=== PATIENT | female | born 1950 | race Caucasian/White ===

== ENCOUNTER 2016-12-02 16:16 | Emergency (ER) | payer MEDICARE, MEDICAID ==
[2016-12-02 16:53] VITALS: BP 127/80
--- NOTE | 2016-12-02 17:29 | UC ---
Headache HPI - HPI Summary HPI Summary: The patient comes in today for: 1. "Left eye burning and nail sensation" and green rhinitis, and maxillary sinus pain and Onset: 4 days ago (sinus symptoms) Palliative/provocative: Nothing makes her symptoms better or worse. Quality: Pressure Region/radiation: Maxillary sinuses. Severity: 8/10 Time: Constant. Associated symptoms: Eye migraines (left eye burning and nail sensation): Since 42 years ago, she has had these symptoms. She was evaluated in [place], but not at the [facility]. But, she said that her dentist diagnosed her "ocular migranes." But, the patient states that her "trigeminal nerve in the front and the optical nerve in the back" were treated by lidocaine injections in her gums on the upper left gums. This has treated her symptoms. But, she has not been able to get in with her dentist today. Fevers: None. Cough: NOne Rhinitis: Positive with green material. Upper tooth pain: None. She wants Levaquin for her sinus infection as well as pain medication ( oxycodone) for her headache. She was told how Levaquin can lead to tendon rupture, but she states that she wants to accept the risk. She was told that I will only give hydrocodone as she has an extensive [facility] record. Even though she is listed as being allergic to Cipro for years, she states that she can tolerate Levaquin which she takes as 500 mg and that is what she wants. * - History Of Current Complaint Chief Complaint: UCHeadache Stated Complaint: HEADACHE Time Seen by Provider: 12/02/16 17:15 Hx Obtained From: Patient Hx Last Menstrual Period: "years ago" ?: No - Allergies/Home Medications Allergies/Adverse Reactions: Allergies Allergy/AdvReac Type Severity Reaction Status Date / Time Latex Allergy Intermediate Rash Verified 07/16/16 14:19 Aspirin [ASA] Allergy CAN'T TAKE Verified 07/16/16 14:19 DUE TO IBS Diphenhydramine Allergy HOT Verified 07/16/16 14:19 [From Benadryl] SENSATION FROM NECK TO FEET & TREMORS NSAIDs Allergy CAN'T TAKE Verified 07/16/16 14:19 DUE TO IBS Prochlorperazine Allergy HOT Verified 07/16/16 14:19 [From Compazine] SENSATION FROM NECK TO FEET & TREMORS Sumatriptan [From Imitrex] Allergy INCREASED Verified 07/16/16 14:19 MIGRAINES Valproic Acid [From Depakote] Allergy 50 SHERRELL Verified 07/16/16 14:19 WEIGHT GAINE, MIGRAINE WORSE & TREMORS Sulfamethoxazole AdvReac Severe GI Upset Verified 07/16/16 14:19 w/Trimethoprim [From Bactrim] Aripiprazole [From Abilify] AdvReac HYPERACTIVE Verified 07/16/16 14:19 CI Pigment Blue 63 AdvReac HYPERACTIVE Verified 07/16/16 14:19 [From Cymbalta] Ciprofloxacin [From Cipro] AdvReac DIARRHEA Verified 07/16/16 14:19 AND STOMACH CRAMPS Duloxetine [From Cymbalta] AdvReac HYPERACTIVE Verified 07/16/16 14:19 Erythromycin AdvReac DIARRHEA Verified 07/16/16 14:19 AND STOMACH CRAMPS Quetiapine [From Seroquel] AdvReac HYPERACTIVE Verified 07/16/16 14:19 Soy AdvReac Intermediate Diarrhea Uncoded 07/16/16 14:19 PMH/Surg Hx/FS Hx/Imm Hx Endocrine History Of: Denies: Diabetes, Thyroid Disease, Hyperthyroidism, Hypothyroidism, Dyslipidemia Cardiovascular History Of: Denies: Cardiac Disorders, Hypertension, Pacemaker/ICD, Myocardial Infarction , Congestive Heart Failure, Atrial Fibrillation, Deep Vein Thrombosis, Bleeding Disorders Respiratory History Of: Reports: Asthma Denies: COPD, Bronchitis, Pneumonia, Pulmonary Embolism GI/ History Of: Reports: Gastroesophageal Reflux Denies: Ulcer, Gastrointestinal Bleed, Gall Bladder Disease, Kidney Stones, Diverticulitis, Renal Disease, Urosepsis Neurological History Of: Reports: Migraine Denies: TIA, CVA, Dementia, Seizures Psychological History Of: Reports: Anxiety, Depression, Post Traumatic Stress Disorder Denies: Bipolar Disorder, Schizophrenia Cancer History Of: Denies: Lung Cancer, Colorectal Cancer, Breast Cancer, Cervical Cancer Other History Of: Negative For: HIV, Hepatitis B, Hepatitis C, Anticoagulant Therapy - Surgical History Surgical History: Yes Surgery Procedure, Year, and Place: total hysterectomy with oophorectomy 1996; SINUSES Xs2; BLADDER- CYSTOCELE AND RECTOCELE (NO METAL)/ 12/08; - Family History Known Family History: Positive: Cardiac Disease, Hypertension, Other - arthritis Negative: Diabetes - Social History Occupation: Unemployed Alcohol Use: None Substance Use Type: None Substance Use Comment - Amount & Last Used: PT DENIES Smoking Status (MU): Never Smoked Tobacco Have You Smoked in the Last Year: No - Immunization History Most Recent Influenza Vaccination: 2012 Most Recent Tetanus Shot: WITHIN PAST 5 YRS Most Recent Pneumonia Vaccination: 2012 Review of Systems Constitutional: Negative Skin: Negative Eyes: Negative ENT: Nasal Discharge Respiratory: Negative Cardiovascular: Negative Gastrointestinal: Negative Genitourinary: Negative Neurological: Headache All Other Systems Reviewed And Are Negative: Yes Physical Exam Triage Information Reviewed: Yes Appearance: Well-Appearing, No Pain Distress, Well-Nourished Vital Signs: Initial Vital Signs Temp 97.7 F 12/02/16 16:49 Pulse 69 12/02/16 16:49 Resp 18 12/02/16 16:49 BP 127/80 12/02/16 16:49 Pulse Ox 98 12/02/16 16:49 Vital Signs Reviewed: Yes Eyes: Positive: Conjunctiva Clear. Negative: Discharge ENT: Positive: Hearing grossly normal, Other: - she has tenderness to palpation of her frontal and maxillary sinuses.. Negative: Pharyngeal erythema, Nasal congestion, Nasal drainage, TM bulging, TM dull, TM red, Tonsillar swelling, Tonsillar exudate Dental: Negative: Gross Decay/Caries @, Dental Fracture @ Neck: Positive: Supple, Nontender, No Lymphadenopathy. Negative: Nuchal Rigidity Respiratory: Positive: Lungs clear, No respiratory distress, No accessory muscle use. Negative: Crackles, Wheezing Cardiovascular: Positive: RRR, No Murmur Abdomen Description: Positive: Nontender, No Organomegaly, Soft. Negative: Distended, Guarding Musculoskeletal: Positive: Strength Intact, ROM Intact, No Edema Neurological: Positive: Alert, Muscle Tone Normal Psychological: Positive: Age Appropriate Behavior, Consolable Skin: Negative: rashes, breakdown Headache Course/Dx - Differential Dx/Diagnosis Provider Diagnoses: Sinusitis. Cephalgia. Discharge - Discharge Plan Condition: Stable Disposition: HOME Patient Education Materials: Sinusitis (ED), General Headache (ED) Referrals: Christopher Kam MD [Primary Care Provider] - 3 Days (Please see your primary care provider in the next few days to see how you are doing. If you get worse, please go to the ER.)
== END 2016-12-02 18:06 | disposition home or self-care (01) ==
LOC: UCEAST 16:16
DX: J32.9 Chronic sinusitis, unspecified (principal); R51 Headache; Z88.1 Allergy status to other antibiotic agents; Z88.8 Allergy status to other drugs, medicaments and biological substances
CPT/HCPCS: 99212; G0463

== ENCOUNTER 2016-12-19 16:32 | Emergency (ER) | payer MEDICARE, MEDICAID ==
[2016-12-19 16:55] VITALS: BP 113/69
[2016-12-19] MEDS ORDERED: HYDROcodone/ACETAMIN 5-325 MG* 1 TAB PO ONE (18:05)
[2016-12-19] MEDS ORDERED: Ondansetron ODT TAB* 4 MG PO ONE (18:05)
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
== END 2016-12-19 19:03 | disposition home or self-care (01) ==
LOC: UCEAST 16:32
DX: G43.819 Other migraine, intractable, without status migrainosus (principal); J32.9 Chronic sinusitis, unspecified; J45.909 Unspecified asthma, uncomplicated; K21.9 Gastro-esophageal reflux disease without esophagitis; F41.8 Other specified anxiety disorders; F43.10 Post-traumatic stress disorder, unspecified; Z88.6 Allergy status to analgesic agent; Z88.1 Allergy status to other antibiotic agents; Z88.2 Allergy status to sulfonamides; Z88.8 Allergy status to other drugs, medicaments and biological substances
CPT/HCPCS: 99212; G0463

== ENCOUNTER 2017-02-24 12:13 | Emergency (ER) | payer MEDICARE, MEDICAID ==
--- NOTE | 2017-02-24 14:56 | UC ---
Headache HPI - HPI Summary HPI Summary: 3 DAYS OF MIGRAINE KEY. PT REPORTS SHE HAS OCULAR MIGRAINES. HAS PAIN AND PRESSURE ALL ACROSS HER FACE AND HEAD AND BEHIND HER LEFT EYE. HAS PHOTOPHOBIA, PHONOPHOBIA, NAUSEA AND DIZZINES. STATES SHE HAS SEEN NEURO IN THE PAST BUT THEY DIDN'T HELP HER. MANAGES HER MIGRAINES BY COMING HERE TO OR BURYING HER FACE IN A PILLOW AT HOME. REPORTS MIGRAINES ABOUT EVERY 2 WEEKS THAT CAN LAST FOR DAYS. IS REQUESTING NARCOTICS. STATES SHE HAD TORADOL A LONG TIME AGO AND IT DIDN'T HELP. - History Of Current Complaint Chief Complaint: MOUNAavelino Stated Complaint: MIGRAINE-LT EYE,PAIN/PRESSURE Time Seen by Provider: 02/24/17 14:46 Hx Obtained From: Patient Hx Last Menstrual Period: "years ago" Onset/Duration: Gradual Onset, Lasting Days, Still Present Currently Pain Is: Moderate Pain Intensity: 10 Pain Scale Used: 0-10 Numeric Timing: Constant Character: Throbbing, Pressure, Migraine Location of Headache: Frontal Aggravating Factor: Bright Lights Allevating Factors: Nothing Associated Signs And Symptoms: Positive: Dizziness, Nausea, Sinus Pressure - Allergies/Home Medications Allergies/Adverse Reactions: Allergies Allergy/AdvReac Type Severity Reaction Status Date / Time Latex Allergy Intermediate Rash Verified 02/24/17 14:27 Aspirin [ASA] Allergy CAN'T TAKE Verified 02/24/17 14:27 DUE TO IBS Diphenhydramine Allergy HOT Verified 02/24/17 14:27 [From Benadryl] SENSATION FROM NECK TO FEET & TREMORS NSAIDs Allergy CAN'T TAKE Verified 02/24/17 14:27 DUE TO IBS Prochlorperazine Allergy HOT Verified 02/24/17 14:27 [From Compazine] SENSATION FROM NECK TO FEET & TREMORS Sumatriptan [From Imitrex] Allergy INCREASED Verified 02/24/17 14:27 MIGRAINES Valproic Acid [From Depakote] Allergy 50 SHERRELL Verified 02/24/17 14:27 WEIGHT GAINE, MIGRAINE WORSE & TREMORS Sulfamethoxazole AdvReac Severe GI Upset Verified 02/24/17 14:27 w/Trimethoprim [From Bactrim] Aripiprazole [From Abilify] AdvReac HYPERACTIVE Verified 02/24/17 14:27 CI Pigment Blue 63 AdvReac HYPERACTIVE Verified 02/24/17 14:27 [From Cymbalta] Ciprofloxacin [From Cipro] AdvReac DIARRHEA Verified 02/24/17 14:27 AND STOMACH CRAMPS Duloxetine [From Cymbalta] AdvReac HYPERACTIVE Verified 02/24/17 14:27 Erythromycin AdvReac DIARRHEA Verified 02/24/17 14:27 AND STOMACH CRAMPS Quetiapine [From Seroquel] AdvReac HYPERACTIVE Verified 02/24/17 14:27 Soy AdvReac Intermediate Diarrhea Uncoded 02/24/17 14:27 Home Medications: Home Medications Loratadine [Claritin 10 MG CAP] 02/24/17 [History] Potassium Chlor TAB (NF) [Kaon-Cl-10 TAB (NF)] 02/24/17 [History] PMH/Surg Hx/FS Hx/Imm Hx Endocrine History Of: Denies: Diabetes, Thyroid Disease, Hyperthyroidism, Hypothyroidism, Dyslipidemia Cardiovascular History Of: Denies: Cardiac Disorders, Hypertension, Pacemaker/ICD, Myocardial Infarction , Congestive Heart Failure, Atrial Fibrillation, Deep Vein Thrombosis, Bleeding Disorders Respiratory History Of: Reports: Asthma Denies: COPD, Bronchitis, Pneumonia, Pulmonary Embolism GI/ History Of: Reports: Gastroesophageal Reflux Denies: Ulcer, Gastrointestinal Bleed, Gall Bladder Disease, Kidney Stones, Diverticulitis, Renal Disease, Urosepsis Neurological History Of: Reports: Migraine Denies: TIA, CVA, Dementia, Seizures Psychological History Of: Reports: Anxiety, Depression, Post Traumatic Stress Disorder Denies: Bipolar Disorder, Schizophrenia Cancer History Of: Denies: Lung Cancer, Colorectal Cancer, Breast Cancer, Cervical Cancer Other History Of: Negative For: HIV, Hepatitis B, Hepatitis C, Anticoagulant Therapy - Surgical History Surgical History: Yes Surgery Procedure, Year, and Place: total hysterectomy with oophorectomy 1996; SINUSES Xs2; BLADDER- CYSTOCELE AND RECTOCELE (NO METAL)/ 12/08; - Family History Known Family History: Positive: Cardiac Disease, Hypertension, Other - arthritis Negative: Diabetes - Social History Alcohol Use: None Substance Use Type: None Substance Use Comment - Amount & Last Used: PT DENIES Smoking Status (MU): Never Smoked Tobacco Have You Smoked in the Last Year: No - Immunization History Most Recent Influenza Vaccination: fall 2015 Most Recent Tetanus Shot: WITHIN PAST 5 YRS Most Recent Pneumonia Vaccination: 2012 Review of Systems Constitutional: Negative ENT: Negative Respiratory: Negative Cardiovascular: Negative Gastrointestinal: Other - NAUSEA Neurological: Headache, Other - DIZZY All Other Systems Reviewed And Are Negative: Yes Physical Exam Triage Information Reviewed: Yes Appearance: Well-Appearing, No Pain Distress, Well-Nourished, Other: - TREMOR Vital Signs: Initial Vital Signs Temp 98.2 F 02/24/17 14:30 Pulse 64 02/24/17 14:30 Resp 16 02/24/17 14:30 BP 150/83 02/24/17 14:30 Pulse Ox 100 02/24/17 14:30 Vital Signs Reviewed: Yes Eyes: Positive: Conjunctiva Clear ENT: Positive: Hearing grossly normal Neck: Positive: Supple Respiratory Exam: Normal Cardiovascular Exam: Normal Abdomen Description: Positive: Soft Musculoskeletal: Positive: No Edema Neurological: Positive: Alert Psychological: Positive: Age Appropriate Behavior Skin: Negative: rashes Re-Evaluation - Re-Evaluation First Eval Re-Evaluation Time: 17:30 - PAIN IS IMPROVED FROM 13/10 TO 4/10 AFTER 1L NS, 30MG TORADOL AND 4MG ZOFRAN Change: Improved Headache Course/Dx - Course Course Of Treatment: PT INITIALLY UPSET THAT I WOULD NOT TX WITH NARCOTICS. ADVISED PT TO SEEK NEURO FOLLOW-UP FOR MORE DEFINITIVE MIGRAINE MGMT. I ADVISED HER THAT I WOULD BE WILLING TO ATTEMPT TO ABORT HER MIGRAINE WITH NON-NARCOTIC MEDICATIONS AND IVF BUT THAT NARCOTIC MGMT WOULD NEED TO COME FROM HER PCP. PT HAS CHRONIC TRAMADOL, SOMA AND CLONAZEPAM ALREADY. PT WAS QUITE UPSET ABOUT NOT RECEIVING NARCOTICS BUT AGREED TO TRY IVF, TORADOL AND ZOFRAN. AFTER TX SHE DID HAVE IMPROVEMENT IN HER SX. - Differential Dx/Diagnosis Provider Diagnoses: MIGRAINE Discharge - Discharge Plan Condition: Stable Disposition: HOME Prescriptions: Ketorolac TAB * [Toradol TAB *] 10 mg PO Q6H PRN #20 tab PRN Reason: Headache Ondansetron ODT TAB* [Zofran Odt TAB*] 4 mg PO Q6H PRN #20 tab.odt PRN Reason: Nausea/Vomiting Patient Education Materials: Migraine Headache (ED) Referrals: Campbell Richter MD [Medical Doctor] - 2 Weeks Christopher Kam MD [Primary Care Provider] - 1 Week Additional Instructions: YOU RECEIVED 1LNS, 4MG ZOFRAN AND 30MG TORADOL TODAY WITH IMPROVEMENT IN YOUR SYMPTOMS. PLEASE CONSIDER FOLLOWING UP WITH NEUROLOGY TO DISCUSS POSSIBLE PROPHYLACTIC TREATMENTS FOR YOUR MIGRAINES.
[2017-02-24] MEDS ORDERED: Ondansetron INJ* 2 MG/ML VIAL IV ONE (15:07)
[2017-02-24] MEDS ORDERED: NS 0.9% 1000 ML* 1,000 ML IV SCH (15:15)
[2017-02-24] MEDS: Ketorolac INJ* 30 MG/ML 1 ML VIAL IV PUSH ONE ×2 (15:39→17:48)
[2017-02-24] MEDS ORDERED: Ketorolac INJ* 30 MG/ML 1 ML VIAL IV PUSH ONE (16:51)
[2017-02-24 17:27] VITALS: BP 145/77
[2017-02-24] MEDS ORDERED: Ondansetron ODT TAB* 4 MG PO ONE (17:40)
== END 2017-02-24 18:00 | disposition home or self-care (01) ==
LOC: UCEAST 12:13
DX: G43.909 Migraine, unspecified, not intractable, without status migrainosus (principal); J45.909 Unspecified asthma, uncomplicated; K21.9 Gastro-esophageal reflux disease without esophagitis; F41.9 Anxiety disorder, unspecified; F32.9 Major depressive disorder, single episode, unspecified; Z90.710 Acquired absence of both cervix and uterus; Z88.6 Allergy status to analgesic agent; Z88.1 Allergy status to other antibiotic agents; Z88.2 Allergy status to sulfonamides; Z88.8 Allergy status to other drugs, medicaments and biological substances; Z91.040 Latex allergy status
CPT/HCPCS: 96360; 96374; 99212; A9270-GY; G0463; J1885; J2405

== ENCOUNTER 2017-03-10 12:01 | Emergency (ER) | payer MEDICARE, MEDICAID ==
[2017-03-10 12:13] VITALS: BP 112/72
--- NOTE | 2017-03-10 14:15 | RAD ---
INDICATION: Dyspnea. 12 days LEFT rib pain. Respiratory disease/asthma. COMPARISON: August 29, 2016 TECHNIQUE: Dual energy PA and routine lateral views of the chest were obtained. REPORT: Rightward rotation noted. Elevated lung volumes and both diffuse mild prominence of the interstitial markings and patchy rarefaction of the mid to upper lung zone interstitial markings. No alveolar consolidation or focal pulmonary lesion evident. Suggestion of trace pleural effusions. Negative for pneumothorax. Negative for cardiomegaly. Unremarkable central pulmonary vasculature. Moderately tortuous descending thoracic aorta. IMPRESSION: IMPRESSION: Stigmata of obstructive lung disease. Probable trace pleural effusions of uncertain etiology. No compelling evidence for pneumonia.
--- NOTE | 2017-04-10 09:46 | UC ---
Cesar Espitia Benjamin, scribed for Nikki Funes DO on 03/10/17 at 1357 . Respiratory Complaint HPI - HPI Summary HPI Summary: 66yo female c/o cough and left rib pain after a fall 12 days ago. Also has cough. . Cough is occasionally productive and rib pain is worse with movement, breathing, or pressure. Pt also reports sinus congestion and KEY. Pt has chronic pain. - History of Current Complaint Chief Complaint: UCRespiratory Stated Complaint: URI Time Seen by Provider: 03/10/17 13:30 Hx Obtained From: Patient Hx Last Menstrual Period: "years ago" ?: No Onset/Duration: Gradual Onset, Lasting Days - 12, Still Present Timing: Constant Severity Initially: Moderate Severity Currently: Moderate Character: Cough: Nonproductive Associated Signs And Symptoms: Positive: Pleuritic Chest Pain, URI, Nasal Congestion. Negative: Dyspnea, Fever, Chills, Wheezing, Dizziness, Calf Pain, Calf Swelling, Sinus Discomfort - Risk Factors Tuberculosis Risk Factors: Incarceration - Allergies/Home Medications Allergies/Adverse Reactions: Allergies Allergy/AdvReac Type Severity Reaction Status Date / Time Latex Allergy Intermediate Rash Verified 03/28/17 10:42 Aspirin [ASA] Allergy CAN'T TAKE Verified 03/28/17 10:42 DUE TO IBS Clindamycin Allergy Diarrhea Verified 03/28/17 10:42 Diphenhydramine Allergy HOT Verified 03/28/17 10:42 [From Benadryl] SENSATION FROM NECK TO FEET & TREMORS NSAIDs Allergy CAN'T TAKE Verified 03/28/17 10:42 DUE TO IBS Prochlorperazine Allergy HOT Verified 03/28/17 10:42 [From Compazine] SENSATION FROM NECK TO FEET & TREMORS Sumatriptan [From Imitrex] Allergy INCREASED Verified 03/28/17 10:42 MIGRAINES Valproic Acid [From Depakote] Allergy 50 SHERRELL Verified 03/28/17 10:42 WEIGHT GAINE, MIGRAINE WORSE & TREMORS Sulfamethoxazole AdvReac Severe GI Upset Verified 03/28/17 10:42 w/Trimethoprim [From Bactrim] Aripiprazole [From Abilify] AdvReac HYPERACTIVE Verified 03/28/17 10:42 CI Pigment Blue 63 AdvReac HYPERACTIVE Verified 03/28/17 10:42 [From Cymbalta] Ciprofloxacin [From Cipro] AdvReac DIARRHEA Verified 03/28/17 10:42 AND STOMACH CRAMPS Duloxetine [From Cymbalta] AdvReac HYPERACTIVE Verified 03/28/17 10:42 Erythromycin AdvReac DIARRHEA Verified 03/28/17 10:42 AND STOMACH CRAMPS Quetiapine [From Seroquel] AdvReac HYPERACTIVE Verified 03/28/17 10:42 Soy AdvReac Intermediate Diarrhea Uncoded 03/28/17 10:42 PMH/Surg Hx/FS Hx/Imm Hx Previously Healthy: No - chronic pain Other History Of: Negative For: HIV, Hepatitis B, Hepatitis C, Anticoagulant Therapy - Surgical History Surgical History: Yes Surgery Procedure, Year, and Place: total hysterectomy with oophorectomy 1996; SINUSES Xs2; BLADDER- CYSTOCELE AND RECTOCELE (NO METAL)/ 12/08; - Family History Known Family History: Positive: Cardiac Disease, Hypertension, Other - arthritis Negative: Diabetes - Social History Occupation: Retired Lives: With Family Alcohol Use: None Substance Use Type: None Substance Use Comment - Amount & Last Used: PT DENIES Smoking Status (MU): Never Smoked Tobacco Have You Smoked in the Last Year: No - Immunization History Most Recent Influenza Vaccination: fall 2015 Most Recent Tetanus Shot: WITHIN PAST 5 YRS Most Recent Pneumonia Vaccination: 2012 Review of Systems Constitutional: Negative Skin: Negative Eyes: Negative ENT: Nasal Discharge, Other - sinus congestion Respiratory: Cough Cardiovascular: Negative Gastrointestinal: Negative Genitourinary: Negative Motor: Negative Neurovascular: Negative Musculoskeletal: Myalgia - left rib pain Neurological: Headache Psychological: Negative All Other Systems Reviewed And Are Negative: Yes Physical Exam Triage Information Reviewed: Yes Appearance: Well-Appearing, No Pain Distress, Well-Nourished Vital Signs: Initial Vital Signs Temp 97.8 F 03/10/17 12:10 Pulse 75 03/10/17 12:10 Resp 18 03/10/17 12:10 BP 112/72 03/10/17 12:10 Pulse Ox 98 03/10/17 12:10 Vital Signs Reviewed: Yes Eyes: Positive: Conjunctiva Clear. Negative: Discharge ENT: Positive: Pharynx normal, TMs normal, Other: - sinus tenderness. Negative : Muffled/hoarse voice Neck exam: Normal Neck: Positive: Supple Respiratory: Positive: Lungs clear, Normal breath sounds, No respiratory distress, No accessory muscle use Cardiovascular: Positive: RRR, No Murmur Abdomen Description: Positive: No Organomegaly, Soft, Other: - tender to light palpation on left rib. Musculoskeletal: Positive: Strength Intact, ROM Intact, Other: - tender left ribs 8-10 Neurological: Positive: Alert, Other: - tremors at rest - chronic per pt Psychological: Positive: Age Appropriate Behavior Skin Exam: Normal Skin: Negative: rashes UC Diagnostic Evaluation - Laboratory O2 Sat by Pulse Oximetry: 98 - Radiology Xray Interpretation: Positive (See Comments) - CXR IMPRESSION: Stigmata of obstructive lung disease. Probable trace pleural effusions of uncertain etiology. No compelling evidence for pneumonia. Radiology Interpretation Completed By: Radiologist Respiratory Course/Dx - Differential Dx/Diagnosis Differential Diagnosis/HQI/PQRI: Bronchitis, Lower Resp Infection, Pneumothorax Provider Diagnoses: rib contusion Discharge - Discharge Plan Condition: Stable Disposition: HOME Prescriptions: HYDROcodone/ACETAMIN 5-325 MG* [Woolwine 5-325 TAB*] 1 tab PO Q6H PRN #14 tab MDD 4 TABS PRN Reason: Pain Patient Education Materials: Rib Contusion (ED) Referrals: Christopher Kam MD [Primary Care Provider] - 2 Days Additional Instructions: ORAL NARCOTIC MEDICATION: You have been given a prescription for pain control. This medication is a narcotic. It's best taken with food, as nausea can result if taken on an empty stomach. Don't operate machinery or drive within six hours of taking this medication. Do not combine this medicine with alcohol, or with any medication which can cause sedation (such as cold tablets or sleeping pills) unless you get permission from the physician. Narcotics tend to cause constipation. If possible, drink plenty of fluids and eat a diet high in fiber and fruits. YOU WOULD LIKELY BENEFIT FROM OSTEOPATHIC TREATMENT. WE RECOMMEND THAT YOU FIND AN OSTEOPATHIC PHYSICIAN IN YOUR AREA WHO FOCUSES EXCLUSIVELY ON OSTEOPATHIC MANIPULATIVE MEDICINE WITH EXPERTISE IN MYOFACIAL, LYMPHATIC, VISCERAL AND INTEROSSEOUS WORK The documentation as recorded by the Cesar cabrales Benjamin accurately reflects the service I personally performed and the decisions made by me, Nikki Funes DO.
== END 2017-03-10 14:40 | disposition home or self-care (01) ==
LOC: UCEAST 12:01
DX: S20.212A Contusion of left front wall of thorax, initial encounter (principal); W19.XXXA Unspecified fall, initial encounter; Y93.9 Activity, unspecified; Y92.9 Unspecified place or not applicable; R05 Cough; R09.81 Nasal congestion; J44.9 Chronic obstructive pulmonary disease, unspecified; Z88.6 Allergy status to analgesic agent; Z88.1 Allergy status to other antibiotic agents; Z88.2 Allergy status to sulfonamides; Z88.8 Allergy status to other drugs, medicaments and biological substances; Z91.040 Latex allergy status
CPT/HCPCS: 71020; 99212; G0463

== ENCOUNTER 2017-03-28 10:10 | Emergency (ER) | payer MEDICARE, MEDICAID ==
[2017-03-28 10:37] VITALS: BP 109/63
--- NOTE | 2017-03-28 17:10 | ED ---
Abdominal Pain/Female - HPI Summary HPI Summary: 67 YEAR OLD FEMALE PRESENTS WITH COMPLAINS SEVERE ABDOMINAL PAIN AND EXPLOSIVE DIARRHEA X 1 WEEK - History of Current Complaint Chief Complaint: UCAbdominalPain Stated Complaint: DIARRHEA STOMACH PAIN BONES ACHE Time Seen by Provider: 03/28/17 10:48 Hx Last Menstrual Period: "years ago" Onset/Duration: Gradual Onset Timing: Intermittent Episode Lasting Severity Initially: Moderate Severity Currently: Moderate Pain Intensity: 10 Pain Scale Used: 0-10 Numeric - 7 Location: Diffuse Radiates: No Character: Sharp, Cramping Aggravating Factor(s): Movement Alleviating Factor(s): Nothing Associated Signs and Symptoms: Positive: Fever, Vomiting, Diarrhea Allergies/Adverse Reactions: Allergies Allergy/AdvReac Type Severity Reaction Status Date / Time Latex Allergy Intermediate Rash Verified 03/28/17 10:42 Aspirin [ASA] Allergy CAN'T TAKE Verified 03/28/17 10:42 DUE TO IBS Clindamycin Allergy Diarrhea Verified 03/28/17 10:42 Diphenhydramine Allergy HOT Verified 03/28/17 10:42 [From Benadryl] SENSATION FROM NECK TO FEET & TREMORS NSAIDs Allergy CAN'T TAKE Verified 03/28/17 10:42 DUE TO IBS Prochlorperazine Allergy HOT Verified 03/28/17 10:42 [From Compazine] SENSATION FROM NECK TO FEET & TREMORS Sumatriptan [From Imitrex] Allergy INCREASED Verified 03/28/17 10:42 MIGRAINES Valproic Acid [From Depakote] Allergy 50 SHERRELL Verified 03/28/17 10:42 WEIGHT GAINE, MIGRAINE WORSE & TREMORS Sulfamethoxazole AdvReac Severe GI Upset Verified 03/28/17 10:42 w/Trimethoprim [From Bactrim] Aripiprazole [From Abilify] AdvReac HYPERACTIVE Verified 03/28/17 10:42 CI Pigment Blue 63 AdvReac HYPERACTIVE Verified 03/28/17 10:42 [From Cymbalta] Ciprofloxacin [From Cipro] AdvReac DIARRHEA Verified 03/28/17 10:42 AND STOMACH CRAMPS Duloxetine [From Cymbalta] AdvReac HYPERACTIVE Verified 03/28/17 10:42 Erythromycin AdvReac DIARRHEA Verified 03/28/17 10:42 AND STOMACH CRAMPS Quetiapine [From Seroquel] AdvReac HYPERACTIVE Verified 03/28/17 10:42 Soy AdvReac Intermediate Diarrhea Uncoded 03/28/17 10:42 PMH/Surg Hx/FS Hx/Imm Hx Endocrine/Hematology History: Denies: Hx Anticoagulant Therapy, Hx Diabetes, Hx Thyroid Disease, Other Endocrine/Hematological Disorders Cardiovascular History: Denies: Hx Congestive Heart Failure, Hx Deep Vein Thrombosis, Hx Hypertension , Hx Myocardial Infarction, Hx Pacemaker/ICD, Other Cardiovascular Problems/ Disorders Respiratory History: Reports: Hx Asthma, Other Respiratory Problems/Disorders - PNUEMONIA Denies: Hx Chronic Obstructive Pulmonary Disease (COPD), Hx Lung Cancer, Hx Pneumonia, Hx Pulmonary Embolism GI History: Reports: Hx Irritable Bowel, Other GI Disorders - IBS Denies: Hx Gall Bladder Disease, Hx Gastrointestinal Bleed, Hx Ulcer, Hx Urosepsis History: Denies: Hx Kidney Stones, Hx Renal Disease, Other Problems/Disorders Musculoskeletal History: Reports: Hx Arthritis - Pt. states "everywhere", Hx Rheumatoid Arthritis, Hx Back Problems, Hx Osteoporosis Denies: Hx Scoliosis, Other Musculoskeletal History Sensory History: Reports: Hx Contacts or Glasses Denies: Hx Hearing Aid, Other Sensory Impairments Opthamlomology History: Reports: Hx Contacts or Glasses Denies: Other Sensory Impairments Neurological History: Reports: Hx Headaches, Hx Migraine Denies: Hx Dementia, Hx Seizures, Hx Transient Ischemic Attacks (TIA), Other Neuro Impairments/Disorders Psychiatric History: Reports: Hx Anxiety, Hx Depression, Hx Post Traumatic Stress Disorder, Hx Inpatient Treatment - hx, Hx Community Mental Health Tx, Hx Suicide Attempt, Hx Substance Abuse Denies: Hx Eating Disorder, Hx Panic Disorder, Hx Schizophrenia, Hx Bipolar Disorder, Other Psychiatric Issues/Disorders - Cancer History Cancer Type, Location and Year: Family history Hx Chemotherapy: No Hx Radiation Therapy: No - Surgical History Surgery Procedure, Year, and Place: total hysterectomy with oophorectomy 1996; SINUSES Xs2; BLADDER- CYSTOCELE AND RECTOCELE (NO METAL)/ 12/08; Hx Anesthesia Reactions: No Infectious Disease History: No Infectious Disease History: Denies: Hx Clostridium Difficile, Hx Hepatitis, Hx Human Immunodeficiency Virus (HIV), Hx of Known/Suspected MRSA, Hx Shingles, Hx Tuberculosis, Hx Known/ Suspected VRE, Hx Known/Suspected VRSA, History Other Infectious Disease, Traveled Outside the [place] in Last 30 Days - Family History Known Family History: Positive: Cardiac Disease, Hypertension, Other - arthritis Negative: Diabetes - Social History Alcohol Use: None Substance Use Type: Reports: None Substance Use Comment - Amount & Last Used: PT DENIES Hx Tobacco Use: No Smoking Status (MU): Never Smoked Tobacco Have You Smoked in the Last Year: No Review of Systems Positive: Fever Eyes: Negative ENT: Negative Cardiovascular: Negative Respiratory: Negative Positive: Abdominal Pain, Vomiting, Diarrhea Musculoskeletal: Negative Skin: Negative Neurological: Negative All Other Systems Reviewed And Are Negative: Yes Physical Exam Triage Information Reviewed: Yes Vital Signs On Initial Exam: Initial Vitals Temp Pulse Resp BP Pulse Ox 37.2 C 72 20 109/63 98 03/28/17 10:33 03/28/17 10:33 03/28/17 10:33 03/28/17 10:33 03/28/17 10:33 Vital Signs Reviewed: Yes Appearance: Positive: Ill-Appearing Head/Face: Positive: Normal Head/Face Inspection Eyes: Positive: Normal ENT: Positive: Normal ENT inspection Respiratory/Lung Sounds: Positive: Clear to Auscultation Cardiovascular: Positive: Normal Abdomen Description: Positive: Soft, Distended, Guarding Bowel Sounds: Positive: Present Diagnostics - Vital Signs Vital Signs Temp Pulse Resp BP Pulse Ox 03/28/17 10:33 37.2 C 72 20 109/63 98 - Laboratory Lab Statement: Any lab studies that have been ordered have been reviewed, and results considered in the medical decision making process. Abdominal Pain Fem Course/Dx - Diagnoses Differential Diagnosis: Positive: Diverticulitis Provider Diagnoses: Abdominal pain Discharge - Discharge Plan Condition: Guarded Disposition: TRANS HIGHER LVL OF CARE FAC Referrals: Christopher Kam MD [Primary Care Provider] -
== END 2017-03-28 11:23 | disposition short-term general hospital (02) ==
LOC: UCEAST 10:10
DX: R10.9 Unspecified abdominal pain (principal); J45.909 Unspecified asthma, uncomplicated; K58.9 Irritable bowel syndrome, unspecified; M06.9 Rheumatoid arthritis, unspecified; G43.909 Migraine, unspecified, not intractable, without status migrainosus; Z88.6 Allergy status to analgesic agent; Z91.040 Latex allergy status; F41.9 Anxiety disorder, unspecified; F32.9 Major depressive disorder, single episode, unspecified; F43.10 Post-traumatic stress disorder, unspecified
CPT/HCPCS: 99213; G0463

== ENCOUNTER 2017-03-28 11:49 | Emergency (ER) | payer MEDICARE, MEDICAID ==
[2017-03-28] MEDS ORDERED: Pantoprazole IV* 40 MG IV ONE (12:45)
[2017-03-28] MEDS: NS 0.9% 1000 ML* 2,000 ML IV ONE (12:59)
[2017-03-28 13:22] LABS: Hematocrit 40 % (35-47); Hemoglobin 13.7 g/dl (12.0-16.0); Mean Corpuscular HGB Conc 34 g/dl (31-36); Mean Corpuscular Hemoglobin 31 pg (27-31); Mean Corpuscular Volume 90 fL (80-97); Mean Platelet Volume 9 um3 (7.4-10.4); Red Cell Distribution Width 13 % (10.5-15); White Blood Count 7.9 10^3/ul (3.5-10.8)
[2017-03-28 13:37] LABS: ALT 19 U/L (7-52); AST 21 U/L (13-39); Albumin 4.4 g/dL (3.2-5.2); Alkaline Phosphatase 60 U/L (34-104); Amylase 38 U/L (29-103); Anion Gap 4 mmol/L (2-11); BUN/Creatinine Ratio 12.5 (8-20); Blood Urea Nitrogen 11 mg/dL (6-24); C Reactive Protein < 1.00 mg/L (< 5.00); CO2 Carbon Dioxide 24 mmol/L (22-32); Calcium 9.3 mg/dL (8.6-10.3); Chloride 107 mmol/L (101-111); EGFR African American 82.4 (>60); EGFR Non-African American 64.1 (>60); Globulin 2.5 g/dL (2-4); Glucose 101 mg/dL (70-100); Lipase 17 U/L (11.0-82.0); Potassium 3.7 mmol/L (3.5-5.0); Sodium 135 mmol/L (133-145); Total Protein 6.9 g/dL (6.4-8.9)
--- NOTE | 2017-03-28 14:30 | RAD ---
HISTORY: Abdominal pain, cough, pneumonia COMPARISONS: March 10, 2017 VIEWS: 2: Frontal and lateral views of the chest. FINDINGS: CARDIOMEDIASTINAL SILHOUETTE: The cardiomediastinal silhouette is normal. GIAN: The gian are normal. PLEURA: The costophrenic angles are sharp. No pleural abnormalities are noted. LUNG PARENCHYMA: There is hyperinflation with flattening of the diaphragm and expansion of the AP diameter of the chest. ABDOMEN: The upper abdomen is clear. There is no subphrenic gas. BONES AND SOFT TISSUES: No bone or soft tissue abnormalities are noted. OTHER: None. IMPRESSION: HYPERINFLATION, CONSISTENT WITH COPD. NO ACTIVE CARDIOPULMONARY DISEASE.
--- NOTE | 2017-03-28 14:31 | RAD ---
HISTORY: Abdominal pain, small bowel obstruction, ileus COMPARISONS: None relevant VIEWS: Supine and right lateral decubitus views of the abdomen FINDINGS: BOWEL: There is a nonspecific bowel gas pattern, with nondilated small bowel gas noted. There is a moderate amount of stool within the colon. CALCULI: There are no abnormal calculi. BONES AND SOFT TISSUES: Degenerative changes are noted OTHER FINDINGS: The lung bases are clear. There is no subphrenic gas. IMPRESSION: NONSPECIFIC BOWEL GAS PATTERN. NO APPRECIABLE FREE INTRAPERITONEAL GAS.
[2017-03-28 15:03] VITALS: BP 131/72
[2017-03-28] MEDS ORDERED: Sucralfate TAB* 1 GM PO ONE (15:53)
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
== END 2017-03-28 16:28 | disposition home or self-care (01) ==
LOC: ED 11:49
DX: R10.13 Epigastric pain (principal); K27.9 Peptic ulcer, site unspecified, unspecified as acute or chronic, without hemorrhage or perforation; R05 Cough; R19.7 Diarrhea, unspecified; R07.89 Other chest pain
CPT/HCPCS: 36415; 71020; 74020; 80053; 82150; 83605; 83690; 85025; 86140; 96374; 99283; A9270-GY

== ENCOUNTER 2017-03-30 19:07 | Emergency (ER) | payer MEDICARE, MEDICAID ==
[2017-03-30 20:56] LABS: Hematocrit 37 % (35-47); Hemoglobin 12.5 g/dl (12.0-16.0); Mean Corpuscular HGB Conc 34 g/dl (31-36); Mean Corpuscular Hemoglobin 30 pg (27-31); Mean Corpuscular Volume 90 fL (80-97); Mean Platelet Volume 9 um3 (7.4-10.4); Red Blood Count 4.16 10^6/ul (4.0-5.4); Red Cell Distribution Width 14 % (10.5-15); White Blood Count 6.5 10^3/ul (3.5-10.8)
[2017-03-30 21:12] LABS: ALT 12 U/L (7-52); AST 18 U/L (13-39); Albumin 3.9 g/dL (3.2-5.2); Alkaline Phosphatase 52 U/L (34-104); Anion Gap 8 mmol/L (2-11); BUN/Creatinine Ratio 7.8 (8-20); Blood Urea Nitrogen 7 mg/dL (6-24); C Reactive Protein < 1.00 mg/L (< 5.00); CO2 Carbon Dioxide 23 mmol/L (22-32); Calcium 8.7 mg/dL (8.6-10.3); Chloride 107 mmol/L (101-111); EGFR African American 80.3 (>60); EGFR Non-African American 62.5 (>60); Globulin 2.5 g/dL (2-4); Glucose 101 mg/dL (70-100); Lipase 32 U/L (11.0-82.0); Magnesium 2.2 mg/dL (1.9-2.7); Potassium 3.1 mmol/L (3.5-5.0); Sodium 138 mmol/L (133-145); Total Protein 6.4 g/dL (6.4-8.9)
--- NOTE | 2017-03-30 21:12 | ED ---
Nithya Espitia SooYoung, scribed for Grant Estrada MD on 03/30/17 at 2040 . Abdominal Pain/Female - HPI Summary HPI Summary: A 67 y/o F MARIAMA presents to ED with c/o acute on chronic LUQ abd pain for past two months. Associated sx: diarrhea. Pain rated as 9 out of 10. She was seen by [facility] and referred to ED two days ago. Pt returned to ED because the discharge papers told her to do so if the pain continued. PCP is Dr. Kam. She states she is scheduled to him later this week. Last saw him approx two months ago. - History of Current Complaint Chief Complaint: EDAbdPain Stated Complaint: DIARRHEA Time Seen by Provider: 03/30/17 20:32 Hx Obtained From: Patient, EMS Hx Last Menstrual Period: "years ago" Onset/Duration: Still Present Timing: Constant Severity Currently: Severe Pain Intensity: 9 Pain Scale Used: 0-10 Numeric Location: Discrete At: LUQ Associated Signs and Symptoms: Positive: Diarrhea Allergies/Adverse Reactions: Allergies Allergy/AdvReac Type Severity Reaction Status Date / Time Latex Allergy Intermediate Rash Verified 03/28/17 10:42 Aspirin [ASA] Allergy CAN'T TAKE Verified 03/28/17 10:42 DUE TO IBS Clindamycin Allergy Diarrhea Verified 03/28/17 10:42 Diphenhydramine Allergy HOT Verified 03/28/17 10:42 [From Benadryl] SENSATION FROM NECK TO FEET & TREMORS NSAIDs Allergy CAN'T TAKE Verified 03/28/17 10:42 DUE TO IBS Prochlorperazine Allergy HOT Verified 03/28/17 10:42 [From Compazine] SENSATION FROM NECK TO FEET & TREMORS Sumatriptan [From Imitrex] Allergy INCREASED Verified 03/28/17 10:42 MIGRAINES Valproic Acid [From Depakote] Allergy 50 SHERRELL Verified 03/28/17 10:42 WEIGHT GAINE, MIGRAINE WORSE & TREMORS Sulfamethoxazole AdvReac Severe GI Upset Verified 03/28/17 10:42 w/Trimethoprim [From Bactrim] Aripiprazole [From Abilify] AdvReac HYPERACTIVE Verified 03/28/17 10:42 CI Pigment Blue 63 AdvReac HYPERACTIVE Verified 03/28/17 10:42 [From Cymbalta] Ciprofloxacin [From Cipro] AdvReac DIARRHEA Verified 03/28/17 10:42 AND STOMACH CRAMPS Duloxetine [From Cymbalta] AdvReac HYPERACTIVE Verified 03/28/17 10:42 Erythromycin AdvReac DIARRHEA Verified 03/28/17 10:42 AND STOMACH CRAMPS Quetiapine [From Seroquel] AdvReac HYPERACTIVE Verified 03/28/17 10:42 Soy AdvReac Intermediate Diarrhea Uncoded 03/28/17 10:42 PMH/Surg Hx/FS Hx/Imm Hx Previously Healthy: No Endocrine/Hematology History: Denies: Hx Anticoagulant Therapy, Hx Diabetes, Hx Thyroid Disease, Other Endocrine/Hematological Disorders Cardiovascular History: Denies: Hx Congestive Heart Failure, Hx Deep Vein Thrombosis, Hx Hypertension , Hx Myocardial Infarction, Hx Pacemaker/ICD, Other Cardiovascular Problems/ Disorders Respiratory History: Reports: Hx Asthma, Other Respiratory Problems/Disorders - PNUEMONIA Denies: Hx Chronic Obstructive Pulmonary Disease (COPD), Hx Lung Cancer, Hx Pneumonia, Hx Pulmonary Embolism GI History: Reports: Hx Irritable Bowel, Other GI Disorders - IBS Denies: Hx Gall Bladder Disease, Hx Gastrointestinal Bleed, Hx Ulcer, Hx Urosepsis History: Denies: Hx Kidney Stones, Hx Renal Disease, Other Problems/Disorders Musculoskeletal History: Reports: Hx Arthritis - Pt. states "everywhere", Hx Rheumatoid Arthritis, Hx Back Problems, Hx Osteoporosis Denies: Hx Scoliosis, Other Musculoskeletal History Sensory History: Reports: Hx Contacts or Glasses Denies: Hx Hearing Aid, Other Sensory Impairments Opthamlomology History: Reports: Hx Contacts or Glasses Denies: Other Sensory Impairments Neurological History: Reports: Hx Headaches, Hx Migraine Denies: Hx Dementia, Hx Seizures, Hx Transient Ischemic Attacks (TIA), Other Neuro Impairments/Disorders Psychiatric History: Reports: Hx Anxiety, Hx Depression, Hx Post Traumatic Stress Disorder, Hx Inpatient Treatment - hx, Hx Community Mental Health Tx, Hx Suicide Attempt, Hx Substance Abuse Denies: Hx Eating Disorder, Hx Panic Disorder, Hx Schizophrenia, Hx Bipolar Disorder, Other Psychiatric Issues/Disorders - Cancer History Cancer Type, Location and Year: Family history Hx Chemotherapy: No Hx Radiation Therapy: No - Surgical History Surgery Procedure, Year, and Place: total hysterectomy with oophorectomy 1996; SINUSES Xs2; BLADDER- CYSTOCELE AND RECTOCELE (NO METAL)/ 12/08; Hx Anesthesia Reactions: No Infectious Disease History: No Infectious Disease History: Denies: Hx Clostridium Difficile, Hx Hepatitis, Hx Human Immunodeficiency Virus (HIV), Hx of Known/Suspected MRSA, Hx Shingles, Hx Tuberculosis, Hx Known/ Suspected VRE, Hx Known/Suspected VRSA, History Other Infectious Disease, Traveled Outside the [place] in Last 30 Days - Family History Known Family History: Positive: Cardiac Disease, Hypertension, Other - arthritis Negative: Diabetes - Social History Occupation: Retired Lives: Alone Alcohol Use: None Hx Substance Use: Yes Substance Use Comment - Amount & Last Used: PT DENIES Hx Tobacco Use: No Smoking Status (MU): Never Smoked Tobacco Have You Smoked in the Last Year: No Review of Systems Negative: Fever Positive: Abdominal Pain, Diarrhea All Other Systems Reviewed And Are Negative: Yes Physical Exam Triage Information Reviewed: Yes Vital Signs On Initial Exam: Initial Vitals Temp Pulse Resp BP Pulse Ox 98.7 F 58 18 140/63 98 03/30/17 19:13 03/30/17 19:13 03/30/17 19:13 03/30/17 19:13 03/30/17 19:13 Vital Signs Reviewed: Yes Appearance: Positive: No Pain Distress, Thin Skin: Positive: Warm Head/Face: Positive: Normal Head/Face Inspection Eyes: Positive: PAVEL ENT: Positive: Hearing grossly normal Neck: Positive: Supple Respiratory/Lung Sounds: Positive: Clear to Auscultation, Breath Sounds Present Cardiovascular: Positive: RRR Abdomen Description: Positive: No Organomegaly, Soft, Guarding, Other: - mild diffuse tenderness. Negative: Distended Bowel Sounds: Positive: Present Musculoskeletal: Positive: Strength/ROM Intact Neurological: Positive: Alert, Oriented to Person Place, Time Psychiatric: Positive: Affect/Mood Appropriate Diagnostics - Vital Signs Vital Signs Temp Pulse Resp BP Pulse Ox 03/30/17 19:16 98.7 F 58 18 140/63 98 03/30/17 19:13 98.7 F 58 18 140/63 98 - Laboratory Lab Results: Lab Results 03/30/17 Range/Units 20:48 WBC 6.5 (3.5-10.8) 10^3/ul RBC 4.16 (4.0-5.4) 10^6/ul Hgb 12.5 (12.0-16.0) g/dl Hct 37 (35-47) % MCV 90 (80-97) fL MCH 30 (27-31) pg MCHC 34 (31-36) g/dl RDW 14 (10.5-15) % Plt Count 175 (150-450) 10^3/ul MPV 9 (7.4-10.4) um3 Neut % (Auto) 45.2 (38-83) % Lymph % (Auto) 43.2 (25-47) % [place] % (Auto) 8.5 (1-9) % Eos % (Auto) 2.4 (0-6) % Baso % (Auto) 0.7 (0-2) % Absolute Neuts (auto) 2.9 (1.5-7.7) 10^3/ul Absolute Lymphs (auto) 2.8 (1.0-4.8) 10^3/ul Absolute Monos (auto) 0.5 (0-0.8) 10^3/ul Absolute Eos (auto) 0.2 (0-0.6) 10^3/ul Absolute Basos (auto) 0 (0-0.2) 10^3/ul Absolute Nucleated RBC 0 10^3/ul Nucleated RBC % 0 Result Diagrams: 03/30/17 20:48 03/30/17 20:48 Lab Statement: Any lab studies that have been ordered have been reviewed, and results considered in the medical decision making process. - CT ABD/PEL CT Interpretation: No Acute Changes - IMPRESSION: Small bilateral pleural effusions. No inflammatory process identified in the abd or pelvis. No abd mass , adenopathy, or collection seen. No explanation seen for this pt's abd pain. CT Interpretation Completed By: Radiologist Re-Evaluation - Re-Evaluation 1 Re-Evaluation Time: 00:00 Change: Unchanged Comment: Discussing CT results with pt. Abdominal Pain Fem Course/Dx - Course Course Of Treatment: Pt is a 67 y/o F presenting with c/o acute on chronic LUQ abd pain for past two months. Pain rated as 9 out of 10. She was seen by [facility] and referred to ED two days ago. Pt returned to ED because the discharge papers told her to do so if the pain continued. PCP is Dr. Kam. She states she is scheduled to him later this week. Last saw him approx two months ago. Pt given potassium chloride in ED. Labs are WNL except low potassium; glucose is mildly elevated; BUN/C ratio is 7.8. CRP is WNL. ABD/PEL CT shows "Small bilateral pleural effusions. No inflammatory process identified in the abd or pelvis. No abd mass, adenopathy, or collection seen. No explanation seen for this pt's abd pain.". Will D/C home without meds. - Diagnoses Provider Diagnoses: Abdominal pain Discharge - Discharge Plan Condition: Stable Disposition: HOME Patient Education Materials: Abdominal Pain (ED) Referrals: Christopher Kam MD [Primary Care Provider] - 1 Week Evan Gaston MD [Medical Doctor] - 1 Week Additional Instructions: Follow up with your primary care provider this week. Follow up with Dr. Gaston, Gastroenterology, this week to discuss your chronic abdominal pain. The documentation as recorded by the Nithya cabrales SooYoung accurately reflects the service I personally performed and the decisions made by me, Grant Estrada MD.
[2017-03-30] MEDS ORDERED: Iohexol 300* (CONTRAST) 10 ML SDV IV ONE (21:26)
[2017-03-30] MEDS ORDERED: Potassium Chlor TAB* 20 MEQ TAB.ER PO ONE (21:42)
[2017-03-31 00:14] VITALS: BP 146/66
--- NOTE | 2017-03-31 08:04 | RAD ---
INDICATION: Abdominal pain. COMPARISON: Comparison is made with a prior study from February 17, 2016. TECHNIQUE: A CT scan of the abdomen and pelvis was performed with intravenous and oral contrast following intravenous injection of 97 ml of Omnipaque 300 nonionic contrast. Contiguous axial sections were obtained from the lung bases through the symphysis pubis. Images were reconstructed in the coronal and sagittal planes. FINDINGS: The lung bases are clear. There are small bilateral pleural effusions present. The liver and spleen are within normal limits in size without significant focal abnormality. No calcified gallstones are seen. The pancreas appears to be within normal limits in size. The kidneys and adrenal glands are normal in size. No hydronephrosis is seen. No significant focal renal abnormality is seen. The aorta is normal in caliber and demonstrates homogeneous contrast opacification. No significant enlarged retroperitoneal lymph nodes are seen. The stomach, small and large bowel appear nondistended. The appendix is not visualized. No inflammatory changes are seen in the right lower quadrant. There is mild descending and sigmoid diverticulosis without evidence for diverticulitis. The patient is status post hysterectomy. No free intraperitoneal air or fluid is seen. There is a nodule in the retroareolar region of the left breast measuring 1.5 cm in size. This correlates with a cyst on prior mammograms and a left breast ultrasound from August 07, 2016 and August 21, 2016. No significant focal osseous abnormality is seen. There is soft tissue swelling present in the subcutaneous tissues bilaterally in the gluteal regions which is unchanged from the prior study possibly representing injection granulomata. IMPRESSION: 1. SMALL BILATERAL PLEURAL EFFUSIONS. 2. NO EVIDENCE FOR ACUTE FINDING OR CAUSE FOR THE PATIENT'S ABDOMINAL PAIN. 3. STATUS POST HYSTERECTOMY.
== END 2017-03-31 00:12 | disposition home or self-care (01) ==
LOC: ED 19:07
DX: R10.12 Left upper quadrant pain (principal); R19.7 Diarrhea, unspecified; J45.909 Unspecified asthma, uncomplicated; K58.9 Irritable bowel syndrome, unspecified; M06.9 Rheumatoid arthritis, unspecified; G43.909 Migraine, unspecified, not intractable, without status migrainosus; F41.9 Anxiety disorder, unspecified; F32.9 Major depressive disorder, single episode, unspecified; Z90.710 Acquired absence of both cervix and uterus; Z88.6 Allergy status to analgesic agent; Z88.1 Allergy status to other antibiotic agents; Z88.2 Allergy status to sulfonamides; Z91.040 Latex allergy status
CPT/HCPCS: 36415; 74177; 80053; 83605; 83690; 83735; 85025; 86140; 99283; A9270-GY; Q9967

== ENCOUNTER 2017-05-10 18:51 | Inpatient (IN) | payer MEDICARE, MEDICAID ==
[2017-05-10] MEDS ORDERED: NS 0.9% 1000 ML* 1,000 ML IV ONE (19:20)
[2017-05-10 20:23] LABS: Urine Bilirubin Negative (Negative); Urine Glucose Negative (Negative); Urine Nitrite Negative (Negative)
[2017-05-10 20:40] LABS: Hematocrit 38 % (35-47); Hemoglobin 12.2 g/dl (12.0-16.0); Mean Corpuscular HGB Conc 32 g/dl (31-36); Mean Corpuscular Hemoglobin 29 pg (27-31); Mean Corpuscular Volume 90 fL (80-97); Mean Platelet Volume 9 um3 (7.4-10.4); Red Blood Count 4.17 10^6/ul (4.0-5.4); Red Cell Distribution Width 14 % (10.5-15); White Blood Count 7.8 10^3/ul (3.5-10.8)
--- NOTE | 2017-05-10 20:41 | ED ---
I, Oh,Soohhamun, scribed for Grant Estrada MD on 05/10/17 at 1925 . Complex/Multi-Sys Presentation - HPI Summary HPI Summary: This 67 y/o female presents to ED via BLS ambulance for generalized weakness since this morning. Positive "rubbery legs", difficulty ambulating, "mouth full of cotton", and KEY. Pt states that she attempted to control her weakness by taking biotin and eating toast without much alleviation. "Valley will get stuck in my throat". Negative fever. PMHx includes known migraine, hypothyroidism, HTN , IBS, osteoporosis, and depression. - History Of Current Complaint Chief Complaint: EDWeakness Hx Obtained From: Patient, Medical Records Onset/Duration: Still Present Timing: Constant Associated Signs And Symptoms: Positive: Weakness - general, Headache, Decreased Oral Intake. Negative: Fever - Allergies/Home Medications Allergies/Adverse Reactions: Allergies Allergy/AdvReac Type Severity Reaction Status Date / Time Latex Allergy Intermediate Rash Verified 05/10/17 19:20 Aspirin [ASA] Allergy CAN'T TAKE Verified 05/10/17 19:20 DUE TO IBS Clindamycin Allergy Diarrhea Verified 05/10/17 19:20 Diphenhydramine Allergy HOT Verified 05/10/17 19:20 [From Benadryl] SENSATION FROM NECK TO FEET & TREMORS NSAIDs Allergy CAN'T TAKE Verified 05/10/17 19:20 DUE TO IBS Prochlorperazine Allergy HOT Verified 05/10/17 19:20 [From Compazine] SENSATION FROM NECK TO FEET & TREMORS Sumatriptan [From Imitrex] Allergy INCREASED Verified 05/10/17 19:20 MIGRAINES Valproic Acid [From Depakote] Allergy 50 SHERRELL Verified 05/10/17 19:20 WEIGHT GAINE, MIGRAINE WORSE & TREMORS Sulfamethoxazole AdvReac Severe GI Upset Verified 05/10/17 19:20 w/Trimethoprim [From Bactrim] Aripiprazole [From Abilify] AdvReac HYPERACTIVE Verified 05/10/17 19:20 CI Pigment Blue 63 AdvReac HYPERACTIVE Verified 05/10/17 19:20 [From Cymbalta] Ciprofloxacin [From Cipro] AdvReac DIARRHEA Verified 05/10/17 19:20 AND STOMACH CRAMPS Duloxetine [From Cymbalta] AdvReac HYPERACTIVE Verified 05/10/17 19:20 Erythromycin AdvReac DIARRHEA Verified 05/10/17 19:20 AND STOMACH CRAMPS Quetiapine [From Seroquel] AdvReac HYPERACTIVE Verified 05/10/17 19:20 Soy AdvReac Intermediate Diarrhea Uncoded 05/10/17 19:20 PMH/Surg Hx/FS Hx/Imm Hx Endocrine/Hematology History: Denies: Hx Anticoagulant Therapy, Hx Diabetes, Hx Thyroid Disease, Other Endocrine/Hematological Disorders Cardiovascular History: Denies: Hx Congestive Heart Failure, Hx Deep Vein Thrombosis, Hx Hypertension , Hx Myocardial Infarction, Hx Pacemaker/ICD, Other Cardiovascular Problems/ Disorders Respiratory History: Reports: Hx Asthma, Other Respiratory Problems/Disorders - PNUEMONIA Denies: Hx Chronic Obstructive Pulmonary Disease (COPD), Hx Lung Cancer, Hx Pneumonia, Hx Pulmonary Embolism GI History: Reports: Hx Irritable Bowel, Other GI Disorders - IBS Denies: Hx Gall Bladder Disease, Hx Gastrointestinal Bleed, Hx Ulcer, Hx Urosepsis History: Denies: Hx Kidney Stones, Hx Renal Disease, Other Problems/Disorders Musculoskeletal History: Reports: Hx Arthritis - Pt. states "everywhere", Hx Rheumatoid Arthritis, Hx Back Problems, Hx Osteoporosis Denies: Hx Scoliosis, Other Musculoskeletal History Sensory History: Reports: Hx Contacts or Glasses Denies: Hx Hearing Aid, Other Sensory Impairments Opthamlomology History: Reports: Hx Contacts or Glasses Denies: Other Sensory Impairments Neurological History: Reports: Hx Headaches, Hx Migraine Denies: Hx Dementia, Hx Seizures, Hx Transient Ischemic Attacks (TIA), Other Neuro Impairments/Disorders Psychiatric History: Reports: Hx Anxiety, Hx Depression, Hx Post Traumatic Stress Disorder, Hx Inpatient Treatment - hx, Hx Community Mental Health Tx, Hx Suicide Attempt, Hx Substance Abuse Denies: Hx Eating Disorder, Hx Panic Disorder, Hx Schizophrenia, Hx Bipolar Disorder, Other Psychiatric Issues/Disorders - Cancer History Cancer Type, Location and Year: Family history Hx Chemotherapy: No Hx Radiation Therapy: No - Surgical History Surgery Procedure, Year, and Place: total hysterectomy with oophorectomy 1996; SINUSES Xs2; BLADDER- CYSTOCELE AND RECTOCELE (NO METAL)/ 12/08; Hx Anesthesia Reactions: No Infectious Disease History: Denies: Hx Clostridium Difficile, Hx Hepatitis, Hx Human Immunodeficiency Virus (HIV), Hx of Known/Suspected MRSA, Hx Shingles, Hx Tuberculosis, Hx Known/ Suspected VRE, Hx Known/Suspected VRSA, History Other Infectious Disease, Traveled Outside the [place] in Last 30 Days - Family History Known Family History: Positive: Cardiac Disease, Hypertension, Other - arthritis Negative: Diabetes - Social History Alcohol Use: None Hx Substance Use: Yes Substance Use Type: Reports: None Substance Use Comment - Amount & Last Used: PT DENIES Hx Tobacco Use: No Smoking Status (MU): Never Smoked Tobacco Have You Smoked in the Last Year: No Review of Systems Negative: Fever Positive: Other - "mouth full of cotton" Positive: Other - Decreased oral intake Neurological: Other - Positive difficulty ambulating Positive: Headache, Weakness - generalized. "Rubbery legs" All Other Systems Reviewed And Are Negative: Yes Physical Exam Triage Information Reviewed: Yes Vital Signs Reviewed: Yes Appearance: Positive: No Pain Distress, Thin, Cachectic Skin: Positive: Warm Head/Face: Positive: Normal Head/Face Inspection Eyes: Positive: PAVEL ENT: Positive: Hearing grossly normal Neck: Positive: Supple Respiratory/Lung Sounds: Positive: Clear to Auscultation, Breath Sounds Present Cardiovascular: Positive: Bradycardia Abdomen Description: Positive: Nontender, Soft Bowel Sounds: Positive: Present Musculoskeletal: Positive: Strength/ROM Intact Neurological: Positive: Alert, Oriented to Person Place, Time Psychiatric: Positive: Affect/Mood Appropriate Diagnostics - Laboratory Result Diagrams: 05/10/17 19:20 05/10/17 19:20 Lab Statement: Any lab studies that have been ordered have been reviewed, and results considered in the medical decision making process. - EKG 1920 Cardiac Rate: Bradycardia - 38 bpm EKG Rhythm: Sinus Bradycardia Re-Evaluation - Re-Evaluation First Eval Comment: results d/w pt, case d/w hospitalist Complex Multi-Symp Course/Dx Assessment/Plan: This 67 y/o female presents to ED for general weakness since this morning. Pt is noted with sinus bradycardia with HR in 30's. Past EMR indicates that pt has been bradycardic in 40s. Bloodwork is unremarkable with mildly elevated blood glucose of 103. UA is normal. Lab work and EKG with bradycardia are shared and discussed with Dr. Deluna, hospitalist air conditioning mechanic. - Diagnoses Provider Diagnoses: Sinus bradycardia - Physician Notifications Discussed Care Of Patient With: iNi Deluna Time Discussed With Above Provider: 21:11 Instructed by Provider To: Admit As Inpatient Discharge - Discharge Plan Condition: Fair Disposition: ADMITTED TO [facility] documentation as recorded by the Agustin cabrales Soohyun accurately reflects the service I personally performed and the decisions made by me, Grant Estrada MD.
[2017-05-10 20:53] LABS: Albumin 4.1 g/dL (3.2-5.2); BUN/Creatinine Ratio 9.8 (8-20); EGFR African American 89.4 (>60); EGFR Non-African American 69.5 (>60); Globulin 2.4 g/dL (2-4); Magnesium 2.1 mg/dL (1.9-2.7); Potassium 3.9 mmol/L (3.5-5.0); Total Bilirubin 0.5 mg/dL (0.2-1.0); Total Protein 6.5 g/dL (6.4-8.9)
[2017-05-10 20:55] LABS: Troponin I 0.01 ng/mL (<0.04)
[2017-05-10] MEDS ORDERED: Pantoprazole IV* 40 MG IV SCH (22:00)
[2017-05-10] MEDS: Acetaminophen TAB* 325 MG PO PRN (23:59)
[2017-05-10] MEDS: NS 0.9% 1000 ML* 1,000 ML IV SCH (23:59)
[2017-05-11] MEDS: Heparin VIAL(*) 5000 UNITS/ML VIAL (FIVE THOUSAND) SUBCUT SCH ×4 (00:27→21:24)
--- NOTE | 2017-05-11 02:21 | HP ---
CC: Dr. Kam * [facility] MEDICINE HISTORY AND PHYSICAL: DATE OF ADMISSION: 05/10/17 PRIMARY CARE PHYSICIAN: Dr. Kam. ATTENDING PHYSICIAN: Dr. Nii Deluna * (dictation provided by Katina Wood NP). CHIEF COMPLAINT: Epigastric pain, nausea, poor oral intake. HISTORY OF PRESENT ILLNESS: Ms. Giraldo is a 67-year-old female with past medical history of COPD, hypothyroidism, migraines, PTSD, borderline personality disorder, anxiety and depression,who presents to the hospital today with concern for epigastric pain and poor oral intake. Ms. Giraldo states that she has had ongoing issue with epigastric discomfort for few months. She is a very difficult historian and it is difficult to obtain from her the exact details of her recent illness, but it seems that she has had epigastric pain for which she has been told that she has a peptic ulcer. She denies having any recent endoscopic procedures. She has been started on Carafate and omeprazole for this complaint. She said initially it was better this week; however, she ate something that did not agree with her and thereafter, she has had return of this pain as well as very poor oral intake. She reports very dry mucous membranes and difficulty swallowing secondary to what she feels is dehydration. She denies any vomiting but she has had one episode of explosive diarrhea that was 2 days ago. Ms. Giraldo denies fevers. She denies chills. She denies chest pain or shortness of breath. She does report being under increased stress related to someone who lives in her building moving out to a snf and feels that perhaps this is contributing to her symptoms. In the emergency room, Ms. Giraldo was noted to have bradycardia with her heart rate running into the 30s. On review of the record, it seems that in the past, the patient was once admitted with bradycardia as well. However, she also reports feeling very dehydrated, having epigastric pain, and difficulty tolerating oral intake. Her labs show no leukocytosis. Her electrolytes are normal. Her BUN and creatinine are normal. Her vital signs are normal. PAST MEDICAL HISTORY: 1. History of COPD. 2. Hypothyroidism. 3. Migraines. 4. IBS. 5. PTSD. 6. Suicide attempt. 7. Anxiety. 8. Depression. 9. Chronic pain. 10. Borderline personality disorder. 11. History of PE. MEDICATIONS: I attempted to review the medications with Ms. Giraldo today. She states that she has already reviewed them with someone in the emergency room , although I cannot find any evidence of this and she is refusing to go over the list with me, perhaps pharmacy can be called in the morning. ALLERGIES: To LATEX, ASPIRIN, CLINDAMYCIN, DIPHENHYDRAMINE, NSAIDs, PROCHLORPERAZINE, SUMATRIPTAN, VALPROIC ACID, SULFAMETHOXAZOLE/TRIMETHOPRIM, ARIPIPRAZOLE, C.I. PIGMENT BLUE , CIPRO, DULOXETINE, ERYTHROMYCIN, QUETIAPINE, and SOY. FAMILY HISTORY: Reviewed, noncontributory. SOCIAL HISTORY: No prior alcohol, tobacco, or drug use. The patient lives alone. She has no one to name as healthcare proxy. REVIEW OF SYSTEMS: A 14-point review of systems was completed with Ms. Giraldo and all those not mentioned above were negative. PHYSICAL EXAMINATION GENERAL: Ms. Giraldo is lying in the bed. She is in no acute distress. VITAL SIGNS: Temperature 98, pulse rate 45, respiratory rate 20, O2 saturation 98% on room air, blood pressure 123/65. LUNGS: Clear are clear to auscultation bilaterally with no accessory muscle use and good aeration. HEART: S1, S2. No murmur, rub, or gallop and regular. ABDOMEN: Soft. She reports tenderness to very deep palpation in the left to mid epigastric region. The abdomen is soft. There is no rebound. There is no guarding. Bowel sounds are positive. EXTREMITIES: No cyanosis or edema. NEURO: She is alert, she is oriented x3. She moves all extremities equally. There is no facial asymmetry or focal weakness. Extraocular movements are intact. SKIN: Intact. DIAGNOSTIC STUDIES/LAB DATA: WBC 7.8, hemoglobin 12.2, hematocrit 38, platelet count 221. Sodium 134, potassium 3.9, chloride 104, serum bicarbonate 24, BUN 8, creatinine 0.82, glucose 103, lactic acid 1.3. Urine shows no evidence of infection. Troponin is 0.01. EKG shows sinus bradycardia with no evidence of ischemia. ASSESSMENT AND PLAN: Ms. Giraldo is a 67-year-old female with past medical history of an episode of sinus bradycardia, chronic obstructive pulmonary disease, hypothyroidism, migraines with irritable bowel syndrome, posttraumatic stress disorder, suicidal attempts, anxiety, depression, and borderline personality disorder, who presents to the hospital today with concern for weakness, nausea, epigastric pain, poor oral intake, and found to be bradycardic. Our plans are for observation in the hospital for the followin. Bradycardia: I see one episode where the patient was bradycardic in the past. At that point, they felt that it was perhaps related to benzodiazepine overdose. The patient has no report of overdose, intentional or otherwise. She is not currently prescribed benzodiazepines through [facility]. I have low suspicion that is the cause today. I think that perhaps she has benign sinus bradycardia at times. Plan to monitor her on telemetry given that she is reporting symptoms of weakness, etc. 2. Nausea, epigastric pain, poor oral intake: The patient has been told that perhaps she has a peptic ulcer and I am suspicious that she has some sort of upper gastrointestinal process causing her symptoms. I think that it is appropriate to continue with her Carafate and switch to IV famotidine tonight. If her symptoms are not improved by the morning and she is not able to tolerate oral intake after IV hydration, then recommend consideration Gastroenterology consultation. 3. Dehydration: The patient reports subjective sense of dehydration and on exam, she does appear dry. However, her labs are unremarkable. I do plan to continue with IV hydration to the evening and recheck labs tomorrow. 4. Chronic pain: The patient refused to review her medication list with me this evening. Plan to obtain a list from her pharmacy in the AM when they are open. Until then, she will have tylenol prn. 5. DVT prophylaxis: With heparin subcu. 6. Disposition: To telemetry floor. 7. Code status: Full code. TIME SPENT: Approximately 60 minutes was spent on the admission of this patient , more than half time spent with the patient at the bedside reviewing the events leading up to this hospitalization, performing the physical examination, and reviewing my plan of care. KATINA WOOD NP [id number]/[facility] #: [id number] BREANN
[2017-05-11 05:18] LABS: Hematocrit 34 % (35-47); Hemoglobin 11.2 g/dl (12.0-16.0); Mean Corpuscular HGB Conc 33 g/dl (31-36); Mean Corpuscular Hemoglobin 30 pg (27-31); Mean Corpuscular Volume 90 fL (80-97); Mean Platelet Volume 9 um3 (7.4-10.4); Red Blood Count 3.77 10^6/ul (4.0-5.4); Red Cell Distribution Width 14 % (10.5-15); White Blood Count 5.7 10^3/ul (3.5-10.8)
[2017-05-11 06:44] LABS: BUN/Creatinine Ratio 9.9 (8-20); Calcium 8.4 mg/dL (8.6-10.3); EGFR African American 105.6 (>60); EGFR Non-African American 82.1 (>60); Potassium 3.4 mmol/L (3.5-5.0)
[2017-05-11] MEDS: Sucralfate TAB* 1 GM PO SCH ×3 (07:21→20:02)
[2017-05-11] MEDS: Acetaminophen TAB* 325 MG PO PRN (07:21)
[2017-05-11] MEDS: Famotidine IV* 10 MG/ML 2 ML (20 mg) IV SCH ×2 (07:22→20:02)
[2017-05-11] MEDS: NS 0.9% 1000 ML* 1,000 ML IV SCH ×2 (07:26→15:27)
[2017-05-11] MEDS ORDERED: Carisoprodol TAB* 350 MG PO PRN (09:48)
[2017-05-11] MEDS: HYDROcodone/ACETAMIN 5-325 MG* 1 TAB PO PRN ×3 (10:07→20:01)
[2017-05-11] MEDS: Ondansetron INJ* 2 MG/ML VIAL IV PRN (11:29)
[2017-05-11] MEDS ORDERED: Potassium Chloride LIQUID* 20 MEQ PACKET PO ONE (15:39)
--- NOTE | 2017-05-11 15:58 | PN ---
Subjective Date of Service: 05/11/17 Interval History: Pt is feeling better now than she has. She states her nausea was resolved with eating saltines. She still feels very weak however. She states she was diagnosed with a peptic ulcer by CT scan and has never had EGD. Objective Active Medications: Acetaminophen (Tylenol Tab*) 650 mg PO Q6H PRN PRN Reason: PAIN Last Admin: 05/11/17 07:21 Dose: 650 mg Hydrocodone Bitart/Acetaminophen ([place] 5-325 Tab*) 1 tab PO Q4H PRN PRN Reason: PAIN Last Admin: 05/11/17 14:07 Dose: 1 tab Carisoprodol (Soma Tab*) 350 mg PO Q8H PRN PRN Reason: pain/spasms Famotidine (Pepcid Iv*) 20 mg IV BID [facility] Last Admin: 05/11/17 07:22 Dose: 20 mg Heparin Sodium (Porcine) (Heparin Vial(*)) 5,000 units SUBCUT Q8HR [facility] Last Admin: 05/11/17 13:00 Dose: 5,000 units Sodium Chloride (Ns 0.9% 1000 Ml*) 1,000 mls @ 125 mls/hr IV PER RATE [facility] Last Admin: 05/11/17 15:27 Dose: 125 mls/hr Ondansetron HCl (Zofran Inj*) 4 mg IV Q6H PRN PRN Reason: NAUSEA Last Admin: 05/11/17 11:29 Dose: 4 mg Sucralfate (Carafate*) 1 gm PO 0700,1100,1600 [facility] Vital Signs 05/10/17 05/11/17 05/11/17 22:08 03:09 06:54 Temperature 98.0 F 97.9 F Pulse Rate 40 39 Respiratory 20 16 16 Rate Blood Pressure 136/65 125/65 (mmHg) O2 Sat by Pulse 99 96 Oximetry 05/11/17 05/11/17 05/11/17 07:20 10:07 12:06 Temperature 97.4 F 99.1 F Pulse Rate 40 42 Respiratory 22 18 24 Rate Blood Pressure 129/63 124/57 (mmHg) O2 Sat by Pulse 98 95 Oximetry 05/11/17 05/11/17 12:07 14:07 Temperature Pulse Rate Respiratory 18 16 Rate Blood Pressure (mmHg) O2 Sat by Pulse Oximetry Oxygen Devices in Use Now: None Appearance: Middle aged female lying in bed, NAD Eyes: No Scleral Icterus Ears/Nose/Mouth/Throat: Mucous Membranes Moist Respiratory: Symmetrical Chest Expansion and Respiratory Effort, Clear to Auscultation Cardiovascular: NL Sounds; No Murmurs; No JVD, RRR, No Edema Abdominal: NL Sounds; No Tenderness; No Distention Extremities: No Clubbing, Cyanosis Skin: No Rash or Ulcers, No Nodules or Sclerosis Neurological: Alert and Oriented x 3 Result Diagrams: 05/11/17 04:38 05/11/17 04:38 Assess/Plan/Problems-Billing Ms Giraldo is a 67 yo F who has a h/o COPD, hypothyroidism, IBS, anxiety/ depression, chronic pain and borderline personality who presented to the ER with c/o epigastric discomfort. - Patient Problems (1) Epigastric pain Current Visit: Yes Status: Acute Code(s): R10.13 - EPIGASTRIC PAIN SNOMED Code(s): 18110584 Comment: The etiology is not clear. She has been told perhaps she has a peptic ulcer causing her pain but she has never had an EGD. I will contact GI for consultation for possible EGD tomorrow. Will continue clears for now as the patient does not want anything more. (2) COPD (chronic obstructive pulmonary disease) Current Visit: Yes Status: Acute Code(s): J44.9 - CHRONIC OBSTRUCTIVE PULMONARY DISEASE, UNSPECIFIED SNOMED Code(s): 24907593 Comment: No signs of exacerbation. Monitor respiratory status. (3) Sinus bradycardia Current Visit: Yes Status: Acute Code(s): R00.1 - BRADYCARDIA, UNSPECIFIED SNOMED Code(s): 52368383 Comment: Pt continues to have heart rates in the 40-50's. She is asymptomatic. No further evaluation at this time. (4) Chronic pain Current Visit: Yes Status: Acute Code(s): G89.29 - OTHER CHRONIC PAIN SNOMED Code(s): 70436181 Comment: Continue prn soma and norco. (5) Anxiety and depression Current Visit: Yes Status: Acute Code(s): F41.8 - OTHER SPECIFIED ANXIETY DISORDERS SNOMED Code(s): 379272794 Comment: Continue prn clonazepam. (6) DVT prophylaxis Current Visit: Yes Status: Acute Code(s): NBV0292 - SNOMED Code(s): 700786088 Comment: SQ heparin (7) Full code status Current Visit: Yes Status: Acute Code(s): Z78.9 - OTHER SPECIFIED HEALTH STATUS SNOMED Code(s): 159709576
[2017-05-11] MEDS ORDERED: Sucralfate TAB* 1 GM PO SCH ×2 (16:00)
[2017-05-11] MEDS: clonazePAM TAB(*) 1 MG PO PRN (20:01)
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
[2017-05-12] MEDS: HYDROcodone/ACETAMIN 5-325 MG* 1 TAB PO PRN ×4 (00:17→12:40)
[2017-05-12] MEDS: Ondansetron INJ* 2 MG/ML VIAL IV PRN (00:17)
[2017-05-12] MEDS: clonazePAM TAB(*) 1 MG PO PRN (04:14)
[2017-05-12] MEDS ORDERED: LORazepam INJ* 2 MG/ML 1 ML VIAL IV PUSH PRN (04:43)
[2017-05-12 05:14] LABS: Hematocrit 38 % (35-47); Hemoglobin 12.9 g/dl (12.0-16.0); Mean Corpuscular HGB Conc 34 g/dl (31-36); Mean Corpuscular Hemoglobin 30 pg (27-31); Mean Corpuscular Volume 90 fL (80-97); Mean Platelet Volume 10 um3 (7.4-10.4); Red Blood Count 4.28 10^6/ul (4.0-5.4); Red Cell Distribution Width 14 % (10.5-15); White Blood Count 6.5 10^3/ul (3.5-10.8)
[2017-05-12 05:49] LABS: BUN/Creatinine Ratio 12.3 (8-20); Calcium 8.9 mg/dL (8.6-10.3); EGFR African American 90.7 (>60); EGFR Non-African American 70.5 (>60); Potassium 3.5 mmol/L (3.5-5.0)
[2017-05-12] MEDS: Heparin VIAL(*) 5000 UNITS/ML VIAL (FIVE THOUSAND) SUBCUT SCH ×2 (05:51→13:24)
[2017-05-12] MEDS: Famotidine IV* 10 MG/ML 2 ML (20 mg) IV SCH (07:56)
[2017-05-12] MEDS: Sucralfate TAB* 1 GM PO SCH ×3 (08:02→16:10)
[2017-05-12 13:31] LABS: C Reactive Protein 1.46 mg/L (< 5.00)
[2017-05-12] MEDS ORDERED: fentaNYL* 50 MCG/ML 2 ML VIAL (100 MCG VIAL) ONE (13:35)
[2017-05-12] MEDS ORDERED: Midazolam* 1 MG/ML 10 ML VIAL (10 MG) ONE (13:35)
[2017-05-12 15:32] VITALS: BP 123/75
--- NOTE | 2017-05-12 16:01 | PN ---
Subjective Date of Service: 05/12/17 Interval History: Pt examined today at the bedside. States that she feels nausated after the EGD. Denies chest pain and denies sob. Denies vomiting. Denies lightheadedness. ROS-denies fever, denies chills, denies lightheadedness, denies chest pain, denies sob, admits to nausea, denies vomiting, denies lightheadedness, denies loc, review of 11 systems completed all others negative, Objective Active Medications: Acetaminophen (Tylenol Tab*) 650 mg PO Q6H PRN PRN Reason: PAIN Last Admin: 05/11/17 07:21 Dose: 650 mg Hydrocodone Bitart/Acetaminophen ([place] 5-325 Tab*) 1 tab PO Q4H PRN PRN Reason: PAIN Last Admin: 05/12/17 12:40 Dose: 1 tab Carisoprodol (Soma Tab*) 350 mg PO Q8H PRN PRN Reason: pain/spasms Clonazepam (Klonopin Tab(*)) 1 mg PO QID PRN PRN Reason: ANXIETY Last Admin: 05/12/17 04:14 Dose: 1 mg Famotidine (Pepcid Iv*) 20 mg IV BID [facility] Last Admin: 05/12/17 07:56 Dose: 20 mg Heparin Sodium (Porcine) (Heparin Vial(*)) 5,000 units SUBCUT Q8HR [facility] Last Admin: 05/12/17 13:24 Dose: Not Given Lorazepam (Ativan Inj*) 0.5 mg IV PUSH Q4H PRN PRN Reason: ANXIETY Ondansetron HCl (Zofran Inj*) 4 mg IV Q6H PRN PRN Reason: NAUSEA Last Admin: 05/12/17 00:17 Dose: 4 mg Sucralfate (Carafate*) 1 gm PO 0700,1100,1600,2100 [facility] Last Admin: 05/12/17 10:14 Dose: Not Given Vital Signs 05/11/17 05/11/17 05/11/17 16:07 19:23 20:01 Temperature Pulse Rate 54 Respiratory 16 20 22 Rate Blood Pressure 149/76 (mmHg) O2 Sat by Pulse 98 Oximetry 05/11/17 05/11/17 05/12/17 22:01 23:22 00:17 Temperature 98.6 F Pulse Rate 54 Respiratory 18 16 20 Rate Blood Pressure 111/61 (mmHg) O2 Sat by Pulse 98 Oximetry 05/12/17 05/12/17 05/12/17 02:17 03:41 04:14 Temperature 97.9 F Pulse Rate 51 Respiratory 18 24 20 Rate Blood Pressure 145/70 (mmHg) O2 Sat by Pulse 100 Oximetry 05/12/17 05/12/17 05/12/17 04:19 06:14 06:16 Temperature Pulse Rate Respiratory 18 18 18 Rate Blood Pressure (mmHg) O2 Sat by Pulse Oximetry 05/12/17 05/12/17 05/12/17 06:19 07:21 08:36 Temperature 98.3 F Pulse Rate 50 Respiratory 18 16 18 Rate Blood Pressure 126/66 (mmHg) O2 Sat by Pulse 100 Oximetry 05/12/17 05/12/17 05/12/17 10:12 11:48 12:40 Temperature Pulse Rate 100 Respiratory 18 16 18 Rate Blood Pressure 138/61 (mmHg) O2 Sat by Pulse 98 Oximetry 05/12/17 15:22 Temperature 98.6 F Pulse Rate 50 Respiratory 24 Rate Blood Pressure 123/75 (mmHg) O2 Sat by Pulse 97 Oximetry Oxygen Devices in Use Now: None Appearance: 67 y/o female patient NAD, Eyes: No Scleral Icterus Ears/Nose/Mouth/Throat: NL Teeth, Lips, Gums Neck: NL Appearance and Movements; NL JVP Respiratory: Symmetrical Chest Expansion and Respiratory Effort, Clear to Auscultation Cardiovascular: NL Sounds; No Murmurs; No JVD Abdominal: NL Sounds; No Tenderness; No Distention Extremities: No Edema Skin: No Rash or Ulcers Neurological: Alert and Oriented x 3 Lines/Tubes/Other Access: Clean, Dry and Intact Peripheral IV Result Diagrams: 05/12/17 04:14 05/12/17 04:14 Assess/Plan/Problems-Billing Ms Giraldo is a 67 yo F who has a h/o COPD, hypothyroidism, IBS, anxiety/ depression, chronic pain and borderline personality who presented to the ER with c/o epigastric discomfort. - Patient Problems (1) Anxiety and depression Current Visit: Yes Status: Acute Priority: High Comment: Continue prn clonazepam. (2) COPD (chronic obstructive pulmonary disease) Current Visit: Yes Status: Acute Priority: High Comment: No signs of exacerbation. Monitor respiratory status. stable (3) Chronic pain Current Visit: Yes Status: Acute Priority: High Comment: Continue prn soma and norco. pain controlled (4) DVT prophylaxis Current Visit: Yes Status: Acute Priority: High Comment: SQ heparin (5) Epigastric pain Current Visit: Yes Status: Acute Priority: High Comment: The etiology is not clear. EGD negative today small hernia noted, continue ppi and carafate, follow up with GI outpatient, bx pending from egd (6) Full code status Current Visit: Yes Status: Acute Priority: High (7) Sinus bradycardia Current Visit: Yes Status: Acute Priority: High Comment: Pt continues to have heart rates in the 50-60's She is asymptomatic. No further evaluation at this time. 40's at rest, follow with pcp Status and Disposition: If tolerated PO intake consider d/c sarah
--- NOTE | 2017-05-13 04:59 | DS ---
ADDENDUM NOW INCLUDED ON THIS REPORT CC: Dr. Kam; Dr. Gaston * DISCHARGE SUMMARY: DATE OF ADMISSION: 05/10/17 DATE OF DISCHARGE: 05/12/17 PRIMARY CARE PROVIDER: Dr. Kam. CONSULTING BULB GRADER: Dr. Gaston. ATTENDING PHYSICIAN: Dr. Belkis Ortiz * (report being dictated by Maicol Asif NP) PRINCIPAL DIAGNOSIS: Include epigastric pain, now resolved. SECONDARY DIAGNOSES: Include: 1. Chronic obstructive pulmonary disease. 2. Hypothyroidism. 3. Migraines. 4. Irritable bowel syndrome. 5. Posttraumatic stress disorder. 6. Suicide attempts. 7. Anxiety. 8. Depression. 9. Chronic pain. 10. Borderline personality disorder. 11. History of pulmonary embolism. DISCHARGE MEDICATIONS: Include: 1. Cipro 0.3%, 1 drop, right eye, t.i.d. 2. Klonopin 1 mg p.o. 4 times a day. 3. Ketorolac 0.5%, right eye, t.i.d. 4. Gabapentin 400 mg at bedtime. 5. Prednisolone 1 drop, right eye, t.i.d. 6. Tramadol 100 mg p.o. t.i.d. as needed. 7. Imodium 2 mg p.o. daily as needed per instructions. 8. Trazodone 150 mg at bedtime. 9. Carafate 1 g p.o. 4 times a day. 10. Prilosec 40 mg a day. 11. Prozac 30 mg p.o. daily. 12. Soma 350 mg p.o. daily. 13. Zofran 4 mg p.o. every 6 hours as needed for nausea. HISTORY OF PRESENTING ILLNESS AND HOSPITAL COURSE: I will refer you to the H and P dictated by Katina Wood on the 05/10/17 for further details. In short, Ms. Giraldo is a 67-year-old female patient who presented to the ER with complaints of epigastric pain, nausea, and poor oral intake. She stated that she has been having ongoing epigastric discomfort for a few months. She said she she had been started on Carafate and omeprazole. She was feeling better over the week; however, she ate something that did not agree with her and therefore she had return of the pain and very poor oral intake. She was admitted due to the epigastric pain, concern for dehydration. It was also noted that she had 1 episode of bradycardia in the ER. She was placed on telemetry and seen that she was bradycardic only at night. Throughout her hospital stay during the day, she lona appropriately into the upper 50s and mid 60s. She did continue though will have nausea intermittently. She does state yesterday and today that she felt better after taking saltine crackers. GI was consulted yesterday in her hospital stay. The patient underwent an EGD today, which per verbal report, there were no ulcers or gastritis, but there was hernia. Refer Dr. Gaston's report. The patient was continued on a regular diet. She tolerated the diet tonight. She states she felt a little nauseous, but she states that she feels improved from her baseline, which she came in. She is not having any chest pain or shortness of breath. For her dehydration, she was treated with IV fluids. Her labs appeared to be stable. For chronic pain, her pain was well controlled with her current medical regimen. Because of the EGD being negative, in fact if she tolerated p.o. challenge tonight and she only felt nauseous but did not vomit, she will be discharged home with p.o. Zofran. CONDITION AT DISCHARGE: Stable. STATUS DURING HOSPITALIZATION: Observation. DISCHARGE LABS: Today included WBC 6.5, RBC of 4.28, hemoglobin 12.9, hematocrit 38, platelet count 194. Sodium 141, potassium 3.5, chloride 110, bicarb 22, BUN 10, creatinine 0.81, glucose 92, CRP 146. Urine obtained during this admission was negative. She had an EKG done with admission which showed sinus bradycardia, rate of 38. No ST elevations or T-wave inversions were noted. She remained on telemetry. Again, her heart rate did not dip below into the 30s. She, at bedtime, dipped into the 40s and 50s and that when she was ambulatory during the day, she was up into the 60s. She did have an EGD done today, I will refer you to the procedure report for details. She did have an abdominal and pelvis CT done beginning of March which showed, impression: small bilateral pleural effusions, no CT evidence for acute findings or cause of patient's abdominal pain, status post hysterectomy. All medical records were reviewed. ISSUES TO BE ADDRESSED ON FOLLOWUP: With her primary care provider included: 1. Epigastric pain. At this point, there are celiac biopsies pending which will be followed up with her primary care provider, Dr. Kam. Followup has been obtained. I suspect etiology of the epigastric pain is unclear at this point, but I will continue with PPI and Carafate until the cultures come back from the biopsies taken today from the EGD. She can follow up with her primary. 2. COPD. Continue meds as prescribed. 3. Hypothyroidism. Continue meds as prescribed. 4. IBS. Continue current medical regimen. 5. Nausea. I did order p.r.n. Zofran. 6. History of PTSD, anxiety and depression. Continue meds as prescribed. 7. Chronic pain. Continue her tramadol. 8. Borderline personality disorder. Again, follow up with her primary care provider. 9. Issues to return to the hospital include, but are not limited to, chest pain , shortness of breath, fevers, chills, nausea, vomiting or any other worsening symptoms. 10. This is a complex medical case, review medical chart for further details. TIME SPENT: Time spent on the discharge was approximately 30 minutes; greater than half the time spent [id number] with the patient going over the discharge plan, the other half time was spent in implementing the discharge plan. I did discuss the discharge plan with my attending, Dr. Ortiz, who is in agreement. MAICOL ASIF NP ADDENDUM: Physical exam on discharge revealed vital signs blood pressure 123/75, pulse 50 , respirations 20, O2 sat 97%, temperature 98.6. On exam, Ms. Giraldo is a 67 -year-old female patient. She is chronically ill appearing. She does not appear to be in any acute distress. HEENT: Head: Atraumatic. Eyes: Sclerae anicteric. Neck: Supple. Throat: Oral mucosa appear dry. No pharyngeal erythema. Heart: Sounds S1, S2, regular rate and rhythm. No murmurs or gallops. Lungs: Clear to auscultation bilaterally. No wheezes, rales, or rhonchi. Abdomen is soft, flat, nontender. Bowel sounds are present. Extremities: Pulses were 2+ throughout. No peripheral edema. Neurologically, she was awake, alert, oriented x3. No gross focal deficits. Skin grossly intact. MAICOL ASIF, VICKY [id number]/[facility]PS #: [id number]/CPS #: [id number] BREANN
--- NOTE | 2017-05-13 07:53 | DS ---
DISCHARGE SUMMARY:* ADDENDUM: Physical exam on discharge revealed vital signs blood pressure 123/75 , pulse 50, respirations 20, O2 sat 97%, temperature 98.6. On exam, Ms. Giraldo is a 67-year-old female patient. She is chronically ill appearing. She does not appear to be in any acute distress. HEENT: Head: Atraumatic. Eyes: Sclerae anicteric. Neck: Supple. Throat: Oral mucosa appear dry. No pharyngeal erythema. Heart: Sounds S1, S2, regular rate and rhythm. No murmurs or gallops. Lungs: Clear to auscultation bilaterally. No wheezes, rales, or rhonchi. Abdomen is soft, flat, nontender. Bowel sounds are present. Extremities: Pulses were 2+ throughout. No peripheral edema. Neurologically, she was awake, alert, oriented x3. No gross focal deficits. Skin grossly intact. JORGE BERNAL NP [id number]/[facility] #: [id number] [facility]OSPITALLiana
--- NOTE | 2017-05-13 17:09 | PRO ---
PROCEDURE REPORT: DATE OF PROCEDURE: 05/12/17 PROCEDURE: Esophagogastroduodenoscopy. INDICATIONS: Abdominal pain. REFERRING PHYSICIAN: No referring physician. MEDICATIONS: 1. 100 mcg IV fentanyl. 2. 14 mg IV Versed. PROCEDURE IN DETAIL: After the EGD procedure, including the risks, benefits and alternatives, not l imited to perforation, surgery, and/or were explained to Mrs. Giraldo, written consent was t hen obtained, IV medication was given, and a bite block was placed between the teeth. An Olympus ga stroscope was then inserted into the patient's mouth and advanced down the esophagus, into the stoma ch, into the distal duodenum. In the esophagus, the GE junction was normal. She did have a small h iatal hernia. Scope was then advanced through the GE junction into the body of stomach. Retroflex and forward views were unremarkable. Biopsies were obtained for H. pylori. Scope was advanced thro ugh a widely patent pylorus into the duodenal bulb into the distal duodenum, both of which were unre markable. Scope was then withdrawn from the patient, she tolerated the procedure well. She was ret urned to her hospital room in stable condition. IMPRESSION: 1. Complete upper endoscopy into the distal duodenum with biopsies. 2. Very small hiatal hernia. 3. Biopsies from the stomach. 4. No etiology was seen for her abdominal pain. I do wonder if it is related to stress and anxiety . The findings were conveyed to her hospitalist team. We will follow up with her tomorrow. [id number]/[facility] #: [id number]
== END 2017-05-12 18:30 | disposition home or self-care (01) | DRG 392 ==
LOC: ED 18:51 → MEDTELE 21:54 → OBSVTOIN 05-11 12:00
PROVIDERS: ADMIT Internal Medicine; ATTEND Hospitalist
PROC: 0DB68ZX Excision of Stomach, Via Natural or Artificial Opening Endoscopic, Diagnostic (ICD-10-PCS; principal; 2017-05-12)
DX: R10.13 Epigastric pain (principal); J44.9 Chronic obstructive pulmonary disease, unspecified; R00.1 Bradycardia, unspecified; E03.9 Hypothyroidism, unspecified; G43.909 Migraine, unspecified, not intractable, without status migrainosus; K58.9 Irritable bowel syndrome, unspecified; F43.10 Post-traumatic stress disorder, unspecified; E86.0 Dehydration; F41.9 Anxiety disorder, unspecified; F32.9 Major depressive disorder, single episode, unspecified; G89.29 Other chronic pain; F60.3 Borderline personality disorder; Z86.711 Personal history of pulmonary embolism; Z88.6 Allergy status to analgesic agent; Z88.1 Allergy status to other antibiotic agents; Z88.2 Allergy status to sulfonamides; Z88.8 Allergy status to other drugs, medicaments and biological substances; Z91.018 Allergy to other foods; Z79.1 Long term (current) use of non-steroidal anti-inflammatories (NSAID); Z79.899 Other long term (current) drug therapy; K44.9 Diaphragmatic hernia without obstruction or gangrene
CPT/HCPCS: 36415; 80048; 80053; 81003; 83605; 83735; 84484; 85025; 85027; 86140; 87077; 88305; 93005; 99156; 99157; A9270-GY; J1644; J2250; J2405; J3010

== ENCOUNTER 2017-05-25 08:30 | Emergency (ER) | payer MEDICARE, MEDICAID ==
[2017-05-25 08:50] VITALS: BP 129/80
[2017-05-25] MEDS ORDERED: Lidocaine 1% MPF* 2 ML VIAL INJ ONE (09:00)
--- NOTE | 2017-05-25 10:37 | UC ---
Kentrell Espitia Angela, scribed for Adalberto Kinney MD on 05/25/17 at 0901 . Skin Complaint HPI - HPI Summary HPI Summary: This pt is a 67 y/o female presenting to [facility] c/o right great toe pain, redness and swelling x5 days. Pt notes she gave herself a pedicure 5 days ago and since it seems she has an ingrown toe nail. Pt reports soaking her toe in epsom salt and drying her toe well with no relief. Pt denies fever, foot pain, numbness or weakness of RLE. She denies a PMHx of diabetes. Pt is currently on Levaquin. - History of Current Complaint Chief Complaint: UCSkin Time Seen by Provider: 05/25/17 08:53 Stated Complaint: SKIN COMPLAINT Hx Obtained From: Patient Hx Last Menstrual Period: "years ago" Onset/Duration: Lasting Days Skin Exposure Onset/Duration: Days Ago Location: Foot (Right) - right great toe Character: Swelling, Pain, Redness Aggravating: Nothing Alleviating: Nothing Associated Signs & Symptoms: Positive: Tenderness - on right great toe. Negative: Numbness, Weakness, Fever, Rash - Allergy/Home Medications Allergies/Adverse Reactions: Allergies Allergy/AdvReac Type Severity Reaction Status Date / Time Latex Allergy Intermediate Rash Verified 05/25/17 08:42 Aspirin [ASA] Allergy CAN'T TAKE Verified 05/25/17 08:42 DUE TO IBS Clindamycin Allergy Diarrhea Verified 05/25/17 08:42 Diphenhydramine Allergy HOT Verified 05/25/17 08:42 [From Benadryl] SENSATION FROM NECK TO FEET & TREMORS NSAIDs Allergy CAN'T TAKE Verified 05/25/17 08:42 DUE TO IBS Omeprazole [From Prilosec] Allergy See Comment Verified 05/25/17 08:42 Prochlorperazine Allergy HOT Verified 05/25/17 08:42 [From Compazine] SENSATION FROM NECK TO FEET & TREMORS Sucralfate [From Carafate] Allergy See Comment Verified 05/25/17 08:42 Sumatriptan [From Imitrex] Allergy INCREASED Verified 05/25/17 08:42 MIGRAINES Valproic Acid [From Depakote] Allergy 50 SHERRELL Verified 05/25/17 08:42 WEIGHT GAINE, MIGRAINE WORSE & TREMORS Sulfamethoxazole AdvReac Severe GI Upset Verified 05/25/17 08:42 w/Trimethoprim [From Bactrim] Aripiprazole [From Abilify] AdvReac HYPERACTIVE Verified 05/25/17 08:42 CI Pigment Blue 63 AdvReac HYPERACTIVE Verified 05/25/17 08:42 [From Cymbalta] Ciprofloxacin [From Cipro] AdvReac DIARRHEA Verified 05/25/17 08:42 AND STOMACH CRAMPS Duloxetine [From Cymbalta] AdvReac HYPERACTIVE Verified 05/25/17 08:42 Erythromycin AdvReac DIARRHEA Verified 05/25/17 08:42 AND STOMACH CRAMPS Quetiapine [From Seroquel] AdvReac HYPERACTIVE Verified 05/25/17 08:42 Soy Allergy AdvReac Diarrhea Verified 05/25/17 08:42 Home Medications: Home Medications Levofloxacin TAB* [Levaquin 500 Tab*] 1 tab PO DAILY 05/25/17 [History Confirmed 05/25/17] Review of Systems Constitutional: Negative Skin: Negative Eyes: Negative ENT: Negative Respiratory: Negative Cardiovascular: Negative Gastrointestinal: Negative Musculoskeletal: Other: - POSITIVE: right great toe pain, redness, and swelling Neurological: Negative All Other Systems Reviewed And Are Negative: Yes PMH/Surg Hx/FS Hx/Imm Hx Other Endocrine History: DENIES: diabetes Respiratory History: Asthma Other GI/ History: IBS Neurological History: Migraine Psychological History: Anxiety, Depression Other History Of: Negative For: HIV, Hepatitis B, Hepatitis C, Anticoagulant Therapy - Surgical History Surgical History: Yes Surgery Procedure, Year, and Place: total hysterectomy with oophorectomy 1996; SINUSES Xs2; BLADDER- CYSTOCELE AND RECTOCELE (NO METAL)/ 12/08; - Family History Known Family History: Positive: Cardiac Disease, Hypertension, Other - arthritis Negative: Diabetes - Social History Alcohol Use: None Substance Use Type: None Substance Use Comment - Amount & Last Used: PT DENIES Smoking Status (MU): Never Smoked Tobacco Have You Smoked in the Last Year: No - Immunization History Most Recent Influenza Vaccination: fall 2015 Most Recent Tetanus Shot: WITHIN PAST 5 YRS Most Recent Pneumonia Vaccination: 2012 Physical Exam Triage Information Reviewed: Yes Vital Signs: Initial Vital Signs Temp 98.2 F 05/25/17 08:46 Pulse 90 05/25/17 08:46 Resp 18 05/25/17 08:46 BP 129/80 05/25/17 08:46 Pulse Ox 100 05/25/17 08:46 Vital Signs Reviewed: Yes - Additional Comments General: well-appearing, no pain distress Skin: warm, color reflects adequate perfusion, dry Head: normal Eyes: EOMI, PAVEL ENT: normal Neck: supple, nontender Respiratory: CTA, breath sounds present Cardiovascular: RRR Musculoskeletal: normal, strength/ROM intact. RLE: Lateral aspect of right great toenail is ingrown. There is swelling, minimal clear drainage, no erythema. There is tenderness to palpation. It does not appear infected. No streaking. Good capillary refill. Neurological: normal, sensory/motor intact, A&O x3 Psychological: affect/mood appropriate Course/Dx - Course Course Of Treatment: This pt is a 67 y/o female presenting to [facility] c/o right great toe pain, redness and swelling x5 days. Pt notes she gave herself a pedicure 5 days ago and since it seems she has an ingrown toe nail. Pt reports soaking her toe in epsom salt and drying her toe well with no relief. Pt denies fever, foot pain, numbness or weakness of RLE. She denies a PMHx of diabetes. Pt is currently on Levaquin. Elevated blood pressure noted. Medication list reviewed. We removed the lateral aspect of the portion of ingrown right great toenail. Pt tolerated the procedure well. There is no sign of infection. MEDICATIONS REVIEWED. F/U PODIATRY. - Diagnoses Provider Diagnoses: Ingrown nail, right great toe Procedures - Procedure Summary Procedure Summary: Removal of lateral aspect of right great ingrown toenail. I used 1% lidocaine, sterile saline. There are no signs of infection. The pt tolerated the procedure well. Discharge - Discharge Plan Condition: Stable Disposition: HOME Prescriptions: Fluconazole 150 MG (NF) [Diflucan 150 mg (NF)] 150 mg PO ONCE #1 tab Patient Education Materials: Ingrown Nail (ED) Referrals: Christopher Kam MD [Primary Care Provider] - Additional Instructions: FOLLOW UP WITH YOUR DOCTOR AND PODIATRY. RETURN TO THE EMERGENCY DEPARTMENT FOR ANY WORSENING OF YOUR CONDITION; PAIN, INFECTION OR QUESTIONS OR CONCERNS. The documentation as recorded by the Kentrell cabrales Angela accurately reflects the service I personally performed and the decisions made by me, Adalberto Kinney MD.
== END 2017-05-25 09:47 | disposition home or self-care (01) ==
LOC: UCEAST 08:30
DX: L60.0 Ingrowing nail (principal); E11.9 Type 2 diabetes mellitus without complications; Z88.6 Allergy status to analgesic agent; Z88.3 Allergy status to other anti-infective agents; Z91.040 Latex allergy status
CPT/HCPCS: 11000; 11765; 99212; G0463

== ENCOUNTER 2017-06-26 18:17 | Emergency (ER) | payer MEDICARE, MEDICAID ==
[2017-06-26 18:32] VITALS: BP 106/68
--- NOTE | 2017-06-26 18:37 | UC ---
Shoulder Pain HPI - HPI Summary HPI Summary: 67 YEAR OLD FEMALE WITH A HISTORY OF ROTATOR CUFF INJURY PRESENTS WITH COMPLAINS OF LEFT SHOULDER PAIN. - History of Current Complaint Chief Complaint: UCGeneralIllness Stated Complaint: SHOULDER AND SPINE PAIN Time Seen by Provider: 06/26/17 18:36 Hx Obtained From: Patient Hx Last Menstrual Period: "years ago" Onset/Duration: Sudden Onset Timing: Constant Severity Initially: Moderate Severity Currently: Moderate - Allergies/Home Medications Allergies/Adverse Reactions: Allergies Allergy/AdvReac Type Severity Reaction Status Date / Time Latex Allergy Intermediate Rash Verified 06/26/17 18:27 Aspirin [ASA] Allergy CAN'T TAKE Verified 06/26/17 18:27 DUE TO IBS Clindamycin Allergy Diarrhea Verified 06/26/17 18:27 Diphenhydramine Allergy HOT Verified 06/26/17 18:27 [From Benadryl] SENSATION FROM NECK TO FEET & TREMORS NSAIDs Allergy CAN'T TAKE Verified 06/26/17 18:27 DUE TO IBS Omeprazole [From Prilosec] Allergy See Comment Verified 06/26/17 18:27 Prochlorperazine Allergy HOT Verified 06/26/17 18:27 [From Compazine] SENSATION FROM NECK TO FEET & TREMORS Sucralfate [From Carafate] Allergy See Comment Verified 06/26/17 18:27 Sumatriptan [From Imitrex] Allergy INCREASED Verified 06/26/17 18:27 MIGRAINES Trazodone Allergy Nausea Verified 06/26/17 18:28 Valproic Acid [From Depakote] Allergy 50 SHERRELL Verified 06/26/17 18:27 WEIGHT GAINE, MIGRAINE WORSE & TREMORS Sulfamethoxazole AdvReac Severe GI Upset Verified 06/26/17 18:27 w/Trimethoprim [From Bactrim] Aripiprazole [From Abilify] AdvReac HYPERACTIVE Verified 06/26/17 18:27 CI Pigment Blue 63 AdvReac HYPERACTIVE Verified 06/26/17 18:27 [From Cymbalta] Ciprofloxacin [From Cipro] AdvReac DIARRHEA Verified 06/26/17 18:27 AND STOMACH CRAMPS Duloxetine [From Cymbalta] AdvReac HYPERACTIVE Verified 06/26/17 18:27 Erythromycin AdvReac DIARRHEA Verified 06/26/17 18:27 AND STOMACH CRAMPS Quetiapine [From Seroquel] AdvReac HYPERACTIVE Verified 06/26/17 18:27 Soy Allergy AdvReac Diarrhea Verified 06/26/17 18:27 PMH/Surg Hx/FS Hx/Imm Hx Previously Healthy: Yes Other History Of: Negative For: HIV, Hepatitis B, Hepatitis C, Anticoagulant Therapy - Surgical History Surgical History: Yes Surgery Procedure, Year, and Place: total hysterectomy with oophorectomy 1996; SINUSES Xs2; BLADDER- CYSTOCELE AND RECTOCELE (NO METAL)/ 12/08;. LEFT ANKLE FX - Family History Known Family History: Positive: Cardiac Disease, Hypertension, Other - arthritis Negative: Diabetes - Social History Alcohol Use: None Substance Use Type: None Substance Use Comment - Amount & Last Used: PT DENIES Smoking Status (MU): Never Smoked Tobacco Have You Smoked in the Last Year: No - Immunization History Most Recent Influenza Vaccination: fall 2015 Most Recent Tetanus Shot: WITHIN PAST 5 YRS Most Recent Pneumonia Vaccination: 2012 Review of Systems Constitutional: Negative Skin: Negative Eyes: Negative ENT: Negative Respiratory: Negative Cardiovascular: Negative Gastrointestinal: Negative Genitourinary: Negative Motor: Negative Neurovascular: Negative Musculoskeletal: Other: - LEFT SHOULDER PAIN Neurological: Negative Psychological: Negative All Other Systems Reviewed And Are Negative: Yes Physical Exam Triage Information Reviewed: Yes Appearance: Well-Appearing Vital Signs: Initial Vital Signs Temp 36.6 C 06/26/17 18:30 Pulse 80 06/26/17 18:30 Resp 17 06/26/17 18:30 BP 106/68 06/26/17 18:30 Pulse Ox 100 06/26/17 18:30 Eye Exam: Normal ENT Exam: Normal Dental Exam: Normal Neck exam: Normal Neck: Positive: 1 Respiratory Exam: Normal Cardiovascular Exam: Normal Abdominal Exam: Normal Musculoskeletal: Positive: Strength Limited @, ROM Limited @, Other: - LEFT SHOULDER PAIN Neurological Exam: Normal Psychological Exam: Normal Skin Exam: Normal Shoulder Course/Dx - Differential Dx/Diagnosis Provider Diagnoses: LEFT SHOULDER PAIN Discharge - Discharge Plan Condition: Stable Disposition: HOME Prescriptions: Methocarbamol TAB* [Robaxin 500 MG TAB*] 500 mg PO TID PRN #30 tab PRN Reason: Spasms Patient Education Materials: Shoulder Pain (ED) Referrals: Christopher Kam MD [Primary Care Provider] -
== END 2017-06-26 18:52 | disposition home or self-care (01) ==
LOC: UCEAST 18:17
DX: M25.512 Pain in left shoulder (principal); Z88.5 Allergy status to narcotic agent; Z88.6 Allergy status to analgesic agent; Z88.3 Allergy status to other anti-infective agents; Z91.040 Latex allergy status
CPT/HCPCS: 99212; G0463

== ENCOUNTER 2017-07-03 10:46 | Emergency (ER) | payer MEDICARE, MEDICAID ==
[2017-07-03] MEDS ORDERED: Ondansetron ODT TAB* 4 MG PO ONE (12:58)
--- NOTE | 2017-07-03 13:12 | UC ---
Kentrell Espitia Angela, scribed for Sheri Wing MD on 07/03/17 at 1240 . General HPI - HPI Summary HPI Summary: This pt is a 67 y/o female presenting to [facility] c/o sinus congestion and pain x1 week, and migraine x4 days. She reports her migraine is ocular located behind her left eye, described as a burning sensation in the middle of her eye. Pt denies visual changes with migraine but get bright flashes at the beginning. Pt typically treats her migraine with caffeine (big glass of pepsi) and states it is relief with the rain. She additionally c/o post nasal drip and nausea. Pt denies fever, vomiting. She is taking Tramadol 300 mg/day. Pt states she has allergies now (for the past week) and takes ClaritinD for her allergies. Pt has not been able to take Claritin recently as she ran out. She has had normal PO intake. Her PCP is Dr. Wu. Pt notes she had a left torn rotator cuff 25 years ago and 3 months ago she was in the kitchen when she hit it against an edge. Pt is currently wearing a sling and states she had an MRI of her left shoulder 2 days ago. She is followed up by Dr. Schuster but will be switching to [facility]. She reports [employer] usually works for her. - History of Current Complaint Chief Complaint: UCRespiratory Stated Complaint: HEADACHE Hx Obtained From: Patient Hx Last Menstrual Period: "years ago" Onset/Duration: Lasting Days Associated Signs & Symptoms: Positive: Headache - migraine, Nausea, Other - sinus congestion, sinus pain, post nasal drip. Negative: Cough, Chest Pain, Fever, Vomiting - Allergy/Home Medications Allergies/Adverse Reactions: Allergies Allergy/AdvReac Type Severity Reaction Status Date / Time Latex Allergy Intermediate Rash Verified 06/26/17 18:27 Aspirin [ASA] Allergy CAN'T TAKE Verified 06/26/17 18:27 DUE TO IBS Clindamycin Allergy Diarrhea Verified 06/26/17 18:27 Diphenhydramine Allergy HOT Verified 06/26/17 18:27 [From Benadryl] SENSATION FROM NECK TO FEET & TREMORS NSAIDs Allergy CAN'T TAKE Verified 06/26/17 18:27 DUE TO IBS Omeprazole [From Prilosec] Allergy See Comment Verified 06/26/17 18:27 Prochlorperazine Allergy HOT Verified 06/26/17 18:27 [From Compazine] SENSATION FROM NECK TO FEET & TREMORS Sucralfate [From Carafate] Allergy See Comment Verified 06/26/17 18:27 Sumatriptan [From Imitrex] Allergy INCREASED Verified 06/26/17 18:27 MIGRAINES Trazodone Allergy Nausea Verified 06/26/17 18:28 Valproic Acid [From Depakote] Allergy 50 SHERRELL Verified 06/26/17 18:27 WEIGHT GAINE, MIGRAINE WORSE & TREMORS Sulfamethoxazole AdvReac Severe GI Upset Verified 06/26/17 18:27 w/Trimethoprim [From Bactrim] Aripiprazole [From Abilify] AdvReac HYPERACTIVE Verified 06/26/17 18:27 CI Pigment Blue 63 AdvReac HYPERACTIVE Verified 06/26/17 18:27 [From Cymbalta] Ciprofloxacin [From Cipro] AdvReac DIARRHEA Verified 06/26/17 18:27 AND STOMACH CRAMPS Duloxetine [From Cymbalta] AdvReac HYPERACTIVE Verified 06/26/17 18:27 Erythromycin AdvReac DIARRHEA Verified 06/26/17 18:27 AND STOMACH CRAMPS Quetiapine [From Seroquel] AdvReac HYPERACTIVE Verified 06/26/17 18:27 Soy Allergy AdvReac Diarrhea Verified 06/26/17 18:27 PMH/Surg Hx/FS Hx/Imm Hx - Additional Past Medical History Additional PMH: PMHx: IBS, chronic upper back pain, chronic pain treated with tramadol Respiratory History: Asthma Neurological History: Migraine - recurrent ocular migraine Psychological History: Anxiety, Post Traumatic Stress Disorder Other History Of: Negative For: HIV, Hepatitis B, Hepatitis C, Anticoagulant Therapy - Surgical History Surgical History: Yes Surgery Procedure, Year, and Place: total hysterectomy with oophorectomy 1996; SINUSES Xs2; BLADDER- CYSTOCELE AND RECTOCELE (NO METAL)/ 12/08;. LEFT ANKLE FX - Family History Known Family History: Positive: Cardiac Disease, Hypertension, Other - arthritis Negative: Diabetes - Social History Alcohol Use: None Substance Use Type: None Substance Use Comment - Amount & Last Used: PT DENIES Smoking Status (MU): Never Smoked Tobacco Have You Smoked in the Last Year: No - Immunization History Most Recent Influenza Vaccination: fall 2015 Most Recent Tetanus Shot: WITHIN PAST 5 YRS Most Recent Pneumonia Vaccination: 2013 Review of Systems Constitutional: Negative Skin: Negative Eyes: Negative ENT: Nasal Discharge - post nasal drip, Sinus Congestion, Sinus Pain/Tenderness , Other - states that Levaquin is the only antibiotic which relieves sinusitis for her. Respiratory: Negative Cardiovascular: Negative Gastrointestinal: Nausea Genitourinary: Negative, Other - normal renal function: eGFR was >80 at last check April 2017/ Neurovascular: Negative Musculoskeletal: Other: - left shoulder pain due to old trauma Neurological: Headache - best relief of her migraine is usually with injection of lidocaine by her dentist. All Other Systems Reviewed And Are Negative: Yes Physical Exam Triage Information Reviewed: Yes Appearance: Ill-Appearing - looks chronically unwell Vital Signs: Initial Vital Signs Temp 98.2 F 07/03/17 11:48 Pulse 64 07/03/17 11:48 Resp 16 07/03/17 11:48 BP 114/69 07/03/17 11:48 Pulse Ox 99 07/03/17 11:48 Vital Signs Reviewed: Yes Eyes: Positive: Conjunctiva Clear, Other: - KEV, EOM normal, no photophobia. ENT: Positive: Pharynx normal, Other: - percussive sinus tenderness. Dental Exam: Normal Neck: Positive: Supple, Nontender, No Lymphadenopathy Respiratory: Positive: Lungs clear, Normal breath sounds Cardiovascular: Positive: RRR, No Murmur Musculoskeletal Exam: Normal Neurological: Positive: Alert, Muscle Tone Normal Psychological: Positive: Other: - depressed mood and affect Skin Exam: Normal Course/Dx - Course Course Of Treatment: Pt is a 67 y/o female who presents with sinus congestion/ tenderness and allergies x1 week, recently with migraine and post nasal drip x4 days. Pt medications reviewed this visit. Treatment for sinusitis discussed-- adamant that levaquin is only effective treatment. Aware of risks of use. - Differential Dx - Multi-Symptom Differential Diagnoses: Other - migraine, sinusitis. Provider Diagnoses: acute sinusitis, environmental allergies, migraine (left ocular) Discharge - Discharge Plan Condition: Stable Disposition: HOME Prescriptions: Levofloxacin TAB* [Levaquin TAB*] 500 mg PO DAILY #10 tab Patient Education Materials: Sinusitis (ED) Referrals: Alfred Wu MD [Primary Care Provider] - Additional Instructions: You will use levaquin for treatment of suspected sinusitis, being aware that levaquin can potentially cause tendon inflammation and damage to the kidneys. Your most recent kidney function is well within normal range. You have had a dose of zofran to decrease nausea. Ensure that you take adequate fluids, and follow up with Dr. Mead if you are not having a good response to medications within 3 to 4 days. The documentation as recorded by the Kentrell cabrales Angela accurately reflects the service I personally performed and the decisions made by me, Sheri Wing MD.
[2017-07-03 13:16] VITALS: BP 142/87
== END 2017-07-03 13:49 | disposition home or self-care (01) ==
LOC: UCEAST 10:46
DX: J01.90 Acute sinusitis, unspecified (principal); Z88.6 Allergy status to analgesic agent; Z88.2 Allergy status to sulfonamides; G89.29 Other chronic pain; M54.89 Other dorsalgia; Z90.710 Acquired absence of both cervix and uterus; G43.909 Migraine, unspecified, not intractable, without status migrainosus
CPT/HCPCS: 99212; A9270-GY; G0463

== ENCOUNTER 2017-07-11 15:12 | Emergency (ER) | payer MEDICARE, OTHER ==
[2017-07-11] MEDS ORDERED: Ondansetron ODT TAB* 4 MG PO ONE (16:48)
[2017-07-11] MEDS ORDERED: Ondansetron ODT TAB* 4 MG ONE (16:51)
[2017-07-11 17:12] LABS: Hematocrit 38 % (35-47); Hemoglobin 12.7 g/dl (12.0-16.0); Mean Corpuscular HGB Conc 34 g/dl (31-36); Mean Corpuscular Hemoglobin 30 pg (27-31); Mean Corpuscular Volume 89 fL (80-97); Mean Platelet Volume 8 um3 (7.4-10.4); Red Blood Count 4.25 10^6/ul (4.0-5.4); Red Cell Distribution Width 15 % (10.5-15); White Blood Count 8.1 10^3/ul (3.5-10.8)
[2017-07-11 17:27] LABS: C Reactive Protein 1.79 mg/L (< 5.00); Calcium 9.1 mg/dL (8.6-10.3); EGFR African American 99.1 (>60); EGFR Non-African American 77.1 (>60); Globulin 2.5 g/dL (2-4); Potassium 3.5 mmol/L (3.5-5.0); Total Bilirubin 0.5 mg/dL (0.2-1.0); Total Protein 6.5 g/dL (6.4-8.9)
[2017-07-11 19:08] VITALS: BP 136/69
--- NOTE | 2017-07-11 22:21 | ED ---
Henri Espitia Alfonso, scribed for Wai Daley MD on 07/11/17 at 1646 . Complex/Multi-Sys Presentation - HPI Summary HPI Summary: This patient is a 67 year old F BIBA to [facility] with a chief complaint of weakness since yesterday. 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 She was wearing gloves, face mask, and sunglasses when she was spraying. There was good ventilation. She was out of the house for 3 hours after spraying. The patient rates the pain 8/10 in severity. Symptoms alleviated by nothing. Patient reports cold ankles, flea bites, bilateral hand numbness, chest cavity is hot, metallic taste in mouth, and nausea. - History Of Current Complaint Chief Complaint: EDGeneral Time Seen by Provider: 07/11/17 16:32 Hx Obtained From: Patient Onset/Duration: Gradual Onset, Lasting Days, Still Present Timing: Constant Severity Currently: Moderate - 8/10 Alleviating Factor(s): nothing Associated Signs And Symptoms: Positive: Other - cold ankles, flea bites, bilateral hand numbness, chest cavity is hot, metallic taste in mouth, and nausea. - Allergies/Home Medications Allergies/Adverse Reactions: Allergies Allergy/AdvReac Type Severity Reaction Status Date / Time Latex Allergy Intermediate Rash Verified 06/26/17 18:27 Aspirin [ASA] Allergy CAN'T TAKE Verified 06/26/17 18:27 DUE TO IBS Clindamycin Allergy Diarrhea Verified 06/26/17 18:27 Diphenhydramine Allergy HOT Verified 06/26/17 18:27 [From Benadryl] SENSATION FROM NECK TO FEET & TREMORS NSAIDs Allergy CAN'T TAKE Verified 06/26/17 18:27 DUE TO IBS Omeprazole [From Prilosec] Allergy See Comment Verified 06/26/17 18:27 Prochlorperazine Allergy HOT Verified 06/26/17 18:27 [From Compazine] SENSATION FROM NECK TO FEET & TREMORS Sucralfate [From Carafate] Allergy See Comment Verified 06/26/17 18:27 Sumatriptan [From Imitrex] Allergy INCREASED Verified 06/26/17 18:27 MIGRAINES Trazodone Allergy Nausea Verified 06/26/17 18:28 Valproic Acid [From Depakote] Allergy 50 SHERRELL Verified 06/26/17 18:27 WEIGHT GAINE, MIGRAINE WORSE & TREMORS Sulfamethoxazole AdvReac Severe GI Upset Verified 06/26/17 18:27 w/Trimethoprim [From Bactrim] Aripiprazole [From Abilify] AdvReac HYPERACTIVE Verified 06/26/17 18:27 CI Pigment Blue 63 AdvReac HYPERACTIVE Verified 06/26/17 18:27 [From Cymbalta] Ciprofloxacin [From Cipro] AdvReac DIARRHEA Verified 06/26/17 18:27 AND STOMACH CRAMPS Duloxetine [From Cymbalta] AdvReac HYPERACTIVE Verified 06/26/17 18:27 Erythromycin AdvReac DIARRHEA Verified 06/26/17 18:27 AND STOMACH CRAMPS Quetiapine [From Seroquel] AdvReac HYPERACTIVE Verified 06/26/17 18:27 Soy Allergy AdvReac Diarrhea Verified 06/26/17 18:27 PMH/Surg Hx/FS Hx/Imm Hx Endocrine/Hematology History: Denies: Hx Anticoagulant Therapy, Hx Diabetes, Hx Thyroid Disease, Other Endocrine/Hematological Disorders Cardiovascular History: Denies: Hx Congestive Heart Failure, Hx Deep Vein Thrombosis, Hx Hypertension , Hx Myocardial Infarction, Hx Pacemaker/ICD, Other Cardiovascular Problems/ Disorders Respiratory History: Reports: Hx Asthma, Other Respiratory Problems/Disorders - PNUEMONIA Denies: Hx Chronic Obstructive Pulmonary Disease (COPD), Hx Lung Cancer, Hx Pneumonia, Hx Pulmonary Embolism GI History: Reports: Hx Irritable Bowel, Other GI Disorders - IBS Denies: Hx Gall Bladder Disease, Hx Gastrointestinal Bleed, Hx Ulcer, Hx Urosepsis History: Denies: Hx Kidney Stones, Hx Renal Disease, Other Problems/Disorders Musculoskeletal History: Reports: Hx Arthritis - Pt. states "everywhere", Hx Rheumatoid Arthritis, Hx Back Problems, Hx Osteoporosis Denies: Hx Scoliosis, Other Musculoskeletal History Sensory History: Reports: Hx Cataracts, Hx Contacts or Glasses, Hx Vision Problem - cataracts Denies: Hx Hearing Aid, Other Sensory Impairments Opthamlomology History: Reports: Hx Cataracts, Hx Contacts or Glasses, Hx Vision Problem - cataracts Denies: Other Sensory Impairments Neurological History: Reports: Hx Headaches, Hx Migraine Denies: Hx Dementia, Hx Seizures, Hx Transient Ischemic Attacks (TIA), Other Neuro Impairments/Disorders Psychiatric History: Reports: Hx Anxiety, Hx Depression, Hx Post Traumatic Stress Disorder, Hx Inpatient Treatment - hx, Hx Community Mental Health Tx, Hx Suicide Attempt, Hx Substance Abuse Denies: Hx Eating Disorder, Hx Panic Disorder, Hx Schizophrenia, Hx Bipolar Disorder, Other Psychiatric Issues/Disorders - Cancer History Cancer Type, Location and Year: Family history Hx Chemotherapy: No Hx Radiation Therapy: No - Surgical History Surgery Procedure, Year, and Place: total hysterectomy with oophorectomy 1996; SINUSES Xs2; BLADDER- CYSTOCELE AND RECTOCELE (NO METAL)/ 12/08;. LEFT ANKLE FX Hx Anesthesia Reactions: No - Immunization History Date of Tetanus Vaccine: utd Date of Influenza Vaccine: utd Infectious Disease History: No Infectious Disease History: Denies: Hx Clostridium Difficile, Hx Hepatitis, Hx Human Immunodeficiency Virus (HIV), Hx of Known/Suspected MRSA, Hx Shingles, Hx Tuberculosis, Hx Known/ Suspected VRE, Hx Known/Suspected VRSA, History Other Infectious Disease, Traveled Outside the [place] in Last 30 Days - Family History Known Family History: Positive: Cardiac Disease, Hypertension, Other - arthritis Negative: Diabetes - Social History Alcohol Use: None Hx Substance Use: Yes Substance Use Type: Reports: None Substance Use Comment - Amount & Last Used: PT DENIES Hx Tobacco Use: No Smoking Status (MU): Never Smoked Tobacco Have You Smoked in the Last Year: No Review of Systems Negative: Fever Positive: Other - metallic taste in mouth" Positive: Other - chest cavity is hot" Positive: Nausea Positive: Other - cold ankles, flea bites Positive: Weakness, Numbness - bilateral hand numbness All Other Systems Reviewed And Are Negative: Yes Physical Exam Triage Information Reviewed: Yes Vital Signs On Initial Exam: Initial Vitals Temp Pulse Resp BP Pulse Ox 97.9 F 80 18 140/76 99 07/11/17 15:25 07/11/17 15:25 07/11/17 15:25 07/11/17 15:25 07/11/17 15:25 Vital Signs Reviewed: Yes Appearance: Positive: Well-Appearing, No Pain Distress Skin: Positive: Warm, Skin Color Reflects Adequate Perfusion, Dry Head/Face: Positive: Normal Head/Face Inspection Eyes: Positive: Normal ENT: Positive: Normal ENT inspection Neck: Positive: Supple, Nontender Respiratory/Lung Sounds: Positive: Clear to Auscultation, Breath Sounds Present Cardiovascular: Positive: RRR Abdomen Description: Positive: Nontender, Soft Bowel Sounds: Positive: Present Musculoskeletal: Positive: Normal Neurological: Positive: Normal, Sensory/Motor Intact, Alert, Oriented to Person Place, Time, CN Intact II-III Psychiatric: Positive: Normal, Affect/Mood Appropriate - Nicole Coma Scale Coma Scale Total: 15 Diagnostics - Vital Signs Vital Signs Temp Pulse Resp BP Pulse Ox 07/11/17 16:30 66 119/73 99 07/11/17 16:27 66 97 07/11/17 16:00 67 109/70 99 07/11/17 15:57 119/76 07/11/17 15:46 73 97 07/11/17 15:32 77 126/77 99 07/11/17 15:31 79 99 07/11/17 15:25 97.9 F 80 18 140/76 99 - Laboratory Lab Results: Lab Results 07/11/17 07/11/17 Range/Units 17:01 17:01 WBC 8.1 (3.5-10.8) 10^3/ul RBC 4.25 (4.0-5.4) 10^6/ul Hgb 12.7 (12.0-16.0) g/dl Hct 38 (35-47) % MCV 89 (80-97) fL MCH 30 (27-31) pg MCHC 34 (31-36) g/dl RDW 15 (10.5-15) % Plt Count 247 (150-450) 10^3/ul MPV 8 (7.4-10.4) um3 Neut % (Auto) 64.8 (38-83) % Lymph % (Auto) 25.2 (25-47) % Haralson % (Auto) 8.7 (1-9) % Eos % (Auto) 0.5 (0-6) % Baso % (Auto) 0.8 (0-2) % Absolute Neuts (auto) 5.2 (1.5-7.7) 10^3/ul Absolute Lymphs (auto) 2.0 (1.0-4.8) 10^3/ul Absolute Monos (auto) 0.7 (0-0.8) 10^3/ul Absolute Eos (auto) 0 (0-0.6) 10^3/ul Absolute Basos (auto) 0.1 (0-0.2) 10^3/ul Absolute Nucleated RBC 0 10^3/ul Nucleated RBC % 0 Sodium 134 (133-145) mmol/L Potassium 3.5 (3.5-5.0) mmol/L Chloride 103 (101-111) mmol/L Carbon Dioxide 26 (22-32) mmol/L Anion Gap 5 (2-11) mmol/L BUN 9 (6-24) mg/dL Creatinine 0.75 (0.51-0.95) mg/dL Est GFR ( Amer) 99.1 (>60) Est GFR (Non-Af Amer) 77.1 (>60) BUN/Creatinine Ratio 12.0 (8-20) Glucose 87 (70-100) mg/dL Calcium 9.1 (8.6-10.3) mg/dL Total Bilirubin 0.50 (0.2-1.0) mg/dL AST 16 (13-39) U/L ALT 15 (7-52) U/L Alkaline Phosphatase 44 (34-104) U/L C-Reactive Protein 1.79 (< 5.00) mg/L Total Protein 6.5 (6.4-8.9) g/dL Albumin 4.0 (3.2-5.2) g/dL Globulin 2.5 (2-4) g/dL Albumin/Globulin Ratio 1.6 (1-3) Result Diagrams: 07/11/17 17:01 07/11/17 17:01 Lab Statement: Any lab studies that have been ordered have been reviewed, and results considered in the medical decision making process. Complex Multi-Symp Course/Dx Course Of Treatment: Ms. Gauthier was nontoxic in appearance and her labs were normal. - Diagnoses Provider Diagnoses: Weakness Discharge - Discharge Plan Condition: Stable Disposition: HOME Patient Education Materials: Weakness (ED) Referrals: Alfred Wu MD [Primary Care Provider] - 3 Days Additional Instructions: RETURN TO THE EMERGENCY DEPARTMENT FOR CHANGING OR WORSENING SYMPTOMS. The documentation as recorded by the Henri cabrales Alfonso accurately reflects the service I personally performed and the decisions made by , Wai Daley MD.
== END 2017-07-11 19:09 | disposition home or self-care (01) ==
LOC: ED 15:12
DX: R53.1 Weakness (principal); R11.0 Nausea; R20.0 Anesthesia of skin
CPT/HCPCS: 36415; 80053; 85025; 86140; 96374; 96375; 99283; A9270-GY

== ENCOUNTER 2017-07-25 00:53 | Emergency (ER) | payer MEDICARE, OTHER ==
[2017-07-25] MEDS ORDERED: oxyCODONE TAB* 5 MG TAB PO ONE (03:44)
[2017-07-25] MEDS ORDERED: Ondansetron ODT TAB* 4 MG PO ONE (03:48)
[2017-07-25 04:50] VITALS: BP 115/71
--- NOTE | 2017-07-25 04:51 | ED ---
Amparo Espitia Rebecca, scribed for Aguila Escalera MD on 07/25/17 at 0315 . Lower Extremity - HPI Summary HPI Summary: Pt is a 67 y/o F BIBA who presents to ED c/o L foot pain. 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 She did not realize that her foot had fallen asleep and her foot "folded over and stepped on it." Pain is currently severe, ranked 8/10 and characterized as throbbing. Sx aggravated by movement and alleviated by nothing. Additionally c/o nausea secondary to pain. - History of Current Complaint Chief Complaint: EDExtremityLower Stated Complaint: FALL LEFT ANKLE INJURY Hx Obtained From: Patient Hx Last Menstrual Period: "years ago" Onset of Pain: Prior to Arrival Onset/Duration: Still Present Severity Currently: Severe Pain Intensity: 8 Pain Scale Used: 0-10 Numeric Location: Is Discrete @ - L foot Character Of Pain: Throbbing Associated Signs And Symptoms: Positive: Other - Nausea Aggravating Factor(s): Movement Alleviating Factor(s): Nothing - Allergies/Home Medications Allergies/Adverse Reactions: Allergies Allergy/AdvReac Type Severity Reaction Status Date / Time Latex Allergy Intermediate Rash Verified 07/25/17 01:03 Aspirin [ASA] Allergy CAN'T TAKE Verified 07/25/17 01:03 DUE TO IBS Clindamycin Allergy Diarrhea Verified 07/25/17 01:03 Diphenhydramine Allergy HOT Verified 07/25/17 01:03 [From Benadryl] SENSATION FROM NECK TO FEET & TREMORS NSAIDs Allergy CAN'T TAKE Verified 07/25/17 01:03 DUE TO IBS Omeprazole [From Prilosec] Allergy See Comment Verified 07/25/17 01:03 Prochlorperazine Allergy HOT Verified 07/25/17 01:03 [From Compazine] SENSATION FROM NECK TO FEET & TREMORS Sucralfate [From Carafate] Allergy See Comment Verified 07/25/17 01:03 Sumatriptan [From Imitrex] Allergy INCREASED Verified 07/25/17 01:03 MIGRAINES Trazodone Allergy Nausea Verified 07/25/17 01:03 Valproic Acid [From Depakote] Allergy 50 SHERRELL Verified 07/25/17 01:03 WEIGHT GAINE, MIGRAINE WORSE & TREMORS Sulfamethoxazole AdvReac Severe GI Upset Verified 07/25/17 01:03 w/Trimethoprim [From Bactrim] Aripiprazole [From Abilify] AdvReac HYPERACTIVE Verified 07/25/17 01:03 CI Pigment Blue 63 AdvReac HYPERACTIVE Verified 07/25/17 01:03 [From Cymbalta] Ciprofloxacin [From Cipro] AdvReac DIARRHEA Verified 07/25/17 01:03 AND STOMACH CRAMPS Duloxetine [From Cymbalta] AdvReac HYPERACTIVE Verified 07/25/17 01:03 Erythromycin AdvReac DIARRHEA Verified 07/25/17 01:03 AND STOMACH CRAMPS Quetiapine [From Seroquel] AdvReac HYPERACTIVE Verified 07/25/17 01:03 Soy Allergy AdvReac Diarrhea Verified 07/25/17 01:03 PMH/Surg Hx/FS Hx/Imm Hx Endocrine/Hematology History: Denies: Hx Anticoagulant Therapy, Hx Diabetes, Hx Thyroid Disease, Other Endocrine/Hematological Disorders Cardiovascular History: Denies: Hx Congestive Heart Failure, Hx Deep Vein Thrombosis, Hx Hypertension , Hx Myocardial Infarction, Hx Pacemaker/ICD, Other Cardiovascular Problems/ Disorders Respiratory History: Reports: Hx Asthma, Other Respiratory Problems/Disorders - PNUEMONIA Denies: Hx Chronic Obstructive Pulmonary Disease (COPD), Hx Lung Cancer, Hx Pneumonia, Hx Pulmonary Embolism GI History: Reports: Hx Irritable Bowel, Other GI Disorders - IBS Denies: Hx Gall Bladder Disease, Hx Gastrointestinal Bleed, Hx Ulcer, Hx Urosepsis History: Denies: Hx Kidney Stones, Hx Renal Disease, Other Problems/Disorders Musculoskeletal History: Reports: Hx Arthritis - Pt. states "everywhere", Hx Rheumatoid Arthritis, Hx Back Problems, Hx Osteoporosis Denies: Hx Scoliosis, Other Musculoskeletal History Sensory History: Reports: Hx Cataracts, Hx Contacts or Glasses, Hx Vision Problem - cataracts Denies: Hx Hearing Aid, Other Sensory Impairments Opthamlomology History: Reports: Hx Cataracts, Hx Contacts or Glasses, Hx Vision Problem - cataracts Denies: Other Sensory Impairments Neurological History: Reports: Hx Headaches, Hx Migraine Denies: Hx Dementia, Hx Seizures, Hx Transient Ischemic Attacks (TIA), Other Neuro Impairments/Disorders Psychiatric History: Reports: Hx Anxiety, Hx Depression, Hx Post Traumatic Stress Disorder, Hx Inpatient Treatment - hx, Hx Community Mental Health Tx, Hx Suicide Attempt, Hx Substance Abuse Denies: Hx Eating Disorder, Hx Panic Disorder, Hx Schizophrenia, Hx Bipolar Disorder, Other Psychiatric Issues/Disorders - Cancer History Cancer Type, Location and Year: Family history Hx Chemotherapy: No Hx Radiation Therapy: No - Surgical History Surgery Procedure, Year, and Place: total hysterectomy with oophorectomy 1996; SINUSES Xs2; BLADDER- CYSTOCELE AND RECTOCELE (NO METAL)/ 12/08;. LEFT ANKLE FX Hx Anesthesia Reactions: No - Immunization History Date of Tetanus Vaccine: utd Date of Influenza Vaccine: utd Infectious Disease History: No Infectious Disease History: Denies: Hx Clostridium Difficile, Hx Hepatitis, Hx Human Immunodeficiency Virus (HIV), Hx of Known/Suspected MRSA, Hx Shingles, Hx Tuberculosis, Hx Known/ Suspected VRE, Hx Known/Suspected VRSA, History Other Infectious Disease, Traveled Outside the [place] in Last 30 Days - Family History Known Family History: Positive: Cardiac Disease, Hypertension, Other - arthritis Negative: Diabetes - Social History Alcohol Use: None Hx Substance Use: Yes Substance Use Type: Reports: None Substance Use Comment - Amount & Last Used: PT DENIES Hx Tobacco Use: No Smoking Status (MU): Never Smoked Tobacco Have You Smoked in the Last Year: No Review of Systems Positive: Nausea - secondary to pain Positive: Arthralgia - L foot pain All Other Systems Reviewed And Are Negative: Yes Physical Exam - Summary Physical Exam Summary: Appearance: Well-appearing, Well-nourished Skin: Warm Eyes: Normal ENT: Normal Neck: Supple, nontender Respiratory: Clear to auscultation Cardiovascular: Normal Abdomen: Soft, nontender Bowel: Present Musculoskeletal: Strength/ROM Intact, Good pulses bilaterally, tenderness to the left forefoot and lateral left foot, distal neurovascular intact, mild tenderness to the medial malleolus Neurological: Normal, A&Ox3 Psychiatric: Normal Triage Information Reviewed: Yes Vital Signs On Initial Exam: Initial Vitals Temp Pulse Resp BP Pulse Ox 97.9 F 48 14 106/66 97 07/25/17 00:58 07/25/17 00:58 07/25/17 00:58 07/25/17 00:58 07/25/17 00:58 Vital Signs Reviewed: Yes - Nicole Coma Scale Coma Scale Total: 15 Diagnostics - Vital Signs Vital Signs Temp Pulse Resp BP Pulse Ox 07/25/17 00:58 97.9 F 48 14 106/66 97 - Laboratory Lab Statement: Any lab studies that have been ordered have been reviewed, and results considered in the medical decision making process. - Radiology Ankle XR Xray Interpretation: No Acute Changes Radiology Interpretation Completed By: ED Physician Foot XR Xray Interpretation: Positive (See Comments) - Possible avulsion fracture of the proximal 5th metatarsal Radiology Interpretation Completed By: ED Physician Lower Extremity Course/Dx - Course Assessment/Plan: avulsion frac of L 5th metatarsal. pt given plenty of yolanda wraps and hard soled shoe, able to get around non weight bearing with a walker and prefers discharge home. distal nv intact ,instructed to fu with orhtopedist promptly, agrees to and understnads dc instructions - Diagnoses Provider Diagnoses: Avulsion fracture of metatarsal bone of left foot Discharge - Discharge Plan Condition: Improved Disposition: HOME Prescriptions: oxyCODONE TAB* [Roxycodone TAB 5 mg*] 5 mg PO Q6H PRN #10 tab MDD 4 tabs PRN Reason: Pain - Moderate To Severe Patient Education Materials: Foot Fracture in Adults (ED) Referrals: Alfred Wu MD [Primary Care Provider] - Alexandria Schuster MD [Medical Doctor] - Additional Instructions: PLEASE MAKE AN APPOINTMENT FIRST THING IN THE MORNING TO BE SEEN BY AN ORTHOPEDIST WITHIN 1 WEEK PLEASE RETURN TO THE EMERGENCY ROOM IF YOU HAVE ANY WORSENING OR CONCERNING SYMPTOMS The documentation as recorded by the Amparo cabrales Rebecca accurately reflects the service I personally performed and the decisions made by me, Aguila Escalera MD.
--- NOTE | 2017-07-25 07:57 | RAD ---
INDICATION: Lateral left ankle pain after injury. COMPARISON: Most recent left ankle radiograph is dated June 21, 2016 TECHNIQUE: 3 views of the left ankle and 3 views of the left foot were obtained. FINDINGS: There is cortical irregularity at the distal fibula similar in appearance to the prior ankle radiograph most consistent with a healed ankle fracture. The bones of the ankle are otherwise adequately corticated and appropriately aligned. Mild degenerative changes of the ankle include mild sclerotic change of the articulating services. Best depicted on the oblique view of the left foot there is a lucent fracture line at the proximal pole of the left fifth metatarsal. Remaining visualized bones are intact and appropriately aligned. IMPRESSION: NONDISPLACED FRACTURE OF THE PROXIMAL POLE OF THE LEFT FIFTH METATARSAL.
== END 2017-07-25 05:14 | disposition home or self-care (01) ==
LOC: ED 00:53
DX: S92.902A Unspecified fracture of left foot, initial encounter for closed fracture (principal); M79.672 Pain in left foot; R11.0 Nausea; S92.355A Nondisplaced fracture of fifth metatarsal bone, left foot, initial encounter for closed fracture; X50.0XXA Overexertion from strenuous movement or load, initial encounter; Y93.89 Activity, other specified; Y92.89 Other specified places as the place of occurrence of the external cause
CPT/HCPCS: 99282; A9270-GY

== ENCOUNTER 2017-08-12 03:27 | Emergency (ER) | payer MEDICARE, OTHER ==
[2017-08-12] MEDS ORDERED: Albuterol/Ipratropium NEB.SOL* Albuterol 2.5 MG/Ipratropium 0.5 MG 3 ML INH ONE (04:54)
[2017-08-12] MEDS ORDERED: NS 0.9% 1000 ML* 1,000 ML IV SCH (05:00)
[2017-08-12 05:23] LABS: Hematocrit 39 % (35-47); Mean Corpuscular HGB Conc 33 g/dl (31-36); Mean Corpuscular Hemoglobin 30 pg (27-31); Mean Corpuscular Volume 91 fL (80-97); Mean Platelet Volume 9 um3 (7.4-10.4); Red Blood Count 4.32 10^6/ul (4.0-5.4); Red Cell Distribution Width 15 % (10.5-15); White Blood Count 6.9 10^3/ul (3.5-10.8)
[2017-08-12 05:25] LABS: Urine Bilirubin Negative (Negative); Urine Glucose Negative (Negative); Urine Nitrite Negative (Negative)
[2017-08-12] MEDS ORDERED: Acetaminophen TAB* 325 MG PO ONE (05:26)
[2017-08-12] MEDS ORDERED: Acetaminophen TAB* 325 MG ONE (05:29)
[2017-08-12 05:41] LABS: ALT 10 U/L (7-52); AST 15 U/L (13-39); Albumin 4.1 g/dL (3.2-5.2); Alkaline Phosphatase 50 U/L (34-104); Anion Gap 5 mmol/L (2-11); BUN/Creatinine Ratio 5.6 (8-20); Blood Urea Nitrogen 4 mg/dL (6-24); C Reactive Protein < 1.00 mg/L (< 5.00); CO2 Carbon Dioxide 29 mmol/L (22-32); Calcium 9.1 mg/dL (8.6-10.3); Chloride 104 mmol/L (101-111); Creatine Kinase 44 U/L (10-223); EGFR African American 103.9 (>60); EGFR Non-African American 80.8 (>60); Globulin 2.5 g/dL (2-4); Glucose 108 mg/dL (70-100); Lipase < 10 U/L (11.0-82.0); Sodium 138 mmol/L (133-145); Total Protein 6.6 g/dL (6.4-8.9)
[2017-08-12 05:43] LABS: Troponin I 0.02 ng/mL (<0.04)
[2017-08-12] MEDS ORDERED: Potassium Chlor TAB* 20 MEQ TAB.ER PO ONE (06:00)
[2017-08-12] MEDS ORDERED: Ondansetron INJ* 2 MG/ML VIAL IV ONE (06:00)
[2017-08-12] MEDS ORDERED: Ondansetron ODT TAB* 4 MG PO ONE (06:22)
[2017-08-12 06:36] VITALS: BP 123/62
[2017-08-12] MEDS ORDERED: Potassium Chloride LIQUID* 20 MEQ PACKET PO ONE (06:37)
--- NOTE | 2017-08-12 07:15 | ED ---
Vivek Espitia Nikita, scribed for Adalberto Kinney MD on 08/12/17 at 0445 . Complex/Multi-Sys Presentation - HPI Summary HPI Summary: This patient is a 67 year old F BIBA to ED with a chief complaint of SOB since few days ago. The patient rates the pain 7/10 in severity. Symptoms aggravated by nothing. Symptoms alleviated by nothing. Patient reports nausea, vomiting, rhinorrhea with green gunk, back pain, L foot pain (fracture, 07/24), wheezing , face feels like its on fire, and non-productive cough. Patient denies abdominal pain. Used inhaler before bed and at 0130/0200. - History Of Current Complaint Chief Complaint: EDShortnessOfBreath Time Seen by Provider: 08/12/17 04:20 Hx Obtained From: Patient Onset/Duration: Sudden Onset, Lasting Days, Still Present Timing: Constant, Days Severity Currently: Moderate Severity Initially: Moderate Aggravating Factor(s): nothing Alleviating Factor(s): nothing Associated Signs And Symptoms: Positive: Other - Patient reports nausea, vomiting, rhinorrhea with green gunk, back pain, L foot pain (fracture, 07/24) , wheezing, face feels like its on fire, and non-productive cough. Patient denies abdominal pain. - Allergies/Home Medications Allergies/Adverse Reactions: Allergies Allergy/AdvReac Type Severity Reaction Status Date / Time Latex Allergy Intermediate Rash Verified 07/25/17 01:03 Aspirin [ASA] Allergy CAN'T TAKE Verified 07/25/17 01:03 DUE TO IBS Clindamycin Allergy Diarrhea Verified 07/25/17 01:03 Diphenhydramine Allergy HOT Verified 07/25/17 01:03 [From Benadryl] SENSATION FROM NECK TO FEET & TREMORS NSAIDs Allergy CAN'T TAKE Verified 07/25/17 01:03 DUE TO IBS Omeprazole [From Prilosec] Allergy See Comment Verified 07/25/17 01:03 Prochlorperazine Allergy HOT Verified 07/25/17 01:03 [From Compazine] SENSATION FROM NECK TO FEET & TREMORS Sucralfate [From Carafate] Allergy See Comment Verified 07/25/17 01:03 Sumatriptan [From Imitrex] Allergy INCREASED Verified 07/25/17 01:03 MIGRAINES Trazodone Allergy Nausea Verified 07/25/17 01:03 Valproic Acid [From Depakote] Allergy 50 SHERRELL Verified 07/25/17 01:03 WEIGHT GAINE, MIGRAINE WORSE & TREMORS Sulfamethoxazole AdvReac Severe GI Upset Verified 07/25/17 01:03 w/Trimethoprim [From Bactrim] Aripiprazole [From Abilify] AdvReac HYPERACTIVE Verified 07/25/17 01:03 CI Pigment Blue 63 AdvReac HYPERACTIVE Verified 07/25/17 01:03 [From Cymbalta] Ciprofloxacin [From Cipro] AdvReac DIARRHEA Verified 07/25/17 01:03 AND STOMACH CRAMPS Duloxetine [From Cymbalta] AdvReac HYPERACTIVE Verified 07/25/17 01:03 Erythromycin AdvReac DIARRHEA Verified 07/25/17 01:03 AND STOMACH CRAMPS Quetiapine [From Seroquel] AdvReac HYPERACTIVE Verified 07/25/17 01:03 Soy Allergy AdvReac Diarrhea Verified 07/25/17 01:03 PMH/Surg Hx/FS Hx/Imm Hx Endocrine/Hematology History: Denies: Hx Anticoagulant Therapy, Hx Diabetes, Hx Thyroid Disease, Other Endocrine/Hematological Disorders Cardiovascular History: Denies: Hx Congestive Heart Failure, Hx Deep Vein Thrombosis, Hx Hypertension , Hx Myocardial Infarction, Hx Pacemaker/ICD, Other Cardiovascular Problems/ Disorders Respiratory History: Reports: Hx Asthma, Other Respiratory Problems/Disorders - PNUEMONIA Denies: Hx Chronic Obstructive Pulmonary Disease (COPD), Hx Lung Cancer, Hx Pneumonia, Hx Pulmonary Embolism GI History: Reports: Hx Irritable Bowel, Other GI Disorders - IBS Denies: Hx Gall Bladder Disease, Hx Gastrointestinal Bleed, Hx Ulcer, Hx Urosepsis History: Denies: Hx Kidney Stones, Hx Renal Disease, Other Problems/Disorders Musculoskeletal History: Reports: Hx Arthritis - Pt. states "everywhere", Hx Rheumatoid Arthritis, Hx Back Problems, Hx Osteoporosis Denies: Hx Scoliosis, Other Musculoskeletal History Sensory History: Reports: Hx Cataracts, Hx Contacts or Glasses, Hx Vision Problem - cataracts Denies: Hx Hearing Aid, Other Sensory Impairments Opthamlomology History: Reports: Hx Cataracts, Hx Contacts or Glasses, Hx Vision Problem - cataracts Denies: Other Sensory Impairments Neurological History: Reports: Hx Headaches, Hx Migraine Denies: Hx Dementia, Hx Seizures, Hx Transient Ischemic Attacks (TIA), Other Neuro Impairments/Disorders Psychiatric History: Reports: Hx Anxiety, Hx Depression, Hx Post Traumatic Stress Disorder, Hx Inpatient Treatment - hx, Hx Community Mental Health Tx, Hx Suicide Attempt, Hx Substance Abuse Denies: Hx Eating Disorder, Hx Panic Disorder, Hx Schizophrenia, Hx Bipolar Disorder, Other Psychiatric Issues/Disorders - Cancer History Cancer Type, Location and Year: Family history Hx Chemotherapy: No Hx Radiation Therapy: No - Surgical History Surgery Procedure, Year, and Place: total hysterectomy with oophorectomy 1996; SINUSES Xs2; BLADDER- CYSTOCELE AND RECTOCELE (NO METAL)/ 12/08;. LEFT ANKLE FX Hx Anesthesia Reactions: No - Immunization History Date of Tetanus Vaccine: utd Date of Influenza Vaccine: utd Infectious Disease History: No Infectious Disease History: Denies: Hx Clostridium Difficile, Hx Hepatitis, Hx Human Immunodeficiency Virus (HIV), Hx of Known/Suspected MRSA, Hx Shingles, Hx Tuberculosis, Hx Known/ Suspected VRE, Hx Known/Suspected VRSA, History Other Infectious Disease, Traveled Outside the [place] in Last 30 Days - Family History Known Family History: Positive: Cardiac Disease, Hypertension, Other - arthritis Negative: Diabetes - Social History Alcohol Use: None Hx Substance Use: Yes Substance Use Type: Reports: None Substance Use Comment - Amount & Last Used: PT DENIES Hx Tobacco Use: No Smoking Status (MU): Never Smoked Tobacco Have You Smoked in the Last Year: No Review of Systems Positive: Other - "face feels like it's on fire" Positive: Other - rhinorrhea with green gunk Positive: Shortness Of Breath, Cough - non-productive, Other - wheezing Positive: Vomiting, Nausea. Negative: Abdominal Pain Musculoskeletal: Negative Positive: Other - back pain, L foot pain Skin: Negative Neurological: Negative Psychological: Normal All Other Systems Reviewed And Are Negative: Yes Physical Exam Triage Information Reviewed: Yes Vital Signs On Initial Exam: Initial Vitals Temp Pulse Resp BP Pulse Ox 97.5 F 55 18 144/79 99 08/12/17 03:30 08/12/17 03:30 08/12/17 03:30 08/12/17 03:30 08/12/17 03:30 Vital Signs Reviewed: Yes Appearance: Positive: Well-Appearing, No Pain Distress Skin: Positive: Warm, Skin Color Reflects Adequate Perfusion, Dry Head/Face: Positive: Normal Head/Face Inspection Eyes: Positive: EOMI, PAVEL ENT: Positive: Normal ENT inspection, TMs normal Neck: Positive: Supple, Nontender Respiratory/Lung Sounds: Positive: Breath Sounds Present, Rhonchi - some rhonchi on lung exam, Other - mild SOB Cardiovascular: Positive: RRR Abdomen Description: Positive: Nontender, Soft Bowel Sounds: Positive: Present Musculoskeletal: Positive: Strength/ROM Intact, Other - L foot is in a boot; calves are non-tender Neurological: Positive: Normal, Sensory/Motor Intact, Alert, Oriented to Person Place, Time Psychiatric: Positive: Affect/Mood Appropriate - [place] Coma Scale Coma Scale Total: 15 Diagnostics - Vital Signs Vital Signs Temp Pulse Resp BP Pulse Ox 08/12/17 03:30 97.5 F 55 18 144/79 99 - Laboratory Lab Results: Lab Results 08/12/17 08/12/17 08/12/17 Range/Units 05:12 05:12 05:12 WBC (3.5-10.8) 10^3/ul RBC (4.0-5.4) 10^6/ul Hgb (12.0-16.0) g/dl Hct (35-47) % MCV (80-97) fL MCH (27-31) pg MCHC (31-36) g/dl RDW (10.5-15) % Plt Count (150-450) 10^3/ul MPV (7.4-10.4) um3 Neut % (Auto) (38-83) % Lymph % (Auto) (25-47) % [place] % (Auto) (1-9) % Eos % (Auto) (0-6) % Baso % (Auto) (0-2) % Absolute Neuts (auto) (1.5-7.7) 10^3/ul Absolute Lymphs (auto) (1.0-4.8) 10^3/ul Absolute Monos (auto) (0-0.8) 10^3/ul Absolute Eos (auto) (0-0.6) 10^3/ul Absolute Basos (auto) (0-0.2) 10^3/ul Absolute Nucleated RBC 10^3/ul Nucleated RBC % INR (Anticoag Therapy) 0.95 (0.89-1.11) APTT 27.0 (26.0-36.3) seconds D-Dimer, Quantitative < 200 (Less Than 230) ng/mL Sodium 138 (133-145) mmol/L Potassium 3.0 L (3.5-5.0) mmol/L Chloride 104 (101-111) mmol/L Carbon Dioxide 29 (22-32) mmol/L Anion Gap 5 (2-11) mmol/L BUN 4 L (6-24) mg/dL Creatinine 0.72 (0.51-0.95) mg/dL Est GFR ( Amer) 103.9 (>60) Est GFR (Non-Af Amer) 80.8 (>60) BUN/Creatinine Ratio 5.6 L (8-20) Glucose 108 H (70-100) mg/dL Lactic Acid (0.5-2.0) mmol/L Calcium 9.1 (8.6-10.3) mg/dL Magnesium 2.0 (1.9-2.7) mg/dL Total Bilirubin 0.90 (0.2-1.0) mg/dL AST 15 (13-39) U/L ALT 10 (7-52) U/L Alkaline Phosphatase 50 (34-104) U/L Total Creatine Kinase 44 (10-223) U/L CK-MB (CK-2) 1.1 (0.6-6.3) ng/mL Troponin I 0.02 (<0.04) ng/mL C-Reactive Protein < 1.00 (< 5.00) mg/L B-Natriuretic Peptide 163 H ( - 100) pg/mL Total Protein 6.6 (6.4-8.9) g/dL Albumin 4.1 (3.2-5.2) g/dL Globulin 2.5 (2-4) g/dL Albumin/Globulin Ratio 1.6 (1-3) Lipase < 10 L (11.0-82.0) U/L Urine Color Urine Appearance Urine pH (5-9) Ur Specific Riparius (1.010-1.030) Urine Protein (Negative) Urine Ketones (Negative) Urine Blood (Negative) Urine Nitrate (Negative) Urine Bilirubin (Negative) Urine Urobilinogen (Negative) Ur Leukocyte Esterase (Negative) Urine Glucose (Negative) 08/12/17 08/12/17 08/12/17 Range/Units 05:12 05:12 05:12 WBC 6.9 (3.5-10.8) 10^3/ul RBC 4.32 (4.0-5.4) 10^6/ul Hgb 13.0 (12.0-16.0) g/dl Hct 39 (35-47) % MCV 91 (80-97) fL MCH 30 (27-31) pg MCHC 33 (31-36) g/dl RDW 15 (10.5-15) % Plt Count 227 (150-450) 10^3/ul MPV 9 (7.4-10.4) um3 Neut % (Auto) 71.1 (38-83) % Lymph % (Auto) 19.8 L (25-47) % [place] % (Auto) 8.1 (1-9) % Eos % (Auto) 0.5 (0-6) % Baso % (Auto) 0.5 (0-2) % Absolute Neuts (auto) 4.9 (1.5-7.7) 10^3/ul Absolute Lymphs (auto) 1.4 (1.0-4.8) 10^3/ul Absolute Monos (auto) 0.6 (0-0.8) 10^3/ul Absolute Eos (auto) 0 (0-0.6) 10^3/ul Absolute Basos (auto) 0 (0-0.2) 10^3/ul Absolute Nucleated RBC 0 10^3/ul Nucleated RBC % 0 INR (Anticoag Therapy) (0.89-1.11) APTT (26.0-36.3) seconds D-Dimer, Quantitative (Less Than 230) ng/mL Sodium (133-145) mmol/L Potassium (3.5-5.0) mmol/L Chloride (101-111) mmol/L Carbon Dioxide (22-32) mmol/L Anion Gap (2-11) mmol/L BUN (6-24) mg/dL Creatinine (0.51-0.95) mg/dL Est GFR ( Amer) (>60) Est GFR (Non-Af Amer) (>60) BUN/Creatinine Ratio (8-20) Glucose (70-100) mg/dL Lactic Acid 0.9 (0.5-2.0) mmol/L Calcium (8.6-10.3) mg/dL Magnesium (1.9-2.7) mg/dL Total Bilirubin (0.2-1.0) mg/dL AST (13-39) U/L ALT (7-52) U/L Alkaline Phosphatase (34-104) U/L Total Creatine Kinase (10-223) U/L CK-MB (CK-2) (0.6-6.3) ng/mL Troponin I (<0.04) ng/mL C-Reactive Protein (< 5.00) mg/L B-Natriuretic Peptide ( - 100) pg/mL Total Protein (6.4-8.9) g/dL Albumin (3.2-5.2) g/dL Globulin (2-4) g/dL Albumin/Globulin Ratio (1-3) Lipase (11.0-82.0) U/L Urine Color Straw Urine Appearance Clear Urine pH 8.0 (5-9) Ur Specific Riparius 1.002 L (1.010-1.030) Urine Protein Negative (Negative) Urine Ketones Negative (Negative) Urine Blood Negative (Negative) Urine Nitrate Negative (Negative) Urine Bilirubin Negative (Negative) Urine Urobilinogen Negative (Negative) Ur Leukocyte Esterase Negative (Negative) Urine Glucose Negative (Negative) Result Diagrams: 08/12/17 05:12 08/12/17 05:12 Lab Statement: Any lab studies that have been ordered have been reviewed, and results considered in the medical decision making process. - Radiology CXR Radiology Interpretation Completed By: ED Physician - NAD Complex Multi-Symp Course/Dx Assessment/Plan: This patient is a 67 year old F BIBA to ED with a chief complaint of SOB since few days ago. The patient rates the pain 7/10 in severity. Symptoms aggravated by nothing. Symptoms alleviated by nothing. Patient reports nausea, vomiting, rhinorrhea with green gunk, back pain, L foot pain (fracture, 07/24), wheezing, face feels like its on fire, and non- productive cough. Patient denies abdominal pain. Medications reviewed. Allergies noted. CXR reveals NAD. In the ED course, pt was given Albuterol and fluids. Pt will be discharged. Pt is agreeable with this plan. RX LEVAQUIN AND DIFLUCAN. F/U PMD; RETURN IF WORSE. - Diagnoses Provider Diagnoses: Bronchitis Discharge - Discharge Plan Condition: Stable Disposition: HOME Prescriptions: Fluconazole [Diflucan 150 MG (NF)] 150 mg PO ONCE #1 tab Levofloxacin TAB* [Levaquin TAB*] 500 mg PO DAILY #7 tab Patient Education Materials: Acute Bronchitis (ED) Referrals: Alfred Wu MD [Primary Care Provider] - Additional Instructions: FOLLOW UP WITH YOUR DOCTOR. RETURN TO THE EMERGENCY DEPARTMENT FOR ANY WORSENING OF YOUR CONDITION OR QUESTIONS OR CONCERNS. The documentation as recorded by the Vivek cabrales Nikita accurately reflects the service I personally performed and the decisions made by me, Adalberto Kinney MD.
--- NOTE | 2017-08-12 07:49 | RAD ---
INDICATION: Cough. COMPARISON: Comparison is made with prior chest x-ray study from March 28, 2017. TECHNIQUE: A portable view of the chest was obtained. FINDINGS: Cardiac and mediastinal contours appear to be within normal limits. The lungs are hyperinflated with flattening of the diaphragms and clear. There is minimal blunting of the right costophrenic angle which is unchanged from the prior exam. IMPRESSION: FINDINGS CONSISTENT WITH COPD, NO EVIDENCE FOR ACUTE FINDING.
== END 2017-08-12 07:30 | disposition home or self-care (01) ==
LOC: ED 03:27
DX: J40 Bronchitis, not specified as acute or chronic (principal); R06.02 Shortness of breath; R11.2 Nausea with vomiting, unspecified; R05 Cough
CPT/HCPCS: 36415; 71010; 80053; 81003; 82550; 82553; 83605; 83690; 83735; 83880; 84484; 85025; 85379; 85610; 85730; 86140; 94640; 96374; 99283; A9270-GY

== ENCOUNTER 2017-08-31 16:27 | Emergency (ER) | payer MEDICARE, OTHER ==
[2017-08-31] MEDS ORDERED: Ondansetron INJ* 2 MG/ML VIAL IV ONE (17:05)
[2017-08-31] MEDS ORDERED: NS 0.9% 1000 ML* 1,000 ML IV ONE (17:05)
[2017-08-31 17:55] LABS: Hematocrit 43 % (35-47); Hemoglobin 14.2 g/dl (12.0-16.0); Mean Corpuscular HGB Conc 33 g/dl (31-36); Mean Corpuscular Hemoglobin 30 pg (27-31); Mean Corpuscular Volume 90 fL (80-97); Mean Platelet Volume 9 um3 (7.4-10.4); Red Cell Distribution Width 14 % (10.5-15); White Blood Count 9.8 10^3/ul (3.5-10.8)
[2017-08-31 18:07] LABS: ALT 12 U/L (7-52); AST 18 U/L (13-39); Alkaline Phosphatase 48 U/L (34-104); Amylase 33 U/L (29-103); Anion Gap 5 mmol/L (2-11); BUN/Creatinine Ratio 11.9 (8-20); Blood Urea Nitrogen 10 mg/dL (6-24); C Reactive Protein 1.06 mg/L (< 5.00); CO2 Carbon Dioxide 28 mmol/L (22-32); Chloride 103 mmol/L (101-111); EGFR Non-African American 67.6 (>60); Globulin 2.6 g/dL (2-4); Glucose 123 mg/dL (70-100); Lipase < 10 U/L (11.0-82.0); Sodium 136 mmol/L (133-145); Total Protein 6.6 g/dL (6.4-8.9)
[2017-08-31 18:25] LABS: Valproic Acid < 13.0 mcg/mL (50-100)
[2017-08-31 18:40] LABS: TSH (Thyroid Stimulating Horm) 2.02 mcIU/mL (0.34-5.60)
--- NOTE | 2017-08-31 19:17 | RAD ---
INDICATION: Cough COMPARISON: None. TECHNIQUE: Single AP portable view of the chest was obtained. FINDINGS: Image quality is compromised due to the relative inferiority of a portable chest x-ray. The heart and mediastinum exhibit normal size and contour. At the medial margin of the right lung base there is increased parenchymal density relative to the previous chest x-ray. The lungs are otherwise well-aerated. There is no evidence of a large pleural effusion. Visualized bones are normal for the patient's age. IMPRESSION: Possible infiltrate at the medial aspect of the right lung base.
[2017-08-31 19:47] LABS: Urine Bilirubin Negative (Negative); Urine Glucose Negative (Negative); Urine Nitrite Negative (Negative)
[2017-08-31 19:59] LABS: Benzodiazepine Urine Screen Presumptive Positive (None Detect)
[2017-08-31] MEDS ORDERED: Naloxone* 0.4 MG/ML 1 ML VIAL IV PUSH ONE (20:07)
[2017-08-31 21:27] VITALS: BP 135/74
== END 2017-08-31 21:27 | disposition home or self-care (01) ==
LOC: ED 16:27
DX: R10.13 Epigastric pain (principal); R11.2 Nausea with vomiting, unspecified
CPT/HCPCS: 36415; 71010; 80053; 80164; 80307; 81003; 82150; 83690; 84443; 85025; 86140; 93005; 99282; J2310; J2405

== ENCOUNTER 2017-09-01 00:33 | Inpatient (IN) | payer MEDICARE, OTHER ==
[2017-09-01 02:43] LABS: Albumin 3.6 g/dL (3.2-5.2); Calcium 8.7 mg/dL (8.6-10.3); EGFR African American 99.1 (>60); EGFR Non-African American 77.1 (>60); Globulin 2.3 g/dL (2-4); Potassium 3.9 mmol/L (3.5-5.0); Total Bilirubin 0.6 mg/dL (0.2-1.0); Total Protein 5.9 g/dL (6.4-8.9)
[2017-09-01 02:44] LABS: Troponin I 0.03 ng/mL (<0.04)
[2017-09-01] MEDS ORDERED: Senna TAB PO PRN (03:16)
[2017-09-01] MEDS ORDERED: Docusate CAP* 100 MG PO PRN (03:16)
[2017-09-01] MEDS ORDERED: Al Hydrox/Mg Hydrox/Simet LIQ* 30 ML UDC PO PRN (03:16)
--- NOTE | 2017-09-01 03:48 | ED ---
Vivek Espitia Nikita, scribed for Aguila Escalera MD on 09/01/17 at 0301 . Substance Abuse/Use - HPI Summary HPI Summary: 67F hx of COPD presents with return visit to ED after intentional ingestion of clonidine approx 25 tabs of .1mg each. Able to answer questions but somnolent. Pt was discharged earlier today but here for similar symptoms. Denies any chest pain or SOB. - History Of Current Complaint Chief Complaint: EDGeneral Stated Complaint: HALLUCINATIONS Time Seen by Provider: 09/01/17 02:00 Hx Obtained From: Patient Hx Last Menstrual Period: "years ago" Onset/Duration of Drug/ETOH Abuse: Hours Ingestion History: Type/Name Of Drug - clonidine, Amount Ingested - handful ( approximately 25 tabs) Overdose Characteristics: Oral Timing Of Abuse: Binge Use Severity Initially: Moderate Severity Currently: Moderate Aggravating Factor(s): Nothing Alleviating Factor(s): Nothing Associated Signs And Symptoms: Other: - Patient reports weight loss due to decreased appetite and difficulty breathing. - Allergies/Home Medications Allergies/Adverse Reactions: Allergies Allergy/AdvReac Type Severity Reaction Status Date / Time Latex Allergy Intermediate Rash Verified 07/25/17 01:03 Aspirin [ASA] Allergy CAN'T TAKE Verified 07/25/17 01:03 DUE TO IBS Clindamycin Allergy Diarrhea Verified 07/25/17 01:03 Diphenhydramine Allergy HOT Verified 07/25/17 01:03 [From Benadryl] SENSATION FROM NECK TO FEET & TREMORS NSAIDs Allergy CAN'T TAKE Verified 07/25/17 01:03 DUE TO IBS Omeprazole [From Prilosec] Allergy See Comment Verified 07/25/17 01:03 Prochlorperazine Allergy HOT Verified 07/25/17 01:03 [From Compazine] SENSATION FROM NECK TO FEET & TREMORS Sucralfate [From Carafate] Allergy See Comment Verified 07/25/17 01:03 Sumatriptan [From Imitrex] Allergy INCREASED Verified 07/25/17 01:03 MIGRAINES Trazodone Allergy Nausea Verified 07/25/17 01:03 Valproic Acid [From Depakote] Allergy 50 SHERRELL Verified 07/25/17 01:03 WEIGHT GAINE, MIGRAINE WORSE & TREMORS Sulfamethoxazole AdvReac Severe GI Upset Verified 07/25/17 01:03 w/Trimethoprim [From Bactrim] Aripiprazole [From Abilify] AdvReac HYPERACTIVE Verified 07/25/17 01:03 CI Pigment Blue 63 AdvReac HYPERACTIVE Verified 07/25/17 01:03 [From Cymbalta] Ciprofloxacin [From Cipro] AdvReac DIARRHEA Verified 07/25/17 01:03 AND STOMACH CRAMPS Duloxetine [From Cymbalta] AdvReac HYPERACTIVE Verified 07/25/17 01:03 Erythromycin AdvReac DIARRHEA Verified 07/25/17 01:03 AND STOMACH CRAMPS Quetiapine [From Seroquel] AdvReac HYPERACTIVE Verified 07/25/17 01:03 Soy Allergy AdvReac Diarrhea Verified 07/25/17 01:03 Home Medications: Home Medications Clonidine HCl [Catapres 0.1 MG TAB] 0.1 mg PO DAILY 09/01/17 [History Confirmed 09/01/17] PMH/Surg Hx/FS Hx/Imm Hx Endocrine/Hematology History: Denies: Hx Anticoagulant Therapy, Hx Diabetes, Hx Thyroid Disease, Other Endocrine/Hematological Disorders Cardiovascular History: Denies: Hx Congestive Heart Failure, Hx Deep Vein Thrombosis, Hx Hypertension , Hx Myocardial Infarction, Hx Pacemaker/ICD, Other Cardiovascular Problems/ Disorders Respiratory History: Reports: Hx Asthma, Other Respiratory Problems/Disorders - PNUEMONIA Denies: Hx Chronic Obstructive Pulmonary Disease (COPD), Hx Lung Cancer, Hx Pneumonia, Hx Pulmonary Embolism GI History: Reports: Hx Irritable Bowel, Other GI Disorders - IBS Denies: Hx Gall Bladder Disease, Hx Gastrointestinal Bleed, Hx Ulcer, Hx Urosepsis History: Denies: Hx Kidney Stones, Hx Renal Disease, Other Problems/Disorders Musculoskeletal History: Reports: Hx Arthritis - Pt. states "everywhere", Hx Rheumatoid Arthritis, Hx Back Problems, Hx Osteoporosis Denies: Hx Scoliosis, Other Musculoskeletal History Sensory History: Reports: Hx Cataracts, Hx Contacts or Glasses, Hx Vision Problem - cataracts Denies: Hx Hearing Aid, Other Sensory Impairments Opthamlomology History: Reports: Hx Cataracts, Hx Contacts or Glasses, Hx Vision Problem - cataracts Denies: Other Sensory Impairments Neurological History: Reports: Hx Headaches, Hx Migraine Denies: Hx Dementia, Hx Seizures, Hx Transient Ischemic Attacks (TIA), Other Neuro Impairments/Disorders Psychiatric History: Reports: Hx Anxiety, Hx Depression, Hx Post Traumatic Stress Disorder, Hx Inpatient Treatment - hx, Hx Community Mental Health Tx, Hx Suicide Attempt, Hx Substance Abuse Denies: Hx Eating Disorder, Hx Panic Disorder, Hx Schizophrenia, Hx Bipolar Disorder, Other Psychiatric Issues/Disorders - Cancer History Cancer Type, Location and Year: Family history Hx Chemotherapy: No Hx Radiation Therapy: No - Surgical History Surgery Procedure, Year, and Place: total hysterectomy with oophorectomy 1996; SINUSES Xs2; BLADDER- CYSTOCELE AND RECTOCELE (NO METAL)/ 12/08;. LEFT ANKLE FX Hx Anesthesia Reactions: No - Immunization History Date of Tetanus Vaccine: utd Date of Influenza Vaccine: 06/2017 Infectious Disease History: No Infectious Disease History: Denies: Hx Clostridium Difficile, Hx Hepatitis, Hx Human Immunodeficiency Virus (HIV), Hx of Known/Suspected MRSA, Hx Shingles, Hx Tuberculosis, Hx Known/ Suspected VRE, Hx Known/Suspected VRSA, History Other Infectious Disease, Traveled Outside the [place] in Last 30 Days - Family History Known Family History: Positive: Cardiac Disease, Hypertension, Other - arthritis Negative: Diabetes - Social History Alcohol Use: None Hx Substance Use: Yes Substance Use Type: Reports: None Substance Use Comment - Amount & Last Used: PT DENIES Hx Tobacco Use: No Smoking Status (MU): Never Smoked Tobacco Have You Smoked in the Last Year: No Review of Systems Positive: Other - difficulty breathing Positive: Other - weight loss due to decreased appetite Positive: Other - substance use (clonidine x25 tabs, 0.1 mg) All Other Systems Reviewed And Are Negative: Yes Physical Exam Triage Information Reviewed: Yes Vital Signs On Initial Exam: Initial Vitals Resp BP 15 147/69 09/01/17 00:40 09/01/17 00:40 Vital Signs Reviewed: Yes Appearance: Positive: Well-Appearing - Appears somnolent, but able to answer questions Skin: Positive: Warm Head/Face: Positive: Normal Head/Face Inspection Eyes: Positive: Other: - 2 mm sluggish bilaterally ENT: Positive: Normal ENT inspection Neck: Positive: Supple, Nontender Respiratory/Lung Sounds: Positive: Clear to Auscultation Cardiovascular: Positive: Normal Abdomen Description: Positive: Nontender, Soft Bowel Sounds: Positive: Present Musculoskeletal: Positive: Normal, Strength/ROM Intact, Other - Moves all 4 extremities spontaneously Neurological: Positive: Other - Slightly disoriented, No obvious cranial neurological deficits Psychiatric: Positive: Other - Denies ETOH and denies other substances; Pt says she did it to kill herself; Has had similar episodes in the past; Took a handful or approximately 25 tabs all at once (0.1 mg each); She anticipated she was asleep for a very long time - [place] Coma Scale Coma Scale Total: 15 Diagnostics - Vital Signs Vital Signs Temp Pulse Resp BP Pulse Ox 09/01/17 02:00 31 26 141/60 96 09/01/17 01:30 37 16 132/81 97 09/01/17 01:00 34 17 146/68 96 09/01/17 00:42 98 F 59 16 147/69 98 09/01/17 00:40 15 147/69 - Laboratory Lab Results: Lab Results 09/01/17 Range/Units 02:20 Sodium 135 (133-145) mmol/L Potassium 3.9 (3.5-5.0) mmol/L Chloride 104 (101-111) mmol/L Carbon Dioxide 26 (22-32) mmol/L Anion Gap 5 (2-11) mmol/L BUN 9 (6-24) mg/dL Creatinine 0.75 (0.51-0.95) mg/dL Est GFR ( Amer) 99.1 (>60) Est GFR (Non-Af Amer) 77.1 (>60) BUN/Creatinine Ratio 12.0 (8-20) Glucose 137 H (70-100) mg/dL Calcium 8.7 (8.6-10.3) mg/dL Total Bilirubin 0.60 (0.2-1.0) mg/dL AST 16 (13-39) U/L ALT 9 (7-52) U/L Alkaline Phosphatase 42 (34-104) U/L Troponin I 0.03 (<0.04) ng/mL Total Protein 5.9 L (6.4-8.9) g/dL Albumin 3.6 (3.2-5.2) g/dL Globulin 2.3 (2-4) g/dL Albumin/Globulin Ratio 1.6 (1-3) Result Diagrams: 09/01/17 02:20 Lab Statement: Any lab studies that have been ordered have been reviewed, and results considered in the medical decision making process. - EKG 0051 Cardiac Rate: Bradycardia EKG Rhythm: Sinus Bradycardia - sinus eloise at 30 bpm, no acute ischemic changes. NL intervals. no ectopy. Course/Dx - Course Course Of Treatment: after consultation with poison control, pt admitted for further observation, no acute treatment indicated at this time. HR persistent in 30s, pt appears slightly somnolent but able to answer questions. May require social work consultation during hospital stay - Diagnoses Provider Diagnoses: Clonidine overdose - Physician Notifications Discussed Care Of Patient With: Noemí Eli Time Discussed With Above Provider: 02:56 Instructed by Provider To: Other - Consulted Dr. Eli who will see pt in the ED. Consulted poison control at 0221 who recommends observation, Tylenol, ASA levels, and re-eval. Discharge - Discharge Plan Condition: Guarded Disposition: ADMITTED TO Health system documentation as recorded by the Vivek cabrales Nikita accurately reflects the service I personally performed and the decisions made by me, Aguila Escalera MD.
[2017-09-01] MEDS: Heparin VIAL(*) 5000 UNITS/ML VIAL (FIVE THOUSAND) SUBCUT SCH ×3 (05:10→21:45)
[2017-09-01] MEDS ORDERED: NS 0.9% 1000 ML* 1,000 ML IV ONE ×2 (05:51→22:18)
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
[2017-09-01 07:28] LABS: Acetaminophen < 15 mcg/mL; Salicylate < 2.50 mg/dL (<30)
[2017-09-01] MEDS ORDERED: NS 0.9% 500 ML* 500 ML IV ONE (11:57)
--- NOTE | 2017-09-01 12:30 | PN ---
Subjective Date of Service: 09/01/17 Interval History: This is a 67 year old female that presented to the hospital s/p intentional ingestion of overdose of clonidine. Patient states to this provider that she took them because she was depressed because she "has no one in this world". She appeared to be agitated and was reluctant to answer questions, made no eye contact and was very preoccupied with the care of her cat which is home alone. Otherwise, denies chest pain, states she feels tired and weak. Objective Active Medications: Al Hydrox/Mg Hydrox/Simethicone (Maalox Plus*) 30 ml PO Q6H PRN PRN Reason: INDIGESTION Docusate Sodium (Colace Cap*) 100 mg PO BID PRN PRN Reason: CONSTIPATION Heparin Sodium (Porcine) (Heparin Vial(*)) 5,000 units SUBCUT Q8HR STELLA Last Admin: 09/01/17 05:10 Dose: 5,000 units Sodium Chloride (Ns 0.9% 500 Ml*) 500 mls @ 1,000 mls/hr IV ONCE ONE Stop: 09/01/17 12:26 Last Admin: 09/01/17 12:01 Dose: 1,000 mls/hr Ondansetron HCl (Zofran Inj*) 4 mg IV Q4H PRN PRN Reason: NAUSEA/VOMITING Senna (Senokot Tab*) 1 tab PO BID PRN PRN Reason: CONSTIPATION Vital Signs 09/01/17 09/01/17 09/01/17 03:21 03:30 04:00 Temperature Pulse Rate 33 32 33 Respiratory 14 21 15 Rate Blood Pressure 144/61 143/64 139/63 (mmHg) O2 Sat by Pulse 95 94 94 Oximetry 09/01/17 09/01/17 09/01/17 04:13 04:35 05:46 Temperature 97.9 F 98.0 F 98.2 F Pulse Rate 33 33 51 Respiratory 15 20 Rate Blood Pressure 139/63 114/61 68/45 (mmHg) O2 Sat by Pulse 94 97 100 Oximetry 09/01/17 07:17 Temperature 96.6 F Pulse Rate 37 Respiratory 18 Rate Blood Pressure 99/55 (mmHg) O2 Sat by Pulse 98 Oximetry Oxygen Devices in Use Now: None Appearance: pale, introverted, preoccupied Eyes: No Scleral Icterus Ears/Nose/Mouth/Throat: Mucous Membranes Moist Neck: NL Appearance and Movements; NL JVP Respiratory: Symmetrical Chest Expansion and Respiratory Effort, Clear to Auscultation Cardiovascular: RRR, - - grade II/ murmur Extremities: No Edema Neurological: Alert and Oriented x 3 Nutrition: Taking PO's Result Diagrams: 09/01/17 02:20 Additional Lab and Data: Lab Results 09/01/17 Range/Units 02:20 Sodium 135 (133-145) mmol/L Potassium 3.9 (3.5-5.0) mmol/L Chloride 104 (101-111) mmol/L Carbon Dioxide 26 (22-32) mmol/L Anion Gap 5 (2-11) mmol/L BUN 9 (6-24) mg/dL Creatinine 0.75 (0.51-0.95) mg/dL Est GFR ( Amer) 99.1 (>60) Est GFR (Non-Af Amer) 77.1 (>60) BUN/Creatinine Ratio 12.0 (8-20) Glucose 137 H (70-100) mg/dL Calcium 8.7 (8.6-10.3) mg/dL Total Bilirubin 0.60 (0.2-1.0) mg/dL AST 16 (13-39) U/L ALT 9 (7-52) U/L Alkaline Phosphatase 42 (34-104) U/L Troponin I 0.03 (<0.04) ng/mL Total Protein 5.9 L (6.4-8.9) g/dL Albumin 3.6 (3.2-5.2) g/dL Globulin 2.3 (2-4) g/dL Albumin/Globulin Ratio 1.6 (1-3) Assess/Plan/Problems-Billing Assessment: This is a 67 year old female profoundly bradycardic and hypotensive s/p intentional overdose of clonidine. - Patient Problems (1) Hypotension Comment: - S/p 1 liter bolus this AM - Will bolus again another 500ml and continue to monitor - Remains tired, but otherwise stable - Reached out to Poison Control center again for further recommendations - Unclear if hypotension is related to concomitant use of buprenorphine patch (2) Anxiety and depression Code(s): F41.8 - OTHER SPECIFIED ANXIETY DISORDERS SNOMED Code(s): 795605603 Comment: - on 1:1 supervision - Psych consulted, appreciate further recommendations (3) At risk for abuse of opiates Code(s): Z91.89 - OTH PERSONAL RISK FACTORS, NOT ELSEWHERE CLASSIFIED SNOMED Code(s): 07375504 Comment: - Per records, patient has hx of narcotic abuse with dismissal from pain clinic in 2016 - has buprenorphine patch on currently - Discussed patch with poison control who is researching any issues that need to be addressed given the recent overdose (4) Chronic pain Current Visit: No Status: Acute Priority: High Code(s): G89.29 - OTHER CHRONIC PAIN SNOMED Code(s): 26498258 Comment: Continue prn soma and norco. pain controlled (5) Full code status Code(s): Z78.9 - OTHER SPECIFIED HEALTH STATUS SNOMED Code(s): 417819105 (6) Overdose Code(s): T50.901A - POISONING BY UNSP DRUG/MEDS/BIOL SUBST, ACCIDENTAL, INIT SNOMED Code(s): 48334074 Comment: - Patient admits that she made "a big mistake" - Per record, appears she may have intentionally overdosed on benzos in 2016 - Continue 1:1 - Pending psych eval, appreciate further recs - Would benefit from outpatient f/u and SW services once stable and DC'd - Continue supportive care (7) Sinus bradycardia Code(s): R00.1 - BRADYCARDIA, UNSPECIFIED SNOMED Code(s): 62691459 Comment: - Continue tele - HR varies from low 30's to 50's overnight; Currently up to 71 but variable - Maintain contact with Poison Control Status and Disposition: Remain inpatient Pending psychiatric evaluation Pending any further recs from poison control Supportive care Update - Per poison control, ok for atropine for symptomatic bradycardia and hypotension. Will trial one dose. D/W RN, order placed. 1749: Per primary RN, HR 51 with SBP>101 after one dose atropine. Stable, continue to monitor. Counseling and/or Coordination of Care Minutes: Coordinated with case mgmt , nursing staff and Poison Control Center, Attending: Ron Gonzalez
[2017-09-01] MEDS ORDERED: Atropine SYRINGE* 0.1 MG/ML 10 ML SYRINGE (1 MG) IV PUSH ONE ×2 (13:26→22:18)
--- NOTE | 2017-09-01 22:00 | PN ---
Progress Note - Progress Note Date of Service: 09/01/17 Note: Nursing reports recurrent hypotension w/ poison control recommending ICU monitoring with which I agree. Will transfer, re-administer atropine, and assess response.
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
[2017-09-01] MEDS ORDERED: Atropine SYRINGE* 0.1 MG/ML 10 ML SYRINGE (1 MG) ONE (22:49)
[2017-09-02] MEDS ORDERED: Atropine SYRINGE* 0.1 MG/ML 10 ML SYRINGE (1 MG) IV PUSH ONE (03:05)
[2017-09-02] MEDS ORDERED: Atropine SYRINGE* 0.1 MG/ML 10 ML SYRINGE (1 MG) ONE (03:10)
[2017-09-02] MEDS ORDERED: DEXTROSE IV SCH (06:00)
[2017-09-02] MEDS ORDERED: DOPAMINE IV SCH (06:00)
[2017-09-02] MEDS: Heparin VIAL(*) 5000 UNITS/ML VIAL (FIVE THOUSAND) SUBCUT SCH ×3 (06:21→22:43)
[2017-09-02] MEDS ORDERED: Atropine SYRINGE* 0.1 MG/ML 10 ML SYRINGE (1 MG) IV PRN (08:30)
--- NOTE | 2017-09-02 14:31 | PN ---
Subjective Date of Service: 09/02/17 Interval History: Patient seen and examined. Awake, up in bed, feeling ok. States she's scared and anxious, wants her klonopin. Was upgraded to ICU last night for closer monitoring. Received atropine x2 while here. Tele evaluated, HR has been in the 50's, sinus kira and asymptomatic all day. BP stable with SBP>95 and asymptomatic. Patient is eating and drinking, refused PT as per RN. Was having bouts with incontinence, morales was inserted for acute retention with overflow incontinence. Denies chest pain, denies SOB, no dizziness, no headache. No further complaints. Objective Active Medications: Al Hydrox/Mg Hydrox/Simethicone (Maalox Plus*) 30 ml PO Q6H PRN PRN Reason: INDIGESTION Atropine Sulfate (Atropine Syringe*) 0.5 mg IV Q3H PRN PRN Reason: KIAR, HR<40 OR SYMPTOMATIC Docusate Sodium (Colace Cap*) 100 mg PO BID PRN PRN Reason: CONSTIPATION Heparin Sodium (Porcine) (Heparin Vial(*)) 5,000 units SUBCUT Q8HR STELLA Last Admin: 09/02/17 13:33 Dose: 5,000 units Dopamine HCl 200 mg/ Dextrose 250 mls @ 9.17 mls/hr IV Q24H STELLA; 2 MCG/KG/MIN PRN Reason: Protocol Last Admin: 09/02/17 06:21 Dose: 9.17 mls/hr Ondansetron HCl (Zofran Inj*) 4 mg IV Q4H PRN PRN Reason: NAUSEA/VOMITING Senna (Senokot Tab*) 1 tab PO BID PRN PRN Reason: CONSTIPATION Vital Signs - 8 hr 09/02/17 09/02/17 09/02/17 10:45 11:00 11:01 Temperature 99.0 F 99.0 F 99.0 F Pulse Rate 62 56 52 Respiratory 23 24 23 Rate Blood Pressure 92/58 84/53 (mmHg) O2 Sat by Pulse 95 97 96 Oximetry 09/02/17 09/02/17 09/02/17 11:15 11:30 11:42 Temperature 99.1 F 99.3 F 99.3 F Pulse Rate 44 44 46 Respiratory 22 23 21 Rate Blood Pressure 85/52 80/49 90/52 (mmHg) O2 Sat by Pulse 97 95 98 Oximetry 09/02/17 09/02/17 09/02/17 11:45 12:00 12:01 Temperature 99.3 F 99.3 F 99.3 F Pulse Rate 49 63 54 Respiratory 24 22 25 Rate Blood Pressure 77/45 89/40 (mmHg) O2 Sat by Pulse 96 83 98 Oximetry 09/02/17 09/02/17 12:15 12:30 Temperature 99.5 F 99.5 F Pulse Rate 43 43 Respiratory 24 22 Rate Blood Pressure 81/52 91/53 (mmHg) O2 Sat by Pulse 97 97 Oximetry Oxygen Devices in Use Now: None Appearance: Awake, alert, NAD Eyes: PERRLA Ears/Nose/Mouth/Throat: NL Teeth, Lips, Gums Neck: NL Appearance and Movements; NL JVP Respiratory: Symmetrical Chest Expansion and Respiratory Effort, Clear to Auscultation Cardiovascular: No Edema, - - Sinus kira, no ectopy Abdominal: NL Sounds; No Tenderness; No Distention Skin: No Rash or Ulcers Neurological: Alert and Oriented x 3, NL Sensation, NL Muscle Strength and Tone Nutrition: Taking PO's Result Diagrams: 09/01/17 02:20 Additional Lab and Data: Lab Results 09/01/17 Range/Units 02:20 Sodium 135 (133-145) mmol/L Potassium 3.9 (3.5-5.0) mmol/L Chloride 104 (101-111) mmol/L Carbon Dioxide 26 (22-32) mmol/L Anion Gap 5 (2-11) mmol/L BUN 9 (6-24) mg/dL Creatinine 0.75 (0.51-0.95) mg/dL Est GFR ( Amer) 99.1 (>60) Est GFR (Non-Af Amer) 77.1 (>60) BUN/Creatinine Ratio 12.0 (8-20) Glucose 137 H (70-100) mg/dL Calcium 8.7 (8.6-10.3) mg/dL Total Bilirubin 0.60 (0.2-1.0) mg/dL AST 16 (13-39) U/L ALT 9 (7-52) U/L Alkaline Phosphatase 42 (34-104) U/L Troponin I 0.03 (<0.04) ng/mL Total Protein 5.9 L (6.4-8.9) g/dL Albumin 3.6 (3.2-5.2) g/dL Globulin 2.3 (2-4) g/dL Albumin/Globulin Ratio 1.6 (1-3) Assess/Plan/Problems-Billing Assessment: This is a 67 year old female profoundly bradycardic and hypotensive s/p intentional overdose of clonidine. - Patient Problems (1) Hypotension Comment: - S/p 1.5 liters NS - Continue IVF at maintenance - S/P atropine pushes x5 in total, BP stable today - Maintain contact with poison control - I see no indication for further ICU monitoring or need for pressors, as patient is stable and asymptomatic (2) Anxiety and depression Code(s): F41.8 - OTHER SPECIFIED ANXIETY DISORDERS SNOMED Code(s): 748977891 Comment: - 1:1 supervision canceled as per psych, who is following her case - No SI last 24 hours - Will need social support and communitry resources at [place] (3) At risk for abuse of opiates Code(s): Z91.89 - OTH PERSONAL RISK FACTORS, NOT ELSEWHERE CLASSIFIED SNOMED Code(s): 26725245 Comment: - Per records, patient has hx of narcotic abuse with dismissal from pain clinic in 2016 - has buprenorphine patch on currently - Will need to follow up with her PCP for patch at [place] (4) Full code status Code(s): Z78.9 - OTHER SPECIFIED HEALTH STATUS SNOMED Code(s): 256135010 (5) Overdose Code(s): T50.901A - POISONING BY UNSP DRUG/MEDS/BIOL SUBST, ACCIDENTAL, INIT SNOMED Code(s): 37792401 Comment: - Psychiatry consult appreciated - No SI noted since admission - 1:1 cancelled - continue to monitor mood and symptoms (6) Sinus bradycardia Code(s): R00.1 - BRADYCARDIA, UNSPECIFIED SNOMED Code(s): 31455082 Comment: - Continue tele - HR in 50's since last night - Maintain contact with Poison Control - No further need for atropine at this time, as patient remains asymptomatic with SBP>90 Status and Disposition: Remain inpatient Supportive care Downgrade from ICU and transfer back to tele unit Counseling and/or Coordination of Care Minutes: coordinated with patient and primary RN Attending: Belkis Ortiz
[2017-09-02] MEDS: NS 0.9% 1000 ML* 1,000 ML IV SCH (16:12)
--- NOTE | 2017-09-02 16:38 | CONSULT ---
Identification - Patient Identification Reason for Psychiatric Consultation: Suicidal Ideation -: Patient is a 67 year old, F admitted on 09/02/17. - MHU Identification Employment Status: Disabled Hx Psychiatric Hospitalization: Yes History - Objective HPI: Caitlyn is irritable on presentation today in the ICU, where she was transferred to last evening due to continued bradycardia. "Why are you here again today?" she snaps at me as I enter. She admits to some oversensitivity today, self- attributing this to her clonazepam being held for hemodynamic reasons. Her chief concern is that she will not have clonazepam at home because she overdosed on this, as well as clonidine, prior to admission. "I don't see Dr. Jones at [facility] until the . What am I gonna do in the meantime. That's a dangerous medicine to withdraw from. It could kill you." I reassure her that if she was going to withdraw from clonazepam, she would be doing so already and her heart rate in that event would be elevated instead of decreased. Caitlyn continues to deny SI. She continues to request assistance in getting groceries and maximizing her independence at home. Exam Appearance: Well Developed/Nourished Hygiene: Normal Grooming: Fairly Well Kept Psychomotor Activities: Normal Exhibits Abnormal Movement: No Attitude and Relatedness: Irritable Eye Contact: Good - Speech Quality: Unpressured Latencies: Normal Quantity: Appropriate Patient's Decription of Mood: "Anxious" Observed Affect: Tense Affect Consistent with: Dysphoria Patient's Thought Process: Goal Directed Thought Content: No Passive Wish, No Suicidal Planning, No Homicidal Ideation, No Paranoid Ideation Experiencing Hallucinations: No, Sensorium is Clear Type of Hallucinations: Visual: No, Auditory: No, Command: No Level of Consciousness: Alert Orientation: Yes Intact, Yes Orientated to Time, Yes Orientated to Place, Yes Orientated to Person Impulse Control: Poor Insight and Judgement: Impaired Impression - Impression Clinical Impression: 67 y.o. , white female with a history of opioid dependence, borderline personality structure and early life trauma admitted to the medical service following an intentional overdose on clonidine, and apparently clonazepam, in a parasuicidal gesture, likely intended for secondary gain in order to secure additional services in the community. Merits Inpatient Hospitalization: No Plan - Treatment Plan Treatment Plan: Continue medical treatment. Patient has follow ups already scheduled at [facility] with therapist Nii Rowell (09/12) and psychiatrist Lamin Jones (09/15). She is not at risk for benzodiazepine withdrawal as she shows no physiological evidence of this thus far. Psychiatry does not recommend prescribing benzodiazepines during admission or at discharge as there is suspicion that she may be abusing these. Patient may follow up with Dr. Jones for this issue. We will continue to follow. Medications: Current Medications Al Hydrox/Mg Hydrox/Simethicone (Maalox Plus*) 30 ml PO Q6H PRN PRN Reason: INDIGESTION Atropine Sulfate (Atropine Syringe*) 0.5 mg IV Q3H PRN PRN Reason: KIRA, HR<40 OR SYMPTOMATIC Docusate Sodium (Colace Cap*) 100 mg PO BID PRN PRN Reason: CONSTIPATION Heparin Sodium (Porcine) (Heparin Vial(*)) 5,000 units SUBCUT Q8HR [facility] Last Admin: 09/02/17 13:33 Dose: 5,000 units Dopamine HCl 200 mg/ Dextrose 250 mls @ 9.17 mls/hr IV Q24H [facility]; 2 MCG/KG/MIN PRN Reason: Protocol Last Admin: 09/02/17 06:21 Dose: 9.17 mls/hr Sodium Chloride (Ns 0.9% 1000 Ml*) 1,000 mls @ 75 mls/hr IV PER RATE [facility] Last Admin: 09/02/17 16:12 Dose: 75 mls/hr Ondansetron HCl (Zofran Inj*) 4 mg IV Q4H PRN PRN Reason: NAUSEA/VOMITING Senna (Senokot Tab*) 1 tab PO BID PRN PRN Reason: CONSTIPATION - Discharge Plan Discharge Plan: Outpatient Follow Up Outpatient Program: [facility]
[2017-09-03] MEDS: Ondansetron INJ* 2 MG/ML VIAL IV PRN ×2 (00:45→04:49)
[2017-09-03] MEDS: Heparin VIAL(*) 5000 UNITS/ML VIAL (FIVE THOUSAND) SUBCUT SCH ×3 (04:51→21:42)
[2017-09-03] MEDS: NS 0.9% 1000 ML* 1,000 ML IV SCH (05:47)
[2017-09-03 05:57] LABS: Hematocrit 31 % (35-47); Hemoglobin 10.4 g/dl (12.0-16.0); Mean Corpuscular HGB Conc 34 g/dl (31-36); Mean Corpuscular Hemoglobin 30 pg (27-31); Mean Corpuscular Volume 91 fL (80-97); Mean Platelet Volume 9 um3 (7.4-10.4); Red Blood Count 3.42 10^6/ul (4.0-5.4); Red Cell Distribution Width 14 % (10.5-15); White Blood Count 7.3 10^3/ul (3.5-10.8)
[2017-09-03 06:15] LABS: Albumin 2.9 g/dL (3.2-5.2); BUN/Creatinine Ratio 17.9 (8-20); Calcium 7.9 mg/dL (8.6-10.3); EGFR African American 94.7 (>60); EGFR Non-African American 73.7 (>60); Globulin 1.9 g/dL (2-4); Potassium 3.4 mmol/L (3.5-5.0); Total Bilirubin 0.2 mg/dL (0.2-1.0); Total Protein 4.8 g/dL (6.4-8.9)
[2017-09-03] MEDS ORDERED: Metoclopramide TAB* 10 MG PO PRN (09:21)
[2017-09-03] MEDS ORDERED: Potassium Chlor TAB* 20 MEQ TAB.ER PO ONE (13:31)
--- NOTE | 2017-09-03 14:06 | PN ---
Subjective Date of Service: 09/03/17 Interval History: Patient seen and examined. Tearful, states she is sorry for what she did and that she made a "big mistake". Seems to be repeating that she has little resources at home and was overwhelmed. Asking for klonopin. Explained that I will not give her any controlled substances while she is inpatient and will not give her a prescription upon leaving given her overdose. She states her anxiety is increasing as well as her insomnia. Agreed to try vistaril as needed as opposed to a controlled substance. Also states she has a "sinus infection" and asked for levaquin; has post nasal drip, no facial pain, no headache, no tenderness, no purulent drainage, no dizziness, no nausea. No chest pain. Had some indigestion earlier, now resolved. Objective Active Medications: Al Hydrox/Mg Hydrox/Simethicone (Maalox Plus*) 30 ml PO Q6H PRN PRN Reason: INDIGESTION Last Admin: 09/03/17 11:04 Dose: 30 ml Atropine Sulfate (Atropine Syringe*) 0.5 mg IV Q3H PRN PRN Reason: KIRA, HR<40 OR SYMPTOMATIC Docusate Sodium (Colace Cap*) 100 mg PO BID PRN PRN Reason: CONSTIPATION Fluticasone Propionate (Flonase Nasal [place] 50mcg*) 2 spray BOTH NARES DAILY [facility] Heparin Sodium (Porcine) (Heparin Vial(*)) 5,000 units SUBCUT Q8HR [facility] Last Admin: 09/03/17 04:51 Dose: 5,000 units Hydroxyzine HCl (Atarax Tab*) 25 mg PO BID PRN PRN Reason: ANXIETY Metoclopramide HCl (Reglan Tab*) 10 mg PO Q6H PRN PRN Reason: NAUSEA Ondansetron HCl (Zofran Inj*) 4 mg IV Q4H PRN PRN Reason: NAUSEA/VOMITING Last Admin: 09/03/17 04:49 Dose: 4 mg Senna (Senokot Tab*) 1 tab PO BID PRN PRN Reason: CONSTIPATION Vital Signs - 8 hr 09/03/17 09/03/17 07:49 08:00 Temperature 98.1 F Pulse Rate 52 Respiratory 22 20 Rate Blood Pressure 112/65 (mmHg) O2 Sat by Pulse 100 Oximetry Oxygen Devices in Use Now: None Appearance: Awake, mild distress, tearful Extremities: No Edema Skin: No Rash or Ulcers Neurological: Alert and Oriented x 3 Result Diagrams: 09/03/17 05:21 09/03/17 05:21 Additional Lab and Data: Lab Results 09/01/17 Range/Units 02:20 Sodium 135 (133-145) mmol/L Potassium 3.9 (3.5-5.0) mmol/L Chloride 104 (101-111) mmol/L Carbon Dioxide 26 (22-32) mmol/L Anion Gap 5 (2-11) mmol/L BUN 9 (6-24) mg/dL Creatinine 0.75 (0.51-0.95) mg/dL Est GFR ( Amer) 99.1 (>60) Est GFR (Non-Af Amer) 77.1 (>60) BUN/Creatinine Ratio 12.0 (8-20) Glucose 137 H (70-100) mg/dL Calcium 8.7 (8.6-10.3) mg/dL Total Bilirubin 0.60 (0.2-1.0) mg/dL AST 16 (13-39) U/L ALT 9 (7-52) U/L Alkaline Phosphatase 42 (34-104) U/L Troponin I 0.03 (<0.04) ng/mL Total Protein 5.9 L (6.4-8.9) g/dL Albumin 3.6 (3.2-5.2) g/dL Globulin 2.3 (2-4) g/dL Albumin/Globulin Ratio 1.6 (1-3) Assess/Plan/Problems-Billing Assessment: This is a 67 year old female profoundly bradycardic and hypotensive s/p intentional overdose of clonidine. - Patient Problems (1) Hypotension Comment: - DC IVF - Tolerating PO - BP stable (2) Anxiety and depression Code(s): F41.8 - OTHER SPECIFIED ANXIETY DISORDERS SNOMED Code(s): 582950649 Comment: - Mood labile - Psychiatry following - Needs outpatient f/u - No klonopin (3) At risk for abuse of opiates Code(s): Z91.89 - OTH PERSONAL RISK FACTORS, NOT ELSEWHERE CLASSIFIED SNOMED Code(s): 34601748 Comment: - Per records, patient has hx of narcotic abuse with dismissal from pain clinic in 2016 - has buprenorphine patch on currently - Will need to follow up with her PCP for patch at [place] - No klonopin (4) Full code status Code(s): Z78.9 - OTHER SPECIFIED HEALTH STATUS SNOMED Code(s): 178038189 (5) Overdose Code(s): T50.901A - POISONING BY UNSP DRUG/MEDS/BIOL SUBST, ACCIDENTAL, INIT SNOMED Code(s): 08895341 Comment: - Psychiatry following - No SI noted since admission - Has psychiatrist Dr. Londono that she will need to f/u with for med management - No klonopin (6) Sinus bradycardia Code(s): R00.1 - BRADYCARDIA, UNSPECIFIED SNOMED Code(s): 28822884 Comment: - Continue tele - HR stable in high 50's - Seems to be clear of overdose symptoms at this time (7) Allergic rhinitis Code(s): J30.9 - ALLERGIC RHINITIS, UNSPECIFIED SNOMED Code(s): 14702824 Comment: - does not appear to have sinus infection, likely allergies and PND - flonase BID (8) Insomnia Code(s): G47.00 - INSOMNIA, UNSPECIFIED SNOMED Code(s): 007715774 Comment: - This is likely concomitant with her mood disorder, will not give any controlled substances - will trial vistaril BID for anxiety and/or for sleep Status and Disposition: Medically stable Plan for DC tomorrow if community resources in place Counseling and/or Coordination of Care Minutes: Coordinated with patient, staff and psychiatry. Time spent >60mins
[2017-09-03] MEDS: Fluticasone NASAL SPRAY 50MCG* 16 gm SPRAY BTL BOTH NARES SCH (14:36)
[2017-09-03] MEDS: Acetaminophen TAB* 325 MG PO PRN (18:06)
[2017-09-03] MEDS: hydrOXYzine HCL TAB* 25 MG PO PRN (21:49)
[2017-09-04] MEDS: Acetaminophen TAB* 325 MG PO PRN ×2 (00:10→07:52)
--- NOTE | 2017-09-04 02:27 | DS ---
CC: Dr. Jones * DISCHARGE SUMMARY: DATE OF ADMISSION: 09/02/17 DATE OF DISCHARGE: 09/04/17 ATTENDING PHYSICIAN: Erinn Arias MD* (DICTATED BY JULIAN HENDRIX NP ) HOSPITAL COURSE: This is a 67-year-old female patient who presented to the emergency department with emergency medical services on 09/01/17, having stated she intentionally ingested her bottle of clonidine approximately 25 tablets earlier that day. She said she intended to end her life because she is overwhelmed. The patient has a very longstanding psychiatric history and borderline personality disorder. She is well known to Dr. Baez, psychiatric services as well as to community services. The patient was pulling out her IV and irritable on her riding with EMS and was hallucinating and not willing to cooperate with EMS workers. She was admitted for observation. Poison Control was called. She was monitored for bradycardia, which her heart rate was in the 40s at the time of admission and then began to have also some significant hypotension. Heart rate was down into the 30s with blood pressures her systolics down into the 70s. She was given atropine 0.5 mg. Again, we consulted with the operating room coordinator at [facility] several times. Altogether, she received 6 doses of atropine at 0.5 mg different times throughout the night on her first night of hospitalization. At one point, she was also upgraded to ICU for closer monitoring for administration of pressors if needed. She was receiving fluid administration as well in the form of fluid resuscitation, for which she responded well. Systolic blood pressures in the last 24 hours have now been above 100 and she is still mildly bradycardic in the 50s with no ectopy; however, her symptoms have generally resolved. She has been awake and alert with no reports of dizziness and has been steady on her feet and again being followed by Psychiatry during her admission. She was a one -to-one observation for safety given her intentional ingestion; however, she has shown a significant amount of remorse for her attempted suicide. She was cleared by Psychiatry on 09/03/17 for release to home. She does have community resources on a psychiatrist and neonatal social worker and also a therapist at home. We worked together with case management and social workers to increase her community support presence, so this does not happen again. Also of note, she does have history of abusing benzodiazepines and other medications in the past, so we refrained from giving her Klonopin while she was here and also any other benzo class medications. The patient became very tearful when she found that she was being discharged; however, she was told that she would be held for one more day to ensure that her blood pressure and heart rate were stable. If she remained stable throughout the night, she can be discharged on 09/04/17 to home with followup care. Again, social work and case management have been made aware of this. LABORATORY DATA: Today showed WBC is 7.3, RBC is 3.42, hemoglobin 10.4, hematocrit 31, platelets 155. Chemistry shows sodium 141, potassium 3.4, chloride 112, CO2 25, BUN 14, creatinine 0.78, glucose 84, calcium 7.9. Bili 0.2, AST 12, ALT 7. Of note, troponin was negative at 0.03. Total protein 4.8 , albumin 2.9. Toxicology report shows salicylates less than 2.50 and acetaminophen less than 15. VITAL SIGNS: Today, temperature 98.8; heart rate now 66, again sinus eloise on telemetry; respiratory rate 16; satting 100% on room air; current blood pressure is 130/63. DISCHARGE INSTRUCTIONS: It was explained to the patient that she should follow up with her Dr. Jones, her psychiatrist, for any medication titration in the future that she would not be given any prescription for Klonopin or any other controlled substance at discharge. Also that she should follow up with her primary care doctor and her outpatient program at [facility]. All questions were answered. The patient verbalized her understanding of her followups. MEDICATIONS AT THE TIME OF DISCHARGE: Include: 1. Tylenol 650 mg as needed for headache. 2. Flonase 2 sprays each nostril as needed for allergic rhinitis. The patient expressed that she is not aware of any other medications that she has been prescribed at this time and again we are not giving her any Klonopin as she has requested. JULIAN HENDRIX, MICA LAYER [id number]/[facility] #: [id number] [facility]
[2017-09-04] MEDS: Heparin VIAL(*) 5000 UNITS/ML VIAL (FIVE THOUSAND) SUBCUT SCH (05:48)
[2017-09-04] MEDS: Fluticasone NASAL SPRAY 50MCG* 16 gm SPRAY BTL BOTH NARES SCH (07:53)
[2017-09-04 10:15] VITALS: BP 137/74
[2017-09-04] MEDS: hydrOXYzine HCL TAB* 25 MG PO PRN (10:40)
[2017-09-04] MEDS ORDERED: clonazePAM TAB(*) 1 MG PO PRN (10:49)
--- NOTE | 2017-09-04 11:08 | CONSULT ---
Identification - Patient Identification Reason for Psychiatric Consultation: Suicidal Ideation -: Patient is a 67 year old, F admitted on 09/02/17. - MHU Identification Employment Status: Disabled Hx Psychiatric Hospitalization: Yes History - Objective HPI: Caitlyn is seen for follow up today. She is anxious and upset that she has not been discharged yet. "I'm tired of lying in this bed and not being able to wear my clothes. I need to take care of my cat. Can you please tell them to give me a Klonopin?" The patient continues to deny SI, expressing remorse for overdose and acknowledging that it was the wrong way to get her needs met. She has follow up appointments in place at the [facility] and is eager to follow up in that setting. Lab Results: Laboratory Tests 09/03/17 09/03/17 05:21 05:21 WBC 7.3 RBC 3.42 L Hgb 10.4 L Hct 31 L MCV 91 MCH 30 MCHC 34 RDW 14 Plt Count 155 MPV 9 Neut % (Auto) 53.3 Lymph % (Auto) 34.7 Ogle % (Auto) 10.5 H Eos % (Auto) 1.2 Baso % (Auto) 0.3 Absolute Neuts (auto) 3.9 Absolute Lymphs (auto) 2.5 Absolute Monos (auto) 0.8 Absolute Eos (auto) 0.1 Absolute Basos (auto) 0 Absolute Nucleated RBC 0 Nucleated RBC % 0.1 Sodium 141 Potassium 3.4 L Chloride 112 H Carbon Dioxide 25 Anion Gap 4 BUN 14 Creatinine 0.78 Est GFR ( Amer) 94.7 Est GFR (Non-Af Amer) 73.7 BUN/Creatinine Ratio 17.9 Glucose 84 Calcium 7.9 L Total Bilirubin 0.20 AST 12 L ALT 7 Alkaline Phosphatase 61 Total Protein 4.8 L Albumin 2.9 L Globulin 1.9 L Albumin/Globulin Ratio 1.5 Exam Appearance: Well Developed/Nourished Hygiene: Normal Grooming: Fairly Well Kept Psychomotor Activities: Normal Exhibits Abnormal Movement: No Attitude and Relatedness: Irritable Eye Contact: Good - Speech Quality: Unpressured Latencies: Normal Quantity: Appropriate Patient's Decription of Mood: "Anxious" Observed Affect: Tense Affect Consistent with: Euthymia Patient's Thought Process: Goal Directed Thought Content: No Passive Wish, No Suicidal Planning, No Homicidal Ideation, No Paranoid Ideation Experiencing Hallucinations: No, Sensorium is Clear Type of Hallucinations: Visual: No, Auditory: No, Command: No Level of Consciousness: Alert Orientation: Yes Intact, Yes Orientated to Time, Yes Orientated to Place, Yes Orientated to Person Impulse Control: Tenuous Insight and Judgement: Fair Impression - Impression Clinical Impression: 67 y.o. , white female with a history of opioid dependence, borderline personality structure and early life trauma admitted to the medical service following an intentional overdose on clonidine, and apparently clonazepam, in a parasuicidal gesture, likely intended for secondary gain in order to secure additional services in the community. Inpatient DSM-IV Dx: Unspecified Mood DO Merits Inpatient Hospitalization: No Problem List - MHU Problems Type of Problem: Affect Status of Problem: Resolved Plan - Treatment Plan Treatment Plan: Caitlyn is psychiatrically cleared for discharge today. She is declining voluntary psychiatric hospitalization and continues to deny further thoughts of self-harm. She has follow ups already scheduled at [facility] with therapist Nii Rowell (09/12) and psychiatrist Lamin Jones (09/15). Review of [facility]STOP registry indicates that patient filled a 30-day supply of clonazepam on 08/12/17 and she will not need further Rx for this. Psychiatry is signing off. Continued Medication Management: Continue Outpt Medication Medications: Current Medications Acetaminophen (Tylenol Tab*) 650 mg PO Q6H PRN PRN Reason: FEVER/HEADACHE Last Admin: 09/04/17 07:52 Dose: 650 mg Al Hydrox/Mg Hydrox/Simethicone (Maalox Plus*) 30 ml PO Q6H PRN PRN Reason: INDIGESTION Last Admin: 09/03/17 11:04 Dose: 30 ml Cetirizine HCl (Zyrtec*) 10 mg PO DAILY [facility] PRN Reason: Protocol Clonazepam (Klonopin Tab(*)) 1 mg PO QID PRN PRN Reason: ANXIETY Docusate Sodium (Colace Cap*) 100 mg PO BID PRN PRN Reason: CONSTIPATION Fluticasone Propionate (Flonase Nasal [place] 50mcg*) 2 spray BOTH NARES DAILY [facility] Last Admin: 09/04/17 07:53 Dose: Not Given Heparin Sodium (Porcine) (Heparin Vial(*)) 5,000 units SUBCUT Q8HR [facility] Last Admin: 09/04/17 05:48 Dose: 5,000 units Hydroxyzine HCl (Atarax Tab*) 25 mg PO BID PRN PRN Reason: ANXIETY Last Admin: 09/04/17 10:40 Dose: 25 mg Metoclopramide HCl (Reglan Tab*) 10 mg PO Q6H PRN PRN Reason: NAUSEA Ondansetron HCl (Zofran Inj*) 4 mg IV Q4H PRN PRN Reason: NAUSEA/VOMITING Last Admin: 09/03/17 04:49 Dose: 4 mg Senna (Senokot Tab*) 1 tab PO BID PRN PRN Reason: CONSTIPATION - Discharge Plan Discharge Plan: Outpatient Follow Up Outpatient Program: [facility]
--- NOTE | 2017-09-04 11:37 | PN ---
Subjective Date of Service: 09/04/17 Interval History: Ms. Gauthier complains of severe sinus pain, congestion, and green drainage. She reports having sinus infections since she was a child with multiple surgeries. She denies other complaint and is eager for immediate discharge. Objective Active Medications: Acetaminophen (Tylenol Tab*) 650 mg PO Q6H PRN Al Hydrox/Mg Hydrox/Simethicone (Maalox Plus*) 30 ml PO Q6H PRN Cetirizine HCl (Zyrtec*) 10 mg PO DAILY [facility] Clonazepam (Klonopin Tab(*)) 1 mg PO QID PRN Docusate Sodium (Colace Cap*) 100 mg PO BID PRN Fluticasone Propionate (Flonase Nasal [place] 50mcg*) 2 spray BOTH NARES DAILY [facility] Heparin Sodium (Porcine) (Heparin Vial(*)) 5,000 units SUBCUT Q8HR [facility] Hydroxyzine HCl (Atarax Tab*) 25 mg PO BID PRN Metoclopramide HCl (Reglan Tab*) 10 mg PO Q6H PRN Ondansetron HCl (Zofran Inj*) 4 mg IV Q4H PRN Senna (Senokot Tab*) 1 tab PO BID PRN Vital Signs - 8 hr 09/04/17 09/04/17 09/04/17 03:34 07:57 08:15 Temperature 98.5 F 98.8 F Pulse Rate 59 57 Respiratory 16 18 18 Rate Blood Pressure 153/75 137/74 (mmHg) O2 Sat by Pulse 98 98 Oximetry Oxygen Devices in Use Now: None Appearance: Female sitting up in bed in NAD Eyes: No Scleral Icterus Ears/Nose/Mouth/Throat: Mucous Membranes Moist, - - maxillary sinus tenderness with palpation Neck: Trachea Midline Respiratory: Symmetrical Chest Expansion and Respiratory Effort, Clear to Auscultation Cardiovascular: NL Sounds; No Murmurs; No JVD, No Edema Lymphatic: No Cervical Adenopathy Extremities: No Edema Skin: No Rash or Ulcers Neurological: Alert and Oriented x 3, NL Muscle Strength and Tone Result Diagrams: 09/03/17 05:21 09/03/17 05:21 Additional Lab and Data: . Assess/Plan/Problems-Billing Assessment: This is a 67 year old female profoundly bradycardic and hypotensive s/p intentional overdose of clonidine. - Patient Problems (1) Sinusitis Comment: - Patient is at high risk for bacterial sinusitis and has very poor follow up. - Plan for levaquin x 5 days. (2) Overdose Comment: - Psychiatry following, patient not actively suicidal from Dr. Baez's evaluation, overdose is described as attempt to manipulat for further assistance in the community. Patient does not require inpatient BHU care. - No SI noted since admission - Has psychiatrist Dr. Londono that she will need to f/u with for med management (3) Hypotension Comment: - Resolved. (4) Sinus bradycardia Comment: - Resolved. (5) Anxiety and depression Comment: - Mood labile - Psychiatry following - Needs outpatient f/u - Patient had klonopin filled on 08/12/17 per [facility]. Recommend titrating off of benzodiazepines, per Sasha, as there is concern that she may be abusing these. (6) At risk for abuse of opiates Current Visit: No Status: Acute Code(s): Z91.89 - OTH PERSONAL RISK FACTORS , NOT ELSEWHERE CLASSIFIED SNOMED Code(s): 35458990 Comment: - Per records, patient has hx of narcotic abuse with dismissal from pain clinic in 2016 - has buprenorphine patch on currently - Will need to follow up with her PCP for patch at [place] (7) Insomnia Comment: - This is likely concomitant with her mood disorder, will not give any controlled substances - will trial vistaril BID for anxiety and/or for sleep (8) Chronic pain Current Visit: No Status: Acute Priority: High Code(s): G89.29 - OTHER CHRONIC PAIN SNOMED Code(s): 08544931 Comment: - Buprenorphine patch (9) COPD (chronic obstructive pulmonary disease) Comment: - Stable (10) DVT prophylaxis Comment: SQ heparin (11) Full code status Status and Disposition: Inpatient, discharge to home.
[2017-09-04] MEDS: Cetirizine* 10 MG TAB PO SCH ×2 (11:58→12:02)
[2017-09-04] MEDS ORDERED: Levofloxacin TAB* 500 MG PO ONE (12:08)
--- NOTE | 2017-09-04 21:50 | DS ---
DISCHARGE SUMMARY: DATE OF ADMISSION: 09/01/17 DATE OF DISCHARGE: 09/04/17 ATTENDING PROVIDER: Erinn Arias MD * (DICTATED BY DOROTHY BATES NP) ADDENDUM: I spoke with Dr. Baez, psychiatrist in regards to Ms. Gauthier's discharge. He continues to feel that the patient has no active suicidal ideation and that her overdose of clonidine was a manipulative attempt to obtain more services in the community. She has no suicidal ideation at this time. In regards to her symptoms from the clonidine overdose, they have all resolved. She has no further bradycardia or hypotension. Ms. Gauthier is persistently complaining of severe sinus pain with congestion and green drainage. She reports a history of frequent sinus infections and sinus surgeries. She has not had a fever and has no elevated white blood cell count. I note that her temperature has been mildly elevated to 99.9 during the hospitalization. She has somewhat limited ability for followup outpatient with Dr. Kam. Plan is for 5-day course of antibiotics to treat for what is suspect would be perhaps an early bacterial rhinosinusitis given these limitations in her followup. Dr. Baez feels that the patient would be okay for one time dose of Klonopin prior to discharge due to her high level of anxiety. I see that she did have a script filled for Klonopin for a 30-day supply and she still have approximately a week or so left of Klonopin at home. Dr. Baez recommends that her benzodiazepines be titrated to off as he feels that she is likely misusing them. There is also concern that she might be misusing any opioids that are prescribed, and the consideration began to titrating these off as well. The patient states that she uses a Butrans patch at home and is wearing one now; but according to her records, she has not had this filled for over a month which would indicate that she should have run out of these by now. Regardless, I am not prescribing any Butrans now and she will need to follow up with Dr. Kam or one of his associates regarding prescribing this as indicated outpatient. DISPOSITION: To home. DOROTHY BATES NP [id number]/[facility] #: [id number] [facility]
== END 2017-09-04 13:41 | disposition home or self-care (01) | DRG 918 ==
LOC: ED 00:33 → MEDTELE 03:16 → ICU 21:57 → OBSVTOIN 09-02 10:40 → MEDTELE 09-02 14:41
PROVIDERS: ADMIT Pediatrics; ATTEND Internal Medicine
DX: T46.5X2A Poisoning by other antihypertensive drugs, intentional self-harm, initial encounter (principal); I95.9 Hypotension, unspecified; J44.9 Chronic obstructive pulmonary disease, unspecified; E03.9 Hypothyroidism, unspecified; G43.909 Migraine, unspecified, not intractable, without status migrainosus; K58.9 Irritable bowel syndrome, unspecified; M06.9 Rheumatoid arthritis, unspecified; M81.0 Age-related osteoporosis without current pathological fracture; F41.9 Anxiety disorder, unspecified; F43.10 Post-traumatic stress disorder, unspecified; H26.9 Unspecified cataract; F60.3 Borderline personality disorder; G89.29 Other chronic pain; R00.1 Bradycardia, unspecified; J30.9 Allergic rhinitis, unspecified; F11.90 Opioid use, unspecified, uncomplicated; F39 Unspecified mood [affective] disorder; E04.9 Nontoxic goiter, unspecified; I34.1 Nonrheumatic mitral (valve) prolapse; G47.00 Insomnia, unspecified; Z81.8 Family history of other mental and behavioral disorders; Z82.49 Family history of ischemic heart disease and other diseases of the circulatory system; Y92.9 Unspecified place or not applicable; Z88.8 Allergy status to other drugs, medicaments and biological substances; Z91.040 Latex allergy status; Z88.1 Allergy status to other antibiotic agents; Z86.711 Personal history of pulmonary embolism; Z82.61 Family history of arthritis
CPT/HCPCS: 36415; 71010; 80053; 80164; 80307; 80329; 81003; 82150; 83690; 84443; 84484; 85025; 86140; 93005; 99282; A9270-GY; G0378; G0480; J0461; J1265; J1644; J2310; J2405

== ENCOUNTER 2017-09-10 09:39 | Emergency (ER) | payer MEDICARE, OTHER ==
[2017-09-10 11:18] LABS: Hematocrit 41 % (35-47); Hemoglobin 13.7 g/dl (12.0-16.0); Mean Corpuscular HGB Conc 34 g/dl (31-36); Mean Corpuscular Hemoglobin 30 pg (27-31); Mean Corpuscular Volume 89 fL (80-97); Mean Platelet Volume 8 um3 (7.4-10.4); Platelet Count 294 10^3/ul (150-450); Red Blood Count 4.58 10^6/ul (4.0-5.4); Red Cell Distribution Width 14 % (10.5-15); White Blood Count 8.4 10^3/ul (3.5-10.8)
[2017-09-10 11:29] LABS: EGFR Non-African American 64.1 (>60)
[2017-09-10 12:10] LABS: Urine Appearance Clear; Urine Blood Negative (Negative); Urine Color Straw; Urine Ketones Negative (Negative); Urine Protein Negative (Negative); Urine Specific Gravity 1.005 (1.010-1.030); Urine Urobilinogen Negative (Negative)
[2017-09-10] MEDS ORDERED: Ondansetron INJ* 2 MG/ML VIAL IV ONE (12:27)
[2017-09-10] MEDS ORDERED: NS 0.9% 1000 ML* 1,000 ML IV ONE (12:36)
[2017-09-10] MEDS ORDERED: Iohexol 300* (CONTRAST) 10 ML SDV IV ONE (13:27)
--- NOTE | 2017-09-10 13:54 | RAD ---
CLINICAL HISTORY: Vomiting, hernia COMPARISON: March 30, 2017 TECHNIQUE: Multiple contiguous axial CT scans were obtained of the abdomen and pelvis after the administration of intravenous contrast. Coronal and sagittal multiplanar reformations are submitted for review. Oral contrast was administered. Delayed images were obtained through the abdomen and pelvis. FINDINGS: LUNG BASES: The lung bases are clear. LIVER: The liver is diffusely low in attenuation compared to the spleen. There are no focal hepatic parenchymal masses. BILE DUCTS: There is no intrahepatic or extrahepatic biliary dilatation. GALLBLADDER: Multiple gallstones are noted. There is no pericholecystic inflammatory change.. PANCREAS: The pancreas is normal, without mass or ductal dilatation. SPLEEN: Normal in size and appearance. UPPER GI TRACT: Evaluation of the gastrointestinal tract is limited by incomplete gastric distention. There is a 1.5 cm diverticulum of the second stage of the duodenum. SMALL BOWEL AND MESENTERY: The small bowel is normal in contour, course, and caliber. There is no obstruction or dilatation. COLON: The colon is normal in contour, course, caliber. There is no pericolonic inflammatory change. ADRENALS: Normal bilaterally. KIDNEYS: The kidneys are normal in shape, size, contour, and axis. There is no hydronephrosis or nephrolithiasis. BLADDER: A Ngo catheter is noted. The bladder is incompletely distended but is grossly normal. PELVIC ORGANS: The pelvic organs are not visualized. AORTA: The aorta is normal. IVC: Unremarkable LYMPH NODES: There is no lymphadenopathy by size criteria. ABDOMINAL WALL: There is no evidence for abdominal wall hernia. BONES AND SOFT TISSUES: Mild degenerative changes are noted. Subcutaneous varicosities are noted along the proximal thighs. OTHER: None IMPRESSION: 1. NO OBSTRUCTION. 2. DUODENAL DIVERTICULUM. 3. FATTY INFILTRATION OF LIVER. 4. CHOLELITHIASIS.
--- NOTE | 2017-09-10 15:46 | RAD ---
Indication: Vomiting. Gallstones. Comparison: September 10, 2017 CT. Technique: RIGHT upper quadrant ultrasound. Report: Appropriate direction flow documented in the portal and hepatic veins. 14.3 cm liver is normal in echogenicity. Negative for focal hepatic lesions. Negative for intrahepatic biliary dilatation. 2. 8 - 7.0 mm common bile duct, the upper limits of normal. No stone visualized within the visualized common bile duct.. Adequately distended gallbladder with normal 2.6 mm wall is remarkable for a 0.8 cm stone without impaction at the neck. Negative for pericholecystic fluid. Negative for sonographic Dawson's sign. The pancreatic tail is partially obscured due to bowel gas with the visualized pancreas unremarkable. Upper normal to millimeter pancreatic duct. Negative for ascites. 10.3 x 3.3 x 4.3 cm RIGHT kidney is unremarkable. IMPRESSION: 1. Cholelithiasis without secondary findings to suggest acute cholecystitis. 2. Upper normal size common bile duct without visualized common bile duct stone. 3. Negative for obstructive uropathy of the RIGHT kidney.
[2017-09-10] MEDS ORDERED: Lisinopril TAB* 10 MG PO ONE (17:22)
[2017-09-10] MEDS ORDERED: Metoprolol Tartrate TAB* 25 MG PO ONE (17:23)
[2017-09-10 18:20] VITALS: BP 144/91
--- NOTE | 2017-10-02 10:18 | ED ---
Anali Espitia Gabriel, scribed for Ruben Alexis MD on 09/10/17 at 1228 . Complex/Multi-Sys Presentation - HPI Summary HPI Summary: This patient is a 67 year old F BIBA to [facility] with a chief complaint of general malaise since a week ago. The patient rates the pain 8/10 in severity. Patient reports KEY, sinus pain, vision changes, ABD pain, vomiting, hernia irritation, extremity pain, metallic taste in her mouth, constipation, dizziness, and lightheadedness. Patient denies diarrhea, CP, and SOB. Patient was in the admitted last week for attempted suicide and believes she got sick while she was in the hospital. She also reports inability to urinate when she lets her bladder get too full. - History Of Current Complaint Chief Complaint: EDGeneral Time Seen by Provider: 09/10/17 12:11 Hx Obtained From: Patient Onset/Duration: Lasting Weeks - 1, Still Present Timing: Constant Severity Currently: Mild Severity Initially: Mild Associated Signs And Symptoms: Positive: Other - KEY, sinus pain, vison changes, ABD pain, vomiting, hernia irritation, extremity pain, metallic taste in her mouth, constipation, dizziness, and lightheadedness - Allergies/Home Medications Allergies/Adverse Reactions: Allergies Allergy/AdvReac Type Severity Reaction Status Date / Time Latex Allergy Intermediate Rash Verified 07/25/17 01:03 Aspirin [ASA] Allergy CAN'T TAKE Verified 07/25/17 01:03 DUE TO IBS Clindamycin Allergy Diarrhea Verified 07/25/17 01:03 Diphenhydramine Allergy HOT Verified 07/25/17 01:03 [From Benadryl] SENSATION FROM NECK TO FEET & TREMORS NSAIDs Allergy CAN'T TAKE Verified 07/25/17 01:03 DUE TO IBS Omeprazole [From Prilosec] Allergy See Comment Verified 07/25/17 01:03 Prochlorperazine Allergy HOT Verified 07/25/17 01:03 [From Compazine] SENSATION FROM NECK TO FEET & TREMORS Sucralfate [From Carafate] Allergy See Comment Verified 07/25/17 01:03 Sumatriptan [From Imitrex] Allergy INCREASED Verified 07/25/17 01:03 MIGRAINES Trazodone Allergy Nausea Verified 07/25/17 01:03 Valproic Acid [From Depakote] Allergy 50 SHERRELL Verified 07/25/17 01:03 WEIGHT GAINE, MIGRAINE WORSE & TREMORS Sulfamethoxazole AdvReac Severe GI Upset Verified 07/25/17 01:03 w/Trimethoprim [From Bactrim] Aripiprazole [From Abilify] AdvReac HYPERACTIVE Verified 07/25/17 01:03 CI Pigment Blue 63 AdvReac HYPERACTIVE Verified 07/25/17 01:03 [From Cymbalta] Ciprofloxacin [From Cipro] AdvReac DIARRHEA Verified 07/25/17 01:03 AND STOMACH CRAMPS Duloxetine [From Cymbalta] AdvReac HYPERACTIVE Verified 07/25/17 01:03 Erythromycin AdvReac DIARRHEA Verified 07/25/17 01:03 AND STOMACH CRAMPS Quetiapine [From Seroquel] AdvReac HYPERACTIVE Verified 07/25/17 01:03 Soy Allergy AdvReac Diarrhea Verified 07/25/17 01:03 Home Medications: Home Medications Buprenorphine [Butrans] 7.5 mcg TOPICAL WEEKLY 09/10/17 [History Confirmed 09/10] Carisoprodol TAB* [Soma TAB*] 350 mg PO BID 09/10/17 [History Confirmed ] Famotidine TAB* [Pepcid 20 MG TAB*] 20 mg PO BEDTIME PRN 09/10/17 [History Confirmed 09/10/17] Loperamide CAP* [Imodium CAP*] 2 mg PO DAILY PRN 09/10/17 [History Confirmed ] cloNIDine TAB* [Catapres 0.1 MG TAB*] 0.2 mg PO BEDTIME 09/10/17 [History Confirmed 09/10/17] clonazePAM TAB(*) [KlonoPIN TAB(*)] 1 mg PO TID 09/10/17 [History Confirmed ] PMH/Surg Hx/FS Hx/Imm Hx Previously Healthy: No Endocrine/Hematology History: Denies: Hx Anticoagulant Therapy, Hx Diabetes, Hx Thyroid Disease, Other Endocrine/Hematological Disorders Cardiovascular History: Denies: Hx Congestive Heart Failure, Hx Deep Vein Thrombosis, Hx Hypertension , Hx Myocardial Infarction, Hx Pacemaker/ICD, Other Cardiovascular Problems/ Disorders Respiratory History: Reports: Hx Asthma, Hx Chronic Obstructive Pulmonary Disease (COPD), Other Respiratory Problems/Disorders - PNUEMONIA Denies: Hx Lung Cancer, Hx Pneumonia, Hx Pulmonary Embolism GI History: Reports: Hx Gastroesophageal Reflux Disease, Hx Irritable Bowel, Other GI Disorders - IBS Denies: Hx Gall Bladder Disease, Hx Gastrointestinal Bleed, Hx Ulcer, Hx Urosepsis History: Denies: Hx Kidney Stones, Hx Renal Disease, Other Problems/Disorders Musculoskeletal History: Reports: Hx Arthritis - Pt. states "everywhere", Hx Rheumatoid Arthritis, Hx Back Problems, Hx Osteoporosis Denies: Hx Scoliosis, Other Musculoskeletal History Sensory History: Reports: Hx Cataracts, Hx Contacts or Glasses, Hx Vision Problem - cataracts Denies: Hx Hearing Aid, Other Sensory Impairments Opthamlomology History: Reports: Hx Cataracts, Hx Contacts or Glasses, Hx Vision Problem - cataracts Denies: Other Sensory Impairments Neurological History: Reports: Hx Headaches, Hx Migraine Denies: Hx Dementia, Hx Seizures, Hx Transient Ischemic Attacks (TIA), Other Neuro Impairments/Disorders Psychiatric History: Reports: Hx Anxiety, Hx Depression, Hx Post Traumatic Stress Disorder, Hx Inpatient Treatment - hx, Hx Community Mental Health Tx, Hx Suicide Attempt, Hx Substance Abuse Denies: Hx Eating Disorder, Hx Panic Disorder, Hx Schizophrenia, Hx Bipolar Disorder, Other Psychiatric Issues/Disorders - Cancer History Cancer Type, Location and Year: Family history Hx Chemotherapy: No Hx Radiation Therapy: No - Surgical History Surgery Procedure, Year, and Place: total hysterectomy with oophorectomy 1996; SINUSES Xs2; BLADDER- CYSTOCELE AND RECTOCELE (NO METAL)/ 12/08;. LEFT ANKLE FX Hx Anesthesia Reactions: No - Immunization History Date of Tetanus Vaccine: utd Date of Influenza Vaccine: 06/2017 Infectious Disease History: No Infectious Disease History: Denies: Hx Clostridium Difficile, Hx Hepatitis, Hx Human Immunodeficiency Virus (HIV), Hx of Known/Suspected MRSA, Hx Shingles, Hx Tuberculosis, Hx Known/ Suspected VRE, Hx Known/Suspected VRSA, History Other Infectious Disease, Traveled Outside the [place] in Last 30 Days - Family History Known Family History: Positive: Cardiac Disease, Hypertension, Other - arthritis Negative: Diabetes - Social History Lives: Alone Alcohol Use: None Hx Substance Use: Yes Substance Use Type: Reports: None Substance Use Comment - Amount & Last Used: PT DENIES Hx Tobacco Use: No Smoking Status (MU): Never Smoked Tobacco Have You Smoked in the Last Year: No Review of Systems Positive: Blurred Vision Positive: Other - sinus pain, bad taste in her mouth. . Negative: Sore Throat Negative: Chest Pain Negative: Shortness Of Breath Positive: Abdominal Pain, Vomiting, Other - hernia irritation, constipation . Negative: Diarrhea Positive: other - unable to empty bladder when full . Negative: dysuria, hematuria Negative: Myalgia, Edema Negative: Rash Neurological: Other - dizziness and lightheadedness Positive: Headache All Other Systems Reviewed And Are Negative: Yes Physical Exam - Summary Physical Exam Summary: Constitutional: Well-developed, Well-nourished, Alert. (-) Distressed Skin: Warm, Dry HENT: Normocephalic; Atraumatic Eyes: Conjunctiva normal Neck: Musculoskeletal ROM normal neck. (-) JVD, (-) Stridor, (-) Tracheal deviation Cardio: Rhythm regular, rate normal, Heart sounds normal; Intact distal pulses; The pedal pulses are 2+ and symmetric. Radial pulses are 2+ and symmetric. (-) Murmur Pulmonary/Chest wall: Effort normal. (-) Respiratory distress, (-) Wheezes, (-) Rales Abd: Soft,(-) Guarding, (-) Rebound Distended abdomen with diffuse mild tenderness Musculoskeletal: (-) Edema Lymph: (-) Cervical adenopathy Neuro: Alert, Oriented x3 Psych: Mood and affect Normal Triage Information Reviewed: Yes Vital Signs On Initial Exam: Initial Vitals Temp Pulse Resp BP Pulse Ox 97.9 F 78 19 164/90 100 09/10/17 09:46 09/10/17 09:46 09/10/17 09:46 09/10/17 09:46 09/10/17 09:46 Vital Signs Reviewed: Yes - [place] Coma Scale Coma Scale Total: 15 Diagnostics - Vital Signs Vital Signs Temp Pulse Resp BP Pulse Ox 09/10/17 09:46 97.9 F 78 19 164/90 100 - Laboratory Lab Results: Lab Results 09/10/17 09/10/17 09/10/17 Range/Units 11:04 11:04 11:27 WBC 8.4 (3.5-10.8) 10^3/ul RBC 4.58 (4.0-5.4) 10^6/ul Hgb 13.7 (12.0-16.0) g/dl Hct 41 (35-47) % MCV 89 (80-97) fL MCH 30 (27-31) pg MCHC 34 (31-36) g/dl RDW 14 (10.5-15) % Plt Count 294 (150-450) 10^3/ul MPV 8 (7.4-10.4) um3 Sodium 128 L (133-145) mmol/L Potassium 3.9 (3.5-5.0) mmol/L Chloride 95 L (101-111) mmol/L Carbon Dioxide 25 (22-32) mmol/L Anion Gap 8 (2-11) mmol/L BUN 9 (6-24) mg/dL Creatinine 0.88 (0.51-0.95) mg/dL Est GFR ( Amer) 82.4 (>60) Est GFR (Non-Af Amer) 64.1 (>60) BUN/Creatinine Ratio 10.2 (8-20) Glucose 109 H (70-100) mg/dL Calcium 9.8 (8.6-10.3) mg/dL Total Bilirubin 0.90 (0.2-1.0) mg/dL AST 16 (13-39) U/L ALT 18 (7-52) U/L Alkaline Phosphatase 64 (34-104) U/L Total Protein 7.4 (6.4-8.9) g/dL Albumin 4.5 (3.2-5.2) g/dL Globulin 2.9 (2-4) g/dL Albumin/Globulin Ratio 1.6 (1-3) Urine Color Urine Appearance Urine pH (5-9) Ur Specific [place] (1.010-1.030) Urine Protein (Negative) Urine Ketones (Negative) Urine Blood (Negative) Urine Nitrate (Negative) Urine Bilirubin (Negative) Urine Urobilinogen (Negative) Ur Leukocyte Esterase (Negative) Urine WBC (Auto) (Absent) Urine RBC (Auto) (Absent) Urine Bacteria (Absent) Urine Glucose (Negative) Influenza A (Rapid) Negative (Negative) Influenza B (Rapid) Negative (Negative) 09/10/17 Range/Units 11:45 WBC (3.5-10.8) 10^3/ul RBC (4.0-5.4) 10^6/ul Hgb (12.0-16.0) g/dl Hct (35-47) % MCV (80-97) fL MCH (27-31) pg MCHC (31-36) g/dl RDW (10.5-15) % Plt Count (150-450) 10^3/ul MPV (7.4-10.4) um3 Sodium (133-145) mmol/L Potassium (3.5-5.0) mmol/L Chloride (101-111) mmol/L Carbon Dioxide (22-32) mmol/L Anion Gap (2-11) mmol/L BUN (6-24) mg/dL Creatinine (0.51-0.95) mg/dL Est GFR ( Amer) (>60) Est GFR (Non-Af Amer) (>60) BUN/Creatinine Ratio (8-20) Glucose (70-100) mg/dL Calcium (8.6-10.3) mg/dL Total Bilirubin (0.2-1.0) mg/dL AST (13-39) U/L ALT (7-52) U/L Alkaline Phosphatase (34-104) U/L Total Protein (6.4-8.9) g/dL Albumin (3.2-5.2) g/dL Globulin (2-4) g/dL Albumin/Globulin Ratio (1-3) Urine Color Straw Urine Appearance Clear Urine pH 8.0 (5-9) Ur Specific [place] 1.005 L (1.010-1.030) Urine Protein Negative (Negative) Urine Ketones Negative (Negative) Urine Blood Negative (Negative) Urine Nitrate Negative (Negative) Urine Bilirubin Negative (Negative) Urine Urobilinogen Negative (Negative) Ur Leukocyte Esterase Trace H (Negative) Urine WBC (Auto) Trace(0-5/hpf) (Absent) Urine RBC (Auto) Trace(0-2/hpf) (Absent) Urine Bacteria Absent (Absent) Urine Glucose Negative (Negative) Influenza A (Rapid) (Negative) Influenza B (Rapid) (Negative) Result Diagrams: 09/10/17 11:04 09/10/17 11:04 Lab Statement: Any lab studies that have been ordered have been reviewed, and results considered in the medical decision making process. - CT CT ABD/Pelvis CT Interpretation Completed By: Radiologist - 1. NO OBSTRUCTION. 2. DUODENAL DIVERTICULUM. 3. FATTY INFILTRATION OF LIVER. 4. CHOLELITHIASIS. ED physician has reviewed this radiology report. - Additional Comments Diagnostic Additional Comments: ABD US reveals, 1. Cholelithiasis without secondary findings to suggest acute cholecystitis. 2. Upper normal size common bile duct without visualized common bile duct stone. 3. Negative for obstructive uropathy of the RIGHT kidney ED physician has reviewed this report. Re-Evaluation - Re-Evaluation First Eval Re-Evaluation Time: 14:26 Change: Improved - Can handle PO and is walking fine. Complex Multi-Symp Course/Dx Assessment/Plan: This patient is a 67 year old F BIBA to [facility] with a chief complaint of general malaise since a week ago. The patient rates the pain 8/10 in severity. Patient reports KEY, sinus pain, vison changes, ABD pain, vomiting, hernia irritation, extremity pain, metallic taste in her mouth, constipation, dizziness, and lightheadedness. Patient denies diarrhea, CP, and SOB. Patient was in the admitted last week for attempted suicide and believes she got sick while she was in the hospital. She also reports inability to urinate when she lets her bladder get too full.. CT ABD/Pelvis reveals, per radiologist, 1. NO OBSTRUCTION. 2. DUODENAL DIVERTICULUM. 3. FATTY INFILTRATION OF LIVER. 4. CHOLELITHIASIS. ABD US reveals, 1. Cholelithiasis without secondary findings to suggest acute cholecystitis. 2. Upper normal size common bile duct without visualized common bile duct stone. 3. Negative for obstructive uropathy of the RIGHT kidney. Due to her hypertension and anxiety she was given a betablocker. Test results with no significant abnormalities. In the ED course the patient was given Zofran and IV fluids and is now able to handle PO intake. Patient will be discharged with prescription for Zofran and Lopressor, and follow up from Dr. Bernstein, urology. The patient is agreeable with this plan. - Diagnoses Provider Diagnoses: Vomiting, Hyponatremia, Dehydration, Urinary retention, Hypertension, Anxiety Discharge - Discharge Plan Condition: Stable Disposition: HOME Prescriptions: Metoprolol Tartrate TAB* [Lopressor TAB*] 12.5 mg PO BID #14 tab Ondansetron ODT TAB* [Zofran 4 MG Odt TAB*] 8 mg PO Q8H PRN #12 tab.odt PRN Reason: Nausea/Vomiting Patient Education Materials: Metoprolol (By mouth), Ondansetron (By mouth) Referrals: Alfred Wu MD [Primary Care Provider] - Mike Bernstein MD [Medical Doctor] - 3 Days Additional Instructions: RETURN TO THE EMERGENCY DEPARTMENT FOR CHANGING OR WORSENING SYMPTOMS The documentation as recorded by the Anali cabrales Gabriel accurately reflects the service I personally performed and the decisions made by me, Ruben Alexis MD.
== END 2017-09-10 18:20 | disposition home or self-care (01) ==
LOC: ED 09:39
DX: R11.10 Vomiting, unspecified (principal); E87.1 Hypo-osmolality and hyponatremia; E86.0 Dehydration; R33.9 Retention of urine, unspecified; I10 Essential (primary) hypertension; F41.9 Anxiety disorder, unspecified; J44.9 Chronic obstructive pulmonary disease, unspecified; F32.9 Major depressive disorder, single episode, unspecified; M06.9 Rheumatoid arthritis, unspecified; Z88.6 Allergy status to analgesic agent
CPT/HCPCS: 36415; 74177; 76705; 80053; 81003; 81015; 85027; 87086; 87502; 96360; 96374; 96375; 99283; A9270-GY; J2405; Q9967

== ENCOUNTER 2017-09-11 06:19 | Emergency (ER) | payer MEDICARE, OTHER ==
[2017-09-11 09:42] VITALS: BP 155/74
--- NOTE | 2017-09-12 18:47 | ED ---
Kelle Espitia Edward, scribed for Hans Maxwell MD on 09/11/17 at 0838 . Complex/Multi-Sys Presentation - HPI Summary HPI Summary: 67 y/o female presents to the ED c/o catheter bothering her for the past several days. Pt c/o sleep disturbance for around 5 nights because of the catheter. Pt has had trouble urinating. Pt states she also started hallucinating last night. This is the first time the pt has hallucinated. Pt states her throat is gunky. Asociated sx: productive yellow cough, R ear ache , SOB. Pt lives alone at the [facility]. PMHx depression and anxiety. Pt is on Klonopin at home. - History Of Current Complaint Chief Complaint: EDGeneral Hx Obtained From: Patient Onset/Duration: Lasting Days Timing: Constant Location: Pain At: - "Catheter bothering her" Associated Signs And Symptoms: Positive: Other - Hallucinations, productive cough, R ear ache, SOB - Allergies/Home Medications Allergies/Adverse Reactions: Allergies Allergy/AdvReac Type Severity Reaction Status Date / Time Latex Allergy Intermediate Rash Verified 07/25/17 01:03 Aspirin [ASA] Allergy CAN'T TAKE Verified 07/25/17 01:03 DUE TO IBS Clindamycin Allergy Diarrhea Verified 07/25/17 01:03 Diphenhydramine Allergy HOT Verified 07/25/17 01:03 [From Benadryl] SENSATION FROM NECK TO FEET & TREMORS NSAIDs Allergy CAN'T TAKE Verified 07/25/17 01:03 DUE TO IBS Omeprazole [From Prilosec] Allergy See Comment Verified 07/25/17 01:03 Prochlorperazine Allergy HOT Verified 07/25/17 01:03 [From Compazine] SENSATION FROM NECK TO FEET & TREMORS Sucralfate [From Carafate] Allergy See Comment Verified 07/25/17 01:03 Sumatriptan [From Imitrex] Allergy INCREASED Verified 07/25/17 01:03 MIGRAINES Trazodone Allergy Nausea Verified 07/25/17 01:03 Valproic Acid [From Depakote] Allergy 50 SHERRELL Verified 07/25/17 01:03 WEIGHT GAINE, MIGRAINE WORSE & TREMORS Sulfamethoxazole AdvReac Severe GI Upset Verified 07/25/17 01:03 w/Trimethoprim [From Bactrim] Aripiprazole [From Abilify] AdvReac HYPERACTIVE Verified 07/25/17 01:03 CI Pigment Blue 63 AdvReac HYPERACTIVE Verified 07/25/17 01:03 [From Cymbalta] Ciprofloxacin [From Cipro] AdvReac DIARRHEA Verified 07/25/17 01:03 AND STOMACH CRAMPS Duloxetine [From Cymbalta] AdvReac HYPERACTIVE Verified 07/25/17 01:03 Erythromycin AdvReac DIARRHEA Verified 07/25/17 01:03 AND STOMACH CRAMPS Quetiapine [From Seroquel] AdvReac HYPERACTIVE Verified 07/25/17 01:03 Soy Allergy AdvReac Diarrhea Verified 07/25/17 01:03 PMH/Surg Hx/FS Hx/Imm Hx Previously Healthy: No Endocrine/Hematology History: Denies: Hx Anticoagulant Therapy, Hx Diabetes, Hx Thyroid Disease, Other Endocrine/Hematological Disorders Cardiovascular History: Denies: Hx Congestive Heart Failure, Hx Deep Vein Thrombosis, Hx Hypertension , Hx Myocardial Infarction, Hx Pacemaker/ICD, Other Cardiovascular Problems/ Disorders Respiratory History: Reports: Hx Asthma, Hx Chronic Obstructive Pulmonary Disease (COPD), Other Respiratory Problems/Disorders - PNUEMONIA Denies: Hx Lung Cancer, Hx Pneumonia, Hx Pulmonary Embolism GI History: Reports: Hx Gastroesophageal Reflux Disease, Hx Irritable Bowel, Other GI Disorders - IBS Denies: Hx Gall Bladder Disease, Hx Gastrointestinal Bleed, Hx Ulcer, Hx Urosepsis History: Denies: Hx Kidney Stones, Hx Renal Disease, Other Problems/Disorders Musculoskeletal History: Reports: Hx Arthritis - Pt. states "everywhere", Hx Rheumatoid Arthritis, Hx Back Problems, Hx Osteoporosis Denies: Hx Scoliosis, Other Musculoskeletal History Sensory History: Reports: Hx Cataracts, Hx Contacts or Glasses, Hx Vision Problem - cataracts Denies: Hx Hearing Aid, Other Sensory Impairments Opthamlomology History: Reports: Hx Cataracts, Hx Contacts or Glasses, Hx Vision Problem - cataracts Denies: Other Sensory Impairments Neurological History: Reports: Hx Headaches, Hx Migraine Denies: Hx Dementia, Hx Seizures, Hx Transient Ischemic Attacks (TIA), Other Neuro Impairments/Disorders Psychiatric History: Reports: Hx Anxiety, Hx Depression, Hx Post Traumatic Stress Disorder, Hx Inpatient Treatment - hx, Hx Community Mental Health Tx, Hx Suicide Attempt, Hx Substance Abuse Denies: Hx Eating Disorder, Hx Panic Disorder, Hx Schizophrenia, Hx Bipolar Disorder, Other Psychiatric Issues/Disorders - Cancer History Cancer Type, Location and Year: Family history Hx Chemotherapy: No Hx Radiation Therapy: No - Surgical History Surgery Procedure, Year, and Place: total hysterectomy with oophorectomy 1996; SINUSES Xs2; BLADDER- CYSTOCELE AND RECTOCELE (NO METAL)/ 12/08;. LEFT ANKLE FX Hx Anesthesia Reactions: No - Immunization History Date of Tetanus Vaccine: utd Date of Influenza Vaccine: 06/2017 Infectious Disease History: No Infectious Disease History: Denies: Hx Clostridium Difficile, Hx Hepatitis, Hx Human Immunodeficiency Virus (HIV), Hx of Known/Suspected MRSA, Hx Shingles, Hx Tuberculosis, Hx Known/ Suspected VRE, Hx Known/Suspected VRSA, History Other Infectious Disease, Traveled Outside the [place] in Last 30 Days - Family History Known Family History: Positive: Cardiac Disease, Hypertension, Other - arthritis Negative: Diabetes - Social History Alcohol Use: None Hx Substance Use: Yes Substance Use Type: Reports: None Substance Use Comment - Amount & Last Used: PT DENIES Hx Tobacco Use: No Smoking Status (MU): Never Smoked Tobacco Have You Smoked in the Last Year: No Review of Systems Constitutional: Negative Eyes: Negative Positive: Ear Ache - R Cardiovascular: Negative Positive: Shortness Of Breath, Cough - Productive yellow cough Gastrointestinal: Negative Genitourinary: Other - "catheter irritating her" Musculoskeletal: Negative Skin: Negative Neurological: Negative Positive: Other - Hallucinations All Other Systems Reviewed And Are Negative: Yes Physical Exam - Summary Physical Exam Summary: Appearance: Well-appearing, Well-nourished Skin: Warm, Dry, No rash Eyes: Normal, PERRL, EOMI, sclera anicteric ENT: Normal Neck: Supple, nontender Respiratory: Clear to auscultation Cardiovascular: S1, S2, no murmur, no rub, no gallop Abdomen: Soft, nontender, no organomegaly Bowel sounds: Present Musculoskeletal: Normal, Strength/ROM Intact, no edema, pulses symmetrical Neurological: Normal, A&Ox3, cranial nerves II-XII WNL, follows commands, gait not tested, sensation intact to pin and light touch Psychiatric: affect normal, behavior appropriate, dressed appropriately, judgment intact. Pt's mental status is normal. Pt is demanding. Pt knows she is in the hospital. Answers questions appropriately. There is an undertone of hostility. No obvious paranoia, no obvious signs of hallucinations. Pt is anxious. Triage Information Reviewed: Yes Vital Signs On Initial Exam: Initial Vitals Temp Pulse Resp BP Pulse Ox 97.9 F 68 16 160/91 98 09/11/17 06:32 09/11/17 06:32 09/11/17 06:32 09/11/17 06:32 09/11/17 06:32 Vital Signs Reviewed: Yes - [place] Coma Scale Coma Scale Total: 15 Diagnostics - Vital Signs Vital Signs Temp Pulse Resp BP Pulse Ox 09/11/17 06:32 97.9 F 68 16 160/91 98 - Laboratory Lab Statement: Any lab studies that have been ordered have been reviewed, and results considered in the medical decision making process. Complex Multi-Symp Course/Dx Assessment/Plan: Catheter out in the ED. Pt wants to go home. PT will be d/c home. - Diagnoses Provider Diagnoses: Urinary retention Discharge - Discharge Plan Condition: Fair Disposition: HOME Prescriptions: Levofloxacin TAB* [Levaquin TAB*] 500 mg PO DAILY 5 Days #5 tab Patient Education Materials: Acute Urinary Retention in Women (ED) Referrals: Alfred Wu MD [Primary Care Provider] - Additional Instructions: FOLLOW UP WITH MENTAL HEALTH The documentation as recorded by the Kelle cabrales Edward accurately reflects the service I personally performed and the decisions made by me, Hans Maxwell MD.
== END 2017-09-11 09:43 | disposition home or self-care (01) ==
LOC: ED 06:19
DX: R33.9 Retention of urine, unspecified (principal); J44.9 Chronic obstructive pulmonary disease, unspecified; J45.909 Unspecified asthma, uncomplicated; Z95.810 Presence of automatic (implantable) cardiac defibrillator; M06.9 Rheumatoid arthritis, unspecified
CPT/HCPCS: 99281

== ENCOUNTER 2017-09-13 10:46 | Observation (INO) | payer MEDICARE, OTHER ==
[2017-09-13] MEDS ORDERED: NS 0.9% 1000 ML* 2,000 ML IV ONE (13:22)
--- NOTE | 2017-09-13 13:51 | RAD ---
INDICATION: Weakness COMPARISON: August 31, 2017 TECHNIQUE: An AP portable view obtained at 1340 hours is submitted. FINDINGS: Bones/Soft Tissues: There are no acute bony findings. Cardiomediastinal: The cardiomediastinal silhouette is normal. Lungs: There are no definitive infiltrates. Evaluation of the left upper lobe is limited due to artifact from the patient's chin. Pleura: There are no pleural effusions. Other: None IMPRESSION: MILDLY LIMITED STUDY. NO ACTIVE DISEASE.
[2017-09-13 14:03] LABS: Hematocrit 41 % (35-47); Hemoglobin 13.8 g/dl (12.0-16.0); Mean Corpuscular HGB Conc 34 g/dl (31-36); Mean Corpuscular Hemoglobin 30 pg (27-31); Mean Corpuscular Volume 89 fL (80-97); Mean Platelet Volume 8 um3 (7.4-10.4); Red Blood Count 4.59 10^6/ul (4.0-5.4); Red Cell Distribution Width 14 % (10.5-15); White Blood Count 10.4 10^3/ul (3.5-10.8)
[2017-09-13 14:23] LABS: Ammonia 55 mol/L (16-53)
[2017-09-13 14:25] LABS: Troponin I 0.01 ng/mL (<0.04)
[2017-09-13 14:26] LABS: ALT 14 U/L (7-52); AST 17 U/L (13-39); Albumin 4.4 g/dL (3.2-5.2); Alkaline Phosphatase 66 U/L (34-104); Anion Gap 11 mmol/L (2-11); BUN/Creatinine Ratio 14.5 (8-20); Blood Urea Nitrogen 11 mg/dL (6-24); C Reactive Protein 4.37 mg/L (< 5.00); CO2 Carbon Dioxide 21 mmol/L (22-32); Calcium 9.9 mg/dL (8.6-10.3); Chloride 98 mmol/L (101-111); Creatine Kinase 48 U/L (10-223); EGFR African American 97.6 (>60); EGFR Non-African American 75.9 (>60); Globulin 2.8 g/dL (2-4); Glucose 120 mg/dL (70-100); Lipase < 10 U/L (11.0-82.0); Magnesium 2.3 mg/dL (1.9-2.7); Potassium 4.5 mmol/L (3.5-5.0); Sodium 130 mmol/L (133-145); Total Protein 7.2 g/dL (6.4-8.9)
[2017-09-13 14:27] LABS: Acetaminophen < 15 mcg/mL; Alcohol < 10 mg/dL (<10); B Type Natriuretic Peptide 107 pg/mL; Salicylate < 2.50 mg/dL (<30)
[2017-09-13 14:38] LABS: TSH (Thyroid Stimulating Horm) 4.89 mcIU/mL (0.34-5.60)
[2017-09-13 15:29] LABS: Urine Bacteria Absent (Absent); Urine Bilirubin Negative (Negative); Urine Glucose Negative (Negative); Urine Nitrite Negative (Negative)
[2017-09-13] MEDS ORDERED: traMADol TAB* 50 MG PO PRN ×2 (16:29→17:16)
[2017-09-13] MEDS ORDERED: Loperamide CAP* 2 MG PO PRN (16:29)
[2017-09-13] MEDS ORDERED: Famotidine TAB* 20 MG PO PRN (16:29)
--- NOTE | 2017-09-13 16:47 | PN ---
Progress Note - Progress Note Date of Service: 09/13/17 Note: Cross cover note. Discussed patient with INK JET OPERATOR Christa and agree with assessment and plan as outlined unless indicated. 67F with multiple ED visits this month returning with many complaints which consisted of inability to access food. She was found dehydrated and with urinary retention. Ngo placed by ED. Admit to [facility] for IV fluid therapy. SW consult to assist in increasing aid in community if possible although we understand that while patient requests more help she has been resistant to accepting more help.
[2017-09-13 17:52] LABS: Benzodiazepine Urine Screen None Detected (None Detect)
--- NOTE | 2017-09-13 18:31 | ED ---
Yahaira Espitia Emily, scribed for Adalberto Kinney MD on 09/13/17 at 1317 . Complex/Multi-Sys Presentation - HPI Summary HPI Summary: This patient is a 67 year old F BIBA to [facility] with a chief complaint of seizure symptoms that occurred earlier today. The patient rates the pain 0/10 in severity. Symptoms aggravated by nothing. Symptoms alleviated by nothing. Patient reports vomiting, dehydration, CP, near syncope, SOB, and hallucinations. Patient denies ankle swelling. Medications reviewed. - History Of Current Complaint Chief Complaint: EDGeneral Time Seen by Provider: 09/13/17 12:12 Hx Obtained From: Patient Onset/Duration: Sudden Onset Severity Currently: Mild Severity Initially: Mild Associated Signs And Symptoms: Positive: Other - Positive vomiting, dehydration , CP, near syncope, SOB, and hallucinations. Negative ankle swelling - Allergies/Home Medications Allergies/Adverse Reactions: Allergies Allergy/AdvReac Type Severity Reaction Status Date / Time Latex Allergy Intermediate Rash Verified 09/13/17 11:04 Aspirin [ASA] Allergy CAN'T TAKE Verified 09/13/17 11:04 DUE TO IBS Clindamycin Allergy Diarrhea Verified 09/13/17 11:04 Diphenhydramine Allergy HOT Verified 09/13/17 11:04 [From Benadryl] SENSATION FROM NECK TO FEET & TREMORS NSAIDs Allergy CAN'T TAKE Verified 09/13/17 11:04 DUE TO IBS Omeprazole [From Prilosec] Allergy See Comment Verified 09/13/17 11:04 Prochlorperazine Allergy HOT Verified 09/13/17 11:04 [From Compazine] SENSATION FROM NECK TO FEET & TREMORS Sucralfate [From Carafate] Allergy See Comment Verified 09/13/17 11:04 Sumatriptan [From Imitrex] Allergy INCREASED Verified 09/13/17 11:04 MIGRAINES Trazodone Allergy Nausea Verified 09/13/17 11:04 Valproic Acid [From Depakote] Allergy 50 SHERRELL Verified 09/13/17 11:04 WEIGHT GAINE, MIGRAINE WORSE & TREMORS Sulfamethoxazole AdvReac Severe GI Upset Verified 09/13/17 11:04 w/Trimethoprim [From Bactrim] Aripiprazole [From Abilify] AdvReac HYPERACTIVE Verified 09/13/17 11:04 CI Pigment Blue 63 AdvReac HYPERACTIVE Verified 09/13/17 11:04 [From Cymbalta] Ciprofloxacin [From Cipro] AdvReac DIARRHEA Verified 09/13/17 11:04 AND STOMACH CRAMPS Duloxetine [From Cymbalta] AdvReac HYPERACTIVE Verified 09/13/17 11:04 Erythromycin AdvReac DIARRHEA Verified 09/13/17 11:04 AND STOMACH CRAMPS Quetiapine [From Seroquel] AdvReac HYPERACTIVE Verified 09/13/17 11:04 Soy Allergy AdvReac Diarrhea Verified 09/13/17 11:04 PMH/Surg Hx/FS Hx/Imm Hx Previously Healthy: No Endocrine/Hematology History: Denies: Hx Anticoagulant Therapy, Hx Diabetes, Hx Thyroid Disease, Other Endocrine/Hematological Disorders Cardiovascular History: Denies: Hx Congestive Heart Failure, Hx Deep Vein Thrombosis, Hx Hypertension , Hx Myocardial Infarction, Hx Pacemaker/ICD, Other Cardiovascular Problems/ Disorders Respiratory History: Reports: Hx Asthma, Hx Chronic Obstructive Pulmonary Disease (COPD), Other Respiratory Problems/Disorders - PNUEMONIA Denies: Hx Lung Cancer, Hx Pneumonia, Hx Pulmonary Embolism GI History: Reports: Hx Gastroesophageal Reflux Disease, Hx Irritable Bowel, Other GI Disorders - IBS Denies: Hx Gall Bladder Disease, Hx Gastrointestinal Bleed, Hx Ulcer, Hx Urosepsis History: Denies: Hx Kidney Stones, Hx Renal Disease, Other Problems/Disorders Musculoskeletal History: Reports: Hx Arthritis - Pt. states "everywhere", Hx Rheumatoid Arthritis, Hx Back Problems, Hx Osteoporosis Denies: Hx Scoliosis, Other Musculoskeletal History Sensory History: Reports: Hx Cataracts, Hx Contacts or Glasses, Hx Vision Problem - cataracts Denies: Hx Hearing Aid, Other Sensory Impairments Opthamlomology History: Reports: Hx Cataracts, Hx Contacts or Glasses, Hx Vision Problem - cataracts Denies: Other Sensory Impairments Neurological History: Reports: Hx Headaches, Hx Migraine Denies: Hx Dementia, Hx Seizures, Hx Transient Ischemic Attacks (TIA), Other Neuro Impairments/Disorders Psychiatric History: Reports: Hx Anxiety, Hx Depression, Hx Post Traumatic Stress Disorder, Hx Inpatient Treatment - hx, Hx Community Mental Health Tx, Hx Suicide Attempt, Hx Substance Abuse Denies: Hx Eating Disorder, Hx Panic Disorder, Hx Schizophrenia, Hx Bipolar Disorder, Other Psychiatric Issues/Disorders - Cancer History Cancer Type, Location and Year: Family history Hx Chemotherapy: No Hx Radiation Therapy: No - Surgical History Surgery Procedure, Year, and Place: total hysterectomy with oophorectomy 1996; SINUSES Xs2; BLADDER- CYSTOCELE AND RECTOCELE (NO METAL)/ 12/08;. LEFT ANKLE FX Hx Anesthesia Reactions: No - Immunization History Date of Tetanus Vaccine: utd Date of Influenza Vaccine: 06/2017 Infectious Disease History: No Infectious Disease History: Denies: Hx Clostridium Difficile, Hx Hepatitis, Hx Human Immunodeficiency Virus (HIV), Hx of Known/Suspected MRSA, Hx Shingles, Hx Tuberculosis, Hx Known/ Suspected VRE, Hx Known/Suspected VRSA, History Other Infectious Disease, Traveled Outside the [place] in Last 30 Days - Family History Known Family History: Positive: Cardiac Disease, Hypertension, Other - arthritis Negative: Diabetes - Social History Occupation: Retired Lives: Alone Alcohol Use: None Hx Substance Use: Yes Substance Use Type: Reports: Prescribed Substance Use Comment - Amount & Last Used: colonpin Hx Tobacco Use: No Smoking Status (MU): Never Smoked Tobacco Have You Smoked in the Last Year: No Review of Systems Positive: Other - Positive dehydration Positive: Chest Pain Positive: Shortness Of Breath Positive: Vomiting Positive: Other - Negative ankle swelling Neurological: Other - Positive "seizure symptoms" Positive: Syncope - Near Positive: Other - Positive hallucinations All Other Systems Reviewed And Are Negative: Yes Physical Exam Triage Information Reviewed: Yes Vital Signs On Initial Exam: Initial Vitals Temp Pulse Resp BP Pulse Ox 98.1 F 63 14 110/71 100 09/13/17 10:55 09/13/17 10:55 09/13/17 10:55 09/13/17 10:55 09/13/17 10:55 Vital Signs Reviewed: Yes Appearance: Positive: Well-Appearing, No Pain Distress Skin: Positive: Warm, Skin Color Reflects Adequate Perfusion, Dry Head/Face: Positive: Normal Head/Face Inspection Eyes: Positive: EOMI, PAVEL ENT: Positive: Other - Oral mucosa is dry. Pressured speech Neck: Positive: Supple, Nontender Respiratory/Lung Sounds: Positive: Clear to Auscultation, Breath Sounds Present Cardiovascular: Positive: RRR Abdomen Description: Positive: Soft, Other: - Bilateral CVA tenderness Bowel Sounds: Positive: Present Musculoskeletal: Positive: Normal, Strength/ROM Intact Neurological: Positive: Normal, Sensory/Motor Intact, Alert, Oriented to Person Place, Time Psychiatric: Positive: Affect/Mood Appropriate - [place] Coma Scale Coma Scale Total: 15 Diagnostics - Vital Signs Vital Signs Temp Pulse Resp BP Pulse Ox 09/13/17 11:00 64 21 100/71 95 09/13/17 10:58 19 09/13/17 10:57 110/71 09/13/17 10:55 98.1 F 63 14 110/71 100 - Laboratory Lab Results: Lab Results 09/13/17 09/13/17 09/13/17 Range/Units 13:55 13:55 13:55 WBC (3.5-10.8) 10^3/ul RBC (4.0-5.4) 10^6/ul Hgb (12.0-16.0) g/dl Hct (35-47) % MCV (80-97) fL MCH (27-31) pg MCHC (31-36) g/dl RDW (10.5-15) % Plt Count (150-450) 10^3/ul MPV (7.4-10.4) um3 Neut % (Auto) (38-83) % Lymph % (Auto) (25-47) % [place] % (Auto) (1-9) % Eos % (Auto) (0-6) % Baso % (Auto) (0-2) % Absolute Neuts (auto) (1.5-7.7) 10^3/ul Absolute Lymphs (auto) (1.0-4.8) 10^3/ul Absolute Monos (auto) (0-0.8) 10^3/ul Absolute Eos (auto) (0-0.6) 10^3/ul Absolute Basos (auto) (0-0.2) 10^3/ul Absolute Nucleated RBC 10^3/ul Nucleated RBC % INR (Anticoag Therapy) 1.09 H (0.77-1.02) APTT 28.8 (26.0-36.3) seconds Carbon Monoxide Screen (<4.0) % Sodium 130 L (133-145) mmol/L Potassium 4.5 (3.5-5.0) mmol/L Chloride 98 L (101-111) mmol/L Carbon Dioxide 21 L (22-32) mmol/L Anion Gap 11 (2-11) mmol/L BUN 11 (6-24) mg/dL Creatinine 0.76 (0.51-0.95) mg/dL Est GFR ( Amer) 97.6 (>60) Est GFR (Non-Af Amer) 75.9 (>60) BUN/Creatinine Ratio 14.5 (8-20) Glucose 120 H (70-100) mg/dL Lactic Acid 1.2 (0.5-2.0) mmol/L Calcium 9.9 (8.6-10.3) mg/dL Magnesium 2.3 (1.9-2.7) mg/dL Total Bilirubin 0.90 (0.2-1.0) mg/dL AST 17 (13-39) U/L ALT 14 (7-52) U/L Alkaline Phosphatase 66 (34-104) U/L Ammonia (16-53) mol/L Total Creatine Kinase 48 (10-223) U/L CK-MB (CK-2) 2.5 (0.6-6.3) ng/mL Troponin I 0.01 (<0.04) ng/mL C-Reactive Protein 4.37 (< 5.00) mg/L B-Natriuretic Peptide ( - 100) pg/mL Total Protein 7.2 (6.4-8.9) g/dL Albumin 4.4 (3.2-5.2) g/dL Globulin 2.8 (2-4) g/dL Albumin/Globulin Ratio 1.6 (1-3) Lipase < 10 L (11.0-82.0) U/L TSH 4.89 (0.34-5.60) mcIU/mL Urine Color Urine Appearance Urine pH (5-9) Ur Specific [place] (1.010-1.030) Urine Protein (Negative) Urine Ketones (Negative) Urine Blood (Negative) Urine Nitrate (Negative) Urine Bilirubin (Negative) Urine Urobilinogen (Negative) Ur Leukocyte Esterase (Negative) Urine WBC (Auto) (Absent) Urine RBC (Auto) (Absent) Urine Bacteria (Absent) Urine Glucose (Negative) Salicylates < 2.50 (<30) mg/dL Acetaminophen < 15 mcg/mL Serum Alcohol < 10 (<10) mg/dL 09/13/17 09/13/17 09/13/17 Range/Units 13:55 13:55 14:15 WBC 10.4 (3.5-10.8) 10^3/ul RBC 4.59 (4.0-5.4) 10^6/ul Hgb 13.8 (12.0-16.0) g/dl Hct 41 (35-47) % MCV 89 (80-97) fL MCH 30 (27-31) pg MCHC 34 (31-36) g/dl RDW 14 (10.5-15) % Plt Count 345 (150-450) 10^3/ul MPV 8 (7.4-10.4) um3 Neut % (Auto) 78.2 (38-83) % Lymph % (Auto) 13.3 L (25-47) % [place] % (Auto) 7.9 (1-9) % Eos % (Auto) 0.1 (0-6) % Baso % (Auto) 0.5 (0-2) % Absolute Neuts (auto) 8.1 H (1.5-7.7) 10^3/ul Absolute Lymphs (auto) 1.4 (1.0-4.8) 10^3/ul Absolute Monos (auto) 0.8 (0-0.8) 10^3/ul Absolute Eos (auto) 0 (0-0.6) 10^3/ul Absolute Basos (auto) 0.1 (0-0.2) 10^3/ul Absolute Nucleated RBC 0 10^3/ul Nucleated RBC % 0 INR (Anticoag Therapy) (0.77-1.02) APTT (26.0-36.3) seconds Carbon Monoxide Screen < 4 (<4.0) % Sodium (133-145) mmol/L Potassium (3.5-5.0) mmol/L Chloride (101-111) mmol/L Carbon Dioxide (22-32) mmol/L Anion Gap (2-11) mmol/L BUN (6-24) mg/dL Creatinine (0.51-0.95) mg/dL Est GFR ( Amer) (>60) Est GFR (Non-Af Amer) (>60) BUN/Creatinine Ratio (8-20) Glucose (70-100) mg/dL Lactic Acid (0.5-2.0) mmol/L Calcium (8.6-10.3) mg/dL Magnesium (1.9-2.7) mg/dL Total Bilirubin (0.2-1.0) mg/dL AST (13-39) U/L ALT (7-52) U/L Alkaline Phosphatase (34-104) U/L Ammonia 55 H (16-53) mol/L Total Creatine Kinase (10-223) U/L CK-MB (CK-2) (0.6-6.3) ng/mL Troponin I (<0.04) ng/mL C-Reactive Protein (< 5.00) mg/L B-Natriuretic Peptide 107 H ( - 100) pg/mL Total Protein (6.4-8.9) g/dL Albumin (3.2-5.2) g/dL Globulin (2-4) g/dL Albumin/Globulin Ratio (1-3) Lipase (11.0-82.0) U/L TSH (0.34-5.60) mcIU/mL Urine Color Urine Appearance Urine pH (5-9) Ur Specific [place] (1.010-1.030) Urine Protein (Negative) Urine Ketones (Negative) Urine Blood (Negative) Urine Nitrate (Negative) Urine Bilirubin (Negative) Urine Urobilinogen (Negative) Ur Leukocyte Esterase (Negative) Urine WBC (Auto) (Absent) Urine RBC (Auto) (Absent) Urine Bacteria (Absent) Urine Glucose (Negative) Salicylates (<30) mg/dL Acetaminophen mcg/mL Serum Alcohol (<10) mg/dL 09/13/17 Range/Units 14:58 WBC (3.5-10.8) 10^3/ul RBC (4.0-5.4) 10^6/ul Hgb (12.0-16.0) g/dl Hct (35-47) % MCV (80-97) fL MCH (27-31) pg MCHC (31-36) g/dl RDW (10.5-15) % Plt Count (150-450) 10^3/ul MPV (7.4-10.4) um3 Neut % (Auto) (38-83) % Lymph % (Auto) (25-47) % [place] % (Auto) (1-9) % Eos % (Auto) (0-6) % Baso % (Auto) (0-2) % Absolute Neuts (auto) (1.5-7.7) 10^3/ul Absolute Lymphs (auto) (1.0-4.8) 10^3/ul Absolute Monos (auto) (0-0.8) 10^3/ul Absolute Eos (auto) (0-0.6) 10^3/ul Absolute Basos (auto) (0-0.2) 10^3/ul Absolute Nucleated RBC 10^3/ul Nucleated RBC % INR (Anticoag Therapy) (0.77-1.02) APTT (26.0-36.3) seconds Carbon Monoxide Screen (<4.0) % Sodium (133-145) mmol/L Potassium (3.5-5.0) mmol/L Chloride (101-111) mmol/L Carbon Dioxide (22-32) mmol/L Anion Gap (2-11) mmol/L BUN (6-24) mg/dL Creatinine (0.51-0.95) mg/dL Est GFR ( Amer) (>60) Est GFR (Non-Af Amer) (>60) BUN/Creatinine Ratio (8-20) Glucose (70-100) mg/dL Lactic Acid (0.5-2.0) mmol/L Calcium (8.6-10.3) mg/dL Magnesium (1.9-2.7) mg/dL Total Bilirubin (0.2-1.0) mg/dL AST (13-39) U/L ALT (7-52) U/L Alkaline Phosphatase (34-104) U/L Ammonia (16-53) mol/L Total Creatine Kinase (10-223) U/L CK-MB (CK-2) (0.6-6.3) ng/mL Troponin I (<0.04) ng/mL C-Reactive Protein (< 5.00) mg/L B-Natriuretic Peptide ( - 100) pg/mL Total Protein (6.4-8.9) g/dL Albumin (3.2-5.2) g/dL Globulin (2-4) g/dL Albumin/Globulin Ratio (1-3) Lipase (11.0-82.0) U/L TSH (0.34-5.60) mcIU/mL Urine Color Yellow Urine Appearance Clear Urine pH 7.0 (5-9) Ur Specific [place] 1.006 L (1.010-1.030) Urine Protein Negative (Negative) Urine Ketones 1+ H (Negative) Urine Blood 1+ H (Negative) Urine Nitrate Negative (Negative) Urine Bilirubin Negative (Negative) Urine Urobilinogen Negative (Negative) Ur Leukocyte Esterase Negative (Negative) Urine WBC (Auto) Trace(0-5/hpf) (Absent) Urine RBC (Auto) Trace(0-2/hpf) (Absent) Urine Bacteria Absent (Absent) Urine Glucose Negative (Negative) Salicylates (<30) mg/dL Acetaminophen mcg/mL Serum Alcohol (<10) mg/dL Result Diagrams: 09/13/17 13:55 09/13/17 13:55 Lab Statement: Any lab studies that have been ordered have been reviewed, and results considered in the medical decision making process. - Radiology CXR Radiology Interpretation Completed By: Radiologist - CXR reveals, per radiologist, mildly limited study. No active disease. Dr. Kinney has reviewed this radiology report. Complex Multi-Symp Course/Dx Course Of Treatment: ADMIT HOSPITALIST. NO CRITICAL CARE TIME. - Diagnoses Provider Diagnoses: Dehydration, Weakness - Physician Notifications Discussed Care Of Patient With: Patrick Peerz Time Discussed With Above Provider: 14:56 Instructed by Provider To: Other - Consult with Dr. Perez (hospitalist) at 1456. Agrees to admit pt. Discharge - Discharge Plan Condition: Stable Disposition: ADMITTED TO [facility] documentation as recorded by the Yahaira cabrales Emily accurately reflects the service I personally performed and the decisions made by , Adalberto Kinney MD.
[2017-09-13] MEDS: NS 0.9% 1000 ML* 1,000 ML IV SCH (18:50)
[2017-09-13] MEDS: Enoxaparin(*) 40 MG/0.4 ML SYR SUBCUT SCH (18:52)
[2017-09-13] MEDS ORDERED: Metoprolol Tartrate TAB* 25 MG PO SCH (21:00)
--- NOTE | 2017-09-13 21:27 | HP ---
CC: Dr. Christopher Kam * HISTORY AND PHYSICAL: DATE OF ADMISSION: 09/13/17 PROVIDER: Tamara Padilla NP ATTENDING PHYSICIAN: Patrick Perez MD * (dictated by Tamara Padilla NP). PRIMARY CARE PROVIDER: Dr. Christopher Kam. CHIEF COMPLAINT: Unable to eat or drink, unable to care for self. HISTORY OF PRESENT ILLNESS: This is a 67-year-old female patient who was recently discharged on 09/04/17 after the patient overdosed at home on clonidine and clonazepam. The patient was cleared by Psychiatry for discharge to home at that time. Since she had concern for benzodiazepine abuse and overdose, the patient was discharged with no clonazepam and reports that since she has been home she has been going through withdrawal. She describes chest pressure and heart pounding as well as nausea, vomiting, and feeling sick to her stomach. She states that she has been unable to eat secondary to nausea and also that she has no access to food as there is no food in her apartment. She is claiming that she is too weak to get to the store on her own. Because she had foot injury in June as well as chronic back pain, it is difficult for her to take any other form of transportation to the store or to navigate to the grocery store by herself to obtain food. She reports that she has barely been able to eat anything and that she has no support. Additionally, she reports this morning that she was too weak to walk and had to lie down on the floor. She describes severe shaking episode that she recalls, but then states later that she had some blackouts during the period and is concerned that she may have had a seizure. Ms. Gauthier was supposed to follow up with Dr. Jones in [facility] upon discharge and had appointment on Friday, but did not make the appointment on Friday secondary to not feeling well. She said that she had it rescheduled for Friday, but does not feel that she can make it to Friday on her own as she is getting weaker. In the ED, the patient had labs drawn which were generally unremarkable. She has some mild hyponatremia at 130. The patient also apparently was retaining urine and was noted to have a post void residual of 600 and had a Ngo catheter placed. She has been in sinus bradycardia on the monitor. She also has positive orthostatic vital signs from sitting to standing. Ms. Gauthier states that she cannot go home because she feels like she will go home and secondary to dehydration and starvation and is requesting to stay here. She also feels that she will do better if she had some home health services but is open to considering rehab if the therapist felt that she would qualify or if she needed it. PAST MEDICAL HISTORY: Includes; 1. Recent overdose. 2. The patient was hospitalized from 09/01/17 to 09/04/17. 3. History of COPD. 4. Hypothyroidism. 5. History of previous suicide attempts. 6. Borderline personality disorder. 7. PTSD. 8. Anxiety. 9. Depression. 10. Migraine. 11. Irritable bowel syndrome. 12. Chronic pain. 13. History of PE. HOME MEDICATIONS: 1. Gabapentin 400 mg, the patient takes 1 to 2 capsules at bedtime. 2. Fluticasone nasal spray 50 mcg 2 sprays to both nares daily. 3. Famotidine 20 mg at bedtime p.r.n. 4. Carisoprodol 350 mg b.i.d. 5. Tramadol 100 mg t.i.d. p.r.n. 6. Ondansetron ODT 8 mg q. 8 hours p.r.n. 7. Metoprolol tartrate 12.5 mg b.i.d. 8. Loperamide 2 mg daily p.r.n. Please note that the patient also has clonidine 0.2 mg at bedtime on her med list as well as clonazepam 1 mg t.i.d. The patient is unable to state if she is taking any of these medications since her last discharge, but it is felt that she is not taking clonazepam secondary to running out and previous benzodiazepine use. ALLERGIES: The patient has multiple allergies includin. LATEX. 2. ASPIRIN. 3. CLINDAMYCIN. 4. DIPHENHYDRAMINE. 5. NSAIDS. 6. OMEPRAZOLE. 7. PROCHLORPERAZINE. 8. SUCRALFATE. 9. SUMATRIPTAN. 10. TRAZODONE. 11. VALPROIC ACID. 12. BACTRIM. 13. ABILIFY. 14. CYMBALTA. 15. CIPROFLOXACIN. 16. ERYTHROMYCIN. 17. QUETIAPINE. 18. SOY. FAMILY HISTORY: Reviewed and noncontributory. SOCIAL HISTORY: The patient denies tobacco, illicit drug use, or alcohol use history. She currently lives alone and currently has limited support system. She denies that any of her family members or friends could be her surrogate decision maker or healthcare proxy in the event of emergency. REVIEW OF SYSTEMS: A 14-point review of systems was reviewed and completed with the patient. All pertinent positives are included in the HPI. All others not mentioned are negative. PHYSICAL EXAMINATION VITAL SIGNS: Temperature 98.1, heart rate 54, respiratory rate 18, blood pressure 118/72, and O2 saturation 99% on room air. HEENT: Head is atraumatic, normocephalic. Pupils are equal, round, and reactive. Sclerae are anicteric. Extraocular movements are intact. The patient 's lips are very dry and cracked. She has poor dentition. Oral mucosa is somewhat tacky. There is no oropharyngeal erythema or exudate. NECK: Supple. No lymphadenopathy appreciated. LUNGS: Clear to auscultation. No wheezes, rales, or rhonchi noted. CARDIAC: The patient is bradycardic. S1 and S2 heart sounds. Regular rate and rhythm. No murmurs, rubs, or gallops. The patient has no peripheral edema. ABDOMEN: Soft and nondistended. There is some tenderness with palpation to the suprapubic area above the bladder. MUSCULOSKELETAL: The patient has full range of motion of all extremities. There is pain in the back when the patient moves but does display full range of motion. There is no clubbing or cyanosis noted. NEUROLOGIC: Cranial nerves II through XII are grossly intact. The patient moves all extremities. No focal deficits noted. SKIN: Warm and dry. Limited assessment, but no rashes noted. PSYCH: She is alert and oriented x3. The patient has a flat affect. Insight is poor. The patient's report of symptoms vary with each retelling. LABORATORY DATA AND DIAGNOSTIC STUDIES: CBC: WBC 10.4, hemoglobin 13.8, hematocrit 41, and platelet count 345. INR 1.09. Carbon monoxide less than 4. CMP: Sodium 130, potassium 4.5, chloride 98, carbon dioxide 21, BUN 11, creatinine 0.76, glucose 120, lactic acid 1.2, calcium 9.9, magnesium 2.3, total bilirubin 0.9, AST 17, ALT 14, alkaline phosphatase 66, ammonia 55, total CK 48, troponin 0.01. CRP 4.37. BNP 107. Albumin 4.4. Lipase less than 10. TSH 4.89. Urinalysis shows 1+ ketones, 1+ blood. Toxicology is negative. Chest x-ray: No active disease noted. EKG: Poor EKG secondary to artifact. Leads II, III, and aVF showed concern for ST elevation; however, lead III is barely readable secondary to lead placement. I suspect that the EKG changes seen and read by the machine are secondary to artifact and poor lead placement. Repeat EKG requested. ASSESSMENT AND PLAN: This is a 67-year-old female who presents today with concerns for dehydration and weakness secondary to poor self-care and lack of resources at home. She will be admitted as an observation patient to the medicine floor. Plan is as follows: 1. Dehydration: It is mild likely secondary to the patient's inability to properly care for herself. In any event, we will hydrate her with another 2 liters of fluid. The patient is positive for orthostatic hypotension, so we will recheck that tomorrow after the patient received her fluid. The patient has a social work consult in order to discuss ways that she can be better supported at home versus rehab versus placement. 2. Orthostatic hypotension, likely secondary to dehydration: The patient's blood pressure was already improved being here in the ED after receiving fluids. We will recheck her orthostatics tomorrow. Given that the patient is also bradycardic, we are also going to hold her clonidine. She is also on metoprolol, which we will continue with hold parameters. 3. Urinary retention: The patient's urinalysis was benign. I am not sure why the patient has urinary retention, this could be psychosomatic but in any case we will hydrate the patient and either tomorrow or Friday we will try to discontinue the Ngo catheter and see if the patient is able to void appropriately. In the event that she is not, she may have to have to be discharged to home with a catheter and follow up with outpatient Urology. There is no evidence of current infection at this time. The patient does not have any leukocytosis present. Her UA is benign. The patient has no fever or other signs that would suggest acute sepsis or other pathology such as a stone that will be causing retention. Monitor closely. 4. Weakness: I had a long discussion with the patient regarding my concerns and regarding past reports from social work and case management during the patient's previous admissions. Ms. Gauthier states that she is open to going to rehab even if she had to be discharged directly from here to rehab and staying there for a few weeks if it was warranted. I did discuss that previously she had declined some of the services that were offered including meals on wheels and PT and OT. She denies this and does not recall of ever seeing PT and OT. She seems more motivated at least at this time to find ways to get better support and services at home, so that she does not keep coming back to the hospital. Again, social work will meet with the patient to discuss options and available services. 5. Psychiatric illness: The patient has a history of borderline personality disorder, posttraumatic stress disorder, history of overdose for suicide attempt , anxiety, and depression. She currently denies suicidal ideation or homicidal ideation. She is no longer on her clonazepam secondary to overdose. We will not reinitiate this. The patient should continue with her outpatient [facility] followup. We can certainly consult Mental Health here in the hospital if the patient has acute concerns during her observation stay. 6. Nausea and vomiting: Again appears psychosomatic in origin and no acute reason can be found at this time and may also be related to the patient's recent withdrawal. In any event, the patient seems to selectively choose what she can and cannot eat and I did encourage her to utilize Zofran and to try to attempt to eat. Certainly if this persist, we can do a more extensive workup but at this time we will order regular diet and encouraged the patient to eat what she can. 7. Hypothyroidism: TSH is normal. The patient is not on maintenance levothyroxine. 8. Chronic obstructive pulmonary disease: Does not appear to be in acute exacerbation. 9. History of chronic pain: Continue Neurontin and Soma with hold parameters. The patient may have p.r.n. tramadol while here in the hospital per her previous home directions. 10. FEN: The patient was ordered a regular diet and IV hydration. 11. DVT prophylaxis: The patient was ordered subcu Lovenox. 12. Code status: She is a full code. TIME SPENT: Appropriately 65 minutes was spent on this admission with more than half of the time was spent [id number] with the patient obtaining history and physical, performing physical examination, reviewing the plan of care and in coordination of plan of care. Plan of care was also reviewed with my attending, Dr. Perez, who was in agreement. TAMARA PADILLA, INSERT CUTTER [id number]/[facility] #: [id number] BREANN
[2017-09-13] MEDS: Carisoprodol TAB* 350 MG PO SCH (21:52)
[2017-09-13] MEDS: Metoprolol Tartrate TAB* 25 MG PO SCH (21:53)
[2017-09-13] MEDS: Gabapentin CAP(*) 400 MG PO SCH (21:53)
[2017-09-13] MEDS: Ondansetron INJ* 2 MG/ML VIAL IV PRN (23:53)
[2017-09-14] MEDS: Acetaminophen TAB* 325 MG PO PRN ×3 (02:54→12:29)
[2017-09-14] MEDS: NS 0.9% 1000 ML* 1,000 ML IV SCH (04:22)
[2017-09-14 05:20] LABS: Hematocrit 35 % (35-47); Hemoglobin 11.6 g/dl (12.0-16.0); Mean Corpuscular HGB Conc 33 g/dl (31-36); Mean Corpuscular Hemoglobin 30 pg (27-31); Mean Corpuscular Volume 91 fL (80-97); Mean Platelet Volume 8 um3 (7.4-10.4); Red Blood Count 3.84 10^6/ul (4.0-5.4); Red Cell Distribution Width 14 % (10.5-15); White Blood Count 8.3 10^3/ul (3.5-10.8)
[2017-09-14 05:35] LABS: BUN/Creatinine Ratio 8.4 (8-20); Calcium 8.5 mg/dL (8.6-10.3); EGFR African American 88.2 (>60); EGFR Non-African American 68.6 (>60); Potassium 3.3 mmol/L (3.5-5.0)
[2017-09-14] MEDS: Ondansetron INJ* 2 MG/ML VIAL IV PRN ×3 (07:38→21:05)
[2017-09-14] MEDS: Carisoprodol TAB* 350 MG PO SCH ×2 (09:12→21:04)
[2017-09-14] MEDS: Metoprolol Tartrate TAB* 25 MG PO SCH ×2 (09:13→21:03)
[2017-09-14] MEDS: Fluticasone NASAL SPRAY 50MCG* 16 gm SPRAY BTL BOTH NARES SCH (09:13)
[2017-09-14] MEDS ORDERED: Al Hydrox/Mg Hydrox/Simet LIQ* 30 ML UDC PO ONE (13:52)
[2017-09-14] MEDS ORDERED: Al Hydrox/Mg Hydrox/Simet LIQ* 30 ML UDC ONE (14:00)
--- NOTE | 2017-09-14 14:39 | PN ---
Subjective Date of Service: 09/14/17 Interval History: Seen and examined this AM Wants sleep aid, specifically clonazepam She reports she does not want to go to rehab and is here because she could not get food at her home Objective Active Medications: Acetaminophen (Tylenol Tab*) 650 mg PO Q4H PRN PRN Reason: FEVER/PAIN Last Admin: 09/14/17 12:29 Dose: 650 mg Carisoprodol (Soma Tab*) 350 mg PO BID [facility] Last Admin: 09/14/17 09:12 Dose: 350 mg Enoxaparin Sodium (Lovenox(*)) 40 mg SUBCUT Q24H [facility] Last Admin: 09/13/17 18:52 Dose: 40 mg Famotidine (Pepcid Tab*) 20 mg PO BEDTIME PRN PRN Reason: HEARTBURN Last Admin: 09/14/17 09:12 Dose: 20 mg Fluticasone Propionate (Flonase Nasal [place] 50mcg*) 2 spray BOTH NARES DAILY [facility] Last Admin: 09/14/17 09:13 Dose: Not Given Gabapentin (Neurontin Cap(*)) 800 mg PO BEDTIME [facility] Last Admin: 09/13/17 21:53 Dose: Not Given Sodium Chloride (Ns 0.9% 1000 Ml*) 1,000 mls @ 100 mls/hr IV PER RATE [facility] Stop: 09/15/17 02:14 Last Admin: 09/14/17 04:22 Dose: 100 mls/hr Loperamide HCl (Imodium Cap*) 2 mg PO DAILY PRN PRN Reason: DIARRHEA Last Admin: 09/14/17 14:12 Dose: 2 mg Metoprolol Tartrate (Lopressor Tab*) 12.5 mg PO BID [facility] Last Admin: 09/14/17 09:13 Dose: 12.5 mg Ondansetron HCl (Zofran Inj*) 4 mg IV Q6H PRN PRN Reason: NAUSEA/VOMITING Last Admin: 09/14/17 13:56 Dose: 4 mg Tramadol HCl (Ultram*) 100 mg PO TID PRN PRN Reason: PAIN Vital Signs - 8 hr 09/14/17 09/14/17 09/14/17 07:48 09:12 09:14 Temperature 99.3 F Pulse Rate 59 80 Respiratory 14 16 Rate Blood Pressure 112/59 (mmHg) O2 Sat by Pulse 99 Oximetry 09/14/17 09/14/17 09/14/17 11:23 12:24 12:27 Temperature 100.1 F 100.8 F 101.6 F Pulse Rate 118 60 Respiratory 16 18 Rate Blood Pressure 114/57 (mmHg) O2 Sat by Pulse 99 98 Oximetry 09/14/17 09/14/17 12:32 14:12 Temperature Pulse Rate Respiratory 18 16 Rate Blood Pressure (mmHg) O2 Sat by Pulse Oximetry Oxygen Devices in Use Now: None Appearance: older than stated age, NAD Eyes: No Scleral Icterus, PERRLA Ears/Nose/Mouth/Throat: - - poor dentintion Neck: NL Appearance and Movements; NL JVP, Trachea Midline Respiratory: Symmetrical Chest Expansion and Respiratory Effort, Clear to Auscultation Cardiovascular: RRR Abdominal: NL Sounds; No Tenderness; No Distention Skin: No Rash or Ulcers Neurological: Alert and Oriented x 3 Result Diagrams: 09/14/17 04:56 09/14/17 04:56 Additional Lab and Data: Lab Results 09/13/17 09/13/17 09/13/17 Range/Units 13:55 13:55 13:55 WBC (3.5-10.8) 10^3/ul RBC (4.0-5.4) 10^6/ul Hgb (12.0-16.0) g/dl Hct (35-47) % MCV (80-97) fL MCH (27-31) pg MCHC (31-36) g/dl RDW (10.5-15) % Plt Count (150-450) 10^3/ul MPV (7.4-10.4) um3 Neut % (Auto) (38-83) % Lymph % (Auto) (25-47) % Sherman % (Auto) (1-9) % Eos % (Auto) (0-6) % Baso % (Auto) (0-2) % Absolute Neuts (auto) (1.5-7.7) 10^3/ul Absolute Lymphs (auto) (1.0-4.8) 10^3/ul Absolute Monos (auto) (0-0.8) 10^3/ul Absolute Eos (auto) (0-0.6) 10^3/ul Absolute Basos (auto) (0-0.2) 10^3/ul Absolute Nucleated RBC 10^3/ul Nucleated RBC % INR (Anticoag Therapy) 1.09 H (0.77-1.02) APTT 28.8 (26.0-36.3) seconds Carbon Monoxide Screen (<4.0) % Sodium 130 L (133-145) mmol/L Potassium 4.5 (3.5-5.0) mmol/L Chloride 98 L (101-111) mmol/L Carbon Dioxide 21 L (22-32) mmol/L Anion Gap 11 (2-11) mmol/L BUN 11 (6-24) mg/dL Creatinine 0.76 (0.51-0.95) mg/dL Est GFR ( Amer) 97.6 (>60) Est GFR (Non-Af Amer) 75.9 (>60) BUN/Creatinine Ratio 14.5 (8-20) Glucose 120 H (70-100) mg/dL Lactic Acid 1.2 (0.5-2.0) mmol/L Calcium 9.9 (8.6-10.3) mg/dL Magnesium 2.3 (1.9-2.7) mg/dL Total Bilirubin 0.90 (0.2-1.0) mg/dL AST 17 (13-39) U/L ALT 14 (7-52) U/L Alkaline Phosphatase 66 (34-104) U/L Ammonia (16-53) mol/L Total Creatine Kinase 48 (10-223) U/L CK-MB (CK-2) 2.5 (0.6-6.3) ng/mL Troponin I 0.01 (<0.04) ng/mL C-Reactive Protein 4.37 (< 5.00) mg/L B-Natriuretic Peptide ( - 100) pg/mL Total Protein 7.2 (6.4-8.9) g/dL Albumin 4.4 (3.2-5.2) g/dL Globulin 2.8 (2-4) g/dL Albumin/Globulin Ratio 1.6 (1-3) Lipase < 10 L (11.0-82.0) U/L TSH 4.89 (0.34-5.60) mcIU/mL Urine Color Urine Appearance Urine pH (5-9) Ur Specific [place] (1.010-1.030) Urine Protein (Negative) Urine Ketones (Negative) Urine Blood (Negative) Urine Nitrate (Negative) Urine Bilirubin (Negative) Urine Urobilinogen (Negative) Ur Leukocyte Esterase (Negative) Urine WBC (Auto) (Absent) Urine RBC (Auto) (Absent) Urine Bacteria (Absent) Urine Glucose (Negative) Salicylates < 2.50 (<30) mg/dL Acetaminophen < 15 mcg/mL Serum Alcohol < 10 (<10) mg/dL 09/13/17 09/13/17 09/13/17 Range/Units 13:55 13:55 14:15 WBC 10.4 (3.5-10.8) 10^3/ul RBC 4.59 (4.0-5.4) 10^6/ul Hgb 13.8 (12.0-16.0) g/dl Hct 41 (35-47) % MCV 89 (80-97) fL MCH 30 (27-31) pg MCHC 34 (31-36) g/dl RDW 14 (10.5-15) % Plt Count 345 (150-450) 10^3/ul MPV 8 (7.4-10.4) um3 Neut % (Auto) 78.2 (38-83) % Lymph % (Auto) 13.3 L (25-47) % Sherman % (Auto) 7.9 (1-9) % Eos % (Auto) 0.1 (0-6) % Baso % (Auto) 0.5 (0-2) % Absolute Neuts (auto) 8.1 H (1.5-7.7) 10^3/ul Absolute Lymphs (auto) 1.4 (1.0-4.8) 10^3/ul Absolute Monos (auto) 0.8 (0-0.8) 10^3/ul Absolute Eos (auto) 0 (0-0.6) 10^3/ul Absolute Basos (auto) 0.1 (0-0.2) 10^3/ul Absolute Nucleated RBC 0 10^3/ul Nucleated RBC % 0 INR (Anticoag Therapy) (0.77-1.02) APTT (26.0-36.3) seconds Carbon Monoxide Screen < 4 (<4.0) % Sodium (133-145) mmol/L Potassium (3.5-5.0) mmol/L Chloride (101-111) mmol/L Carbon Dioxide (22-32) mmol/L Anion Gap (2-11) mmol/L BUN (6-24) mg/dL Creatinine (0.51-0.95) mg/dL Est GFR ( Amer) (>60) Est GFR (Non-Af Amer) (>60) BUN/Creatinine Ratio (8-20) Glucose (70-100) mg/dL Lactic Acid (0.5-2.0) mmol/L Calcium (8.6-10.3) mg/dL Magnesium (1.9-2.7) mg/dL Total Bilirubin (0.2-1.0) mg/dL AST (13-39) U/L ALT (7-52) U/L Alkaline Phosphatase (34-104) U/L Ammonia 55 H (16-53) mol/L Total Creatine Kinase (10-223) U/L CK-MB (CK-2) (0.6-6.3) ng/mL Troponin I (<0.04) ng/mL C-Reactive Protein (< 5.00) mg/L B-Natriuretic Peptide 107 H ( - 100) pg/mL Total Protein (6.4-8.9) g/dL Albumin (3.2-5.2) g/dL Globulin (2-4) g/dL Albumin/Globulin Ratio (1-3) Lipase (11.0-82.0) U/L TSH (0.34-5.60) mcIU/mL Urine Color Urine Appearance Urine pH (5-9) Ur Specific [place] (1.010-1.030) Urine Protein (Negative) Urine Ketones (Negative) Urine Blood (Negative) Urine Nitrate (Negative) Urine Bilirubin (Negative) Urine Urobilinogen (Negative) Ur Leukocyte Esterase (Negative) Urine WBC (Auto) (Absent) Urine RBC (Auto) (Absent) Urine Bacteria (Absent) Urine Glucose (Negative) Salicylates (<30) mg/dL Acetaminophen mcg/mL Serum Alcohol (<10) mg/dL 09/13/17 Range/Units 14:58 WBC (3.5-10.8) 10^3/ul RBC (4.0-5.4) 10^6/ul Hgb (12.0-16.0) g/dl Hct (35-47) % MCV (80-97) fL MCH (27-31) pg MCHC (31-36) g/dl RDW (10.5-15) % Plt Count (150-450) 10^3/ul MPV (7.4-10.4) um3 Neut % (Auto) (38-83) % Lymph % (Auto) (25-47) % Sherman % (Auto) (1-9) % Eos % (Auto) (0-6) % Baso % (Auto) (0-2) % Absolute Neuts (auto) (1.5-7.7) 10^3/ul Absolute Lymphs (auto) (1.0-4.8) 10^3/ul Absolute Monos (auto) (0-0.8) 10^3/ul Absolute Eos (auto) (0-0.6) 10^3/ul Absolute Basos (auto) (0-0.2) 10^3/ul Absolute Nucleated RBC 10^3/ul Nucleated RBC % INR (Anticoag Therapy) (0.77-1.02) APTT (26.0-36.3) seconds Carbon Monoxide Screen (<4.0) % Sodium (133-145) mmol/L Potassium (3.5-5.0) mmol/L Chloride (101-111) mmol/L Carbon Dioxide (22-32) mmol/L Anion Gap (2-11) mmol/L BUN (6-24) mg/dL Creatinine (0.51-0.95) mg/dL Est GFR ( Amer) (>60) Est GFR (Non-Af Amer) (>60) BUN/Creatinine Ratio (8-20) Glucose (70-100) mg/dL Lactic Acid (0.5-2.0) mmol/L Calcium (8.6-10.3) mg/dL Magnesium (1.9-2.7) mg/dL Total Bilirubin (0.2-1.0) mg/dL AST (13-39) U/L ALT (7-52) U/L Alkaline Phosphatase (34-104) U/L Ammonia (16-53) mol/L Total Creatine Kinase (10-223) U/L CK-MB (CK-2) (0.6-6.3) ng/mL Troponin I (<0.04) ng/mL C-Reactive Protein (< 5.00) mg/L B-Natriuretic Peptide ( - 100) pg/mL Total Protein (6.4-8.9) g/dL Albumin (3.2-5.2) g/dL Globulin (2-4) g/dL Albumin/Globulin Ratio (1-3) Lipase (11.0-82.0) U/L TSH (0.34-5.60) mcIU/mL Urine Color Yellow Urine Appearance Clear Urine pH 7.0 (5-9) Ur Specific [place] 1.006 L (1.010-1.030) Urine Protein Negative (Negative) Urine Ketones 1+ H (Negative) Urine Blood 1+ H (Negative) Urine Nitrate Negative (Negative) Urine Bilirubin Negative (Negative) Urine Urobilinogen Negative (Negative) Ur Leukocyte Esterase Negative (Negative) Urine WBC (Auto) Trace(0-5/hpf) (Absent) Urine RBC (Auto) Trace(0-2/hpf) (Absent) Urine Bacteria Absent (Absent) Urine Glucose Negative (Negative) Salicylates (<30) mg/dL Acetaminophen mcg/mL Serum Alcohol (<10) mg/dL Assess/Plan/Problems-Billing Assessment: 67 yo F with multiple hospital and ED visits (5 this month) returning with inability to care for herself at home found with urinary retention and dehydration - Patient Problems (1) Urinary retention Comment: unclear etiology remove morales and trial void (2) Insomnia Comment: melatonin (3) Dehydration Comment: improved with overnight hydration (4) Chronic pain Comment: soma neurontin (5) DVT prophylaxis Comment: lovenox
[2017-09-14] MEDS ORDERED: Melatonin (NF) ** ENTER STRENGTH IN LABEL DIRECTIONS PO PRN (14:40)
[2017-09-14] MEDS ORDERED: Simethicone TAB* 80 MG TAB.CHEW PO PRN (14:41)
[2017-09-14] MEDS: Enoxaparin(*) 40 MG/0.4 ML SYR SUBCUT SCH (17:23)
[2017-09-14] MEDS: Gabapentin CAP(*) 400 MG PO SCH (21:02)
[2017-09-15] MEDS ORDERED: Melatonin (NF) 3 MG TAB PO PRN (04:00)
[2017-09-15] MEDS: Metoprolol Tartrate TAB* 25 MG PO SCH (08:55)
[2017-09-15] MEDS: Carisoprodol TAB* 350 MG PO SCH (08:58)
[2017-09-15] MEDS: Fluticasone NASAL SPRAY 50MCG* 16 gm SPRAY BTL BOTH NARES SCH (08:58)
[2017-09-15] MEDS: Ondansetron INJ* 2 MG/ML VIAL IV PRN (16:10)
[2017-09-15 16:34] VITALS: BP 144/85
[2017-09-15] MEDS: Enoxaparin(*) 40 MG/0.4 ML SYR SUBCUT SCH (17:19)
--- NOTE | 2017-09-16 14:16 | DS ---
Cc: Dr. Kam.* DISCHARGE SUMMARY: DATE OF ADMISSION: 09/13/17 DATE OF DISCHARGE: 09/15/17 PRIMARY CARE PROVIDER: Dr. Kam. PRIMARY DIAGNOSIS: Dehydration and fatigue. SECONDARY DIAGNOSES: Include, 1. Borderline personality disorder. 2. History of chronic obstructive pulmonary disease. 3. Hypothyroidism. 4. Posttraumatic stress disorder. 5. Anxiety/depression. 6. History of irritable bowel syndrome. 7. Chronic pain. 8. History of pulmonary embolism. MEDICATION ON DISCHARGE: 1. Gabapentin 400, 800 mg at bedtime. 2. Fluticasone 2 sprays both nares daily. 3. Famotidine 20 mg at bedtime as needed. 4. Soma 350 mg twice daily. 5. Tramadol 100 mg 3 times daily as needed. 6. Clonidine 0.2 mg at bedtime. 7. Ondansetron 8 mg every 8 hours as needed for nausea. 8. Metoprolol tartrate 12.5 mg twice daily. 9. Loperamide 2 mg daily as needed. HISTORY OF PRESENT ILLNESS AND HOSPITAL COURSE: This is a 67-year-old female with past medical history as outlined in history of present illness on day of admission, has had multiple hospital stays and presentations to this emergency room. She has been to the [facility] and got admitted over to the emergency room 4 times prior to this hospital stay this month. She presented this time saying she had inability to access food at home. She was found significantly dehydrated, admitted for dehydration, OBV to our hospital. She received fluid resuscitation with improvement in her symptomatology. She did have a fever T- max during the hospital stay of 101.6 that resolved without intervention. She never received antibiotics. She had no localizing sources. She presented to the hospital inquiring about placement in subacute rehab; however, declined upon admission to the hospital. She was evaluated by physical therapy and occupational therapy, both found her to not have any skilled needs. Her greatest complaint was inability to access food. She was set up with meals on wheels, which she has previously declined; however, this time indicated she would accept. She wants increased services at home; however, when inquiring what she wants services for, she wants somebody to help with vacuum and shop for her, which I indicated [facility] could not do. However, we made a referral to [facility] whom she has refused to let into her home in the past. On day of discharge , the patient was anxious to leave, requesting to leave, felt back to her usual baseline and excited to return home. She is a high utilizer in our hospital system and it has been difficult to decrease her contact with the hospital. At this point, she seems stable. She does have a high likelihood of returning to hospital, although we have tried to maximize our services in the community. Reason to return to hospital included, but are not limited to recurrent or worsening symptoms, inability to access food, chest pain, shortness of breath, nausea, vomiting, diarrhea, bleeding from any source, loss of consciousness, near loss of consciousness were discussed with the patient, she did acknowledge understanding. TIME SPENT: Greater than 45 minutes was spent on discharging the patient, greater than half was spent [id number] with the patient. [id number]/[facility] #: [id number] BREANN
== END 2017-09-15 17:35 | disposition home or self-care (01) ==
LOC: ED 10:46 → MED 16:10
PROVIDERS: ADMIT Internal Medicine; ATTEND Internal Medicine
DX: E86.0 Dehydration (principal); R53.83 Other fatigue; F60.3 Borderline personality disorder; I95.1 Orthostatic hypotension; J44.9 Chronic obstructive pulmonary disease, unspecified; E03.9 Hypothyroidism, unspecified; F43.10 Post-traumatic stress disorder, unspecified; X58.XXXA Exposure to other specified factors, initial encounter; G89.29 Other chronic pain; Z86.711 Personal history of pulmonary embolism; M54.9 Dorsalgia, unspecified; Z88.6 Allergy status to analgesic agent; Z88.1 Allergy status to other antibiotic agents; Z91.040 Latex allergy status; Z91.018 Allergy to other foods; Z91.09 Other allergy status, other than to drugs and biological substances; R33.9 Retention of urine, unspecified
CPT/HCPCS: 36415; 71010; 80048; 80053; 80307; 80320; 80329; 81003; 81015; 82140; 82375; 82550; 82553; 83605; 83690; 83735; 83880; 84443; 84484; 85025; 85610; 85730; 86140; 87502; 93005; 96361; 96374; 99284; A9270-GY; G0378; G0480; G8978-GP-CJ; G8979-GP-CJ; G8980-GP-CJ; G8987-GO-CI; G8988-GO-CI; G8989-GO-CI; G8990-GO-CI; G8991-GO-CI; G8992-GO-CI; J1650; J2405

== ENCOUNTER 2017-09-23 08:39 | Emergency (ER) | payer MEDICARE, OTHER ==
[2017-09-23 09:35] LABS: Hematocrit 41 % (35-47); Hemoglobin 13.9 g/dl (12.0-16.0); Mean Corpuscular HGB Conc 34 g/dl (31-36); Mean Corpuscular Hemoglobin 31 pg (27-31); Mean Corpuscular Volume 89 fL (80-97); Mean Platelet Volume 8 um3 (7.4-10.4); Red Blood Count 4.54 10^6/ul (4.0-5.4); Red Cell Distribution Width 14 % (10.5-15); White Blood Count 6.1 10^3/ul (3.5-10.8)
[2017-09-23] MEDS: NS 0.9% 1000 ML* 2,000 ML IV ONE ×2 (09:47→09:48)
[2017-09-23 09:49] LABS: Ammonia 42 mol/L (16-53)
[2017-09-23 09:51] LABS: ALT 13 U/L (7-52); AST 14 U/L (13-39); Albumin 4.2 g/dL (3.2-5.2); Alkaline Phosphatase 68 U/L (34-104); Anion Gap 8 mmol/L (2-11); BUN/Creatinine Ratio 8.1 (8-20); Blood Urea Nitrogen 6 mg/dL (6-24); C Reactive Protein < 1.00 mg/L (< 5.00); CO2 Carbon Dioxide 25 mmol/L (22-32); Calcium 9.2 mg/dL (8.6-10.3); Chloride 101 mmol/L (101-111); Creatine Kinase 32 U/L (10-223); EGFR African American 100.7 (>60); EGFR Non-African American 78.3 (>60); Globulin 2.6 g/dL (2-4); Glucose 106 mg/dL (70-100); Lipase 32 U/L (11.0-82.0); Magnesium 2.1 mg/dL (1.9-2.7); Potassium 3.4 mmol/L (3.5-5.0); Sodium 134 mmol/L (133-145); Total Protein 6.8 g/dL (6.4-8.9)
[2017-09-23 09:52] LABS: Troponin I 0.02 ng/mL (<0.04)
[2017-09-23 09:54] LABS: B Type Natriuretic Peptide 78 pg/mL
[2017-09-23 10:01] LABS: Acetaminophen < 15 mcg/mL; Alcohol < 10 mg/dL (<10); Salicylate < 2.50 mg/dL (<30)
[2017-09-23] MEDS ORDERED: Ondansetron INJ* 2 MG/ML VIAL IV ONE (10:03)
[2017-09-23 10:16] LABS: TSH (Thyroid Stimulating Horm) 3.99 mcIU/mL (0.34-5.60)
[2017-09-23] MEDS ORDERED: LORazepam INJ* 2 MG/ML 1 ML VIAL IV ONE (10:20)
[2017-09-23] MEDS ORDERED: Iohexol 300* (CONTRAST) 10 ML SDV IV ONE (12:03)
[2017-09-23 12:31] LABS: Urine Bilirubin Negative (Negative); Urine Glucose Negative (Negative); Urine Nitrite Negative (Negative)
--- NOTE | 2017-09-23 12:55 | RAD ---
CLINICAL HISTORY: Abdominal pain and diarrhea. Relevant surgical history includes total hysterectomy and cystocele and rectocele repair. COMPARISON: Similar CT dated September 10, 2017 TECHNIQUE: Contrast enhanced CT examination of the abdomen and pelvis from the lung bases through the initial tuberosities. The patient received 77 mL Omnipaque 300 intravenously prior to imaging.The patient received oral contrast as well prior to imaging. FINDINGS: VISUALIZED LUNG BASES: The visualized lung bases are grossly clear. There is no pleural effusion. ABDOMEN AND PELVIS: The liver, spleen, pancreas and adrenal glands are grossly normal in appearance. The gallbladder is normal. The kidneys are normal in appearance without focal mass, calcification or signs of hydronephrosis. A Ngo catheter is noted in the urinary bladder abutting the superior wall of the bladder. The oral contrast has progressed as far as the transverse colon. The small and large bowel are not distended. The appendix is not discretely visualized, but there are no focal inflammatory changes in the right lower quadrant distended with acute appendicitis. There are air-fluid levels scattered throughout the colon. There is no definite colonic wall thickening. There is no definite pericolonic inflammatory change of the peritoneal fat. There is no gross retroperitoneal or mesenteric lymphadenopathy. The uterus is surgically absent. The abdominal aorta and iliac arteries are normal in course and diameter. Degenerative changes include multilevel loss of intervertebral disc height involving the lower thoracic and lumbar spine.There are no sinister bone lesions. IMPRESSION: 1. Air-fluid levels scattered in the colon could be seen in the setting of diarrheal illness. 2. Incidentally noted, the Ngo catheter balloon is abutting and displacing the superior wall of the urinary bladder. Consider retracting approximately 2 cm to better position the balloon of the urinary trigone. 3. Additional chronic, degenerative and postsurgical changes described in the body the report.
[2017-09-23] MEDS ORDERED: clonazePAM TAB(*) 1 MG PO ONE (14:09)
--- NOTE | 2017-09-23 14:15 | ED ---
Kathy Espitia Abhishek, scribed for Adalberto Kinney MD on 09/23/17 at 1012 . Abdominal Pain/Female - HPI Summary HPI Summary: This patient is a 67 year old F BIBA with a chief complaint of abd pain since . Abd pain is described as diffuse. Patient used Clonidine in the 2nd to commit suicide. The patient rates the pain 0/10 in severity. Symptoms aggravated by nothing. Symptoms alleviated by nothing. Patient reports N/V/D, weakness, and hematochezia. Pt states that she has been having diarrhea since onset of abd pain. The diarrhea is described as gelatin-like. The following medications are taken by the patient: Zofran, Klonapine, and Clonidine. Patient denies burning sensation upon urination. - History of Current Complaint Chief Complaint: EDNauseaVomitDiarrh Stated Complaint: GENRAL ILLNESS Time Seen by Provider: 09/23/17 08:48 Hx Obtained From: Patient Hx Last Menstrual Period: "years ago" Onset/Duration: Gradual Onset - 08/30/17, Lasting Weeks - 08/30/17, Still Present Timing: Constant Pain Intensity: 0 Pain Scale Used: 0-10 Numeric Location: Diffuse Character: Cramping Aggravating Factor(s): Nothing Alleviating Factor(s): Nothing Associated Signs and Symptoms: Positive: Nausea, Vomiting, Diarrhea, Other: - Weakness and hematochezia. Negative burning sensation during urination. Allergies/Adverse Reactions: Allergies Allergy/AdvReac Type Severity Reaction Status Date / Time Latex Allergy Intermediate Rash Verified 09/13/17 11:04 Aspirin [ASA] Allergy CAN'T TAKE Verified 09/13/17 11:04 DUE TO IBS Clindamycin Allergy Diarrhea Verified 09/13/17 11:04 Diphenhydramine Allergy HOT Verified 09/13/17 11:04 [From Benadryl] SENSATION FROM NECK TO FEET & TREMORS NSAIDs Allergy CAN'T TAKE Verified 09/13/17 11:04 DUE TO IBS Omeprazole [From Prilosec] Allergy See Comment Verified 09/13/17 11:04 Prochlorperazine Allergy HOT Verified 09/13/17 11:04 [From Compazine] SENSATION FROM NECK TO FEET & TREMORS Sucralfate [From Carafate] Allergy See Comment Verified 09/13/17 11:04 Sumatriptan [From Imitrex] Allergy INCREASED Verified 09/13/17 11:04 MIGRAINES Trazodone Allergy Nausea Verified 09/13/17 11:04 Valproic Acid [From Depakote] Allergy 50 SHERRELL Verified 09/13/17 11:04 WEIGHT GAINE, MIGRAINE WORSE & TREMORS Sulfamethoxazole AdvReac Severe GI Upset Verified 09/13/17 11:04 w/Trimethoprim [From Bactrim] Aripiprazole [From Abilify] AdvReac HYPERACTIVE Verified 09/13/17 11:04 CI Pigment Blue 63 AdvReac HYPERACTIVE Verified 09/13/17 11:04 [From Cymbalta] Ciprofloxacin [From Cipro] AdvReac DIARRHEA Verified 09/13/17 11:04 AND STOMACH CRAMPS Duloxetine [From Cymbalta] AdvReac HYPERACTIVE Verified 09/13/17 11:04 Erythromycin AdvReac DIARRHEA Verified 09/13/17 11:04 AND STOMACH CRAMPS Quetiapine [From Seroquel] AdvReac HYPERACTIVE Verified 09/13/17 11:04 Soy Allergy AdvReac Diarrhea Verified 09/13/17 11:04 PMH/Surg Hx/FS Hx/Imm Hx Endocrine/Hematology History: Denies: Hx Anticoagulant Therapy, Hx Diabetes, Hx Thyroid Disease, Other Endocrine/Hematological Disorders Cardiovascular History: Denies: Hx Congestive Heart Failure, Hx Deep Vein Thrombosis, Hx Hypertension , Hx Myocardial Infarction, Hx Pacemaker/ICD, Other Cardiovascular Problems/ Disorders Respiratory History: Reports: Hx Asthma, Hx Chronic Obstructive Pulmonary Disease (COPD), Other Respiratory Problems/Disorders - PNUEMONIA Denies: Hx Lung Cancer, Hx Pneumonia, Hx Pulmonary Embolism GI History: Reports: Hx Gastroesophageal Reflux Disease, Hx Irritable Bowel, Other GI Disorders - IBS Denies: Hx Gall Bladder Disease, Hx Gastrointestinal Bleed, Hx Ulcer, Hx Urosepsis History: Denies: Hx Kidney Stones, Hx Renal Disease, Other Problems/Disorders Musculoskeletal History: Reports: Hx Arthritis - Pt. states "everywhere", Hx Rheumatoid Arthritis, Hx Back Problems, Hx Osteoporosis Denies: Hx Scoliosis, Other Musculoskeletal History Sensory History: Reports: Hx Cataracts, Hx Contacts or Glasses, Hx Vision Problem - cataracts Denies: Hx Hearing Aid, Other Sensory Impairments Opthamlomology History: Reports: Hx Cataracts, Hx Contacts or Glasses, Hx Vision Problem - cataracts Denies: Other Sensory Impairments Neurological History: Reports: Hx Headaches, Hx Migraine Denies: Hx Dementia, Hx Seizures, Hx Transient Ischemic Attacks (TIA), Other Neuro Impairments/Disorders Psychiatric History: Reports: Hx Anxiety, Hx Depression, Hx Post Traumatic Stress Disorder, Hx Inpatient Treatment - hx, Hx Community Mental Health Tx, Hx Suicide Attempt, Hx Substance Abuse Denies: Hx Eating Disorder, Hx Panic Disorder, Hx Schizophrenia, Hx Bipolar Disorder, Other Psychiatric Issues/Disorders - Cancer History Cancer Type, Location and Year: Family history Hx Chemotherapy: No Hx Radiation Therapy: No - Surgical History Surgery Procedure, Year, and Place: total hysterectomy with oophorectomy 1996; SINUSES Xs2; BLADDER- CYSTOCELE AND RECTOCELE (NO METAL)/ 12/08;. LEFT ANKLE FX Hx Anesthesia Reactions: No - Immunization History Date of Tetanus Vaccine: utd Date of Influenza Vaccine: 06/2017 Infectious Disease History: No Infectious Disease History: Denies: Hx Clostridium Difficile, Hx Hepatitis, Hx Human Immunodeficiency Virus (HIV), Hx of Known/Suspected MRSA, Hx Shingles, Hx Tuberculosis, Hx Known/ Suspected VRE, Hx Known/Suspected VRSA, History Other Infectious Disease, Traveled Outside the [place] in Last 30 Days - Family History Known Family History: Positive: Cardiac Disease, Hypertension, Other - arthritis Negative: Diabetes - Social History Alcohol Use: None Hx Substance Use: Yes Substance Use Type: Reports: None Substance Use Comment - Amount & Last Used: colonpin Hx Tobacco Use: No Smoking Status (MU): Never Smoked Tobacco Have You Smoked in the Last Year: No Review of Systems Constitutional: Negative Eyes: Negative ENT: Negative Cardiovascular: Negative Respiratory: Negative Positive: Abdominal Pain - diffuse, Vomiting, Diarrhea - "gelatin-like", Nausea Genitourinary: Other - hematochezia Negative: burning Musculoskeletal: Negative Skin: Negative Positive: Weakness Psychological: Normal All Other Systems Reviewed And Are Negative: Yes Physical Exam - Summary Physical Exam Summary: General: Mild anxious Skin: warm, color reflects adequate perfusion, dry Head: normal Eyes: EOMI, PAVEL ENT: normal, Oral mucosa dry Neck: supple, nontender Respiratory: CTA, breath sounds present, Lungs clear Cardiovascular: RRR, Tachycardia Abdomen: soft, nontender, Diffuse abd tenderness to palpation Bowel: present Musculoskeletal: normal, strength/ROM intact, No edema Neurological: normal, sensory/motor intact, A&O x3 Psychological: affect/mood appropriate Triage Information Reviewed: Yes Vital Signs On Initial Exam: Initial Vitals Temp Pulse Resp BP Pulse Ox 97.4 F 87 20 138/74 100 09/23/17 08:41 09/23/17 08:41 09/23/17 08:41 09/23/17 08:41 09/23/17 08:41 Vital Signs Reviewed: Yes - [place] Coma Scale Coma Scale Total: 15 Diagnostics - Vital Signs Vital Signs Temp Pulse Resp BP Pulse Ox 09/23/17 08:41 97.4 F 87 20 138/74 100 - Laboratory Lab Results: Lab Results 09/23/17 09/23/17 09/23/17 Range/Units 09:15 09:15 09:15 WBC (3.5-10.8) 10^3/ul RBC (4.0-5.4) 10^6/ul Hgb (12.0-16.0) g/dl Hct (35-47) % MCV (80-97) fL MCH (27-31) pg MCHC (31-36) g/dl RDW (10.5-15) % Plt Count (150-450) 10^3/ul MPV (7.4-10.4) um3 Neut % (Auto) (38-83) % Lymph % (Auto) (25-47) % [place] % (Auto) (1-9) % Eos % (Auto) (0-6) % Baso % (Auto) (0-2) % Absolute Neuts (auto) (1.5-7.7) 10^3/ul Absolute Lymphs (auto) (1.0-4.8) 10^3/ul Absolute Monos (auto) (0-0.8) 10^3/ul Absolute Eos (auto) (0-0.6) 10^3/ul Absolute Basos (auto) (0-0.2) 10^3/ul Absolute Nucleated RBC 10^3/ul Nucleated RBC % INR (Anticoag Therapy) 1.00 (0.77-1.02) APTT 28.1 (26.0-36.3) seconds Sodium 134 (133-145) mmol/L Potassium 3.4 L (3.5-5.0) mmol/L Chloride 101 (101-111) mmol/L Carbon Dioxide 25 (22-32) mmol/L Anion Gap 8 (2-11) mmol/L BUN 6 (6-24) mg/dL Creatinine 0.74 (0.51-0.95) mg/dL Est GFR ( Amer) 100.7 (>60) Est GFR (Non-Af Amer) 78.3 (>60) BUN/Creatinine Ratio 8.1 (8-20) Glucose 106 H (70-100) mg/dL Lactic Acid (0.5-2.0) mmol/L Calcium 9.2 (8.6-10.3) mg/dL Magnesium 2.1 (1.9-2.7) mg/dL Total Bilirubin 0.90 (0.2-1.0) mg/dL AST 14 (13-39) U/L ALT 13 (7-52) U/L Alkaline Phosphatase 68 (34-104) U/L Ammonia 42 (16-53) mol/L Total Creatine Kinase 32 (10-223) U/L CK-MB (CK-2) 1.6 (0.6-6.3) ng/mL Troponin I 0.02 (<0.04) ng/mL C-Reactive Protein < 1.00 (< 5.00) mg/L B-Natriuretic Peptide 78 ( - 100) pg/mL Total Protein 6.8 (6.4-8.9) g/dL Albumin 4.2 (3.2-5.2) g/dL Globulin 2.6 (2-4) g/dL Albumin/Globulin Ratio 1.6 (1-3) Lipase 32 (11.0-82.0) U/L TSH Pending Salicylates < 2.50 (<30) mg/dL Acetaminophen < 15 mcg/mL Serum Alcohol < 10 (<10) mg/dL 09/23/17 09/23/17 Range/Units 09:15 09:15 WBC 6.1 (3.5-10.8) 10^3/ul RBC 4.54 (4.0-5.4) 10^6/ul Hgb 13.9 (12.0-16.0) g/dl Hct 41 (35-47) % MCV 89 (80-97) fL MCH 31 (27-31) pg MCHC 34 (31-36) g/dl RDW 14 (10.5-15) % Plt Count 311 (150-450) 10^3/ul MPV 8 (7.4-10.4) um3 Neut % (Auto) 62.3 (38-83) % Lymph % (Auto) 26.3 (25-47) % [place] % (Auto) 9.9 H (1-9) % Eos % (Auto) 0.4 (0-6) % Baso % (Auto) 1.1 (0-2) % Absolute Neuts (auto) 3.8 (1.5-7.7) 10^3/ul Absolute Lymphs (auto) 1.6 (1.0-4.8) 10^3/ul Absolute Monos (auto) 0.6 (0-0.8) 10^3/ul Absolute Eos (auto) 0 (0-0.6) 10^3/ul Absolute Basos (auto) 0.1 (0-0.2) 10^3/ul Absolute Nucleated RBC 0.01 10^3/ul Nucleated RBC % 0.1 INR (Anticoag Therapy) (0.77-1.02) APTT (26.0-36.3) seconds Sodium (133-145) mmol/L Potassium (3.5-5.0) mmol/L Chloride (101-111) mmol/L Carbon Dioxide (22-32) mmol/L Anion Gap (2-11) mmol/L BUN (6-24) mg/dL Creatinine (0.51-0.95) mg/dL Est GFR ( Amer) (>60) Est GFR (Non-Af Amer) (>60) BUN/Creatinine Ratio (8-20) Glucose (70-100) mg/dL Lactic Acid 1.6 (0.5-2.0) mmol/L Calcium (8.6-10.3) mg/dL Magnesium (1.9-2.7) mg/dL Total Bilirubin (0.2-1.0) mg/dL AST (13-39) U/L ALT (7-52) U/L Alkaline Phosphatase (34-104) U/L Ammonia (16-53) mol/L Total Creatine Kinase (10-223) U/L CK-MB (CK-2) (0.6-6.3) ng/mL Troponin I (<0.04) ng/mL C-Reactive Protein (< 5.00) mg/L B-Natriuretic Peptide ( - 100) pg/mL Total Protein (6.4-8.9) g/dL Albumin (3.2-5.2) g/dL Globulin (2-4) g/dL Albumin/Globulin Ratio (1-3) Lipase (11.0-82.0) U/L TSH Salicylates (<30) mg/dL Acetaminophen mcg/mL Serum Alcohol (<10) mg/dL Result Diagrams: 09/23/17 09:15 09/23/17 09:15 Lab Statement: Any lab studies that have been ordered have been reviewed, and results considered in the medical decision making process. Abdominal Pain Fem Course/Dx - Course Course Of Treatment: DISCUSSED RESULTS WITH PATIENT. SHE WAS ANXIOUS IN THE ED AND REQUESTED RX KLONOPIN; I DECLINED GIVING HER THE RX DUE TO SUICIDE ATTEMPT HX AND RECOMMENDED SHE F/U WITH HER PMD. SHE WAS ABLE TO WALK IN THE EMERGENCY DEPARTMENT. F/U PMD; RETURN IF WORSE. - Diagnoses Provider Diagnoses: Nausea, vomiting and diarrhea, Anxiety Discharge - Discharge Plan Condition: Stable Disposition: HOME Prescriptions: Metoclopramide TAB* [Reglan TAB*] 10 mg PO Q6H PRN #15 tab PRN Reason: Nausea Patient Education Materials: Acute Diarrhea (ED), Acute Nausea and Vomiting (ED ), Anxiety (ED) Referrals: Christopher Kam MD [Primary Care Provider] - Additional Instructions: FOLLOW UP WITH YOUR DOCTOR. RETURN TO THE EMERGENCY DEPARTMENT FOR ANY WORSENING OF YOUR CONDITION OR QUESTIONS OR CONCERNS. The documentation as recorded by the Kathy cabrales Abhishek accurately reflects the service I personally performed and the decisions made by , Adalberto Kinney MD.
[2017-09-23 15:01] VITALS: BP 140/82
== END 2017-09-23 15:00 | disposition home or self-care (01) ==
LOC: ED 08:39
DX: R11.2 Nausea with vomiting, unspecified (principal); R19.7 Diarrhea, unspecified; F41.9 Anxiety disorder, unspecified; Z88.6 Allergy status to analgesic agent; Z88.3 Allergy status to other anti-infective agents; Z88.8 Allergy status to other drugs, medicaments and biological substances; Z88.2 Allergy status to sulfonamides
CPT/HCPCS: 36415; 74177; 80053; 80320; 80329; 81003; 82140; 82550; 82553; 83605; 83690; 83735; 83880; 84443; 84484; 85025; 85610; 85730; 86140; 96361; 96374; 96375; 99283; A9270-GY; G0480; J2060; J2405; Q9967

== ENCOUNTER 2017-09-29 07:55 | Emergency (ER) | payer MEDICARE, MEDICAID ==
[2017-09-29] MEDS ORDERED: Al Hydrox/Mg Hydrox/Simet LIQ* 30 ML UDC PO ONE (08:27)
[2017-09-29] MEDS ORDERED: Lidocaine 2% VISCOUS* 15 ML UDC PO ONE (08:27)
[2017-09-29] MEDS ORDERED: NS 0.9% 1000 ML* 1,000 ML IV ONE (08:27)
[2017-09-29] MEDS ORDERED: Ondansetron INJ* 2 MG/ML VIAL IV ONE (08:27)
[2017-09-29 08:53] LABS: ABS Basophils 0 10^3/ul (0-0.2); ABS Eosinophils 0 10^3/ul (0-0.6); ABS Monocytes 0.5 10^3/ul (0-0.8); ABS Neutrophils 4.6 10^3/ul (1.5-7.7); ABS Nucleated RBC 0 10^3/ul; Eosinophil % 0.5 % (0-6); Hematocrit 40 % (35-47); Hemoglobin 13.5 g/dl (12.0-16.0); Lymphocyte % 15.8 % (25-47); Mean Corpuscular HGB Conc 33 g/dl (31-36); Mean Corpuscular Hemoglobin 30 pg (27-31); Mean Corpuscular Volume 90 fL (80-97); Mean Platelet Volume 8 um3 (7.4-10.4); Nucleated Red Blood Cells % 0; Platelet Count 250 10^3/ul (150-450); Red Blood Count 4.47 10^6/ul (4.0-5.4); Red Cell Distribution Width 14 % (10.5-15); White Blood Count 6.1 10^3/ul (3.5-10.8)
[2017-09-29 09:04] LABS: EGFR Non-African American 74.8 (>60)
--- NOTE | 2017-09-29 10:05 | RAD ---
Indication: Epigastric abdominal pain. History of IBS. Comparison: September 23, 2017 CT abdomen. Technique: Supine and LEFT lateral decubitus views of the abdomen. Report: Small volume of stool in the colon. No dilated bowel loops evident to indicate obstruction. Negative for free air. Innumerable pelvic phleboliths. No suspicious calcifications or mass effect. Clear visualized lung bases. IMPRESSION: No acute abdominopelvic pathologic process evident.
[2017-09-29 12:06] LABS: Urine Appearance Clear; Urine Blood Negative (Negative); Urine Color Yellow; Urine Ketones 2+ (Negative); Urine Protein Negative (Negative); Urine Specific Gravity 1.014 (1.010-1.030); Urine Urobilinogen Negative (Negative)
[2017-09-29 13:20] VITALS: BP 137/74
--- NOTE | 2017-09-29 14:49 | ED ---
Vivek Espitia Tecjoon, scribed for Paulino Metz MD on 09/29/17 at 0832 . Abdominal Pain/Female - HPI Summary HPI Summary: This patient is a 67 year old female BIBA to [facility] with a chief complaint of abd pain since a month ago. Patient states that after her suicide attempt by OD last month, she has had trouble eating or sleeping. Patient states she has severe abd pain that goes up into her throat. The pain is rated 9/10 in severity. Symptoms aggravated by nothing. Symptoms alleviated by nothing. Patient additionally reports nausea, vomiting, shaking, loss of appetite, throat pain. Patient denies SI or HI at this time. - History of Current Complaint Chief Complaint: EDAbdPain Stated Complaint: ABD PAIN Time Seen by Provider: 09/29/17 08:15 Hx Obtained From: Patient Hx Last Menstrual Period: "years ago" Onset/Duration: Gradual Onset, Lasting Weeks - 4, Still Present Timing: Constant Severity Currently: Severe Pain Intensity: 9 Pain Scale Used: 0-10 Numeric Location: Diffuse Radiates: Yes Radiates to: Other - throat Aggravating Factor(s): Nothing Alleviating Factor(s): Nothing Associated Signs and Symptoms: Positive: Other: - nausea, vomiting, shaking, loss of appetite, throat pain Allergies/Adverse Reactions: Allergies Allergy/AdvReac Type Severity Reaction Status Date / Time Latex Allergy Intermediate Rash Verified 09/13/17 11:04 Aspirin [ASA] Allergy CAN'T TAKE Verified 09/13/17 11:04 DUE TO IBS Clindamycin Allergy Diarrhea Verified 09/13/17 11:04 Diphenhydramine Allergy HOT Verified 09/13/17 11:04 [From Benadryl] SENSATION FROM NECK TO FEET & TREMORS NSAIDs Allergy CAN'T TAKE Verified 09/13/17 11:04 DUE TO IBS Omeprazole [From Prilosec] Allergy See Comment Verified 09/13/17 11:04 Prochlorperazine Allergy HOT Verified 09/13/17 11:04 [From Compazine] SENSATION FROM NECK TO FEET & TREMORS Sucralfate [From Carafate] Allergy See Comment Verified 09/13/17 11:04 Sumatriptan [From Imitrex] Allergy INCREASED Verified 09/13/17 11:04 MIGRAINES Trazodone Allergy Nausea Verified 09/13/17 11:04 Valproic Acid [From Depakote] Allergy 50 SHERRELL Verified 09/13/17 11:04 WEIGHT GAINE, MIGRAINE WORSE & TREMORS Sulfamethoxazole AdvReac Severe GI Upset Verified 09/13/17 11:04 w/Trimethoprim [From Bactrim] Aripiprazole [From Abilify] AdvReac HYPERACTIVE Verified 09/13/17 11:04 CI Pigment Blue 63 AdvReac HYPERACTIVE Verified 09/13/17 11:04 [From Cymbalta] Ciprofloxacin [From Cipro] AdvReac DIARRHEA Verified 09/13/17 11:04 AND STOMACH CRAMPS Duloxetine [From Cymbalta] AdvReac HYPERACTIVE Verified 09/13/17 11:04 Erythromycin AdvReac DIARRHEA Verified 09/13/17 11:04 AND STOMACH CRAMPS Quetiapine [From Seroquel] AdvReac HYPERACTIVE Verified 09/13/17 11:04 Soy Allergy AdvReac Diarrhea Verified 09/13/17 11:04 PMH/Surg Hx/FS Hx/Imm Hx Previously Healthy: No Endocrine/Hematology History: Denies: Hx Anticoagulant Therapy, Hx Diabetes, Hx Thyroid Disease, Other Endocrine/Hematological Disorders Cardiovascular History: Denies: Hx Congestive Heart Failure, Hx Deep Vein Thrombosis, Hx Hypertension , Hx Myocardial Infarction, Hx Pacemaker/ICD, Other Cardiovascular Problems/ Disorders Respiratory History: Reports: Hx Asthma, Hx Chronic Obstructive Pulmonary Disease (COPD), Other Respiratory Problems/Disorders - PNUEMONIA Denies: Hx Lung Cancer, Hx Pneumonia, Hx Pulmonary Embolism GI History: Reports: Hx Gastroesophageal Reflux Disease, Hx Irritable Bowel, Other GI Disorders - IBS Denies: Hx Gall Bladder Disease, Hx Gastrointestinal Bleed, Hx Ulcer, Hx Urosepsis History: Denies: Hx Kidney Stones, Hx Renal Disease, Other Problems/Disorders Musculoskeletal History: Reports: Hx Arthritis - Pt. states "everywhere", Hx Rheumatoid Arthritis, Hx Back Problems, Hx Osteoporosis Denies: Hx Scoliosis, Other Musculoskeletal History Sensory History: Reports: Hx Cataracts, Hx Contacts or Glasses, Hx Vision Problem - cataracts Denies: Hx Hearing Aid, Other Sensory Impairments Opthamlomology History: Reports: Hx Cataracts, Hx Contacts or Glasses, Hx Vision Problem - cataracts Denies: Other Sensory Impairments Neurological History: Reports: Hx Headaches, Hx Migraine Denies: Hx Dementia, Hx Seizures, Hx Transient Ischemic Attacks (TIA), Other Neuro Impairments/Disorders Psychiatric History: Reports: Hx Anxiety, Hx Depression, Hx Post Traumatic Stress Disorder, Hx Inpatient Treatment - hx, Hx Community Mental Health Tx, Hx Suicide Attempt, Hx Substance Abuse Denies: Hx Eating Disorder, Hx Panic Disorder, Hx Schizophrenia, Hx Bipolar Disorder, Other Psychiatric Issues/Disorders - Cancer History Cancer Type, Location and Year: Family history Hx Chemotherapy: No Hx Radiation Therapy: No - Surgical History Surgery Procedure, Year, and Place: total hysterectomy with oophorectomy 1996; SINUSES Xs2; BLADDER- CYSTOCELE AND RECTOCELE (NO METAL)/ 12/08;. LEFT ANKLE FX Hx Anesthesia Reactions: No - Immunization History Date of Tetanus Vaccine: utd Date of Influenza Vaccine: 06/2017 Infectious Disease History: No Infectious Disease History: Denies: Hx Clostridium Difficile, Hx Hepatitis, Hx Human Immunodeficiency Virus (HIV), Hx of Known/Suspected MRSA, Hx Shingles, Hx Tuberculosis, Hx Known/ Suspected VRE, Hx Known/Suspected VRSA, History Other Infectious Disease, Traveled Outside the [place] in Last 30 Days - Family History Known Family History: Positive: Cardiac Disease, Hypertension, Other - arthritis Negative: Diabetes - Social History Alcohol Use: None Hx Substance Use: Yes Substance Use Type: Reports: None Substance Use Comment - Amount & Last Used: colonpin Hx Tobacco Use: No Smoking Status (MU): Never Smoked Tobacco Have You Smoked in the Last Year: No Review of Systems Positive: Other - shaking. Negative: Fever Positive: Sore Throat Positive: Abdominal Pain, Vomiting, Nausea, Other - loss of appetite Positive: Other - NEGATIVE: SI, HI All Other Systems Reviewed And Are Negative: Yes Physical Exam - Summary Physical Exam Summary: VITAL SIGNS: Reviewed. GENERAL: Patient is a well developed and nourished female who is lying comfortable in the stretcher. Patient is not in any acute respiratory distress. HEAD AND FACE: Normocephalic EYES: PERRLA, EOMI x 2. EARS: Hearing grossly intact. MOUTH: Oropharynx within normal limits. NECK: Supple, trachea is midline, no adenopathy, no JVD, no carotid bruit. CHEST: Symmetric, no tenderness at palpation LUNGS: Clear to auscultation bilaterally. No wheezing or crackles. CVS: Regular rate and rhythm, S1 and S2 present, no murmurs or gallops appreciated. ABDOMEN: Soft, non-tender. Bowel sounds are normal. No abdominal abnormal pulsations. EXTREMITIES: Full ROM in all major joints, no edema, no cyanosis or clubbing. NEURO: Alert and oriented x 3. No acute neurological deficits. Speech is normal and follows commands. SKIN: Dry and warm Triage Information Reviewed: Yes Vital Signs On Initial Exam: Initial Vitals Temp Pulse Resp BP Pulse Ox 96.8 F 84 14 157/80 96 09/29/17 07:56 09/29/17 07:56 09/29/17 07:56 09/29/17 07:56 09/29/17 07:56 Vital Signs Reviewed: Yes Diagnostics - Vital Signs Vital Signs Temp Pulse Resp BP Pulse Ox 09/29/17 07:56 96.8 F 84 14 157/80 96 - Laboratory Lab Results: Lab Results 09/29/17 09/29/17 09/29/17 Range/Units 08:39 08:39 11:15 WBC 6.1 (3.5-10.8) 10^3/ul RBC 4.47 (4.0-5.4) 10^6/ul Hgb 13.5 (12.0-16.0) g/dl Hct 40 (35-47) % MCV 90 (80-97) fL MCH 30 (27-31) pg MCHC 33 (31-36) g/dl RDW 14 (10.5-15) % Plt Count 250 (150-450) 10^3/ul MPV 8 (7.4-10.4) um3 Neut % (Auto) 74.6 (38-83) % Lymph % (Auto) 15.8 L (25-47) % [place] % (Auto) 8.4 (1-9) % Eos % (Auto) 0.5 (0-6) % Baso % (Auto) 0.7 (0-2) % Absolute Neuts (auto) 4.6 (1.5-7.7) 10^3/ul Absolute Lymphs (auto) 1.0 (1.0-4.8) 10^3/ul Absolute Monos (auto) 0.5 (0-0.8) 10^3/ul Absolute Eos (auto) 0 (0-0.6) 10^3/ul Absolute Basos (auto) 0 (0-0.2) 10^3/ul Absolute Nucleated RBC 0 10^3/ul Nucleated RBC % 0 Sodium 133 (133-145) mmol/L Potassium 3.9 (3.5-5.0) mmol/L Chloride 99 L (101-111) mmol/L Carbon Dioxide 24 (22-32) mmol/L Anion Gap 10 (2-11) mmol/L BUN 7 (6-24) mg/dL Creatinine 0.77 (0.51-0.95) mg/dL Est GFR ( Amer) 96.2 (>60) Est GFR (Non-Af Amer) 74.8 (>60) BUN/Creatinine Ratio 9.1 (8-20) Glucose 102 H (70-100) mg/dL Calcium 9.7 (8.6-10.3) mg/dL Total Bilirubin 0.50 (0.2-1.0) mg/dL AST 12 L (13-39) U/L ALT 9 (7-52) U/L Alkaline Phosphatase 75 (34-104) U/L C-Reactive Protein 3.11 (< 5.00) mg/L Total Protein 6.8 (6.4-8.9) g/dL Albumin 4.2 (3.2-5.2) g/dL Globulin 2.6 (2-4) g/dL Albumin/Globulin Ratio 1.6 (1-3) Lipase < 10 L (11.0-82.0) U/L Urine Color Yellow Urine Appearance Clear Urine pH 7.0 (5-9) Ur Specific [place] 1.014 (1.010-1.030) Urine Protein Negative (Negative) Urine Ketones 2+ H (Negative) Urine Blood Negative (Negative) Urine Nitrate Negative (Negative) Urine Bilirubin Negative (Negative) Urine Urobilinogen Negative (Negative) Ur Leukocyte Esterase Negative (Negative) Urine Glucose Negative (Negative) Result Diagrams: 09/29/17 08:39 09/29/17 08:39 Lab Statement: Any lab studies that have been ordered have been reviewed, and results considered in the medical decision making process. - Radiology XR Abdomen Xray Interpretation: No Acute Changes - IMPRESSION: No acute abdominopelvic pathologic process evident. ED physician has reviewed this radiology report. Radiology Interpretation Completed By: Radiologist Abdominal Pain Fem Course/Dx - Course Course Of Treatment: This patient is a 67 year old female BIBA to [facility] with a chief complaint of abd pain since a month ago. Patient states that after her suicide attempt by OD last month, she has had trouble eating or sleeping. Patient states she has severe abd pain that goes up into her throat. The pain is rated 9/10 in severity. Symptoms aggravated by nothing. Symptoms alleviated by nothing. Patient additionally reports nausea, vomiting, shaking, loss of appetite, throat pain. Patient denies SI or HI at this time. XR Abdomen reveals , per radiologist, IMPRESSION: No acute abdominopelvic pathologic process evident. ED physician has reviewed this radiology report. Bloodwork Obtained and it is w/o a significant abnormality. In the ED course the patient was given Zofran, Lidocaine, Maalox. After medications symptoms improved. She reported that she is unable to urinate and she needs a catherization. We performed a bladder scan and it readed as upper 200 amount of urine. I had a long conversation about urinary retention but she insist that she has no urinary retention. She reports she has a "shy bladder" when she comes to the ED, . Finally, she was cath and urine is negative for UTI. She reports she feels great ans she will be discharged home w/ f/u os PCP. She has had [address]'s in the last 30 days with no acute pathology therefore I did not perform aother CT. Patient will be discharged with a diagnosis of chronic abdominal pain. The patient is advised to follow up with PCP in 3 days. The patient is agreeable with this plan. - Diagnoses Differential Diagnosis: Positive: Constipation, Hepatitis, Urinary Tract Infection Provider Diagnoses: Chronic abdominal pain Discharge - Discharge Plan Condition: Stable Disposition: HOME Prescriptions: Famotidine TAB* [Pepcid 20 MG TAB*] 20 mg PO DAILY #14 tab Patient Education Materials: Chronic Abdominal Pain (ED) Referrals: Christopher Kam MD [Primary Care Provider] - 3 Days Additional Instructions: Patient will be discharged with a diagnosis of chronic abdominal pain and given a prescription for Pepcid. The patient is advised to follow up with PCP in 3 days. The patient is agreeable with this plan. Use Pepcid as directed. The documentation as recorded by the Vivek cabrales Tecjoon accurately reflects the service I personally performed and the decisions made by , Paulino Metz MD.
== END 2017-09-29 13:22 | disposition home or self-care (01) ==
LOC: ED 07:55
DX: R10.9 Unspecified abdominal pain (principal); J02.9 Acute pharyngitis, unspecified; R11.2 Nausea with vomiting, unspecified
CPT/HCPCS: 36415; 74020; 80053; 81003; 83690; 85025; 86140; 96374; 99285; A9270-GY; J2405

== ENCOUNTER 2017-10-14 08:38 | Inpatient (IN) | payer MEDICARE, OTHER ==
[2017-10-14] MEDS ORDERED: NS 0.9% 1000 ML* 1,000 ML IV ONE (08:49)
[2017-10-14 09:23] LABS: ABS Basophils 0.1 10^3/ul (0-0.2); ABS Eosinophils 0 10^3/ul (0-0.6); ABS Monocytes 0.7 10^3/ul (0-0.8); ABS Neutrophils 4.6 10^3/ul (1.5-7.7); ABS Nucleated RBC 0 10^3/ul; Eosinophil % 0.5 % (0-6); Hematocrit 46 % (35-47); Hemoglobin 15.5 g/dl (12.0-16.0); Mean Corpuscular HGB Conc 34 g/dl (31-36); Mean Corpuscular Hemoglobin 30 pg (27-31); Mean Corpuscular Volume 89 fL (80-97); Mean Platelet Volume 8 um3 (7.4-10.4); Nucleated Red Blood Cells % 0; Platelet Count 321 10^3/ul (150-450); Red Blood Count 5.11 10^6/ul (4.0-5.4); Red Cell Distribution Width 13 % (10.5-15); White Blood Count 7.4 10^3/ul (3.5-10.8)
[2017-10-14 09:34] LABS: INR 1.02 (0.77-1.02)
[2017-10-14 09:47] LABS: EGFR Non-African American 67.6 (>60)
--- NOTE | 2017-10-14 09:53 | RAD ---
INDICATION: Pneumonia COMPARISON: September 13, 2017 TECHNIQUE: An AP portable view obtained at 0926 hours is submitted. FINDINGS: Bones/Soft Tissues: There are no acute bony findings. Cardiomediastinal: The cardiomediastinal silhouette is normal. Lungs: There are no infiltrates. Pleura: There are no pleural effusions. Other: None IMPRESSION: NO ACTIVE DISEASE.
[2017-10-14] MEDS ORDERED: clonazePAM TAB(*) 1 MG PO ONE (11:21)
[2017-10-14] MEDS ORDERED: clonazePAM TAB(*) 0.5 MG PO ONE (12:00)
[2017-10-14] MEDS ORDERED: Ipratropium 0.5MG/2.5ML NEB* 0.5 MG/2.5 ML NEB.SOLN INH PRN (13:28)
[2017-10-14] MEDS ORDERED: Loperamide CAP* 2 MG PO PRN (13:28)
[2017-10-14] MEDS ORDERED: Albuterol HFA INHALER* 8 gm MDI INH PRN (13:28)
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
--- NOTE | 2017-10-14 15:44 | RAD ---
HISTORY: Leg cramping, palpitation COMPARISONS: None relevant TECHNIQUE: Multiple transverse and longitudinal ultrasound images were obtained of the bilateral lower extremities from the level of the common femoral vein inferiorly through to the infrapopliteal veins using grayscale, color Doppler, and spectral Doppler imaging with and without compression and with augmentation. FINDINGS: VEINS: The venous system of the bilateral lower extremities is compressible throughout its course, with normal flow on color Doppler imaging and normal response to augmentation on spectral Doppler imaging. SOFT TISSUES: Unremarkable. OTHER FINDINGS: None. IMPRESSION: NO RIGHT LOWER EXTREMITY DEEP VEIN THROMBOSIS. NO LEFT LOWER EXTREMITY DEEP VEIN THROMBOSIS
[2017-10-14] MEDS: Heparin VIAL(*) 5000 UNITS/ML VIAL (FIVE THOUSAND) SUBCUT SCH ×2 (16:18→21:57)
[2017-10-14] MEDS: traMADol TAB* 50 MG PO PRN ×2 (16:19→16:33)
--- NOTE | 2017-10-14 19:25 | HP ---
ADMISSION HISTORY AND PHYSICAL: DATE OF ADMISSION: 10/14/17 PRIMARY CARE PROVIDER: Dr. Kam. HEALTHCARE PROXY: Has failed to identify any healthcare proxy. CODE STATUS: Full. History obtained from review of past medical records and interview with the patient. Reliability is fair poor. CHIEF COMPLAINT: Chest pain, palpitations. HISTORY OF PRESENT ILLNESS: This is a 67-year-old female with past medical history of multiple hospital stays with recent overdose in August 2017, reports that after her discharge, she has had "trouble with pain in my heart" complicated by a fall after discharge approximately the week after her last discharge, which was 09/15/17. She noted that yesterday, she tried taking a letter to the front of her building, became weak, developed palpitations, had to sit down. She noticed that she has had palpitations with changes in position and also on walking to the bathroom, which has been relatively new since her overdose in August. She has felt lightheaded as well as diaphoretic associated with lower extremity spasms, but no nausea, vomiting, or actual loss of consciousness. During the conversation, the patient digresses into her past suicide attempt, is tearful. She notes she feels guilty and that God is punishing her. She notes that she is anxious and wants clonazepam. She denies any orthopnea or PND. She currently is chest pain free. PAST MEDICAL HISTORY: 1. Overdose attempt in August. 2. History of COPD. 3. Hypothyroidism. 4. Borderline personality disorder. 5. PTSD. 6. Anxiety. 7. Depression. 8. Migraines. 9. Irritable bowel syndrome. 10. Chronic pain. 11. History of PE. MEDICATIONS: From her last discharge include: 1. Gabapentin 400 mg in the morning, 800 mg at night. 2. Fluticasone 2 sprays twice daily. 3. Famotidine 20 mg at bedtime. 4. Soma 350 mg twice daily. 5. Tramadol 100 mg 3 times daily as needed. 6. Clonidine 0.2 mg at bedtime. 7. Ondansetron 8 mg every 8 hours as needed. 8. Metoprolol tartrate 12.5 mg twice daily. 9. Loperamide 2 mg daily as needed. ALLERGIES: Include LATEX, ASPIRIN, CLINDAMYCIN, DIPHENHYDRAMINE, NSAID, OMEPRAZOLE, PROCHLORPERAZINE, SUCRALFATE, SUMATRIPTAN, TRAZODONE, VALPROIC ACID , BACTRIM, ABILIFY, CYMBALTA, CIPROFLOXACIN, ERYTHROMYCIN, QUETIAPINE, and SOY. SOCIAL HISTORY: Nonsmoker. No illicits. No alcohol. Currently, living alone. FAMILY HISTORY: No history of CAD as far as we know. REVIEW OF SYSTEMS: As per HPI, otherwise all other systems negative. PHYSICAL EXAMINATION GENERAL: Older than stated age, thin, interactive, no apparent distress except for tearful during conversation. VITAL SIGNS: In the emergency room, T-max 98.7, 104/79, respiratory rate is 20 , 96% on room air, heart rate is 73. HEENT: Oropharynx is clear. She has moist mucous membranes. Sclerae are anicteric. NECK: She has non-elevated JVD. LUNGS: Clear to auscultation. HEART: She has regular rate and rhythm with 2 to 3/6 blowing systolic ejection murmur, louder in the right upper sternal border. ABDOMEN: Soft, nontender, nondistended. EXTREMITIES: Warm and well perfused without clubbing, cyanosis, or edema. NEUROLOGIC: She is alert and oriented x3. She has apparent anxiety and depression. DIAGNOSTIC STUDIES/LAB DATA: Labs reviewed. Notable for troponin I of 0.06 in 2 consecutive checks. D-dimer less than 200. White blood cell count 7.4, hemoglobin 15.5, platelets 321. Data reviewed. EKG, sinus tachycardia, normal rhythm, normal axis, early R- wave progression, no ST or T wave changes. Chest x-ray, impression, no active disease. ASSESSMENT AND PLAN: A 67-year-old female with multiple medical problems, presented today with sensation of chest tightness and palpitations. 1. Chest pain. Troponins are 0.06, stable on 2 consecutive checks; however, higher than previous troponins that have been in the past. Chest tightness and palpitations are not typical symptoms that the patient has presented with in the past, although the palpitations are consistent with anxiety, which she is reporting. We will admit patient to the hospital, check transthoracic echocardiogram based on murmur. Plan for stress test with nuclear imaging. Trend troponins for third. Check lower extremity Dopplers in the setting of lower extremity cramping, which she has reported, although low probability for DVT in the setting of negative D-dimer. Add on TSH to ED labs. 2. The patient reportedly having difficulty urinating per nursing staff. We will check one time bladder scan. 3. Pain. Continue Soma and tramadol. 4. Hypertension. Continue metoprolol at current dose. May benefit from increase in the setting of palpitations. Continue clonidine. 5. DVT prophylaxis: Heparin subcu. [id number]/[facility] #: [id number] MTDD
[2017-10-14] MEDS: Carisoprodol TAB* 350 MG PO SCH (20:02)
[2017-10-14] MEDS: Metoprolol Tartrate TAB* 25 MG PO SCH (20:03)
[2017-10-14] MEDS ORDERED: cloNIDine TAB* 0.1 MG PO SCH (21:00)
[2017-10-14] MEDS: Ondansetron ODT TAB* 4 MG PO PRN (21:56)
[2017-10-15 03:26] LABS: ABS Basophils 0.1 10^3/ul (0-0.2); ABS Eosinophils 0 10^3/ul (0-0.6); ABS Lymphocytes 2.6 10^3/ul (1.0-4.8); ABS Monocytes 0.7 10^3/ul (0-0.8); ABS Nucleated RBC 0 10^3/ul; Eosinophil % 0.5 % (0-6); Hematocrit 36 % (35-47); Hemoglobin 11.9 g/dl (12.0-16.0); Lymphocyte % 27.8 % (25-47); Mean Corpuscular HGB Conc 34 g/dl (31-36); Mean Corpuscular Hemoglobin 30 pg (27-31); Mean Corpuscular Volume 90 fL (80-97); Mean Platelet Volume 8 um3 (7.4-10.4); Nucleated Red Blood Cells % 0; Platelet Count 212 10^3/ul (150-450); Red Blood Count 3.94 10^6/ul (4.0-5.4); Red Cell Distribution Width 13 % (10.5-15); White Blood Count 9.5 10^3/ul (3.5-10.8)
[2017-10-15 03:39] LABS: EGFR Non-African American 62.5 (>60)
[2017-10-15] MEDS: Heparin VIAL(*) 5000 UNITS/ML VIAL (FIVE THOUSAND) SUBCUT SCH ×3 (05:30→22:10)
[2017-10-15] MEDS: Carisoprodol TAB* 350 MG PO SCH ×2 (08:44→20:24)
[2017-10-15] MEDS ORDERED: NS 0.9% 1000 ML* 1,000 ML IV ONE (11:20)
--- NOTE | 2017-10-15 12:32 | ECHO ---
Patient: SHRUTI ACUÑA [facility] Rec#: [id number] : 1950 Date: 10/15/2017 Age: 67y Height: 167.64 cm / 66.0 in Weight: 58.97 kg / 130.0 lbs Sex: F BSA: 1.67 Room#: [facility] Admit Date#: 10/14/2017 Type: Inpatient Referring: Patrick Perez MD Reading: Melinda Wilson MD [facility] CC[facility] Eddy POWERS[facility] Indication: Murmur, palpitations BP: 72/54 HR: 82 Rhythm: NSR Findings History: COPD, recent hospitalization for OD/suicide attempt, hypothyroid, PE, PTSD, 2/6 systolic murmur. Technical Comments: The study quality is fair. The study is technically limited due to poor parasternal windows. Completed at 1120. Left Ventricle: The left ventricular chamber size is decreased. Mild concentric left ventricular hypertrophy is observed. Basal septal hypertrophy and systolic anterior motion of the mitral valve are observed creating an outflow tract gradient. Global left ventricular wall motion and contractility are within normal limits. There is normal left ventricular systolic function. The estimated ejection fraction is 60-65%. There is no consistent Doppler evidence of clinically significant diastolic dysfunction. Left Atrium: The left atrial chamber size is normal. Right Ventricle: Moderator Band present. The right ventricular cavity size is normal. The right ventricular global systolic function is normal. Right Atrium: The right atrial cavity size is normal. Aortic Valve: The aortic valve is trileaflet. The aortic valve leaflets are mildly thickened. There is a trace of aortic regurgitation. There is no evidence of aortic stenosis. Mitral Valve: The mitral valve leaflets are mildly thickened. There is moderate mitral regurgitation. The mitral regurgitant jet is posteriorly directed. The mitral regurgitant jet is medially directed. The mitral regurgitant jet is eccentric. There is no evidence of mitral stenosis. Systolic anterior motion is visualized with left ventricular outflow tract obstruction. Tricuspid Valve: The tricuspid valve leaflets are normal. There is mild tricuspid regurgitation. The right ventricular systolic pressure is estimated at 19 mmHg. No pulmonary hypertension is noted. There is no tricuspid stenosis. Pulmonic Valve: The pulmonic valve appears normal. There is a trace pulmonic regurgitation. There is no pulmonic stenosis. Pericardium: There is no significant pericardial effusion. Aorta: There is no dilatation of the ascending aorta. There is no dilatation of the aortic arch. The aortic root is normal in size. Pulmonary Artery: The main pulmonary artery appears normal. Venous: The inferior vena cava appears normal in size. There is a greater than 50% respiratory change in the inferior vena cava dimension. Conclusions The left ventricular chamber size is decreased. Mild concentric left ventricular hypertrophy with additional basal septal hypertrophy. Systolic anterior motion of the mitral valve are observed creating an outflow tract gradient. There is normal left ventricular systolic function. The estimated ejection fraction is 60-65%. The right ventricular global systolic function is normal. The aortic valve is trileaflet with normal excursion. There is moderate mitral regurgitation, eccentric posterior jet and a medial jet. There is mild tricuspid regurgitation. Compared with prior study of 02/15/14, small LV cavity diameter, EFE and LVOT obstruction newly described, the degree of MR has increased from mild, no longer see elevated PA pressure (previously 44 mmHg). Measurements Name Value Normal Range RVIDd (AP) 2D 2.8 cm (0.9 - 2.6) RVDdMajor (2D) 3.9 cm (2.2 - 4.4) RAd ISD 4CH 4.3 cm (3.4 - 4.9) RA (A4C)W 3.9 cm (2.9 - 4.6) IVSd (2D) 1.2 cm (0.6 - 1) LVPWd (2D) 1.2 cm (0.6 - 1) LVIDd (2D) 3.2 cm (3.6 - 5.4) LVIDs (2D) 1.7 cm - LV FS (2D) 47 % (25 - 45) Aortic Annulus 2.1 cm (1.4 - 2.6) Ao root diameter (2D) 3 cm (2.1 - 3.5) Ascending Ao 3.1 cm (2.1 - 3.4) Aortic arch 2.5 cm (1.8 - 3.4) LA dimension (AP) 2D 3.2 cm (2.3 - 3.8) LAd ISD 4CH 4.7 cm (2.9 - 5.3) LA ISD 4CH W 4.1 cm (2.5 - 4.5) Name Value Normal Range LA ESV SP 4CH (A/L) 46 ml - LA ESV SP 2CH (A/L) 57 ml - LA ESV BP (A/L) 56 ml - LA ESV BP (A/L) index 34 ml/m2 - LA ESV SP 4CH (MOD) 43 ml - LA ESV SP 2CH (MOD) 55 ml - Name Value Normal Range MV E-wave Vmax 0.63 m/sec - MV deceleration time 243.2 msec - MV A-wave Vmax 0.52 m/sec - MV E:A ratio 1.19 ratio - LV septal e' Vmax 0.03 m/sec - LV lateral e' Vmax 0.08 m/sec - LV E:e' septal ratio 21 ratio - LV E:e' lateral ratio 7.88 ratio - Name Value Normal Range AV Vmax 2.3 m/sec - AV VTI 41.15 cm - AV peak gradient 21.12 mmHg - AV mean gradient 12.16 mmHg - LVOT Vmax 2.13 m/sec - LVOT VTI 42.48 cm - LVOT peak gradient 18.16 mmHg - LVOT mean gradient 10.8 mmHg - ANTHONY Vmax 0.65 m/sec - Name Value Normal Range MR Vmax 5.27 m/sec - MR VTI 112.8 cm - Name Value Normal Range TR Vmax 2 m/sec - TR peak gradient 16 mmHg - RAP 3 mmHg - RVSP 19 mmHg - IVC diameter 2.1 cm - Name Value Normal Range PV Vmax 0.64 m/sec - PV peak gradient 1.63 mmHg -
[2017-10-15] MEDS: Ondansetron ODT TAB* 4 MG PO PRN ×2 (13:26→20:27)
[2017-10-15] MEDS: Metoprolol Tartrate TAB* 25 MG PO SCH (13:27)
[2017-10-15] MEDS: Famotidine TAB* 20 MG PO SCH (14:34)
[2017-10-15] MEDS ORDERED: NS 0.9% 1000 ML* 1,000 ML IV SCH ×2 (14:45→18:00)
--- NOTE | 2017-10-15 18:06 | PN ---
Subjective Date of Service: 10/15/17 Interval History: BP lower today. Notes she eats 1 meal at day because she does not like meals on wheels food Still has palpitations but no abnormality identified on telemetry Has many additional complaints that she identifies as being long standing Retaining urine >500 cc and morales placed Objective Active Medications: Albuterol (Ventolin Hfa Inhaler*) 2 puff INH Q4H PRN PRN Reason: SHORTNESS OF BREATH Carisoprodol (Soma Tab*) 350 mg PO BID [facility] Last Admin: 10/15/17 08:44 Dose: 350 mg Famotidine (Pepcid Tab*) 20 mg PO DAILY [facility] Last Admin: 10/15/17 14:34 Dose: Not Given Heparin Sodium (Porcine) (Heparin Vial(*)) 5,000 units SUBCUT Q8HR [facility] Last Admin: 10/15/17 14:39 Dose: 5,000 units Sodium Chloride (Ns 0.9% 1000 Ml*) 1,000 mls @ 150 mls/hr IV PER RATE [facility] Stop: 10/15/17 21:24 Last Admin: 10/15/17 14:39 Dose: 150 mls/hr Sodium Chloride (Ns 0.9% 1000 Ml*) 1,000 mls @ 150 mls/hr IV PER RATE [facility] Stop: 10/16/17 00:39 Ipratropium [place] (Atrovent 0.5 Mg Neb.[place]alia*) 0.5 mg INH Q6H PRN PRN Reason: SHORTNESS OF BREATH Loperamide HCl (Imodium Cap*) 2 mg PO DAILY PRN PRN Reason: DIARRHEA Ondansetron HCl (Zofran Odt Tab*) 8 mg PO Q8H PRN PRN Reason: NAUSEA/VOMITING Last Admin: 10/15/17 13:26 Dose: 8 mg Tramadol HCl (Ultram*) 100 mg PO TID PRN PRN Reason: PAIN Last Admin: 10/14/17 16:33 Dose: 100 mg Vital Signs - 8 hr 10/15/17 10/15/17 10/15/17 11:04 11:15 12:45 Temperature 98.1 F Pulse Rate 65 65 Respiratory 14 Rate Blood Pressure 80/49 82/50 87/39 (mmHg) O2 Sat by Pulse 97 Oximetry 10/15/17 10/15/17 10/15/17 13:39 14:30 15:41 Temperature 97.5 F Pulse Rate 82 Respiratory 18 22 Rate Blood Pressure 93/52 84/51 (mmHg) O2 Sat by Pulse 100 Oximetry 10/15/17 17:51 Temperature Pulse Rate Respiratory Rate Blood Pressure 104/50 (mmHg) O2 Sat by Pulse Oximetry Oxygen Devices in Use Now: None Appearance: older than stated age, NAD Eyes: No Scleral Icterus, PERRLA Ears/Nose/Mouth/Throat: Mucous Membranes Moist Respiratory: Symmetrical Chest Expansion and Respiratory Effort, Clear to Auscultation Cardiovascular: RRR Extremities: No Edema Neurological: Alert and Oriented x 3 Result Diagrams: 10/15/17 03:12 10/15/17 03:12 Additional Lab and Data: Lab Results 10/14/17 10/14/17 10/14/17 Range/Units 09:15 09:15 09:15 WBC 7.4 (3.5-10.8) 10^3/ul RBC 5.11 (4.0-5.4) 10^6/ul Hgb 15.5 (12.0-16.0) g/dl Hct 46 (35-47) % MCV 89 (80-97) fL MCH 30 (27-31) pg MCHC 34 (31-36) g/dl RDW 13 (10.5-15) % Plt Count 321 (150-450) 10^3/ul MPV 8 (7.4-10.4) um3 Neut % (Auto) 61.9 (38-83) % Lymph % (Auto) 27.0 (25-47) % Blanco % (Auto) 9.7 H (1-9) % Eos % (Auto) 0.5 (0-6) % Baso % (Auto) 0.9 (0-2) % Absolute Neuts (auto) 4.6 (1.5-7.7) 10^3/ul Absolute Lymphs (auto) 2.0 (1.0-4.8) 10^3/ul Absolute Monos (auto) 0.7 (0-0.8) 10^3/ul Absolute Eos (auto) 0 (0-0.6) 10^3/ul Absolute Basos (auto) 0.1 (0-0.2) 10^3/ul Absolute Nucleated RBC 0 10^3/ul Nucleated RBC % 0 INR (Anticoag Therapy) 1.02 (0.77-1.02) D-Dimer, Quantitative < 200 (Less Than 230) ng/mL Sodium 135 (133-145) mmol/L Potassium 3.3 L (3.5-5.0) mmol/L Chloride 100 L (101-111) mmol/L Carbon Dioxide 26 (22-32) mmol/L Anion Gap 9 (2-11) mmol/L BUN 7 (6-24) mg/dL Creatinine 0.84 (0.51-0.95) mg/dL Est GFR ( Amer) 87.0 (>60) Est GFR (Non-Af Amer) 67.6 (>60) BUN/Creatinine Ratio 8.3 (8-20) Glucose 117 H (70-100) mg/dL Lactic Acid (0.5-2.0) mmol/L Calcium 9.9 (8.6-10.3) mg/dL Magnesium 2.0 (1.9-2.7) mg/dL Total Bilirubin 0.80 (0.2-1.0) mg/dL AST 19 (13-39) U/L ALT 8 (7-52) U/L Alkaline Phosphatase 80 (34-104) U/L Total Creatine Kinase 41 (10-223) U/L CK-MB (CK-2) 4.1 (0.6-6.3) ng/mL Troponin I 0.06 H* (<0.04) ng/mL Total Protein 7.2 (6.4-8.9) g/dL Albumin 4.3 (3.2-5.2) g/dL Globulin 2.9 (2-4) g/dL Albumin/Globulin Ratio 1.5 (1-3) TSH 5.62 H (0.34-5.60) mcIU/mL 10/14/17 10/14/17 Range/Units 09:15 11:40 WBC (3.5-10.8) 10^3/ul RBC (4.0-5.4) 10^6/ul Hgb (12.0-16.0) g/dl Hct (35-47) % MCV (80-97) fL MCH (27-31) pg MCHC (31-36) g/dl RDW (10.5-15) % Plt Count (150-450) 10^3/ul MPV (7.4-10.4) um3 Neut % (Auto) (38-83) % Lymph % (Auto) (25-47) % Blanco % (Auto) (1-9) % Eos % (Auto) (0-6) % Baso % (Auto) (0-2) % Absolute Neuts (auto) (1.5-7.7) 10^3/ul Absolute Lymphs (auto) (1.0-4.8) 10^3/ul Absolute Monos (auto) (0-0.8) 10^3/ul Absolute Eos (auto) (0-0.6) 10^3/ul Absolute Basos (auto) (0-0.2) 10^3/ul Absolute Nucleated RBC 10^3/ul Nucleated RBC % INR (Anticoag Therapy) (0.77-1.02) D-Dimer, Quantitative (Less Than 230) ng/mL Sodium (133-145) mmol/L Potassium (3.5-5.0) mmol/L Chloride (101-111) mmol/L Carbon Dioxide (22-32) mmol/L Anion Gap (2-11) mmol/L BUN (6-24) mg/dL Creatinine (0.51-0.95) mg/dL Est GFR ( Amer) (>60) Est GFR (Non-Af Amer) (>60) BUN/Creatinine Ratio (8-20) Glucose (70-100) mg/dL Lactic Acid 2.0 (0.5-2.0) mmol/L Calcium (8.6-10.3) mg/dL Magnesium (1.9-2.7) mg/dL Total Bilirubin (0.2-1.0) mg/dL AST (13-39) U/L ALT (7-52) U/L Alkaline Phosphatase (34-104) U/L Total Creatine Kinase (10-223) U/L CK-MB (CK-2) (0.6-6.3) ng/mL Troponin I 0.06 H* (<0.04) ng/mL Total Protein (6.4-8.9) g/dL Albumin (3.2-5.2) g/dL Globulin (2-4) g/dL Albumin/Globulin Ratio (1-3) TSH (0.34-5.60) mcIU/mL Assess/Plan/Problems-Billing Assessment: 67 yo F p/w chest discomfort and palpitations - Patient Problems (1) Urinary retention Comment: morales placed check UA and culture Normal saline for relative hypotension (2) Chest discomfort Comment: resting today and chemical stress tomorrow ASA allergy (3) Anxiety and depression Comment: Previous psych recommendations to titrate off of benzodiazepines as there was concern that she may be abusing these. Will not restart now (4) COPD (chronic obstructive pulmonary disease) Current Visit: No Status: Acute Priority: High Code(s): J44.9 - CHRONIC OBSTRUCTIVE PULMONARY DISEASE, UNSPECIFIED SNOMED Code(s): 49689749 Comment: - Stable (5) Hypotension Comment: stable (6) DVT prophylaxis Comment: [facility]
[2017-10-15 21:58] LABS: Urine Appearance Clear; Urine Blood 2+ (Negative); Urine Color Yellow; Urine Ketones Negative (Negative); Urine Protein 1+(30 mg/dL) (Negative); Urine Specific Gravity 1.026 (1.010-1.030); Urine Urobilinogen Negative (Negative)
[2017-10-15] MEDS: traMADol TAB* 50 MG PO PRN (22:12)
[2017-10-16] MEDS: Acetaminophen TAB* 325 MG PO PRN (04:16)
[2017-10-16] MEDS: Heparin VIAL(*) 5000 UNITS/ML VIAL (FIVE THOUSAND) SUBCUT SCH ×3 (05:43→20:44)
[2017-10-16] MEDS: Famotidine TAB* 20 MG PO SCH (08:09)
[2017-10-16] MEDS: Carisoprodol TAB* 350 MG PO SCH ×2 (08:27→20:41)
[2017-10-16] MEDS: traMADol TAB* 50 MG PO PRN ×2 (08:28→15:35)
[2017-10-16] MEDS: Ondansetron ODT TAB* 4 MG PO PRN ×2 (08:32→15:35)
[2017-10-16] MEDS ORDERED: Aminophylline IV* 25 MG/ML 10 ML VIAL ONE (12:39)
[2017-10-16] MEDS ORDERED: Regadenoson* 0.4 MG/5 ML SYRINGE ONE (12:39)
--- NOTE | 2017-10-16 14:18 | RAD ---
HISTORY: Chest pain, shortness of breath,, history of heart disease COMPARISONS: September 03, 2005 TECHNIQUE: A 2 day stress/rest myocardial perfusion study was performed, with pharmacologic stress. The stress portion was monitored by Dr. [place]. Gated SPECT imaging was performed, with CT-based attenuation correction DOSE: Stress: Technetium 99m tetrofosmin, 25.3 millicuries, injected at 1:00 PM on October 16, 2017 Rest: Technetium 99m tetrofosmin, 25.28 millicuries, injected at 12:55 PM on October 15, 2017 Pharmacologic agent: Lexiscan FINDINGS: CARDIAC MONITORING: Baseline diffuse ST elevation EF: 78% with stress, 68% with rest TID: 1.36 MOTION: Normal motion, with normal wall thickening. PERFUSION: There are no fixed or reversible perfusion defects. OTHER: None IMPRESSION: 1. NO APPRECIABLE FIXED OR REVERSIBLE PERFUSION DEFECTS. 2. THERE IS AN ELEVATED T.I.D. RATIO WHICH MAY INDICATE THE PRESENCE OF TRIPLE VESSEL DISEASE. ASSESSMENT: HIGH RISK. Based on imaging criteria from ACC/AHA 2002. Guideline Update for the Management of Patient's with Chronic Stable Angina, table 23. Noninvasive Risk Stratification. CPT II Codes: 3570F
--- NOTE | 2017-10-16 19:31 | PN ---
Subjective Date of Service: 10/16/17 Interval History: Seen and examined Feels anxious, asking for clonapin Reiterated that I will not start her on clonapin No sensation like her "heart was going to explode" since admission Objective Active Medications: Acetaminophen (Tylenol Tab*) 650 mg PO Q6H PRN PRN Reason: PAIN Last Admin: 10/16/17 04:16 Dose: 650 mg Albuterol (Ventolin Hfa Inhaler*) 2 puff INH Q4H PRN PRN Reason: SHORTNESS OF BREATH Carisoprodol (Soma Tab*) 350 mg PO BID [facility] Last Admin: 10/16/17 08:27 Dose: 350 mg Famotidine (Pepcid Tab*) 20 mg PO DAILY [facility] Last Admin: 10/16/17 08:09 Dose: Not Given Heparin Sodium (Porcine) (Heparin Vial(*)) 5,000 units SUBCUT Q8HR [facility] Last Admin: 10/16/17 15:11 Dose: 5,000 units Ipratropium [place] (Atrovent 0.5 Mg Neb.[place]*) 0.5 mg INH Q6H PRN PRN Reason: SHORTNESS OF BREATH Loperamide HCl (Imodium Cap*) 2 mg PO DAILY PRN PRN Reason: DIARRHEA Ondansetron HCl (Zofran Odt Tab*) 8 mg PO Q8H PRN PRN Reason: NAUSEA/VOMITING Last Admin: 10/16/17 15:35 Dose: 8 mg Tramadol HCl (Ultram*) 100 mg PO TID PRN PRN Reason: PAIN Last Admin: 10/16/17 15:35 Dose: 100 mg Oxygen Devices in Use Now: None Appearance: older than stated age, NAD, anxious Eyes: No Scleral Icterus, PERRLA Ears/Nose/Mouth/Throat: Clear Oropharnyx, Mucous Membranes Moist Neck: NL Appearance and Movements; NL JVP, Trachea Midline Respiratory: Symmetrical Chest Expansion and Respiratory Effort, Clear to Auscultation Cardiovascular: RRR, - - soft early BARBARA Abdominal: NL Sounds; No Tenderness; No Distention, No Hepatosplenomegaly Extremities: No Edema Skin: No Rash or Ulcers Neurological: Alert and Oriented x 3 Result Diagrams: 10/15/17 03:12 10/15/17 03:12 Additional Lab and Data: Lab Results 10/14/17 10/14/1710/14/18 Range/Units 09:15 09:15 09:15 WBC 7.4 (3.5-10.8) 10^3/ul RBC 5.11 (4.0-5.4) 10^6/ul Hgb 15.5 (12.0-16.0) g/dl Hct 46 (35-47) % MCV 89 (80-97) fL MCH 30 (27-31) pg MCHC 34 (31-36) g/dl RDW 13 (10.5-15) % Plt Count 321 (150-450) 10^3/ul MPV 8 (7.4-10.4) um3 Neut % (Auto) 61.9 (38-83) % Lymph % (Auto) 27.0 (25-47) % [place] % (Auto) 9.7 H (1-9) % Eos % (Auto) 0.5 (0-6) % Baso % (Auto) 0.9 (0-2) % Absolute Neuts (auto) 4.6 (1.5-7.7) 10^3/ul Absolute Lymphs (auto) 2.0 (1.0-4.8) 10^3/ul Absolute Monos (auto) 0.7 (0-0.8) 10^3/ul Absolute Eos (auto) 0 (0-0.6) 10^3/ul Absolute Basos (auto) 0.1 (0-0.2) 10^3/ul Absolute Nucleated RBC 0 10^3/ul Nucleated RBC % 0 INR (Anticoag Therapy) 1.02 (0.77-1.02) D-Dimer, Quantitative < 200 (Less Than 230) ng/mL Sodium 135 (133-145) mmol/L Potassium 3.3 L (3.5-5.0) mmol/L Chloride 100 L (101-111) mmol/L Carbon Dioxide 26 (22-32) mmol/L Anion Gap 9 (2-11) mmol/L BUN 7 (6-24) mg/dL Creatinine 0.84 (0.51-0.95) mg/dL Est GFR ( Amer) 87.0 (>60) Est GFR (Non-Af Amer) 67.6 (>60) BUN/Creatinine Ratio 8.3 (8-20) Glucose 117 H (70-100) mg/dL Lactic Acid (0.5-2.0) mmol/L Calcium 9.9 (8.6-10.3) mg/dL Magnesium 2.0 (1.9-2.7) mg/dL Total Bilirubin 0.80 (0.2-1.0) mg/dL AST 19 (13-39) U/L ALT 8 (7-52) U/L Alkaline Phosphatase 80 (34-104) U/L Total Creatine Kinase 41 (10-223) U/L CK-MB (CK-2) 4.1 (0.6-6.3) ng/mL Troponin I 0.06 H* (<0.04) ng/mL Total Protein 7.2 (6.4-8.9) g/dL Albumin 4.3 (3.2-5.2) g/dL Globulin 2.9 (2-4) g/dL Albumin/Globulin Ratio 1.5 (1-3) TSH 5.62 H (0.34-5.60) mcIU/mL 10/14/17 10/14/17 Range/Units 09:15 11:40 WBC (3.5-10.8) 10^3/ul RBC (4.0-5.4) 10^6/ul Hgb (12.0-16.0) g/dl Hct (35-47) % MCV (80-97) fL MCH (27-31) pg MCHC (31-36) g/dl RDW (10.5-15) % Plt Count (150-450) 10^3/ul MPV (7.4-10.4) um3 Neut % (Auto) (38-83) % Lymph % (Auto) (25-47) % [place] % (Auto) (1-9) % Eos % (Auto) (0-6) % Baso % (Auto) (0-2) % Absolute Neuts (auto) (1.5-7.7) 10^3/ul Absolute Lymphs (auto) (1.0-4.8) 10^3/ul Absolute Monos (auto) (0-0.8) 10^3/ul Absolute Eos (auto) (0-0.6) 10^3/ul Absolute Basos (auto) (0-0.2) 10^3/ul Absolute Nucleated RBC 10^3/ul Nucleated RBC % INR (Anticoag Therapy) (0.77-1.02) D-Dimer, Quantitative (Less Than 230) ng/mL Sodium (133-145) mmol/L Potassium (3.5-5.0) mmol/L Chloride (101-111) mmol/L Carbon Dioxide (22-32) mmol/L Anion Gap (2-11) mmol/L BUN (6-24) mg/dL Creatinine (0.51-0.95) mg/dL Est GFR ( Amer) (>60) Est GFR (Non-Af Amer) (>60) BUN/Creatinine Ratio (8-20) Glucose (70-100) mg/dL Lactic Acid 2.0 (0.5-2.0) mmol/L Calcium (8.6-10.3) mg/dL Magnesium (1.9-2.7) mg/dL Total Bilirubin (0.2-1.0) mg/dL AST (13-39) U/L ALT (7-52) U/L Alkaline Phosphatase (34-104) U/L Total Creatine Kinase (10-223) U/L CK-MB (CK-2) (0.6-6.3) ng/mL Troponin I 0.06 H* (<0.04) ng/mL Total Protein (6.4-8.9) g/dL Albumin (3.2-5.2) g/dL Globulin (2-4) g/dL Albumin/Globulin Ratio (1-3) TSH (0.34-5.60) mcIU/mL Assess/Plan/Problems-Billing Assessment: 67 yo F p/w chest discomfort and palpitations - Patient Problems (1) Chest discomfort Comment: TTE with HOCM. Can explain palpiations and symptoms on walking given her constant dehydration at home 2/2 lack of food intake. Discussed stress with cardiology. TID elevated but no RWMA. May benefit from C but patient not sure she would like to pursue intervention. Will explore intervention further with patient tomorrow. ASA allergy atorvastatin start toprol (2) Urinary retention Comment: morales placed Normal saline for relative hypotension has improved BP (3) Anxiety and depression Comment: Previous psych recommendations to titrate off of benzodiazepines as there was concern that she may be abusing these. Will not restart now Discuss other agents for depression/anxiety and she has declined all at this point (4) COPD (chronic obstructive pulmonary disease) Current Visit: No Status: Acute Priority: High Code(s): J44.9 - CHRONIC OBSTRUCTIVE PULMONARY DISEASE, UNSPECIFIED SNOMED Code(s): 90793395 Comment: - Stable (5) Hypotension Comment: stable improved with fluids holding antihypertensives (6) DVT prophylaxis Comment: [facility]
[2017-10-16] MEDS ORDERED: Atorvastatin* 80 MG TAB PO ONE (19:35)
[2017-10-16] MEDS: Metoprolol Tartrate TAB* 25 MG PO SCH (20:42)
--- NOTE | 2017-10-16 23:22 | CONS ---
CC: Dr. Perez; Dr. Kam * CONSULTATION REPORT: DATE OF CONSULT: 10/16/17 HOSPITALIST SERVICE: Dr. Perez. HISTORY OF PRESENT ILLNESS: I was asked by hospitalist service to see this 67- year- old female patient who presented to the hospital on October 14 after she had multiple hospital stays and overdose in August 2017 where she attempted suicide. Apparently, she presented with "pain in my heart." She said she had discharge from the hospital, she had a fall according to her and during this hospitalization she had nuclear medicine stress test that was reported to have no ischemia or infarction, but she had an elevated TID that was reported at 1.36 and was called high risk that may indicate the presence of triple vessel disease. Because of that cardiology consult was further requested. The patient herself gives no history of myocardial infarction. She gives no history of congestive heart failure, no diabetes, no hyperlipidemia, no hypertension. She had significant history of depression, anxiety, chronic pain syndrome, history of pulmonary embolism, history of personality disorder, hypothyroidism, COPD, and overdose attempt and attempt suicide attempt in August 2017. MEDICATIONS: Her medications include: 1. Gabapentin 400 mg in the morning, 800 at night. 2. Famotidine 20 mg at bedtime. 3. Tramadol 100 mg 3 times daily. 4. Clonidine 0.2 mg at bedtime. 5. Metoprolol 12.5 mg twice daily. ALLERGIES: She had multiple allergies including ASPIRIN, LATEX, CLINDAMYCIN, NONSTEROIDAL, DIPHENHYDRAMINE, SUCRALFATE, VALPROIC ACID, TRIMETHOPRIM, also ERYTHROMYCIN. FAMILY HISTORY: She indicated that she had a family history in her parents; however, in the H and P, there was no history of coronary artery disease. She gives no fever, no chills. Her major concern is depression. She had vague multiple symptoms all over her body, anxiety, depression according to her. SOCIAL HISTORY: No history of smoking, no drugs, no illicit drugs. REVIEW OF SYSTEMS: On review all other systems essentially is negative. PHYSICAL EXAM: She is depressed, she is emotional in the exam room, significant nervousness. Vitals: Blood pressure 130/70, pulse 70, she is in sinus rhythm. Head and Neck Exam: Normocephalic, atraumatic head. Ears, Nose, and Throat: Essentially benign. Neck: Supple. JVP is not elevated. No carotid bruits. No masses in the neck are appreciated. Chest: Clear to auscultation. No rales, no wheezes. No added sounds. Heart: Normal and regular S1, S2. No added sounds. No gallops. No rubs. Abdomen: Benign. Positive bowel sounds. Extremities: No edema. No cyanosis, no clubbing. Skin exam is normal. Psych: Normal affect and mood. 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 DIAGNOSTIC STUDIES/LAB DATA: She had labs showed the following: White blood cell 9.5, hemoglobin 11.9, hematocrit 36, platelets 212. Chemistries: Sodium 136, potassium was low at 3.4, BUN 17, creatinine 0.90. Troponins 0.06, then 0.09, then 0.10, then did go down to 0.05. Cholesterol 170, LDL 109, HDL 40. Her EKG, sinus rhythm. There is concave ST elevation which is diffuse in nature including leads I, II, aVF, V3, V4, V5, and V6. During this hospitalization, she had a transthoracic echo. Left ventricular systolic pressure is hyperdynamic with an EF 60% to 65%. It is hypertrophic obstructive cardiomyopathy with a gradient. There is moderate mitral insufficiency, mild tricuspid insufficiency. IMPRESSION: The patient is a 67-year-old female with: 1. Presentation with vague multiple symptoms of chest pain, palpitations, abnormal troponin. 2. Abnormal EKG as described. 3. Abnormal nuclear stress test, high risk with elevated TID but no ischemia, no infarction. 4. Hyperdynamic left ventricular systolic function by a recent echo done during this hospitalization. 5. Moderate mitral insufficiency. 6. Hypertrophic obstructive cardiomyopathy with a gradient. 7. Patient with significant depression and anxiety. 8. Suicidal attempt August 2017. PLAN: Today, I spent a very little time explaining to the patient about her abnormal troponin and abnormal nuclear stress test. We talked about false positive, false negative. We talked about her risk factors. We talked about definitive procedure to find out about her coronary anatomy is the cardiac catheterization. We discussed benefits. We discussed risks and complications. After our lengthy meeting in the exam room, the patient was very emotional. She was very nervous. She was very anxious. She said she is depressed. She strongly requested that I talk to the hospitalist service and request psychiatrist to evaluate her. At the present time, she wants to think about all of my discussion. She is not ready to make a decision to proceed with a cardiac catheterization to evaluate her coronary anatomy. She might be ready in the next few days. Meanwhile, she will be monitored at the present time very closely awaiting her decision. I agree with continuing her current medications with heparin and beta- quinn treatment. We will make further recommendations accordingly. I answered all of her concerns and questions up to her satisfaction. TIME SPENT: More than half of at least 65 plus minutes was in the education and counseling mode, [id number] explaining all of the above and answering all her concerns and questions. I discussed her with Dr. Perez from the hospitalist service [id number]/[facility] #: [id number] BREANN
[2017-10-17] MEDS: traMADol TAB* 50 MG PO PRN ×3 (01:18→23:17)
[2017-10-17] MEDS: Acetaminophen TAB* 325 MG PO PRN ×2 (03:41→16:10)
[2017-10-17] MEDS: Heparin VIAL(*) 5000 UNITS/ML VIAL (FIVE THOUSAND) SUBCUT SCH ×3 (05:39→21:07)
[2017-10-17] MEDS: Famotidine TAB* 20 MG PO SCH (09:11)
[2017-10-17] MEDS: Metoprolol Tartrate TAB* 25 MG PO SCH ×2 (09:11→21:03)
[2017-10-17] MEDS: Carisoprodol TAB* 350 MG PO SCH ×2 (09:11→21:01)
--- NOTE | 2017-10-17 16:32 | PN ---
Subjective Date of Service: 10/17/17 Interval History: No palpitations or chest pain Did indicate that she has had chest pressure in the past that she didn't think to tell me about but only realized it was important after I discussed chest pressure with the neighboring patient in her room. She again indicated anxiety for which she would like clonazapam Objective Active Medications: Acetaminophen (Tylenol Tab*) 650 mg PO Q6H PRN PRN Reason: PAIN Last Admin: 10/17/17 16:10 Dose: 650 mg Albuterol (Ventolin Hfa Inhaler*) 2 puff INH Q4H PRN PRN Reason: SHORTNESS OF BREATH Carisoprodol (Soma Tab*) 350 mg PO BID [facility] Last Admin: 10/17/17 09:11 Dose: 350 mg Famotidine (Pepcid Tab*) 20 mg PO DAILY [facility] Last Admin: 10/17/17 09:11 Dose: 20 mg Heparin Sodium (Porcine) (Heparin Vial(*)) 5,000 units SUBCUT Q8HR [facility] Last Admin: 10/17/17 14:59 Dose: 5,000 units Ipratropium [place] (Atrovent 0.5 Mg Neb.Idalia*) 0.5 mg INH Q6H PRN PRN Reason: SHORTNESS OF BREATH Loperamide HCl (Imodium Cap*) 2 mg PO DAILY PRN PRN Reason: DIARRHEA Metoprolol Tartrate (Lopressor Tab*) 12.5 mg PO Q12HR [facility] Last Admin: 10/17/17 09:11 Dose: 12.5 mg Ondansetron HCl (Zofran Odt Tab*) 8 mg PO Q8H PRN PRN Reason: NAUSEA/VOMITING Last Admin: 10/16/17 15:35 Dose: 8 mg Tramadol HCl (Ultram*) 100 mg PO TID PRN PRN Reason: PAIN Last Admin: 10/17/17 10:03 Dose: 100 mg Vital Signs - 8 hr 10/17/17 10/17/17 10/17/17 09:11 10:03 11:19 Temperature 98.9 F Pulse Rate 62 Respiratory 20 18 16 Rate Blood Pressure 111/65 (mmHg) O2 Sat by Pulse 98 Oximetry 10/17/17 10/17/17 15:22 15:27 Temperature 98.4 F Pulse Rate 68 Respiratory 18 20 Rate Blood Pressure 107/59 (mmHg) O2 Sat by Pulse 98 Oximetry Oxygen Devices in Use Now: None Appearance: sitting up in bed, NAD Eyes: No Scleral Icterus, PERRLA Ears/Nose/Mouth/Throat: Clear Oropharnyx, Mucous Membranes Moist Neck: NL Appearance and Movements; NL JVP, Trachea Midline Respiratory: Symmetrical Chest Expansion and Respiratory Effort, Clear to Auscultation Cardiovascular: NL Sounds; No Murmurs; No JVD, RRR Abdominal: NL Sounds; No Tenderness; No Distention Lymphatic: No Cervical Adenopathy Extremities: No Edema Neurological: Alert and Oriented x 3 Result Diagrams: 10/15/17 03:12 10/15/17 03:12 Additional Lab and Data: Lab Results 10/14/17 10/14/17 10/14/17 Range/Units 09:15 09:15 09:15 WBC 7.4 (3.5-10.8) 10^3/ul RBC 5.11 (4.0-5.4) 10^6/ul Hgb 15.5 (12.0-16.0) g/dl Hct 46 (35-47) % MCV 89 (80-97) fL MCH 30 (27-31) pg MCHC 34 (31-36) g/dl RDW 13 (10.5-15) % Plt Count 321 (150-450) 10^3/ul MPV 8 (7.4-10.4) um3 Neut % (Auto) 61.9 (38-83) % Lymph % (Auto) 27.0 (25-47) % [place] % (Auto) 9.7 H (1-9) % Eos % (Auto) 0.5 (0-6) % Baso % (Auto) 0.9 (0-2) % Absolute Neuts (auto) 4.6 (1.5-7.7) 10^3/ul Absolute Lymphs (auto) 2.0 (1.0-4.8) 10^3/ul Absolute Monos (auto) 0.7 (0-0.8) 10^3/ul Absolute Eos (auto) 0 (0-0.6) 10^3/ul Absolute Basos (auto) 0.1 (0-0.2) 10^3/ul Absolute Nucleated RBC 0 10^3/ul Nucleated RBC % 0 INR (Anticoag Therapy) 1.02 (0.77-1.02) D-Dimer, Quantitative < 200 (Less Than 230) ng/mL Sodium 135 (133-145) mmol/L Potassium 3.3 L (3.5-5.0) mmol/L Chloride 100 L (101-111) mmol/L Carbon Dioxide 26 (22-32) mmol/L Anion Gap 9 (2-11) mmol/L BUN 7 (6-24) mg/dL Creatinine 0.84 (0.51-0.95) mg/dL Est GFR ( Amer) 87.0 (>60) Est GFR (Non-Af Amer) 67.6 (>60) BUN/Creatinine Ratio 8.3 (8-20) Glucose 117 H (70-100) mg/dL Lactic Acid (0.5-2.0) mmol/L Calcium 9.9 (8.6-10.3) mg/dL Magnesium 2.0 (1.9-2.7) mg/dL Total Bilirubin 0.80 (0.2-1.0) mg/dL AST 19 (13-39) U/L ALT 8 (7-52) U/L Alkaline Phosphatase 80 (34-104) U/L Total Creatine Kinase 41 (10-223) U/L CK-MB (CK-2) 4.1 (0.6-6.3) ng/mL Troponin I 0.06 H* (<0.04) ng/mL Total Protein 7.2 (6.4-8.9) g/dL Albumin 4.3 (3.2-5.2) g/dL Globulin 2.9 (2-4) g/dL Albumin/Globulin Ratio 1.5 (1-3) TSH 5.62 H (0.34-5.60) mcIU/mL 10/14/17 10/14/17 Range/Units 09:15 11:40 WBC (3.5-10.8) 10^3/ul RBC (4.0-5.4) 10^6/ul Hgb (12.0-16.0) g/dl Hct (35-47) % MCV (80-97) fL MCH (27-31) pg MCHC (31-36) g/dl RDW (10.5-15) % Plt Count (150-450) 10^3/ul MPV (7.4-10.4) um3 Neut % (Auto) (38-83) % Lymph % (Auto) (25-47) % [place] % (Auto) (1-9) % Eos % (Auto) (0-6) % Baso % (Auto) (0-2) % Absolute Neuts (auto) (1.5-7.7) 10^3/ul Absolute Lymphs (auto) (1.0-4.8) 10^3/ul Absolute Monos (auto) (0-0.8) 10^3/ul Absolute Eos (auto) (0-0.6) 10^3/ul Absolute Basos (auto) (0-0.2) 10^3/ul Absolute Nucleated RBC 10^3/ul Nucleated RBC % INR (Anticoag Therapy) (0.77-1.02) D-Dimer, Quantitative (Less Than 230) ng/mL Sodium (133-145) mmol/L Potassium (3.5-5.0) mmol/L Chloride (101-111) mmol/L Carbon Dioxide (22-32) mmol/L Anion Gap (2-11) mmol/L BUN (6-24) mg/dL Creatinine (0.51-0.95) mg/dL Est GFR ( Amer) (>60) Est GFR (Non-Af Amer) (>60) BUN/Creatinine Ratio (8-20) Glucose (70-100) mg/dL Lactic Acid 2.0 (0.5-2.0) mmol/L Calcium (8.6-10.3) mg/dL Magnesium (1.9-2.7) mg/dL Total Bilirubin (0.2-1.0) mg/dL AST (13-39) U/L ALT (7-52) U/L Alkaline Phosphatase (34-104) U/L Total Creatine Kinase (10-223) U/L CK-MB (CK-2) (0.6-6.3) ng/mL Troponin I 0.06 H* (<0.04) ng/mL Total Protein (6.4-8.9) g/dL Albumin (3.2-5.2) g/dL Globulin (2-4) g/dL Albumin/Globulin Ratio (1-3) TSH (0.34-5.60) mcIU/mL Assess/Plan/Problems-Billing Assessment: 67 yo F p/w chest discomfort and palpitations - Patient Problems (1) Chest discomfort Comment: TTE with e/o HOCM. This can explain palpitations with walking and chest dyscomfort given her constant dehydration at home 2/2 lack of food intake. Discussed stress with cardiology. TID elevated but no RWMA. May benefit from LHC. Today pt indicates she "has to know what is going on" and would favor diagnositic LHC if offered. D/w Dr. Hill who will order cardiac cath for Friday. Unclear if she will change her mind between now and then. ASA allergy listed but pt indicates this allergy cause "stomach upset" never rash, hives, swelling start atorvastatin start toprol (2) Urinary retention Comment: morales placed Normal saline for relative hypotension with improvement (3) Anxiety and depression Comment: Previous psych recommendations to titrate off of benzodiazepines as there was concern that she may be abusing these and she utilized them in parasuicidal attempt in August. ISTOP reviewed and her primary psychiatrist has NOT clonazapam since July 2017. Will not restart now Discuss other agents for depression/anxiety and she has declined all at this point. Use clonidine and/or hydroxazine PRN (4) COPD (chronic obstructive pulmonary disease) Current Visit: No Status: Acute Priority: High Code(s): J44.9 - CHRONIC OBSTRUCTIVE PULMONARY DISEASE, UNSPECIFIED SNOMED Code(s): 84086494 Comment: - Stable (5) Hypotension Comment: stable improved with fluids - suspect developed in setting of dehydration restarting metoprolol (6) DVT prophylaxis Comment: HSQ Status and Disposition: Friday for potential cardiac catheterization
[2017-10-18] MEDS: Magnesium Hydroxide LIQ* 30 ML UDC PO SCH ×2 (02:19→05:58)
[2017-10-18] MEDS: CMCS: Melatonin (NF) 3 MG TAB PO PRN (02:20)
[2017-10-18] MEDS: Ondansetron ODT TAB* 4 MG PO PRN ×2 (02:48→13:58)
[2017-10-18] MEDS ORDERED: Sodium Phosphate ADULT ENEMA* 118 ml bottle PR ONE (05:00)
[2017-10-18] MEDS: Acetaminophen TAB* 325 MG PO PRN (05:56)
[2017-10-18] MEDS: Heparin VIAL(*) 5000 UNITS/ML VIAL (FIVE THOUSAND) SUBCUT SCH ×3 (05:57→21:42)
[2017-10-18] MEDS: Carisoprodol TAB* 350 MG PO SCH ×2 (07:39→21:41)
[2017-10-18] MEDS: hydrOXYzine HCL TAB* 25 MG PO PRN ×2 (07:42→19:19)
[2017-10-18] MEDS: traMADol TAB* 50 MG PO PRN ×2 (13:58→21:46)
[2017-10-18] MEDS: Metoprolol Tartrate TAB* 25 MG PO SCH ×2 (13:59→21:41)
--- NOTE | 2017-10-18 15:32 | PN ---
Subjective Date of Service: 10/18/17 Interval History: Pt is feeling ok today. She states she is a little apprehensive about the catheterization on Friday. She denies any CP at this time. She requests to restart trazodone to help her sleep and requests psych consult due to her insomnia. We agreed on trying trazodone tonight and assessing how she does tomorrow. Objective Active Medications: Acetaminophen (Tylenol Tab*) 650 mg PO Q6H PRN PRN Reason: PAIN Last Admin: 10/18/17 05:56 Dose: 650 mg Albuterol (Ventolin Hfa Inhaler*) 2 puff INH Q4H PRN PRN Reason: SHORTNESS OF BREATH Atorvastatin Calcium (Lipitor*) 40 mg PO 2100 [facility] Carisoprodol (Soma Tab*) 350 mg PO BID [facility] Last Admin: 10/18/17 07:39 Dose: 350 mg Famotidine (Pepcid Tab*) 20 mg PO DAILY [facility] Last Admin: 10/17/17 09:11 Dose: 20 mg Heparin Sodium (Porcine) (Heparin Vial(*)) 5,000 units SUBCUT Q8HR [facility] Last Admin: 10/18/17 13:59 Dose: 5,000 units Hydroxyzine HCl (Atarax Tab*) 25 mg PO Q6H PRN PRN Reason: ANXIETY Last Admin: 10/18/17 07:42 Dose: 25 mg Ipratropium [place] (Atrovent 0.5 Mg Neb.Idalia*) 0.5 mg INH Q6H PRN PRN Reason: SHORTNESS OF BREATH Loperamide HCl (Imodium Cap*) 2 mg PO DAILY PRN PRN Reason: DIARRHEA Melatonin (Melatonin (Nf)) 3 mg PO BEDTIME PRN; Protocol PRN Reason: Sleep Last Admin: 10/18/17 02:20 Dose: 3 mg Metoprolol Tartrate (Lopressor Tab*) 12.5 mg PO Q12HR [facility] Last Admin: 10/18/17 13:59 Dose: 12.5 mg Tramadol HCl (Ultram*) 100 mg PO TID PRN PRN Reason: PAIN Last Admin: 10/18/17 13:58 Dose: 100 mg Trazodone HCl (Desyrel Tab*) 50 mg PO BEDTIME [facility] Vital Signs - 8 hr 10/18/17 10/18/17 10/18/17 07:39 07:44 08:32 Temperature 98.4 F Pulse Rate 71 Respiratory 20 18 14 Rate Blood Pressure 138/82 (mmHg) O2 Sat by Pulse 99 Oximetry 10/18/17 10/18/17 10/18/17 10:48 13:07 13:58 Temperature 98.9 F Pulse Rate 78 79 Respiratory 28 18 Rate Blood Pressure 109/63 119/62 (mmHg) O2 Sat by Pulse 98 Oximetry Oxygen Devices in Use Now: None Appearance: Middle aged female sitting up in bed, NAD Eyes: No Scleral Icterus Ears/Nose/Mouth/Throat: Mucous Membranes Moist Respiratory: Symmetrical Chest Expansion and Respiratory Effort, Clear to Auscultation Cardiovascular: NL Sounds; No Murmurs; No JVD, RRR, No Edema Abdominal: NL Sounds; No Tenderness; No Distention Extremities: No Clubbing, Cyanosis Skin: No Rash or Ulcers, No Nodules or Sclerosis Neurological: Alert and Oriented x 3 Result Diagrams: 10/15/17 03:12 10/15/17 03:12 Additional Lab and Data: Lab Results 10/14/17 10/14/17 10/14/17 Range/Units 09:15 09:15 09:15 WBC 7.4 (3.5-10.8) 10^3/ul RBC 5.11 (4.0-5.4) 10^6/ul Hgb 15.5 (12.0-16.0) g/dl Hct 46 (35-47) % MCV 89 (80-97) fL MCH 30 (27-31) pg MCHC 34 (31-36) g/dl RDW 13 (10.5-15) % Plt Count 321 (150-450) 10^3/ul MPV 8 (7.4-10.4) um3 Neut % (Auto) 61.9 (38-83) % Lymph % (Auto) 27.0 (25-47) % [place] % (Auto) 9.7 H (1-9) % Eos % (Auto) 0.5 (0-6) % Baso % (Auto) 0.9 (0-2) % Absolute Neuts (auto) 4.6 (1.5-7.7) 10^3/ul Absolute Lymphs (auto) 2.0 (1.0-4.8) 10^3/ul Absolute Monos (auto) 0.7 (0-0.8) 10^3/ul Absolute Eos (auto) 0 (0-0.6) 10^3/ul Absolute Basos (auto) 0.1 (0-0.2) 10^3/ul Absolute Nucleated RBC 0 10^3/ul Nucleated RBC % 0 INR (Anticoag Therapy) 1.02 (0.77-1.02) D-Dimer, Quantitative < 200 (Less Than 230) ng/mL Sodium 135 (133-145) mmol/L Potassium 3.3 L (3.5-5.0) mmol/L Chloride 100 L (101-111) mmol/L Carbon Dioxide 26 (22-32) mmol/L Anion Gap 9 (2-11) mmol/L BUN 7 (6-24) mg/dL Creatinine 0.84 (0.51-0.95) mg/dL Est GFR ( Amer) 87.0 (>60) Est GFR (Non-Af Amer) 67.6 (>60) BUN/Creatinine Ratio 8.3 (8-20) Glucose 117 H (70-100) mg/dL Lactic Acid (0.5-2.0) mmol/L Calcium 9.9 (8.6-10.3) mg/dL Magnesium 2.0 (1.9-2.7) mg/dL Total Bilirubin 0.80 (0.2-1.0) mg/dL AST 19 (13-39) U/L ALT 8 (7-52) U/L Alkaline Phosphatase 80 (34-104) U/L Total Creatine Kinase 41 (10-223) U/L CK-MB (CK-2) 4.1 (0.6-6.3) ng/mL Troponin I 0.06 H* (<0.04) ng/mL Total Protein 7.2 (6.4-8.9) g/dL Albumin 4.3 (3.2-5.2) g/dL Globulin 2.9 (2-4) g/dL Albumin/Globulin Ratio 1.5 (1-3) TSH 5.62 H (0.34-5.60) mcIU/mL 10/14/17 10/14/17 Range/Units 09:15 11:40 WBC (3.5-10.8) 10^3/ul RBC (4.0-5.4) 10^6/ul Hgb (12.0-16.0) g/dl Hct (35-47) % MCV (80-97) fL MCH (27-31) pg MCHC (31-36) g/dl RDW (10.5-15) % Plt Count (150-450) 10^3/ul MPV (7.4-10.4) um3 Neut % (Auto) (38-83) % Lymph % (Auto) (25-47) % [place] % (Auto) (1-9) % Eos % (Auto) (0-6) % Baso % (Auto) (0-2) % Absolute Neuts (auto) (1.5-7.7) 10^3/ul Absolute Lymphs (auto) (1.0-4.8) 10^3/ul Absolute Monos (auto) (0-0.8) 10^3/ul Absolute Eos (auto) (0-0.6) 10^3/ul Absolute Basos (auto) (0-0.2) 10^3/ul Absolute Nucleated RBC 10^3/ul Nucleated RBC % INR (Anticoag Therapy) (0.77-1.02) D-Dimer, Quantitative (Less Than 230) ng/mL Sodium (133-145) mmol/L Potassium (3.5-5.0) mmol/L Chloride (101-111) mmol/L Carbon Dioxide (22-32) mmol/L Anion Gap (2-11) mmol/L BUN (6-24) mg/dL Creatinine (0.51-0.95) mg/dL Est GFR ( Amer) (>60) Est GFR (Non-Af Amer) (>60) BUN/Creatinine Ratio (8-20) Glucose (70-100) mg/dL Lactic Acid 2.0 (0.5-2.0) mmol/L Calcium (8.6-10.3) mg/dL Magnesium (1.9-2.7) mg/dL Total Bilirubin (0.2-1.0) mg/dL AST (13-39) U/L ALT (7-52) U/L Alkaline Phosphatase (34-104) U/L Total Creatine Kinase (10-223) U/L CK-MB (CK-2) (0.6-6.3) ng/mL Troponin I 0.06 H* (<0.04) ng/mL Total Protein (6.4-8.9) g/dL Albumin (3.2-5.2) g/dL Globulin (2-4) g/dL Albumin/Globulin Ratio (1-3) TSH (0.34-5.60) mcIU/mL Assess/Plan/Problems-Billing Ms Gauthier is a 67 yo F with a h/o PTSD, borderline personality disorder, COPD, hypothyroidism and chronic pain who presented p/w chest discomfort and palpitations - Patient Problems (1) Chest discomfort Current Visit: Yes Status: Acute Code(s): R07.89 - OTHER CHEST PAIN SNOMED Code(s): 024626575 Comment: Plan is for the patient to undergo catheterization on Friday. Continue metoprolol and lipitor. (2) Hypotension Current Visit: Yes Status: Acute Comment: Resolved and her BP is tolerating low dose metoprolol. (3) Urinary retention Current Visit: Yes Status: Acute Code(s): R33.9 - RETENTION OF URINE, UNSPECIFIED SNOMED Code(s): 181160451 Comment: Remove morales and check post void residual. (4) Anxiety and depression Current Visit: Yes Status: Acute Code(s): F41.8 - OTHER SPECIFIED ANXIETY DISORDERS SNOMED Code(s): 249776385 Comment: Continue prn hydroxyzine. No benzos. Will trial trazodone 50mg at bedtime to see if it helps her sleep. (5) DVT prophylaxis Current Visit: Yes Status: Acute Priority: High Code(s): FGI4443 - SNOMED Code(s): 942684566 Comment: SQ heparin (6) Full code status Current Visit: Yes Status: Acute Code(s): Z78.9 - OTHER SPECIFIED HEALTH STATUS SNOMED Code(s): 203008210 Status and Disposition: .
[2017-10-18] MEDS: Famotidine TAB* 20 MG PO SCH (19:08)
[2017-10-18] MEDS ORDERED: traZODone TAB* 50 MG TAB PO SCH (21:00)
[2017-10-18 21:37] LABS: Urine Appearance Clear; Urine Blood 2+ (Negative); Urine Color Straw; Urine Ketones Negative (Negative); Urine Protein Negative (Negative); Urine Specific Gravity 1.005 (1.010-1.030); Urine Urobilinogen Negative (Negative)
[2017-10-18] MEDS: Atorvastatin* 40 MG TAB PO SCH (21:41)
[2017-10-19] MEDS: Acetaminophen TAB* 325 MG PO PRN (00:34)
[2017-10-19] MEDS: hydrOXYzine HCL TAB* 25 MG PO PRN ×2 (05:46→15:04)
[2017-10-19] MEDS: Heparin VIAL(*) 5000 UNITS/ML VIAL (FIVE THOUSAND) SUBCUT SCH ×3 (05:46→21:13)
[2017-10-19] MEDS: Carisoprodol TAB* 350 MG PO SCH ×2 (07:54→21:12)
[2017-10-19] MEDS: traMADol TAB* 50 MG PO PRN ×3 (07:55→23:29)
[2017-10-19] MEDS: Famotidine TAB* 20 MG PO SCH (07:55)
[2017-10-19] MEDS: Metoprolol Tartrate TAB* 25 MG PO SCH ×2 (07:55→21:12)
--- NOTE | 2017-10-19 12:00 | PN ---
Subjective Date of Service: 10/19/17 Interval History: Pt is feeling ok. She was unable to urinate last evening after her morales was removed. Morales replaced and I informed her she will need to go home with the morales and see urology as an outpatient-she is not happy about this. She denies any CP or SOB. She states she was able to sleep some last night. Objective Active Medications: Acetaminophen (Tylenol Tab*) 650 mg PO Q6H PRN PRN Reason: PAIN Last Admin: 10/19/17 00:34 Dose: 650 mg Albuterol (Ventolin Hfa Inhaler*) 2 puff INH Q4H PRN PRN Reason: SHORTNESS OF BREATH Atorvastatin Calcium (Lipitor*) 40 mg PO 2100 [facility] Last Admin: 10/18/17 21:41 Dose: 40 mg Carisoprodol (Soma Tab*) 350 mg PO BID [facility] Last Admin: 10/19/17 07:54 Dose: 350 mg Famotidine (Pepcid Tab*) 20 mg PO DAILY [facility] Last Admin: 10/19/17 07:55 Dose: 20 mg Heparin Sodium (Porcine) (Heparin Vial(*)) 5,000 units SUBCUT Q8HR [facility] Last Admin: 10/19/17 05:46 Dose: 5,000 units Hydroxyzine HCl (Atarax Tab*) 25 mg PO Q6H PRN PRN Reason: ANXIETY Last Admin: 10/19/17 05:46 Dose: 25 mg Sodium Chloride (Ns 0.45% 1000 Ml Bag*) 1,000 mls @ 60 mls/hr IV .PER RATE [facility] Ipratropium [place] (Atrovent 0.5 Mg Neb.Idalia*) 0.5 mg INH Q6H PRN PRN Reason: SHORTNESS OF BREATH Loperamide HCl (Imodium Cap*) 2 mg PO DAILY PRN PRN Reason: DIARRHEA Melatonin (Melatonin (Nf)) 3 mg PO BEDTIME PRN; Protocol PRN Reason: Sleep Last Admin: 10/18/17 02:20 Dose: 3 mg Metoprolol Tartrate (Lopressor Tab*) 12.5 mg PO Q12HR [facility] Last Admin: 10/19/17 07:55 Dose: 12.5 mg Tramadol HCl (Ultram*) 100 mg PO TID PRN PRN Reason: PAIN Last Admin: 10/19/17 07:55 Dose: 100 mg Vital Signs - 8 hr 10/19/17 10/19/17 10/19/17 07:54 07:55 08:00 Temperature 98.8 F Pulse Rate 62 Respiratory 16 16 16 Rate Blood Pressure 112/65 (mmHg) O2 Sat by Pulse 97 Oximetry Oxygen Devices in Use Now: None Appearance: Middle aged female sitting up in bed, eating ice cream, NAD Eyes: No Scleral Icterus Ears/Nose/Mouth/Throat: Mucous Membranes Moist Respiratory: Symmetrical Chest Expansion and Respiratory Effort, Clear to Auscultation Cardiovascular: NL Sounds; No Murmurs; No JVD, RRR, No Edema Abdominal: NL Sounds; No Tenderness; No Distention Extremities: No Clubbing, Cyanosis Skin: No Rash or Ulcers, No Nodules or Sclerosis Neurological: Alert and Oriented x 3 Result Diagrams: 10/15/17 03:12 10/15/17 03:12 Additional Lab and Data: Lab Results 10/14/17 10/14/17 10/14/17 Range/Units 09:15 09:15 09:15 WBC 7.4 (3.5-10.8) 10^3/ul RBC 5.11 (4.0-5.4) 10^6/ul Hgb 15.5 (12.0-16.0) g/dl Hct 46 (35-47) % MCV 89 (80-97) fL MCH 30 (27-31) pg MCHC 34 (31-36) g/dl RDW 13 (10.5-15) % Plt Count 321 (150-450) 10^3/ul MPV 8 (7.4-10.4) um3 Neut % (Auto) 61.9 (38-83) % Lymph % (Auto) 27.0 (25-47) % [place] % (Auto) 9.7 H (1-9) % Eos % (Auto) 0.5 (0-6) % Baso % (Auto) 0.9 (0-2) % Absolute Neuts (auto) 4.6 (1.5-7.7) 10^3/ul Absolute Lymphs (auto) 2.0 (1.0-4.8) 10^3/ul Absolute Monos (auto) 0.7 (0-0.8) 10^3/ul Absolute Eos (auto) 0 (0-0.6) 10^3/ul Absolute Basos (auto) 0.1 (0-0.2) 10^3/ul Absolute Nucleated RBC 0 10^3/ul Nucleated RBC % 0 INR (Anticoag Therapy) 1.02 (0.77-1.02) D-Dimer, Quantitative < 200 (Less Than 230) ng/mL Sodium 135 (133-145) mmol/L Potassium 3.3 L (3.5-5.0) mmol/L Chloride 100 L (101-111) mmol/L Carbon Dioxide 26 (22-32) mmol/L Anion Gap 9 (2-11) mmol/L BUN 7 (6-24) mg/dL Creatinine 0.84 (0.51-0.95) mg/dL Est GFR ( Amer) 87.0 (>60) Est GFR (Non-Af Amer) 67.6 (>60) BUN/Creatinine Ratio 8.3 (8-20) Glucose 117 H (70-100) mg/dL Lactic Acid (0.5-2.0) mmol/L Calcium 9.9 (8.6-10.3) mg/dL Magnesium 2.0 (1.9-2.7) mg/dL Total Bilirubin 0.80 (0.2-1.0) mg/dL AST 19 (13-39) U/L ALT 8 (7-52) U/L Alkaline Phosphatase 80 (34-104) U/L Total Creatine Kinase 41 (10-223) U/L CK-MB (CK-2) 4.1 (0.6-6.3) ng/mL Troponin I 0.06 H* (<0.04) ng/mL Total Protein 7.2 (6.4-8.9) g/dL Albumin 4.3 (3.2-5.2) g/dL Globulin 2.9 (2-4) g/dL Albumin/Globulin Ratio 1.5 (1-3) TSH 5.62 H (0.34-5.60) mcIU/mL 10/14/17 10/14/17 Range/Units 09:15 11:40 WBC (3.5-10.8) 10^3/ul RBC (4.0-5.4) 10^6/ul Hgb (12.0-16.0) g/dl Hct (35-47) % MCV (80-97) fL MCH (27-31) pg MCHC (31-36) g/dl RDW (10.5-15) % Plt Count (150-450) 10^3/ul MPV (7.4-10.4) um3 Neut % (Auto) (38-83) % Lymph % (Auto) (25-47) % [place] % (Auto) (1-9) % Eos % (Auto) (0-6) % Baso % (Auto) (0-2) % Absolute Neuts (auto) (1.5-7.7) 10^3/ul Absolute Lymphs (auto) (1.0-4.8) 10^3/ul Absolute Monos (auto) (0-0.8) 10^3/ul Absolute Eos (auto) (0-0.6) 10^3/ul Absolute Basos (auto) (0-0.2) 10^3/ul Absolute Nucleated RBC 10^3/ul Nucleated RBC % INR (Anticoag Therapy) (0.77-1.02) D-Dimer, Quantitative (Less Than 230) ng/mL Sodium (133-145) mmol/L Potassium (3.5-5.0) mmol/L Chloride (101-111) mmol/L Carbon Dioxide (22-32) mmol/L Anion Gap (2-11) mmol/L BUN (6-24) mg/dL Creatinine (0.51-0.95) mg/dL Est GFR ( Amer) (>60) Est GFR (Non-Af Amer) (>60) BUN/Creatinine Ratio (8-20) Glucose (70-100) mg/dL Lactic Acid 2.0 (0.5-2.0) mmol/L Calcium (8.6-10.3) mg/dL Magnesium (1.9-2.7) mg/dL Total Bilirubin (0.2-1.0) mg/dL AST (13-39) U/L ALT (7-52) U/L Alkaline Phosphatase (34-104) U/L Total Creatine Kinase (10-223) U/L CK-MB (CK-2) (0.6-6.3) ng/mL Troponin I 0.06 H* (<0.04) ng/mL Total Protein (6.4-8.9) g/dL Albumin (3.2-5.2) g/dL Globulin (2-4) g/dL Albumin/Globulin Ratio (1-3) TSH (0.34-5.60) mcIU/mL Assess/Plan/Problems-Billing Ms Gauthier is a 67 yo F with a h/o PTSD, borderline personality disorder, COPD, hypothyroidism and chronic pain who presented p/w chest discomfort and palpitations - Patient Problems (1) Chest discomfort Current Visit: Yes Status: Acute Code(s): R07.89 - OTHER CHEST PAIN SNOMED Code(s): 971762859 Comment: Plan is for the patient to undergo catheterization on Friday. Continue metoprolol and lipitor. (2) Hypotension Current Visit: Yes Status: Acute Comment: Resolved and her BP is tolerating low dose metoprolol. Continue to monitor. (3) Urinary retention Current Visit: Yes Status: Acute Code(s): R33.9 - RETENTION OF URINE, UNSPECIFIED SNOMED Code(s): 097180421 Comment: The patient was again unable to void. She will be d/mary home with the morales in place and follow up with urology as an outpatient. (4) Anxiety and depression Current Visit: Yes Status: Acute Code(s): F41.8 - OTHER SPECIFIED ANXIETY DISORDERS SNOMED Code(s): 969109215 Comment: Continue prn hydroxyzine. No benzos. Increase trazodone to 100mg tonight and monitor for improvement in her insomnia. (5) DVT prophylaxis Current Visit: Yes Status: Acute Code(s): MKA8295 - SNOMED Code(s): 220713857 Comment: SQ heparin (6) Full code status Current Visit: Yes Status: Acute Code(s): Z78.9 - OTHER SPECIFIED HEALTH STATUS SNOMED Code(s): 531804268 Status and Disposition: .
[2017-10-19 20:54] LABS: EGFR Non-African American 66.7 (>60)
[2017-10-19] MEDS: traZODone TAB* 100 MG PO SCH (21:12)
[2017-10-19] MEDS: Atorvastatin* 40 MG TAB PO SCH (21:12)
[2017-10-19] MEDS: CMCS: Melatonin (NF) 3 MG TAB PO PRN (23:30)
[2017-10-20] MEDS: Acetaminophen TAB* 325 MG PO PRN ×2 (02:41→21:31)
[2017-10-20 04:55] LABS: ABS Basophils 0 10^3/ul (0-0.2); ABS Eosinophils 0.1 10^3/ul (0-0.6); ABS Lymphocytes 2.1 10^3/ul (1.0-4.8); ABS Monocytes 0.6 10^3/ul (0-0.8); ABS Neutrophils 3.2 10^3/ul (1.5-7.7); ABS Nucleated RBC 0 10^3/ul; Eosinophil % 1.9 % (0-6); Hematocrit 32 % (35-47); Hemoglobin 10.7 g/dl (12.0-16.0); Lymphocyte % 34.8 % (25-47); Mean Corpuscular HGB Conc 33 g/dl (31-36); Mean Corpuscular Hemoglobin 30 pg (27-31); Mean Corpuscular Volume 91 fL (80-97); Mean Platelet Volume 9 um3 (7.4-10.4); Nucleated Red Blood Cells % 0; Platelet Count 169 10^3/ul (150-450); Red Blood Count 3.53 10^6/ul (4.0-5.4); Red Cell Distribution Width 14 % (10.5-15)
[2017-10-20] MEDS: Heparin VIAL(*) 5000 UNITS/ML VIAL (FIVE THOUSAND) SUBCUT SCH ×3 (05:47→21:30)
[2017-10-20] MEDS ORDERED: NS 0.45% 1000 ML BAG* 1,000 ML IV SCH (07:00)
[2017-10-20] MEDS: traMADol TAB* 50 MG PO PRN ×3 (08:27→19:41)
[2017-10-20] MEDS: Carisoprodol TAB* 350 MG PO SCH ×2 (08:28→19:41)
[2017-10-20] MEDS ORDERED: fentaNYL* 50 MCG/ML 2 ML VIAL (100 MCG VIAL) ONE (08:58)
[2017-10-20] MEDS ORDERED: Lidocaine 1% INJ* 10 MG/ML 30 ML SDV ONE (08:59)
[2017-10-20] MEDS ORDERED: Heparin 2 UNITS/ML IVPREMIX* 3,000 ML IV ONE (08:59)
[2017-10-20] MEDS ORDERED: Midazolam* 1 MG/ML 10 ML VIAL (10 MG) ONE (09:00)
[2017-10-20] MEDS ORDERED: Iohexol 350 (CONTRAST) 200 ML MDV IV ONE (09:20)
[2017-10-20] MEDS: Metoprolol Tartrate TAB* 25 MG PO SCH (09:50)
[2017-10-20] MEDS ORDERED: NS 0.9% 1000 ML* 1,000 ML IV SCH (10:00)
[2017-10-20] MEDS: Famotidine TAB* 20 MG PO SCH (10:42)
--- NOTE | 2017-10-20 12:35 | PN ---
Subjective Date of Service: 10/20/17 Interval History: Pt is feeling ok post catheterization. She feels very anxious. She states she feels shaky. She denies any pain at this time. Objective Active Medications: Acetaminophen (Tylenol Tab*) 650 mg PO Q6H PRN PRN Reason: PAIN Last Admin: 10/20/17 02:41 Dose: 650 mg Albuterol (Ventolin Hfa Inhaler*) 2 puff INH Q4H PRN PRN Reason: SHORTNESS OF BREATH Carisoprodol (Soma Tab*) 350 mg PO BID [facility] Last Admin: 10/20/17 08:28 Dose: 350 mg Famotidine (Pepcid Tab*) 20 mg PO DAILY [facility] Last Admin: 10/20/17 10:42 Dose: Not Given Heparin Sodium (Porcine) (Heparin Vial(*)) 5,000 units SUBCUT Q8HR [facility] Last Admin: 10/20/17 05:47 Dose: 5,000 units Hydroxyzine HCl (Atarax Tab*) 25 mg PO Q6H PRN PRN Reason: ANXIETY Last Admin: 10/19/17 15:04 Dose: 25 mg Sodium Chloride (Ns 0.45% 1000 Ml Bag*) 1,000 mls @ 60 mls/hr IV .PER RATE [facility] Last Admin: 10/20/17 05:47 Dose: 60 mls/hr Sodium Chloride (Ns 0.9% 1000 Ml*) 1,000 mls @ 75 mls/hr IV .per rate [facility] Stop: 10/20/17 16:00 Ipratropium [place] (Atrovent 0.5 Mg Neb.Idalia*) 0.5 mg INH Q6H PRN PRN Reason: SHORTNESS OF BREATH Loperamide HCl (Imodium Cap*) 2 mg PO DAILY PRN PRN Reason: DIARRHEA Melatonin (Melatonin (Nf)) 3 mg PO BEDTIME PRN; Protocol PRN Reason: Sleep Last Admin: 10/19/17 23:30 Dose: 3 mg Tramadol HCl (Ultram*) 100 mg PO TID PRN PRN Reason: PAIN Last Admin: 10/20/17 08:27 Dose: 100 mg Trazodone HCl (Desyrel Tab*) 100 mg PO BEDTIME [facility] Last Admin: 10/19/17 21:12 Dose: 100 mg Vital Signs - 8 hr 10/20/17 10/20/17 10/20/17 07:22 08:00 08:27 Temperature 99.1 F Pulse Rate 68 63 Respiratory 16 20 20 Rate Blood Pressure 87/51 89/53 (mmHg) O2 Sat by Pulse 96 Oximetry 10/20/17 10/20/17 10/20/17 08:28 10:19 10:41 Temperature Pulse Rate 61 62 Respiratory 20 18 Rate Blood Pressure 80/52 92/56 (mmHg) O2 Sat by Pulse 97 97 Oximetry 10/20/17 10/20/17 10/20/17 11:00 11:08 11:11 Temperature Pulse Rate 75 Respiratory 18 Rate Blood Pressure 93/62 (mmHg) O2 Sat by Pulse 96 Oximetry Oxygen Devices in Use Now: None Appearance: Middle aged female lying in bed, NAD Eyes: No Scleral Icterus Ears/Nose/Mouth/Throat: Mucous Membranes Moist Respiratory: Symmetrical Chest Expansion and Respiratory Effort, Clear to Auscultation Cardiovascular: NL Sounds; No Murmurs; No JVD, RRR, No Edema Abdominal: NL Sounds; No Tenderness; No Distention Extremities: No Clubbing, Cyanosis Skin: No Rash or Ulcers, No Nodules or Sclerosis Neurological: Alert and Oriented x 3 Result Diagrams: 10/20/17 04:28 10/19/17 20:25 Additional Lab and Data: Lab Results 10/14/17 10/14/17 10/14/17 Range/Units 09:15 09:15 09:15 WBC 7.4 (3.5-10.8) 10^3/ul RBC 5.11 (4.0-5.4) 10^6/ul Hgb 15.5 (12.0-16.0) g/dl Hct 46 (35-47) % MCV 89 (80-97) fL MCH 30 (27-31) pg MCHC 34 (31-36) g/dl RDW 13 (10.5-15) % Plt Count 321 (150-450) 10^3/ul MPV 8 (7.4-10.4) um3 Neut % (Auto) 61.9 (38-83) % Lymph % (Auto) 27.0 (25-47) % [place] % (Auto) 9.7 H (1-9) % Eos % (Auto) 0.5 (0-6) % Baso % (Auto) 0.9 (0-2) % Absolute Neuts (auto) 4.6 (1.5-7.7) 10^3/ul Absolute Lymphs (auto) 2.0 (1.0-4.8) 10^3/ul Absolute Monos (auto) 0.7 (0-0.8) 10^3/ul Absolute Eos (auto) 0 (0-0.6) 10^3/ul Absolute Basos (auto) 0.1 (0-0.2) 10^3/ul Absolute Nucleated RBC 0 10^3/ul Nucleated RBC % 0 INR (Anticoag Therapy) 1.02 (0.77-1.02) D-Dimer, Quantitative < 200 (Less Than 230) ng/mL Sodium 135 (133-145) mmol/L Potassium 3.3 L (3.5-5.0) mmol/L Chloride 100 L (101-111) mmol/L Carbon Dioxide 26 (22-32) mmol/L Anion Gap 9 (2-11) mmol/L BUN 7 (6-24) mg/dL Creatinine 0.84 (0.51-0.95) mg/dL Est GFR ( Amer) 87.0 (>60) Est GFR (Non-Af Amer) 67.6 (>60) BUN/Creatinine Ratio 8.3 (8-20) Glucose 117 H (70-100) mg/dL Lactic Acid (0.5-2.0) mmol/L Calcium 9.9 (8.6-10.3) mg/dL Magnesium 2.0 (1.9-2.7) mg/dL Total Bilirubin 0.80 (0.2-1.0) mg/dL AST 19 (13-39) U/L ALT 8 (7-52) U/L Alkaline Phosphatase 80 (34-104) U/L Total Creatine Kinase 41 (10-223) U/L CK-MB (CK-2) 4.1 (0.6-6.3) ng/mL Troponin I 0.06 H* (<0.04) ng/mL Total Protein 7.2 (6.4-8.9) g/dL Albumin 4.3 (3.2-5.2) g/dL Globulin 2.9 (2-4) g/dL Albumin/Globulin Ratio 1.5 (1-3) TSH 5.62 H (0.34-5.60) mcIU/mL 10/14/17 10/14/17 Range/Units 09:15 11:40 WBC (3.5-10.8) 10^3/ul RBC (4.0-5.4) 10^6/ul Hgb (12.0-16.0) g/dl Hct (35-47) % MCV (80-97) fL MCH (27-31) pg MCHC (31-36) g/dl RDW (10.5-15) % Plt Count (150-450) 10^3/ul MPV (7.4-10.4) um3 Neut % (Auto) (38-83) % Lymph % (Auto) (25-47) % [place] % (Auto) (1-9) % Eos % (Auto) (0-6) % Baso % (Auto) (0-2) % Absolute Neuts (auto) (1.5-7.7) 10^3/ul Absolute Lymphs (auto) (1.0-4.8) 10^3/ul Absolute Monos (auto) (0-0.8) 10^3/ul Absolute Eos (auto) (0-0.6) 10^3/ul Absolute Basos (auto) (0-0.2) 10^3/ul Absolute Nucleated RBC 10^3/ul Nucleated RBC % INR (Anticoag Therapy) (0.77-1.02) D-Dimer, Quantitative (Less Than 230) ng/mL Sodium (133-145) mmol/L Potassium (3.5-5.0) mmol/L Chloride (101-111) mmol/L Carbon Dioxide (22-32) mmol/L Anion Gap (2-11) mmol/L BUN (6-24) mg/dL Creatinine (0.51-0.95) mg/dL Est GFR ( Amer) (>60) Est GFR (Non-Af Amer) (>60) BUN/Creatinine Ratio (8-20) Glucose (70-100) mg/dL Lactic Acid 2.0 (0.5-2.0) mmol/L Calcium (8.6-10.3) mg/dL Magnesium (1.9-2.7) mg/dL Total Bilirubin (0.2-1.0) mg/dL AST (13-39) U/L ALT (7-52) U/L Alkaline Phosphatase (34-104) U/L Total Creatine Kinase (10-223) U/L CK-MB (CK-2) (0.6-6.3) ng/mL Troponin I 0.06 H* (<0.04) ng/mL Total Protein (6.4-8.9) g/dL Albumin (3.2-5.2) g/dL Globulin (2-4) g/dL Albumin/Globulin Ratio (1-3) TSH (0.34-5.60) mcIU/mL Assess/Plan/Problems-Billing Ms Gauthier is a 67 yo F with a h/o PTSD, borderline personality disorder, COPD, hypothyroidism and chronic pain who presented p/w chest discomfort and palpitations - Patient Problems (1) Chest discomfort Current Visit: Yes Status: Acute Code(s): R07.89 - OTHER CHEST PAIN SNOMED Code(s): 668516963 Comment: Catheterization is negative for CAD. Stop metoprolol given hypotension. Her lipid panel is acceptable and will therefore stop lipitor given she has no significant CAD. (2) Hypotension Current Visit: Yes Status: Acute Comment: BP is low again. ? med side effect from metoprolol, soma and tramadol. Pt does not want the soma and tramadol stopped. Will monitor her BP. (3) Urinary retention Current Visit: Yes Status: Acute Code(s): R33.9 - RETENTION OF URINE, UNSPECIFIED SNOMED Code(s): 973266590 Comment: The patient was again unable to void. She will be d/mary home with the morales in place and follow up with urology as an outpatient. She does not seem to be lightheaded and I suspect her shakiness is actually her anxiety. (4) Anxiety and depression Current Visit: Yes Status: Acute Code(s): F41.8 - OTHER SPECIFIED ANXIETY DISORDERS SNOMED Code(s): 977908958 Comment: Continue prn hydroxyzine. Will get psych eval today as pt requests to talk to a psychiatrist to discuss her anxiety. (5) DVT prophylaxis Current Visit: Yes Status: Acute Code(s): ROW2864 - SNOMED Code(s): 615164571 Comment: SQ heparin (6) Full code status Current Visit: Yes Status: Acute Code(s): Z78.9 - OTHER SPECIFIED HEALTH STATUS SNOMED Code(s): 201366898 Status and Disposition: .
--- NOTE | 2017-10-20 17:28 | CONSULT ---
Identification - Patient Identification Reason for Psychiatric Consultation: Patient Distress -: Patient is a 67 year old, F admitted on 10/16/17. - MHU Identification Employment Status: Disabled Hx Psychiatric Hospitalization: Yes History - Objective HPI: Psychiatry is asked to see this 67 y.o. , white female with a history of opioid dependence, borderline personality disorder and PTSD, by her request, for recommendations regarding management of her anxiety. I am familiar with this patient, as I have consulted on her care before. Please refer to my dictated consultation, dated 09/01/17 for further history. Pertinent recent history is that she is admitted again to the medical service with hemodynamic instability and was recently cathed by cardiology. The primary team has tried unsuccessfully to use hydroxyzine to control her anxiety. I spoke with her outpatient psychiatrist at [facility], Dr. Lamin Jones, who informed me that they took her off clonazepam one month ago because of her tendency to abuse this. On exam, Caitlyn recalls this observer and outright requests resumption of clonazepam treatment. She is informed that this is not possible because there would be no one to continue it on an outpatient basis. She agrees to a trial of clonidine for anxiety but I am uncertain if she could tolerate this, secondary to continued hypotension. She denies SI. Lab Results: Laboratory Tests 10/18/17 10/19/17 10/20/17 21:06 20:25 04:28 WBC 6.0 RBC 3.53 L Hgb 10.7 L Hct 32 L MCV 91 MCH 30 MCHC 33 RDW 14 Plt Count 169 MPV 9 Neut % (Auto) 52.8 Lymph % (Auto) 34.8 [place] % (Auto) 10.1 H Eos % (Auto) 1.9 Baso % (Auto) 0.4 Absolute Neuts (auto) 3.2 Absolute Lymphs (auto) 2.1 Absolute Monos (auto) 0.6 Absolute Eos (auto) 0.1 Absolute Basos (auto) 0 Absolute Nucleated RBC 0 Nucleated RBC % 0 Sodium 136 Potassium 3.8 Chloride 102 Carbon Dioxide 31 Anion Gap 3 BUN 9 Creatinine 0.85 Est GFR ( Amer) 85.8 Est GFR (Non-Af Amer) 66.7 BUN/Creatinine Ratio 10.6 Glucose 101 H Calcium 8.6 Magnesium 2.1 Urine Color Straw Urine Appearance Clear Urine pH 7.0 Ur Specific [place] 1.005 L Urine Protein Negative Urine Ketones Negative Urine Blood 2+ H Urine Nitrate Negative Urine Bilirubin Negative Urine Urobilinogen Negative Ur Leukocyte Esterase Negative Urine WBC (Auto) Trace(0-5/hpf) Urine RBC (Auto) Trace(0-2/hpf) Urine Bacteria Absent Urine Glucose Negative Exam Appearance: Well Developed/Nourished Hygiene: Normal Grooming: Fairly Well Kept Psychomotor Activities: Normal Exhibits Abnormal Movement: No Attitude and Relatedness: Cooperative Eye Contact: Fair - Speech Quality: Unpressured Latencies: Normal Quantity: Appropriate Patient's Decription of Mood: "Anxious" Observed Affect: Fair Affect Consistent with: Euthymia Patient's Thought Process: Coherent Thought Content: No Passive Wish, No Suicidal Planning, No Homicidal Ideation, No Paranoid Ideation Experiencing Hallucinations: No, Sensorium is Clear Type of Hallucinations: Visual: No, Auditory: No, Command: No Level of Consciousness: Alert Orientation: Yes Intact, Yes Orientated to Time, Yes Orientated to Place, Yes Orientated to Person Impulse Control: Tenuous Insight and Judgement: Fair Impression - Impression Clinical Impression: 67 y.o. , white female with a history of opioid dependence, borderline personality disorder and PTSD, by her request, for recommendations regarding management of her anxiety. Inpatient DSM-IV Dx: Borderline PD Merits Inpatient Hospitalization: No Problem List - MHU Problems Type of Problem: Mood Status of Problem: Active Plan - Treatment Plan Treatment Plan: The patient is complaining of anxiety and requesting clonazepam, but has a history of benzodiazepine abuse and was taken off this medication by the outpatient clinic. We discussed her options and she would be agreeable to a trial of prn clonidine, however, she is hypotensive and was just taken off scheduled metoprolol. If hemodynamically safe, primary team can consider clonidine 0.1mg up to 3 times daily as a prn. If not, can consider increasing hydroxyzine from 25 to 50mg on a prn basis. We advise SW to make an outpatient appointment at the [facility] for shortly after discharge. Continued Medication Management: Different Medication Medications: Current Medications Acetaminophen (Tylenol Tab*) 650 mg PO Q6H PRN PRN Reason: PAIN Last Admin: 10/20/17 02:41 Dose: 650 mg Albuterol (Ventolin Hfa Inhaler*) 2 puff INH Q4H PRN PRN Reason: SHORTNESS OF BREATH Carisoprodol (Soma Tab*) 350 mg PO BID [facility] Last Admin: 10/20/17 08:28 Dose: 350 mg Famotidine (Pepcid Tab*) 20 mg PO DAILY [facility] Last Admin: 10/20/17 10:42 Dose: Not Given Heparin Sodium (Porcine) (Heparin Vial(*)) 5,000 units SUBCUT Q8HR [facility] Last Admin: 10/20/17 14:33 Dose: 5,000 units Hydroxyzine HCl (Atarax Tab*) 25 mg PO Q6H PRN PRN Reason: ANXIETY Last Admin: 10/19/17 15:04 Dose: 25 mg Ipratropium [place] (Atrovent 0.5 Mg Neb.[place]*) 0.5 mg INH Q6H PRN PRN Reason: SHORTNESS OF BREATH Loperamide HCl (Imodium Cap*) 2 mg PO DAILY PRN PRN Reason: DIARRHEA Melatonin (Melatonin (Nf)) 3 mg PO BEDTIME PRN; Protocol PRN Reason: Sleep Last Admin: 10/19/17 23:30 Dose: 3 mg Tramadol HCl (Ultram*) 100 mg PO TID PRN PRN Reason: PAIN Last Admin: 10/20/17 12:51 Dose: 100 mg Trazodone HCl (Desyrel Tab*) 100 mg PO BEDTIME [facility] Last Admin: 10/19/17 21:12 Dose: 100 mg - Discharge Plan Discharge Plan: Outpatient Follow Up Outpatient Program: [facility]
[2017-10-20] MEDS: traZODone TAB* 100 MG PO SCH (19:41)
[2017-10-21] MEDS: Heparin VIAL(*) 5000 UNITS/ML VIAL (FIVE THOUSAND) SUBCUT SCH ×3 (05:22→20:38)
[2017-10-21] MEDS: Carisoprodol TAB* 350 MG PO SCH ×2 (08:15→20:38)
[2017-10-21] MEDS: traMADol TAB* 50 MG PO PRN ×2 (08:15→20:38)
[2017-10-21] MEDS ORDERED: Docusate CAP* 100 MG PO SCH (09:00)
[2017-10-21] MEDS: Famotidine TAB* 20 MG PO SCH (09:21)
--- NOTE | 2017-10-21 09:58 | PN ---
Subjective Date of Service: 10/21/17 Interval History: Pt is feeling ok. She states she feels shaky when she is up. She is interested in STR as a possible d/c plan. Today she does not want her morales removed. Objective Active Medications: Acetaminophen (Tylenol Tab*) 650 mg PO Q6H PRN PRN Reason: PAIN Last Admin: 10/20/17 21:31 Dose: 650 mg Albuterol (Ventolin Hfa Inhaler*) 2 puff INH Q4H PRN PRN Reason: SHORTNESS OF BREATH Carisoprodol (Soma Tab*) 350 mg PO BID [facility] Last Admin: 10/21/17 08:15 Dose: 350 mg Docusate Sodium (Colace Cap*) 100 mg PO BID [facility] Last Admin: 10/21/17 08:15 Dose: 100 mg Famotidine (Pepcid Tab*) 20 mg PO 1800 STELLA Heparin Sodium (Porcine) (Heparin Vial(*)) 5,000 units SUBCUT Q8HR [facility] Last Admin: 10/21/17 05:22 Dose: 5,000 units Hydroxyzine HCl (Atarax Tab*) 25 mg PO Q6H PRN PRN Reason: ANXIETY Last Admin: 10/19/17 15:04 Dose: 25 mg Ipratropium [place] (Atrovent 0.5 Mg Neb.[place]alia*) 0.5 mg INH Q6H PRN PRN Reason: SHORTNESS OF BREATH Loperamide HCl (Imodium Cap*) 2 mg PO DAILY PRN PRN Reason: DIARRHEA Melatonin (Melatonin (Nf)) 3 mg PO BEDTIME PRN; Protocol PRN Reason: Sleep Last Admin: 10/19/17 23:30 Dose: 3 mg Tramadol HCl (Ultram*) 100 mg PO TID PRN PRN Reason: PAIN Last Admin: 10/21/17 08:15 Dose: 100 mg Trazodone HCl (Desyrel Tab*) 100 mg PO BEDTIME [facility] Last Admin: 10/20/17 19:41 Dose: 100 mg Vital Signs - 8 hr 10/21/17 10/21/17 10/21/17 03:27 07:41 07:58 Temperature 97.7 F 98.7 F Pulse Rate 73 69 Respiratory 20 16 18 Rate Blood Pressure 98/53 99/54 (mmHg) O2 Sat by Pulse 96 97 Oximetry 10/21/17 08:15 Temperature Pulse Rate Respiratory 18 Rate Blood Pressure (mmHg) O2 Sat by Pulse Oximetry Oxygen Devices in Use Now: None Appearance: Middle aged female sitting up in bed, NAD Eyes: No Scleral Icterus Ears/Nose/Mouth/Throat: Mucous Membranes Moist Respiratory: Symmetrical Chest Expansion and Respiratory Effort, Clear to Auscultation Cardiovascular: NL Sounds; No Murmurs; No JVD, RRR, No Edema Abdominal: NL Sounds; No Tenderness; No Distention Extremities: No Clubbing, Cyanosis Skin: No Rash or Ulcers, No Nodules or Sclerosis Neurological: Alert and Oriented x 3 Result Diagrams: 10/20/17 04:28 10/19/17 20:25 Additional Lab and Data: Lab Results 10/14/17 10/14/17 10/14/17 Range/Units 09:15 09:15 09:15 WBC 7.4 (3.5-10.8) 10^3/ul RBC 5.11 (4.0-5.4) 10^6/ul Hgb 15.5 (12.0-16.0) g/dl Hct 46 (35-47) % MCV 89 (80-97) fL MCH 30 (27-31) pg MCHC 34 (31-36) g/dl RDW 13 (10.5-15) % Plt Count 321 (150-450) 10^3/ul MPV 8 (7.4-10.4) um3 Neut % (Auto) 61.9 (38-83) % Lymph % (Auto) 27.0 (25-47) % [place] % (Auto) 9.7 H (1-9) % Eos % (Auto) 0.5 (0-6) % Baso % (Auto) 0.9 (0-2) % Absolute Neuts (auto) 4.6 (1.5-7.7) 10^3/ul Absolute Lymphs (auto) 2.0 (1.0-4.8) 10^3/ul Absolute Monos (auto) 0.7 (0-0.8) 10^3/ul Absolute Eos (auto) 0 (0-0.6) 10^3/ul Absolute Basos (auto) 0.1 (0-0.2) 10^3/ul Absolute Nucleated RBC 0 10^3/ul Nucleated RBC % 0 INR (Anticoag Therapy) 1.02 (0.77-1.02) D-Dimer, Quantitative < 200 (Less Than 230) ng/mL Sodium 135 (133-145) mmol/L Potassium 3.3 L (3.5-5.0) mmol/L Chloride 100 L (101-111) mmol/L Carbon Dioxide 26 (22-32) mmol/L Anion Gap 9 (2-11) mmol/L BUN 7 (6-24) mg/dL Creatinine 0.84 (0.51-0.95) mg/dL Est GFR ( Amer) 87.0 (>60) Est GFR (Non-Af Amer) 67.6 (>60) BUN/Creatinine Ratio 8.3 (8-20) Glucose 117 H (70-100) mg/dL Lactic Acid (0.5-2.0) mmol/L Calcium 9.9 (8.6-10.3) mg/dL Magnesium 2.0 (1.9-2.7) mg/dL Total Bilirubin 0.80 (0.2-1.0) mg/dL AST 19 (13-39) U/L ALT 8 (7-52) U/L Alkaline Phosphatase 80 (34-104) U/L Total Creatine Kinase 41 (10-223) U/L CK-MB (CK-2) 4.1 (0.6-6.3) ng/mL Troponin I 0.06 H* (<0.04) ng/mL Total Protein 7.2 (6.4-8.9) g/dL Albumin 4.3 (3.2-5.2) g/dL Globulin 2.9 (2-4) g/dL Albumin/Globulin Ratio 1.5 (1-3) TSH 5.62 H (0.34-5.60) mcIU/mL 10/14/17 10/14/17 Range/Units 09:15 11:40 WBC (3.5-10.8) 10^3/ul RBC (4.0-5.4) 10^6/ul Hgb (12.0-16.0) g/dl Hct (35-47) % MCV (80-97) fL MCH (27-31) pg MCHC (31-36) g/dl RDW (10.5-15) % Plt Count (150-450) 10^3/ul MPV (7.4-10.4) um3 Neut % (Auto) (38-83) % Lymph % (Auto) (25-47) % [place] % (Auto) (1-9) % Eos % (Auto) (0-6) % Baso % (Auto) (0-2) % Absolute Neuts (auto) (1.5-7.7) 10^3/ul Absolute Lymphs (auto) (1.0-4.8) 10^3/ul Absolute Monos (auto) (0-0.8) 10^3/ul Absolute Eos (auto) (0-0.6) 10^3/ul Absolute Basos (auto) (0-0.2) 10^3/ul Absolute Nucleated RBC 10^3/ul Nucleated RBC % INR (Anticoag Therapy) (0.77-1.02) D-Dimer, Quantitative (Less Than 230) ng/mL Sodium (133-145) mmol/L Potassium (3.5-5.0) mmol/L Chloride (101-111) mmol/L Carbon Dioxide (22-32) mmol/L Anion Gap (2-11) mmol/L BUN (6-24) mg/dL Creatinine (0.51-0.95) mg/dL Est GFR ( Amer) (>60) Est GFR (Non-Af Amer) (>60) BUN/Creatinine Ratio (8-20) Glucose (70-100) mg/dL Lactic Acid 2.0 (0.5-2.0) mmol/L Calcium (8.6-10.3) mg/dL Magnesium (1.9-2.7) mg/dL Total Bilirubin (0.2-1.0) mg/dL AST (13-39) U/L ALT (7-52) U/L Alkaline Phosphatase (34-104) U/L Total Creatine Kinase (10-223) U/L CK-MB (CK-2) (0.6-6.3) ng/mL Troponin I 0.06 H* (<0.04) ng/mL Total Protein (6.4-8.9) g/dL Albumin (3.2-5.2) g/dL Globulin (2-4) g/dL Albumin/Globulin Ratio (1-3) TSH (0.34-5.60) mcIU/mL Assess/Plan/Problems-Billing Ms Gauthier is a 67 yo F with a h/o PTSD, borderline personality disorder, COPD, hypothyroidism and chronic pain who presented p/w chest discomfort and palpitations - Patient Problems (1) Chest discomfort Current Visit: Yes Status: Acute Code(s): R07.89 - OTHER CHEST PAIN SNOMED Code(s): 360363295 Comment: Catheterization is negative for CAD. No ASA, metoprolol or lipitor as no significant CAD. (2) Hypotension Current Visit: Yes Status: Acute Comment: BP is low but stable. No antihypertensives. I think her shakiness is not secondary to hypotension but likely her anxiety. (3) Urinary retention Current Visit: Yes Status: Acute Code(s): R33.9 - RETENTION OF URINE, UNSPECIFIED SNOMED Code(s): 986031216 Comment: She will be d/mary home with the morales in place and follow up with urology as an outpatient. (4) Anxiety and depression Current Visit: Yes Status: Acute Code(s): F41.8 - OTHER SPECIFIED ANXIETY DISORDERS SNOMED Code(s): 893832216 Comment: Continue prn hydroxyzine-increase dose as recommended by Dr. Baez. (5) DVT prophylaxis Current Visit: Yes Status: Acute Code(s): [id number] - SNOMED Code(s): 991366851 Comment: SQ heparin (6) Full code status Current Visit: Yes Status: Acute Code(s): Z78.9 - OTHER SPECIFIED HEALTH STATUS SNOMED Code(s): 144148746 Status and Disposition: .
[2017-10-21] MEDS: hydrOXYzine HCL TAB* 50 MG PO PRN ×2 (10:11→16:04)
[2017-10-21] MEDS: Docusate CAP* 100 MG PO SCH ×2 (17:33→20:40)
--- NOTE | 2017-10-21 17:35 | CATH ---
CARDIAC CATHETERIZATION REPORT: DATE OF PROCEDURE: 10/20/17 PROCEDURE: Cardiac catheterization including left heart catheterization, coronary angiography, left ventriculogram. INDICATIONS: The patient is a 67-year-old female with history of anxiety disorder. The patient was admitted to the hospital with chest pain. She had minimally elevated troponin levels at 0.10. The patient underwent a chemical nuclear stress test, which showed normal perfusion throughout the myocardium but marked elevation in the TID at 1.35. Cardiac catheterization was recommended to rule out 3-vessel coronary artery disease. DESCRIPTION OF PROCEDURE: The patient was brought to the cardiac catheterization lab in a fasting state. Informed consent had been obtained prior to the procedure. All labs had been reviewed. The patient was placed supine on the catheterization table. Both femoral areas were cleaned and draped in the usual fashion. 1% lidocaine was used for local anesthesia. The right femoral artery was entered via modified Seldinger technique and a 6- [place] sheath introducer was placed. The patient underwent left ventriculogram , coronary angiography using a 6-Green[place]ic pigtail catheter, 6-Green[place]ic JL4 catheter , and a 6-Green[place]ic JR4 catheter. At the end of the procedure, an angiogram of the femoral artery demonstrated normal position and a Mynx closure device was deployed. The patient tolerated the procedure well. There were no complications. A total of 85 cc of Omnipaque dye was used. A total of 1.7 minutes of fluoro time was used. FINDINGS: HEMODYNAMICS: Central aortic blood pressure 93/49 with a mean of 69, LV pressure 92/1 with an end diastolic pressure of 8. LEFT VENTRICULOGRAM: Left ventricle was normal in size and systolic function. Estimated ejection fraction was 65%. There was no evidence of outflow tract gradient. There was 1+ mitral regurgitation. Aortic valve and ascending aorta were normal. CORONARY ARTERIES: 1. Left main artery: The left main was normal in size. It bifurcated into the LAD and circumflex. There was no evidence of stenosis. 2. Left anterior descending artery: The LAD was normal in size. It gave off 2 diagonal vessels. There was no evidence of stenosis. 3. Left circumflex artery: The circumflex artery was normal in size. It gave off 1 large branching obtuse marginal. There was no evidence of stenosis. 4. Right coronary artery: The RCA was a dominant vessel, given off the PDA and 1 posterolateral branch. There was no evidence of stenosis. IMPRESSION: 1. Normal left ventricular size and systolic function. 2. Normal coronary arteries. 3. Mynx closure device to the right femoral artery. RECOMMENDATION: The patient will continue on medical management. [id number]/[facility] #: [id number] BREANN
[2017-10-21] MEDS ORDERED: Famotidine TAB* 20 MG PO SCH (18:00)
[2017-10-21] MEDS: traZODone TAB* 100 MG PO SCH (20:38)
[2017-10-22] MEDS ORDERED: Sodium Phosphate ADULT ENEMA* 118 ml bottle PR ONE (00:31)
[2017-10-22] MEDS: Heparin VIAL(*) 5000 UNITS/ML VIAL (FIVE THOUSAND) SUBCUT SCH (05:12)
[2017-10-22] MEDS: traMADol TAB* 50 MG PO PRN (05:51)
[2017-10-22] MEDS: Carisoprodol TAB* 350 MG PO SCH (08:38)
[2017-10-22] MEDS: Docusate CAP* 100 MG PO SCH (08:38)
[2017-10-22 11:21] VITALS: BP 94/60
--- NOTE | 2017-10-22 12:15 | PN ---
Subjective Date of Service: 10/22/17 Interval History: Pt states she feels very constipated and doesn't think she can manage this at home. She denies any pain. She denies SOB. Objective Active Medications: Acetaminophen (Tylenol Tab*) 650 mg PO Q6H PRN PRN Reason: PAIN Last Admin: 10/20/17 21:31 Dose: 650 mg Albuterol (Ventolin Hfa Inhaler*) 2 puff INH Q4H PRN PRN Reason: SHORTNESS OF BREATH Carisoprodol (Soma Tab*) 350 mg PO BID [facility] Last Admin: 10/22/17 08:38 Dose: 350 mg Docusate Sodium (Colace Cap*) 200 mg PO BID [facility] Last Admin: 10/22/17 08:38 Dose: 200 mg Famotidine (Pepcid Tab*) 20 mg PO 1800 [facility] Last Admin: 10/21/17 17:34 Dose: 20 mg Heparin Sodium (Porcine) (Heparin Vial(*)) 5,000 units SUBCUT Q8HR [facility] Last Admin: 10/22/17 05:12 Dose: Not Given Hydroxyzine HCl (Atarax Tab*) 50 mg PO Q6H PRN PRN Reason: ANXIETY Last Admin: 10/21/17 16:04 Dose: 50 mg Ipratropium Only (Atrovent 0.5 Mg Neb.Idalia*) 0.5 mg INH Q6H PRN PRN Reason: SHORTNESS OF BREATH Loperamide HCl (Imodium Cap*) 2 mg PO DAILY PRN PRN Reason: DIARRHEA Melatonin (Melatonin (Nf)) 3 mg PO BEDTIME PRN; Protocol PRN Reason: Sleep Last Admin: 10/19/17 23:30 Dose: 3 mg Tramadol HCl (Ultram*) 100 mg PO TID PRN PRN Reason: PAIN Last Admin: 10/22/17 05:51 Dose: 100 mg Trazodone HCl (Desyrel Tab*) 100 mg PO BEDTIME [facility] Last Admin: 10/21/17 20:38 Dose: 100 mg Vital Signs - 8 hr 10/22/17 10/22/17 10/22/17 05:51 07:41 08:00 Temperature 98.9 F Pulse Rate 75 Respiratory 18 20 16 Rate Blood Pressure 110/63 (mmHg) O2 Sat by Pulse 97 Oximetry 10/22/17 10/22/1718 08:38 10:02 11:07 Temperature 98.0 F Pulse Rate 81 Respiratory 16 16 20 Rate Blood Pressure 94/60 (mmHg) O2 Sat by Pulse 98 Oximetry 10/22/17 11:17 Temperature Pulse Rate Respiratory 16 Rate Blood Pressure (mmHg) O2 Sat by Pulse Oximetry Oxygen Devices in Use Now: None Appearance: Middle aged female sitting up in bed reading the paper, NAD Eyes: No Scleral Icterus Ears/Nose/Mouth/Throat: Mucous Membranes Moist Neck: NL Appearance and Movements; NL JVP Respiratory: Symmetrical Chest Expansion and Respiratory Effort, Clear to Auscultation Cardiovascular: NL Sounds; No Murmurs; No JVD, RRR, No Edema Abdominal: NL Sounds; No Tenderness; No Distention Extremities: No Clubbing, Cyanosis Skin: No Rash or Ulcers, No Nodules or Sclerosis Neurological: Alert and Oriented x 3 Result Diagrams: 10/20/17 04:28 10/19/17 20:25 Additional Lab and Data: Lab Results 10/14/17 10/14/17 10/14/17 Range/Units 09:15 09:15 09:15 WBC 7.4 (3.5-10.8) 10^3/ul RBC 5.11 (4.0-5.4) 10^6/ul Hgb 15.5 (12.0-16.0) g/dl Hct 46 (35-47) % MCV 89 (80-97) fL MCH 30 (27-31) pg MCHC 34 (31-36) g/dl RDW 13 (10.5-15) % Plt Count 321 (150-450) 10^3/ul MPV 8 (7.4-10.4) um3 Neut % (Auto) 61.9 (38-83) % Lymph % (Auto) 27.0 (25-47) % [place] % (Auto) 9.7 H (1-9) % Eos % (Auto) 0.5 (0-6) % Baso % (Auto) 0.9 (0-2) % Absolute Neuts (auto) 4.6 (1.5-7.7) 10^3/ul Absolute Lymphs (auto) 2.0 (1.0-4.8) 10^3/ul Absolute Monos (auto) 0.7 (0-0.8) 10^3/ul Absolute Eos (auto) 0 (0-0.6) 10^3/ul Absolute Basos (auto) 0.1 (0-0.2) 10^3/ul Absolute Nucleated RBC 0 10^3/ul Nucleated RBC % 0 INR (Anticoag Therapy) 1.02 (0.77-1.02) D-Dimer, Quantitative < 200 (Less Than 230) ng/mL Sodium 135 (133-145) mmol/L Potassium 3.3 L (3.5-5.0) mmol/L Chloride 100 L (101-111) mmol/L Carbon Dioxide 26 (22-32) mmol/L Anion Gap 9 (2-11) mmol/L BUN 7 (6-24) mg/dL Creatinine 0.84 (0.51-0.95) mg/dL Est GFR ( Amer) 87.0 (>60) Est GFR (Non-Af Amer) 67.6 (>60) BUN/Creatinine Ratio 8.3 (8-20) Glucose 117 H (70-100) mg/dL Lactic Acid (0.5-2.0) mmol/L Calcium 9.9 (8.6-10.3) mg/dL Magnesium 2.0 (1.9-2.7) mg/dL Total Bilirubin 0.80 (0.2-1.0) mg/dL AST 19 (13-39) U/L ALT 8 (7-52) U/L Alkaline Phosphatase 80 (34-104) U/L Total Creatine Kinase 41 (10-223) U/L CK-MB (CK-2) 4.1 (0.6-6.3) ng/mL Troponin I 0.06 H* (<0.04) ng/mL Total Protein 7.2 (6.4-8.9) g/dL Albumin 4.3 (3.2-5.2) g/dL Globulin 2.9 (2-4) g/dL Albumin/Globulin Ratio 1.5 (1-3) TSH 5.62 H (0.34-5.60) mcIU/mL 10/14/17 10/14/17 Range/Units 09:15 11:40 WBC (3.5-10.8) 10^3/ul RBC (4.0-5.4) 10^6/ul Hgb (12.0-16.0) g/dl Hct (35-47) % MCV (80-97) fL MCH (27-31) pg MCHC (31-36) g/dl RDW (10.5-15) % Plt Count (150-450) 10^3/ul MPV (7.4-10.4) um3 Neut % (Auto) (38-83) % Lymph % (Auto) (25-47) % [place] % (Auto) (1-9) % Eos % (Auto) (0-6) % Baso % (Auto) (0-2) % Absolute Neuts (auto) (1.5-7.7) 10^3/ul Absolute Lymphs (auto) (1.0-4.8) 10^3/ul Absolute Monos (auto) (0-0.8) 10^3/ul Absolute Eos (auto) (0-0.6) 10^3/ul Absolute Basos (auto) (0-0.2) 10^3/ul Absolute Nucleated RBC 10^3/ul Nucleated RBC % INR (Anticoag Therapy) (0.77-1.02) D-Dimer, Quantitative (Less Than 230) ng/mL Sodium (133-145) mmol/L Potassium (3.5-5.0) mmol/L Chloride (101-111) mmol/L Carbon Dioxide (22-32) mmol/L Anion Gap (2-11) mmol/L BUN (6-24) mg/dL Creatinine (0.51-0.95) mg/dL Est GFR ( Amer) (>60) Est GFR (Non-Af Amer) (>60) BUN/Creatinine Ratio (8-20) Glucose (70-100) mg/dL Lactic Acid 2.0 (0.5-2.0) mmol/L Calcium (8.6-10.3) mg/dL Magnesium (1.9-2.7) mg/dL Total Bilirubin (0.2-1.0) mg/dL AST (13-39) U/L ALT (7-52) U/L Alkaline Phosphatase (34-104) U/L Total Creatine Kinase (10-223) U/L CK-MB (CK-2) (0.6-6.3) ng/mL Troponin I 0.06 H* (<0.04) ng/mL Total Protein (6.4-8.9) g/dL Albumin (3.2-5.2) g/dL Globulin (2-4) g/dL Albumin/Globulin Ratio (1-3) TSH (0.34-5.60) mcIU/mL Assess/Plan/Problems-Billing Ms Gauthier is a 67 yo F with a h/o PTSD, borderline personality disorder, COPD, hypothyroidism and chronic pain who presented p/w chest discomfort and palpitations - Patient Problems (1) Chest discomfort Current Visit: Yes Status: Acute Code(s): R07.89 - OTHER CHEST PAIN SNOMED Code(s): 135889419 Comment: Catheterization is negative for CAD. No ASA, metoprolol or lipitor as no significant CAD. (2) Hypotension Current Visit: Yes Status: Acute Comment: BP is stable today. She can follow up with her PCP as an outpatient. (3) Urinary retention Current Visit: Yes Status: Acute Code(s): R33.9 - RETENTION OF URINE, UNSPECIFIED SNOMED Code(s): 750558993 Comment: The patient tried to have her morales removed again last night but was still unable to urinate on his own. Morales replaced and she will need to follow up with urology as an outpatient. VNS set up to help educate/care for her morales. (4) Anxiety and depression Current Visit: Yes Status: Acute Code(s): F41.8 - OTHER SPECIFIED ANXIETY DISORDERS SNOMED Code(s): 944414622 Comment: Continue prn hydroxyzine. (5) DVT prophylaxis Current Visit: Yes Status: Acute Code(s): LDH9117 - SNOMED Code(s): 242482090 Comment: SQ heparin (6) Full code status Current Visit: Yes Status: Acute Code(s): Z78.9 - OTHER SPECIFIED HEALTH STATUS SNOMED Code(s): 330352286 Status and Disposition: d/c home
--- NOTE | 2017-10-24 03:34 | DS ---
CC: Dr. Kam * DISCHARGE SUMMARY: DATE OF ADMISSION: 10/14/17 DATE OF DISCHARGE: 10/22/17 PRIMARY CARE PROVIDER: Dr. Kam. PRINCIPAL DIAGNOSES: 1. Noncardiac chest pain and palpitations. 2. Urinary retention. 3. Anxiety secondary to posttraumatic stress disorder. 4. Depression. 5. Borderline personality disorder. 6. Hypothyroidism. 7. Chronic pain. DISCHARGE MEDICATIONS: 1. Atrovent 2 puffs inhaled q.6 hours p.r.n. shortness of breath. 2. Famotidine 20 mg p.o. daily. 3. Albuterol 2 puffs inhaled q.4 hours p.r.n. shortness of breath. 4. Butrans 7.5 mcg patch transdermal q.7 days. 5. Zofran ODT 8 mg p.o. q.8 hours p.r.n. nausea. 6. Loperamide 2 mg p.o. daily p.r.n. diarrhea. 7. Soma 350 mg p.o. b.i.d. 8. Tramadol 100 mg p.o. t.i.d. p.r.n. pain. 9. Trazodone 100 mg p.o. q.h.s. 10. Hydroxyzine 50 mg p.o. q.6 hours p.r.n. anxiety. HOSPITAL COURSE: Ms. Gauthier is a 67-year-old female, well known to the hospitalist service from multiple previous emergency room and hospital stays, who presented to the emergency room on 10/14/17 with complaints of chest pain and palpitations. The patient stated that since her discharge after an overdose attempt in August of 2017, she has had "pain" in her heart. The patient was admitted and found to have mildly elevated troponins in the 0.06 to 0.1 range. The patient underwent nuclear stress test on 10/16/17, which revealed no appreciable fixed or reversible perfusion defects. There was an elevated ratio, which may represent the presence of triple vessel disease. Because of this, Cardiology consultation was requested. Dr. Birmingham saw the patient on 10/16/17 and recommended cardiac catheterization. The patient was hesitant about undergoing cardiac catheterization; however, ultimately on 10/20/17, the patient underwent the catheterization. Normal coronary arteries were identified. Normal left ventricular size and systolic function was also noted. The patient was felt to be stable from a cardiac standpoint. She had been started on aspirin, metoprolol, and Lipitor; however, these have now been discontinued given she has no coronary artery disease present. During the course of hospitalization, the patient also complained of difficulty with urination. It was found that she was retaining urine. A Ngo catheter was inserted. Two attempts were made at removing the Ngo catheter; however, the patient each time was unable to urinate afterwards. The decision was made to leave the Ngo catheter in place and have the patient follow up with Dr. Cooney or Dr. Bernstein as an outpatient. The patient will be contacted by the urology office with an appointment date and time. Also, during the hospitalization, the patient complained of severe anxiety. She frequently requested benzodiazepines; however, she overdosed on benzodiazepines just this past August. Hydroxyzine was started with fair effect. The patient then subsequently requested a consultation with Dr. Baez. He saw her on 10/20/17 and recommended increasing her hydroxyzine and still avoiding benzodiazepines. The patient was agreeable with this plan. Additionally, she was started on trazodone to help her sleep. The patient during hospitalization was also noted to intermittently be hypotensive, though asymptomatic. The patient frequently complained of shakiness while she was up and about; however, felt this more likely represented her anxiety than being symptomatic from hypotension. The patient was trialed with IV fluids and she had no significant improvement in her blood pressure despite fluid boluses. The patient is not on any antihypertensives. I do question if the Soma and tramadol she was taking for her chronic pain may be leading to her hypotension; however, she does not want to give these up. FOLLOWUP CONCERNS: The patient is being discharged home today, 10/22/17. The patient is to follow up with Dr. Kam on 10/23/17 at 1:40 p.m. She is also to follow up with Dr. Cooney soon and again, she will be contacted by his office with an appointment date and time. Visiting nurse services has been set up. ACTIVITY LEVEL: As tolerated. DIET: Regular. CONDITION ON DISCHARGE: Stable. TIME SPENT: Thirty-five minutes was spent discharging this patient. [id number]/[facility] #: [id number] [facility]
== END 2017-10-22 14:15 | disposition home health service (06) | DRG 287 ==
LOC: ED 08:38 → MEDTELE 13:22 → OBSVTOIN 10-16 16:04
PROVIDERS: ADMIT Internal Medicine; ATTEND Hospitalist
PROC: 0T9B70Z Drainage of Bladder with Drainage Device, Via Natural or Artificial Opening (ICD-10-PCS; principal; 2017-10-16)
PROC: 4A12XM4 Monitoring of Cardiac Stress, External Approach (ICD-10-PCS; 2017-10-16)
PROC: 4A023N7 Measurement of Cardiac Sampling and Pressure, Left Heart, Percutaneous Approach (ICD-10-PCS; 2017-10-20)
PROC: B2111ZZ Fluoroscopy of Multiple Coronary Arteries using Low Osmolar Contrast (ICD-10-PCS; 2017-10-20)
PROC: B2151ZZ Fluoroscopy of Left Heart using Low Osmolar Contrast (ICD-10-PCS; 2017-10-20)
DX: R07.9 Chest pain, unspecified (principal); I95.9 Hypotension, unspecified; I08.1 Rheumatic disorders of both mitral and tricuspid valves; J44.9 Chronic obstructive pulmonary disease, unspecified; I42.8 Other cardiomyopathies; E03.9 Hypothyroidism, unspecified; F60.3 Borderline personality disorder; F43.10 Post-traumatic stress disorder, unspecified; F41.9 Anxiety disorder, unspecified; F32.9 Major depressive disorder, single episode, unspecified; K58.9 Irritable bowel syndrome, unspecified; G43.909 Migraine, unspecified, not intractable, without status migrainosus; Z86.711 Personal history of pulmonary embolism; Z88.8 Allergy status to other drugs, medicaments and biological substances; Z88.1 Allergy status to other antibiotic agents; Z91.040 Latex allergy status; I10 Essential (primary) hypertension; K21.9 Gastro-esophageal reflux disease without esophagitis; M06.9 Rheumatoid arthritis, unspecified; M81.0 Age-related osteoporosis without current pathological fracture; H26.9 Unspecified cataract; Z90.710 Acquired absence of both cervix and uterus; Z82.49 Family history of ischemic heart disease and other diseases of the circulatory system; Z82.61 Family history of arthritis; R33.9 Retention of urine, unspecified; E86.0 Dehydration; K59.00 Constipation, unspecified; G89.4 Chronic pain syndrome; Z91.5 Personal history of self-harm
CPT/HCPCS: 36415; 71045; 78452; 80048; 80053; 80061; 81003; 81015; 82550; 82553; 83605; 83735; 84443; 84484; 85025; 85379; 85610; 93005; 93017; 93306; 93458; 93970; 99156; 99157; 99284; A9270-GY; A9502; C1760; C1887; J0280; J1644; J2250; J2785; J3010

== ENCOUNTER 2017-10-26 16:41 | Emergency (ER) | payer MEDICARE, MEDICAID ==
[2017-10-26] MEDS ORDERED: NS 0.9% 1000 ML* 1,000 ML IV ONE (19:57)
--- NOTE | 2017-10-26 20:32 | RAD ---
INDICATION: Chest pain COMPARISON: October 14, 2017 TECHNIQUE: An AP portable view obtained at 2027 hours is submitted. FINDINGS: Bones/Soft Tissues: There are no acute bony findings. Cardiomediastinal: The cardiomediastinal silhouette is normal. Lungs: There are no infiltrates. Pleura: There are no pleural effusions. Other: None IMPRESSION: NO ACTIVE DISEASE.
[2017-10-26] MEDS ORDERED: HYDROcodone/ACETAMIN 5-325 MG* 1 TAB PO ONE (21:45)
[2017-10-26 22:19] LABS: ABS Basophils 0.1 10^3/ul (0-0.2); ABS Eosinophils 0.1 10^3/ul (0-0.6); ABS Lymphocytes 2.1 10^3/ul (1.0-4.8); ABS Monocytes 0.7 10^3/ul (0-0.8); ABS Neutrophils 4.8 10^3/ul (1.5-7.7); ABS Nucleated RBC 0 10^3/ul; Eosinophil % 0.9 % (0-6); Hematocrit 40 % (35-47); Hemoglobin 13.5 g/dl (12.0-16.0); Mean Corpuscular HGB Conc 34 g/dl (31-36); Mean Corpuscular Hemoglobin 30 pg (27-31); Mean Corpuscular Volume 90 fL (80-97); Mean Platelet Volume 8 um3 (7.4-10.4); Nucleated Red Blood Cells % 0.1; Platelet Count 408 10^3/ul (150-450); Red Blood Count 4.46 10^6/ul (4.0-5.4); Red Cell Distribution Width 14 % (10.5-15); White Blood Count 7.7 10^3/ul (3.5-10.8)
[2017-10-26 22:37] LABS: EGFR Non-African American 68.6 (>60)
[2017-10-26 22:38] LABS: INR 0.91 (0.77-1.02)
[2017-10-26] MEDS ORDERED: Morphine INJ* 2 MG/ML 1 ML CARPUJECT IV ONE (22:45)
[2017-10-26] MEDS ORDERED: Ondansetron INJ* 2 MG/ML VIAL IV ONE (22:45)
[2017-10-26] MEDS ORDERED: Iohexol 300* (CONTRAST) 10 ML SDV IV ONE (22:58)
[2017-10-27 01:39] LABS: Urine Appearance Clear; Urine Blood Negative (Negative); Urine Color Yellow; Urine Ketones Trace (Negative); Urine Protein Negative (Negative); Urine Specific Gravity > 1.060 (1.010-1.030); Urine Urobilinogen Negative (Negative)
--- NOTE | 2017-10-27 02:40 | ED ---
Fouzia Espitia Thomas, scribed for Simone Gómez on 10/26/17 at 2011 . GI/ HPI - HPI Summary HPI Summary: The patient is a 67 year old female presenting to the emergency department complaining of abdominal pain and catheter-associated pain that began about a week ago when she was [place] [facility] [place] given a [place]go catheter. The pain is constant and rated 7/10. She additional complains of back pain. She denies fever , chest pain, and shortness of breath. - History of Current Complaint Chief Complaint: EDUrogenitalProblems Time Seen by Provider: 10/26/17 19:51 Stated Complaint: CATHETER PAIN Hx Obtained From: Patient Hx Last Menstrual Period: "years ago" Onset/Duration: Started Weeks Ago - about 1 week, Still Present Timing: Constant Severity: Moderate Current Severity: Moderate Pain Intensity: 7 Location of Pain: Other - Lower abdominal pain, urethral pain Pain Radiates to: Back Associated Signs and Symptoms: Positive: Other: - Abdominal pain, cathether pain , urethral pain, back pain; NEGATIVE: fever, CP, SOB - Additional Pertinent History Primary Care Physician: [id number] - Allergy/Home Medications Allergies/Adverse Reactions: Allergies Allergy/AdvReac Type Severity Reaction Status Date / Time Latex Allergy Intermediate Rash Verified 10/26/17 16:47 Aspirin [ASA] Allergy CAN'T TAKE Verified 10/26/17 16:47 DUE TO IBS Clindamycin Allergy Diarrhea Verified 10/26/17 16:47 Diphenhydramine Allergy HOT Verified 10/26/17 16:47 [From Benadryl] SENSATION FROM NECK TO FEET & TREMORS NSAIDs Allergy CAN'T TAKE Verified 10/26/17 16:47 DUE TO IBS Omeprazole [From Prilosec] Allergy See Comment Verified 10/26/17 16:47 Prochlorperazine Allergy HOT Verified 10/26/17 16:47 [From Compazine] SENSATION FROM NECK TO FEET & TREMORS Sucralfate [From Carafate] Allergy See Comment Verified 10/26/17 16:47 Sumatriptan [From Imitrex] Allergy INCREASED Verified 10/26/17 16:47 MIGRAINES Trazodone Allergy Nausea Verified 10/26/17 16:47 Valproic Acid [From Depakote] Allergy 50 SHERRELL Verified 10/26/17 16:47 WEIGHT GAINE, MIGRAINE WORSE & TREMORS Sulfamethoxazole AdvReac Severe GI Upset Verified 10/26/17 16:47 w/Trimethoprim [From Bactrim] Aripiprazole [From Abilify] AdvReac HYPERACTIVE Verified 10/26/17 16:47 CI Pigment Blue 63 AdvReac HYPERACTIVE Verified 10/26/17 16:47 [From Cymbalta] Ciprofloxacin [From Cipro] AdvReac DIARRHEA Verified 10/26/17 16:47 AND STOMACH CRAMPS Duloxetine [From Cymbalta] AdvReac HYPERACTIVE Verified 10/26/17 16:47 Erythromycin AdvReac DIARRHEA Verified 10/26/17 16:47 AND STOMACH CRAMPS Quetiapine [From Seroquel] AdvReac HYPERACTIVE Verified 10/26/17 16:47 Soy Allergy AdvReac Diarrhea Verified 10/26/17 16:47 PMH/Surg Hx/FS Hx/Imm Hx Endocrine/Hematology History: Denies: Hx Anticoagulant Therapy, Hx Diabetes, Hx Thyroid Disease, Other Endocrine/Hematological Disorders Cardiovascular History: Reports: Hx Angina Denies: Hx Congestive Heart Failure, Hx Coronary Artery Disease, Hx Deep Vein Thrombosis, Hx Hypercholesterolemia, Hx Hypertension, Hx Myocardial Infarction, Hx Pacemaker/ICD, Hx Valvular Heart Disease, Other Cardiovascular Problems/Disorders Respiratory History: Reports: Hx Asthma, Hx Chronic Obstructive Pulmonary Disease (COPD), Hx Pneumonia, Other Respiratory Problems/Disorders - PNUEMONIA Denies: Hx Lung Cancer, Hx Pulmonary Embolism GI History: Reports: Hx Gastroesophageal Reflux Disease, Hx Irritable Bowel, Other GI Disorders - IBS Denies: Hx Gall Bladder Disease, Hx Gastrointestinal Bleed, Hx Ulcer, Hx Urosepsis History: Denies: Hx Kidney Stones, Hx Renal Disease, Other Problems/Disorders Musculoskeletal History: Reports: Hx Arthritis - Pt. states "everywhere", Hx Rheumatoid Arthritis, Hx Back Problems, Hx Osteoporosis Denies: Hx Scoliosis, Other Musculoskeletal History Sensory History: Reports: Hx Cataracts, Hx Contacts or Glasses, Hx Vision Problem - cataracts Denies: Hx Hearing Aid, Other Sensory Impairments Opthamlomology History: Reports: Hx Cataracts, Hx Contacts or Glasses, Hx Vision Problem - cataracts Denies: Other Sensory Impairments Neurological History: Reports: Hx Headaches, Hx Migraine Denies: Hx Dementia, Hx Seizures, Hx Transient Ischemic Attacks (TIA), Other Neuro Impairments/Disorders Psychiatric History: Reports: Hx Anxiety, Hx Depression, Hx Post Traumatic Stress Disorder, Hx Inpatient Treatment, Hx Community Mental Health Tx, Hx Suicide Attempt, Hx Substance Abuse Denies: Hx Eating Disorder, Hx Panic Disorder, Hx Schizophrenia, Hx Bipolar Disorder, Other Psychiatric Issues/Disorders - Cancer History Cancer Type, Location and Year: Family history Hx Chemotherapy: No Hx Radiation Therapy: No - Surgical History Surgery Procedure, Year, and Place: total hysterectomy with oophorectomy 1996; SINUSES Xs2; BLADDER- CYSTOCELE AND RECTOCELE (NO METAL)/ 12/08;. LEFT ANKLE FX Hx Anesthesia Reactions: No - Immunization History Date of Tetanus Vaccine: utd Date of Influenza Vaccine: 06/2017 Infectious Disease History: No Infectious Disease History: Denies: Hx Clostridium Difficile, Hx Hepatitis, Hx Human Immunodeficiency Virus (HIV), Hx of Known/Suspected MRSA, Hx Shingles, Hx Tuberculosis, Hx Known/ Suspected VRE, Hx Known/Suspected VRSA, History Other Infectious Disease, Traveled Outside the [place] in Last 30 Days - Family History Known Family History: Positive: Cardiac Disease, Hypertension, Other - arthritis Negative: Diabetes - Social History Alcohol Use: None Hx Substance Use: Yes Substance Use Type: Reports: None Substance Use Comment - Amount & Last Used: colonpin Hx Tobacco Use: No Smoking Status (MU): Never Smoked Tobacco Have You Smoked in the Last Year: No Review of Systems Negative: Fever Negative: Chest Pain Negative: Shortness Of Breath Positive: Abdominal Pain - lower Positive: other - Urethral pain All Other Systems Reviewed And Are Negative: Yes Physical Exam - Summary Physical Exam Summary: Appearance: Well appearing, no pain distress Skin: warm, dry, reflects adequate perfusion Head/face: normal Eyes: EOMI, PAVEL ENT: normal Neck: supple, non-tender Respiratory: CTA, breath sounds present Cardiovascular: RRR, pulses symmetrical Abdomen: Soft. She has diffuse tenderness to her abdomen. Genitourinary: There is a Gno catheter present. Bowel: present Musculoskeletal: normal, strength/ROM intact Neuro: normal, sensory motor intact, A&Ox3 Triage Information Reviewed: Yes Vital Signs On Initial Exam: Initial Vitals Temp Pulse Resp BP Pulse Ox 97.7 F 87 20 116/79 99 10/26/17 16:48 10/26/17 16:48 10/26/17 16:48 10/26/17 16:48 10/26/17 16:48 Vital Signs Reviewed: Yes Diagnostics - Vital Signs Vital Signs Temp Pulse Resp BP Pulse Ox 10/26/17 18:52 98.7 F 75 20 110/78 95 10/26/17 16:48 97.7 F 87 20 116/79 99 - Laboratory Lab Results: Lab Results 10/26/17 10/26/17 10/26/17 Range/Units 22:00 22:00 22:00 WBC 7.7 (3.5-10.8) 10^3/ul RBC 4.46 (4.0-5.4) 10^6/ul Hgb 13.5 (12.0-16.0) g/dl Hct 40 (35-47) % MCV 90 (80-97) fL MCH 30 (27-31) pg MCHC 34 (31-36) g/dl RDW 14 (10.5-15) % Plt Count 408 (150-450) 10^3/ul MPV 8 (7.4-10.4) um3 Neut % (Auto) 62.3 (38-83) % Lymph % (Auto) 27.0 (25-47) % [place] % (Auto) 8.8 (1-9) % Eos % (Auto) 0.9 (0-6) % Baso % (Auto) 1.0 (0-2) % Absolute Neuts (auto) 4.8 (1.5-7.7) 10^3/ul Absolute Lymphs (auto) 2.1 (1.0-4.8) 10^3/ul Absolute Monos (auto) 0.7 (0-0.8) 10^3/ul Absolute Eos (auto) 0.1 (0-0.6) 10^3/ul Absolute Basos (auto) 0.1 (0-0.2) 10^3/ul Absolute Nucleated RBC 0 10^3/ul Nucleated RBC % 0.1 INR (Anticoag Therapy) (0.77-1.02) APTT (26.0-36.3) seconds Sodium 134 (133-145) mmol/L Potassium 3.2 L (3.5-5.0) mmol/L Chloride 100 L (101-111) mmol/L Carbon Dioxide 24 (22-32) mmol/L Anion Gap 10 (2-11) mmol/L BUN 12 (6-24) mg/dL Creatinine 0.83 (0.51-0.95) mg/dL Est GFR ( Amer) 88.2 (>60) Est GFR (Non-Af Amer) 68.6 (>60) BUN/Creatinine Ratio 14.5 (8-20) Glucose 89 (70-100) mg/dL Lactic Acid (0.5-2.0) mmol/L Calcium 9.1 (8.6-10.3) mg/dL Total Bilirubin 0.70 (0.2-1.0) mg/dL AST 24 (13-39) U/L ALT 37 (7-52) U/L Alkaline Phosphatase 69 (34-104) U/L Troponin I 0.00 (<0.04) ng/mL Total Protein 7.0 (6.4-8.9) g/dL Albumin 4.3 (3.2-5.2) g/dL Globulin 2.7 (2-4) g/dL Albumin/Globulin Ratio 1.6 (1-3) Lipase 29 (11.0-82.0) U/L Urine Color Urine Appearance Urine pH (5-9) Ur Specific [place] (1.010-1.030) Urine Protein (Negative) Urine Ketones (Negative) Urine Blood (Negative) Urine Nitrate (Negative) Urine Bilirubin (Negative) Urine Urobilinogen (Negative) Ur Leukocyte Esterase (Negative) Urine Glucose (Negative) Blood Type O Negative Antibody Screen Negative 10/26/17 10/26/17 10/27/17 Range/Units 22:00 22:00 01:30 WBC (3.5-10.8) 10^3/ul RBC (4.0-5.4) 10^6/ul Hgb (12.0-16.0) g/dl Hct (35-47) % MCV (80-97) fL MCH (27-31) pg MCHC (31-36) g/dl RDW (10.5-15) % Plt Count (150-450) 10^3/ul MPV (7.4-10.4) um3 Neut % (Auto) (38-83) % Lymph % (Auto) (25-47) % [place] % (Auto) (1-9) % Eos % (Auto) (0-6) % Baso % (Auto) (0-2) % Absolute Neuts (auto) (1.5-7.7) 10^3/ul Absolute Lymphs (auto) (1.0-4.8) 10^3/ul Absolute Monos (auto) (0-0.8) 10^3/ul Absolute Eos (auto) (0-0.6) 10^3/ul Absolute Basos (auto) (0-0.2) 10^3/ul Absolute Nucleated RBC 10^3/ul Nucleated RBC % INR (Anticoag Therapy) 0.91 (0.77-1.02) APTT 31.1 (26.0-36.3) seconds Sodium (133-145) mmol/L Potassium (3.5-5.0) mmol/L Chloride (101-111) mmol/L Carbon Dioxide (22-32) mmol/L Anion Gap (2-11) mmol/L BUN (6-24) mg/dL Creatinine (0.51-0.95) mg/dL Est GFR ( Amer) (>60) Est GFR (Non-Af Amer) (>60) BUN/Creatinine Ratio (8-20) Glucose (70-100) mg/dL Lactic Acid 1.2 (0.5-2.0) mmol/L Calcium (8.6-10.3) mg/dL Total Bilirubin (0.2-1.0) mg/dL AST (13-39) U/L ALT (7-52) U/L Alkaline Phosphatase (34-104) U/L Troponin I (<0.04) ng/mL Total Protein (6.4-8.9) g/dL Albumin (3.2-5.2) g/dL Globulin (2-4) g/dL Albumin/Globulin Ratio (1-3) Lipase (11.0-82.0) U/L Urine Color Yellow Urine Appearance Clear Urine pH 6.0 (5-9) Ur Specific [place] > 1.060 H (1.010-1.030) Urine Protein Negative (Negative) Urine Ketones Trace H (Negative) Urine Blood Negative (Negative) Urine Nitrate Negative (Negative) Urine Bilirubin Negative (Negative) Urine Urobilinogen Negative (Negative) Ur Leukocyte Esterase Negative (Negative) Urine Glucose Negative (Negative) Blood Type Antibody Screen Result Diagrams: 10/26/17 22:00 01/28/18 22:00 Lab Statement: Any lab studies that have been ordered have been reviewed, and results considered in the medical decision making process. - Radiology CXR Xray Interpretation: No Acute Changes - NO ACTIVE DISEASE. Dr. Gómez has reviewed this report. Radiology Interpretation Completed By: Radiologist - CT CT Abd/Pel CT Interpretation: No Acute Changes - No localizing signs for acute pathology. CT Interpretation Completed By: Radiologist - EKG 19:59 Cardiac Rate: NL EKG Rhythm: Sinus Rhythm - at 79 BPM EKG Interpretation: ST T-changes that are old. No new changes. GIGU Course/Dx - Course Assessment/Plan: The patient is a 67 year old female presenting to the emergency department complaining of abdominal pain and catheter-associated pain that began about a week ago when she was admitted [place] [facility] [place] given a Ngo catheter. In the ED course the patient was given IV fluids, Percocet, Morhpine, and Zofran. Bloodwork and urinalysis were obtained. CXR shows NO ACTIVE DISEASE. CT Abdomen/Pelvis shows no localizing signs for acute pathology. EKG shows sinus tachycardia with ST T-changes that are old and no new changes. The patient is diagnosed with abdominal pain and urinary retention. - Diagnoses Differential Diagnoses - Female: Diverticulitis, Diverticulosis, Renal Colic, Urinary Tract Infection - urinary retention Provider Diagnoses: Abdominal pain, Urinary retention Discharge - Discharge Plan Condition: Stable Disposition: HOME Patient Education Materials: Acute Urinary Retention in Women (ED), Abdominal Pain (ED) Referrals: Mike Bernstein MD [Medical Doctor] - 2 Days Yobani Cooney MD [Medical Doctor] - 2 Days Additional Instructions: Follow up with either Dr. Bernstein or Dr. Killian in two days. They are urologists. Return to the emergency department for any new or worsening symptoms. The documentation as recorded by the Fouzia cabrales Thomas accurately reflects the service I personally performed and the decisions made by Dalia huerta Emmanuel.
[2017-10-27 03:42] VITALS: BP 117/70
--- NOTE | 2017-10-27 08:24 | RAD ---
CLINICAL HISTORY: Left lower quadrant pain, rule out diverticulitis COMPARISON: September 23, 2017 TECHNIQUE: Multiple contiguous axial CT scans were obtained of the abdomen and pelvis after the administration of intravenous contrast. Coronal and sagittal multiplanar reformations are submitted for review. Oral contrast was not administered. Delayed images were obtained through the abdomen and pelvis. FINDINGS: LUNG BASES: There is nodular density of the lateral right breast measuring 1.8 cm in size. This is not clearly seen on previous examinations. LIVER: The liver is diffusely low in attenuation compared to the spleen. There are no focal hepatic parenchymal masses. BILE DUCTS: There is no intrahepatic or extrahepatic biliary dilatation. GALLBLADDER: The gallbladder is normal, without pericholecystic inflammatory change. PANCREAS: The pancreas is normal, without mass or ductal dilatation. SPLEEN: There is a small cystic lesion the posterior spleen, stable from previous examinations. UPPER GI TRACT: Evaluation of the gastrointestinal tract is limited by incomplete gastric distention. The upper GI tract is unremarkable. SMALL BOWEL AND MESENTERY: The small bowel is normal in contour, course, and caliber. There is no obstruction or dilatation. COLON: The colon is normal in contour, course, caliber. There is no pericolonic inflammatory change. ADRENALS: Normal bilaterally. KIDNEYS: The kidneys are normal in shape, size, contour, and axis. There is no hydronephrosis or nephrolithiasis. BLADDER: The bladder is incompletely distended but is grossly normal. PELVIC ORGANS: The pelvic organs are not visualized. AORTA: The aorta is normal. IVC: Unremarkable LYMPH NODES: There is no lymphadenopathy by size criteria. ABDOMINAL WALL: There is no evidence for abdominal wall hernia. BONES AND SOFT TISSUES: There are multiple injection granulomas of subcutaneous varices noted along the buttocks bilaterally. OTHER: None IMPRESSION: 1. FATTY LIVER. 2. ROUNDED DENSITY OF THE LATERAL RIGHT BREAST, NOT CLEARLY VISUALIZED ON THESE EXAMINATIONS. RECOMMEND CONSIDERATION OF CORRELATION WITH DIAGNOSTIC MAMMOGRAPHY AND DIRECTED ULTRASOUND EXAMINATION OF THE RIGHT BREAST. 3. NO ACUTE CT PATHOLOGY OF THE VISUALIZED ABDOMEN OR PELVIS. THE RIGHT BREAST FINDINGS WERE DISCUSSED WITH MEHDI BATES IN THE PRIMARY PHYSICIAN'S OFFICE AT APPROXIMATELY 8:20 AM OF OCTOBER 27, 2017
== END 2017-10-27 03:15 | disposition home or self-care (01) ==
LOC: ED 16:41
DX: R10.9 Unspecified abdominal pain (principal); R33.9 Retention of urine, unspecified; K21.9 Gastro-esophageal reflux disease without esophagitis; J44.9 Chronic obstructive pulmonary disease, unspecified
CPT/HCPCS: 36415; 71045; 74177; 80053; 81003; 83605; 83690; 84484; 85025; 85610; 85730; 86850; 86900; 86901; 93005; 96360; 96374; 96375; 99283; J2270; J2405; Q9967

== ENCOUNTER 2017-10-30 07:29 | Emergency (ER) | payer MEDICAID, MEDICARE ==
[2017-10-30] MEDS ORDERED: Acetaminophen TAB* 325 MG PO ONE (11:39)
[2017-10-30] MEDS ORDERED: Al Hydrox/Mg Hydrox/Simet LIQ* 30 ML UDC PO ONE (12:09)
[2017-10-30] MEDS ORDERED: Lidocaine 2% VISCOUS* 15 ML UDC PO ONE (12:09)
[2017-10-30] MEDS ORDERED: Ondansetron INJ* 2 MG/ML VIAL IV ONE (12:10)
[2017-10-30 12:43] LABS: ABS Basophils 0 10^3/ul (0-0.2); ABS Eosinophils 0 10^3/ul (0-0.6); ABS Lymphocytes 1.2 10^3/ul (1.0-4.8); ABS Monocytes 0.4 10^3/ul (0-0.8); ABS Nucleated RBC 0 10^3/ul; Eosinophil % 0.1 % (0-6); Hematocrit 38 % (35-47); Lymphocyte % 14.3 % (25-47); Mean Corpuscular HGB Conc 34 g/dl (31-36); Mean Corpuscular Hemoglobin 30 pg (27-31); Mean Corpuscular Volume 90 fL (80-97); Mean Platelet Volume 8 um3 (7.4-10.4); Nucleated Red Blood Cells % 0; Platelet Count 412 10^3/ul (150-450); Red Blood Count 4.27 10^6/ul (4.0-5.4); Red Cell Distribution Width 15 % (10.5-15); White Blood Count 8.7 10^3/ul (3.5-10.8)
[2017-10-30 12:58] LABS: EGFR Non-African American 72.6 (>60)
--- NOTE | 2017-10-30 13:05 | RAD ---
INDICATION: Chest pain COMPARISON: October 18, 2017 TECHNIQUE: An AP portable view obtained at 1237 hours is submitted. FINDINGS: Bones/Soft Tissues: There are no acute bony findings. Cardiomediastinal: The cardiomediastinal silhouette is normal. Lungs: There are no infiltrates. There is relative hyperinflation. Pleura: There are no pleural effusions. Other: None IMPRESSION: NO ACTIVE DISEASE.
--- NOTE | 2017-10-30 13:57 | RAD ---
INDICATION: Urinary retention COMPARISON: CT abdomen pelvis October 26, 2017; mammogram August 07, 2016 TECHNIQUE: Noncontrast axial source images were acquired from the level hemidiaphragms to the symphysis pubis as part of CT imaging for renal stone. Lung bases: The lung bases are clear. There are bilateral breast nodules. The patient is due for bilateral mammography. This has been recently recommended (refer to October 26, 2017 report) Liver: The liver is normal in size. Noncontrast imaging shows no evidence of a hepatic mass or ductal dilatation. Gallbladder: There are no calcified gallstones. There may be a noncalcified gallstone or gallbladder polyp. Spleen: The spleen is normal in size. The noncontrast CT appearance is normal. Pancreas: Noncontrast imaging shows no pancreatic mass or ductal dilitation. Adrenal glands: No masses are identified. Kidneys/Bladder: There is no evidence of nephrolithiasis or convincing evidence of urolithiasis. There are multiple phlebolith minor pelvis. There is no CT evidence of hydronephrosis. Noncontrast imaging shows no evidence of a renal mass. There is a Ngo catheter... Adenopathy: There is no evidence of intraperitoneal or retroperitoneal adenopathy. Evaluation is limited without oral contrast. Fluid collections: There are no free or localized fluid collections. Vessels: The aorta and iliac vessels are normal in caliber. There are no significant atherosclerotic changes. The IVC appears normal Pelvic organs: There is hysterectomy. GI tract: Evaluation of the bowel is limited without oral contrast. The stomach, small bowel, and lower GI tract appear grossly normal. There are no obstructive findings. The appendix is visualized and appears normal. Soft tissues: No soft tissue abnormalities of the extraperitoneal abdomen or pelvis are identified. Osseous structures: There are no acute osseous findings. IMPRESSION: 1. Breast nodules. The patient is due for bilateral mammography. 2. Noncalcified cholelithiasis versus gallbladder polyp. 3. No convincing CT evidence of urolithiasis. No hydronephrosis. 4. Hysterectomy.
[2017-10-30] MEDS: traMADol TAB* 50 MG PO PRN ×2 (14:04→15:57)
[2017-10-30] MEDS ORDERED: Carisoprodol TAB* 350 MG PO ONE (15:38)
[2017-10-30 16:16] LABS: Urine Appearance Clear; Urine Blood 2+ (Negative); Urine Color Straw; Urine Ketones Negative (Negative); Urine Protein Negative (Negative); Urine Specific Gravity 1.006 (1.010-1.030); Urine Urobilinogen Negative (Negative)
[2017-10-30 16:46] VITALS: BP 114/80
--- NOTE | 2017-11-02 13:11 | ED ---
Norris Espitia Stephanie, scribed for Ruben Alexis MD on 10/30/17 at 1233 . Abdominal Pain/Female - HPI Summary HPI Summary: The pt is a 67 y/o F presenting to the ED with c/o abd pain that began yesterday. Symptoms include bladder pain, constipation, black stools, diarrhea, abdominal spasm, spinal pain, sore throat, KEY, chest tightness (began 1 hr ago) , chills, diaphoresis, nausea, vaginal discharge, and urinary retention despite a large volume of water consumed. The pt denies fever. The pt reports a history of IBS. - History of Current Complaint Chief Complaint: EDAbdPain Stated Complaint: ABD PAIN Time Seen by Provider: 10/30/17 08:59 Hx Obtained From: Patient Hx Last Menstrual Period: "years ago" ?: No Onset/Duration: Lasting Days - 1, Still Present Timing: Constant Severity Currently: Moderate Pain Intensity: 8 Pain Scale Used: 0-10 Numeric Location: Diffuse Radiates to: Back - "spine" Aggravating Factor(s): Nothing Alleviating Factor(s): Nothing Associated Signs and Symptoms: Positive: Constipation, Blood in Stool, Diarrhea , Other: - bladder pain, abdominal spasm, spinal pain, sore throat, KEY, chest tightness (began 1 hr ago), chills, diaphoresis, nausea, vaginal discharge, and urinary retention Allergies/Adverse Reactions: Allergies Allergy/AdvReac Type Severity Reaction Status Date / Time MS Latex [Latex] Allergy Intermediate Rash Verified 10/26/17 16:47 MS Aspirin [ASA] Allergy CAN'T TAKE Verified 10/26/17 16:47 DUE TO IBS MS Clindamycin [Clindamycin] Allergy Diarrhea Verified 10/26/17 16:47 MS Diphenhydramine Allergy HOT Verified 10/26/17 16:47 [From Benadryl] SENSATION FROM NECK TO FEET & TREMORS MS NSAIDs [NSAIDs] Allergy CAN'T TAKE Verified 10/26/17 16:47 DUE TO IBS MS Omeprazole [From Prilosec] Allergy See Comment Verified 10/26/17 16:47 MS Prochlorperazine Allergy HOT Verified 10/26/17 16:47 [From Compazine] SENSATION FROM NECK TO FEET & TREMORS MS Sucralfate [From Carafate] Allergy See Comment Verified 10/26/17 16:47 MS Sumatriptan [From Imitrex] Allergy INCREASED Verified 10/26/17 16:47 MIGRAINES MS Trazodone [Trazodone] Allergy Nausea Verified 10/26/17 16:47 MS Valproic Acid Allergy 50 SHERRELL Verified 10/26/17 16:47 [From Depakote] WEIGHT GAINE, MIGRAINE WORSE & TREMORS MS Sulfamethoxazole AdvReac Severe GI Upset Verified 10/26/17 16:47 w/Trimethoprim [From Bactrim] MS Aripiprazole AdvReac HYPERACTIVE Verified 10/26/17 16:47 [From Abilify] MS CI Pigment Blue 63 AdvReac HYPERACTIVE Verified 10/26/17 16:47 [From Cymbalta] MS Ciprofloxacin [From Cipro] AdvReac DIARRHEA Verified 10/26/17 16:47 AND STOMACH CRAMPS MS Duloxetine [From Cymbalta] AdvReac HYPERACTIVE Verified 10/26/17 16:47 MS Erythromycin AdvReac DIARRHEA Verified 10/26/17 16:47 [Erythromycin] AND STOMACH CRAMPS MS Quetiapine [From Seroquel] AdvReac HYPERACTIVE Verified 10/26/17 16:47 MS Soy Allergy [Soy Allergy] AdvReac Diarrhea Verified 10/26/17 16:47 PMH/Surg Hx/FS Hx/Imm Hx Endocrine/Hematology History: Denies: Hx Anticoagulant Therapy, Hx Diabetes, Hx Thyroid Disease, Other Endocrine/Hematological Disorders Cardiovascular History: Reports: Hx Angina Denies: Hx Congestive Heart Failure, Hx Coronary Artery Disease, Hx Deep Vein Thrombosis, Hx Hypercholesterolemia, Hx Hypertension, Hx Myocardial Infarction, Hx Pacemaker/ICD, Hx Valvular Heart Disease, Other Cardiovascular Problems/Disorders Respiratory History: Reports: Hx Asthma, Hx Chronic Obstructive Pulmonary Disease (COPD), Hx Pneumonia, Other Respiratory Problems/Disorders - PNUEMONIA Denies: Hx Lung Cancer, Hx Pulmonary Embolism GI History: Reports: Hx Gastroesophageal Reflux Disease, Hx Irritable Bowel, Other GI Disorders - IBS Denies: Hx Gall Bladder Disease, Hx Gastrointestinal Bleed, Hx Ulcer, Hx Urosepsis History: Denies: Hx Kidney Stones, Hx Renal Disease, Other Problems/Disorders Musculoskeletal History: Reports: Hx Arthritis - Pt. states "everywhere", Hx Rheumatoid Arthritis, Hx Back Problems, Hx Osteoporosis Denies: Hx Scoliosis, Other Musculoskeletal History Sensory History: Reports: Hx Cataracts, Hx Contacts or Glasses, Hx Vision Problem - cataracts Denies: Hx Hearing Aid, Other Sensory Impairments Opthamlomology History: Reports: Hx Cataracts, Hx Contacts or Glasses, Hx Vision Problem - cataracts Denies: Other Sensory Impairments Neurological History: Reports: Hx Headaches, Hx Migraine Denies: Hx Dementia, Hx Seizures, Hx Transient Ischemic Attacks (TIA), Other Neuro Impairments/Disorders Psychiatric History: Reports: Hx Anxiety, Hx Depression, Hx Post Traumatic Stress Disorder, Hx Inpatient Treatment, Hx Community Mental Health Tx, Hx Suicide Attempt, Hx Substance Abuse Denies: Hx Eating Disorder, Hx Panic Disorder, Hx Schizophrenia, Hx Bipolar Disorder, Other Psychiatric Issues/Disorders - Cancer History Cancer Type, Location and Year: Family history Hx Chemotherapy: No Hx Radiation Therapy: No - Surgical History Surgery Procedure, Year, and Place: total hysterectomy with oophorectomy 1996; SINUSES Xs2; BLADDER- CYSTOCELE AND RECTOCELE (NO METAL)/ 12/08;. LEFT ANKLE FX Hx Anesthesia Reactions: No - Immunization History Date of Tetanus Vaccine: utd Date of Influenza Vaccine: 05/2017 Immunizations Up to Date: Yes Infectious Disease History: No Infectious Disease History: Denies: Hx Clostridium Difficile, Hx Hepatitis, Hx Human Immunodeficiency Virus (HIV), Hx of Known/Suspected MRSA, Hx Shingles, Hx Tuberculosis, Hx Known/ Suspected VRE, Hx Known/Suspected VRSA, History Other Infectious Disease, Traveled Outside the [place] in Last 30 Days - Family History Known Family History: Positive: Cardiac Disease, Hypertension, Other - arthritis Negative: Diabetes - Social History Occupation: Retired Lives: Alone Alcohol Use: None Hx Substance Use: Yes Substance Use Type: Reports: Prescribed Substance Use Comment - Amount & Last Used: colonpin Hx Tobacco Use: No Smoking Status (MU): Never Smoked Tobacco Have You Smoked in the Last Year: No Review of Systems Positive: Chills, Skin Diaphoresis. Negative: Fever Negative: Erythema Positive: Sore Throat Positive: Chest Pain Negative: Shortness Of Breath, Cough Positive: Abdominal Pain, Diarrhea, Nausea, Other - abd spasm, constipation, black stools. Negative: Vomiting Positive: discharge, pain - bladder, other - retention. Negative: dysuria, hematuria Positive: Other - spinal pain. Negative: Myalgia, Edema Negative: Rash Neurological: Other - Negative: dizziness Positive: Headache All Other Systems Reviewed And Are Negative: Yes Physical Exam - Summary Physical Exam Summary: Constitutional: Well-developed, Well-nourished, Alert. Pain is inconsistent with exam. Skin: Warm, Dry HENT: Normocephalic; Atraumatic Eyes: Conjunctiva normal Neck: Musculoskeletal ROM normal neck. (-) JVD, (-) Stridor, (-) Tracheal deviation Cardio: Rhythm regular, rate normal, Heart sounds normal; Intact distal pulses; The pedal pulses are 2+ and symmetric. Radial pulses are 2+ and symmetric. (-) Murmur Pulmonary/Chest wall: Effort normal. (-) Respiratory distress, (-) Wheezes, (-) Rales Abd: Soft, (-) Tenderness, (-) Distension, (-) Guarding, (-) Rebound Musculoskeletal: (-) Edema Lymph: (-) Cervical adenopathy Neuro: Alert, Oriented x3 Psych: Mood and affect Normal Triage Information Reviewed: Yes Vital Signs On Initial Exam: Initial Vitals Temp Pulse Resp BP Pulse Ox 97.8 F 70 19 156/98 99 10/30/17 07:32 10/30/17 07:32 10/30/17 07:32 10/30/17 07:32 10/30/17 07:32 Vital Signs Reviewed: Yes Diagnostics - Vital Signs Vital Signs Temp Pulse Resp BP Pulse Ox 10/30/17 10:30 80 154/83 99 10/30/17 10:00 72 144/76 99 10/30/17 09:30 79 142/77 96 10/30/17 09:00 47 137/80 89 10/30/17 08:01 71 99 10/30/17 08:00 131/73 10/30/17 07:42 73 99 10/30/17 07:38 73 100 10/30/17 07:35 156/98 10/30/17 07:32 97.8 F 70 19 156/98 99 - Laboratory Result Diagrams: 10/30/17 12:35 10/30/17 12:35 Lab Statement: Any lab studies that have been ordered have been reviewed, and results considered in the medical decision making process. - Radiology CXR Xray Interpretation: No Acute Changes Radiology Interpretation Completed By: Radiologist - NO ACTIVE DISEASE. - EKG 12:09 EKG Rhythm: Atrial Fibrillation - 81 BPM. No STEMI Abdominal Pain Fem Course/Dx - Course Course Of Treatment: At 13:00, lactic acid reported at 5.4. Pt has multitude of unrelated symptoms which wax and waned in ED. Negative cardiac catheter last week. Despite complaints of intermittent black tarry stool for past several days , H/H are nml and stable. We discussed possibility of her pain medications causing urinary retention. Potential for overuse on pain medications. Pain meds will need to be managed by PCP. Initial lactic acid may have been a result of lab error. It resolved spontaneously. - Diagnoses Provider Diagnoses: Acute urinary retention, Depression, Medication adverse effect, Other fecal abnormalities Discharge - Discharge Plan Condition: Stable Disposition: HOME Prescriptions: Docusate CAP* [Colace Cap*] 100 mg PO BID PRN #30 cap PRN Reason: Constipation Ondansetron ODT TAB* [Zofran 4 MG Odt TAB*] 4 mg PO Q8H PRN #12 tab.odt PRN Reason: Nausea/Vomiting Meds/Orders/Equipment: Home Care: Skilled Needs Location: None Selected Patient Education Materials: Depression (ED), Ngo Catheter Placement and Care (ED) Referrals: [facility] [Outside] (IF YOU DO NOT HEAR FROM [facility] PLEASE CALL THEM TO SET UP HOME VISIT) Evan Gaston MD [Medical Doctor] - 3 Days Yobani Cooney MD [Medical Doctor] - (YOU HAVE AN APPOINTMENT: FRIDAY, October AT 1PM IT IS VERY IMPORTANT THAT YOU ATTEND THIS APPOINTMENT!) Christopher Kam MD [Primary Care Provider] - 3 Days Mike Bernstein MD [Medical Doctor] - 3 Days Additional Instructions: RETURN TO THE EMERGENCY DEPARTMENT FOR CHANGING OR WORSENING SYMPTOMS The documentation as recorded by the Norris cabrales Stephanie accurately reflects the service I personally performed and the decisions made by me, Ruben Alexis MD.
== END 2017-10-30 16:57 | disposition home or self-care (01) ==
LOC: ED 07:29
DX: R33.9 Retention of urine, unspecified (principal); F32.9 Major depressive disorder, single episode, unspecified; R19.5 Other fecal abnormalities; T50.905A Adverse effect of unspecified drugs, medicaments and biological substances, initial encounter; Y92.9 Unspecified place or not applicable; K21.9 Gastro-esophageal reflux disease without esophagitis; J44.9 Chronic obstructive pulmonary disease, unspecified; I25.10 Atherosclerotic heart disease of native coronary artery without angina pectoris; Z86.718 Personal history of other venous thrombosis and embolism; I25.2 Old myocardial infarction; Z95.810 Presence of automatic (implantable) cardiac defibrillator; K58.9 Irritable bowel syndrome, unspecified; I48.91 Unspecified atrial fibrillation
CPT/HCPCS: 36415; 71045; 74176; 80053; 81003; 81015; 83605; 84484; 85025; 85379; 85652; 86140; 87502; 93005; 99282; A9270-GY; J2405

== ENCOUNTER → 2017-12-01 15:09 | Emergency (ER) | payer MEDICARE, MEDICAID ==
[~2017-12-01 15:09] MED LIST: NS 0.9% 500 ML* 500 ML IV ONE; traMADol TAB* 50 MG PO ONE
[2017-12-01 15:14] VITALS: BP 115/86
--- NOTE | 2017-12-01 16:01 | RAD ---
HISTORY: Nausea COMPARISONS: September 29, 2017 VIEWS: 4, frontal supine and left lateral decubitus views of the abdomen FINDINGS: BOWEL: There is a nonobstructive bowel gas pattern. There is a large amount of stool within the distal colon. CALCULI: There are no abnormal calculi. BONES AND SOFT TISSUES: Mild degenerative changes noted. OTHER FINDINGS: The lung bases are clear. There is no subphrenic gas. IMPRESSION: NONOBSTRUCTIVE BOWEL GAS PATTERN. LARGE AMOUNT OF STOOL WITHIN THE DISTAL COLON.
[2017-12-01 16:35] LABS: ABS Basophils 0.1 10^3/ul (0-0.2); ABS Eosinophils 0.1 10^3/ul (0-0.6); ABS Lymphocytes 1.8 10^3/ul (1.0-4.8); ABS Monocytes 0.7 10^3/ul (0-0.8); ABS Neutrophils 4.2 10^3/ul (1.5-7.7); ABS Nucleated RBC 0 10^3/ul; Hematocrit 37 % (35-47); Hemoglobin 12.1 g/dl (12.0-16.0); Mean Corpuscular HGB Conc 33 g/dl (31-36); Mean Corpuscular Hemoglobin 30 pg (27-31); Mean Corpuscular Volume 90 fL (80-97); Mean Platelet Volume 9 um3 (7.4-10.4); Nucleated Red Blood Cells % 0; Platelet Count 314 10^3/ul (150-450); Red Blood Count 4.08 10^6/ul (4.0-5.4); Red Cell Distribution Width 15 % (10.5-15); White Blood Count 6.8 10^3/ul (3.5-10.8)
[2017-12-01 16:45] LABS: EGFR Non-African American 78.3 (>60)
[2017-12-01 17:21] LABS: Urine Appearance Cloudy; Urine Blood Negative (Negative); Urine Color Yellow; Urine Ketones Negative (Negative); Urine Protein 1+(30 mg/dL) (Negative); Urine Specific Gravity 1.012 (1.010-1.030); Urine Urobilinogen Negative (Negative)
--- NOTE | 2017-12-02 16:17 | ED ---
Kentrell Espitia Angela, scribed for Paulino Metz MD on 12/01/17 at 1531 . Psychiatric Complaint - HPI Summary HPI Summary: This pt is a 67 y/o female presenting to [facility] c/o inability to sleep secondary to anxiety. Pt reports she has not slept well since July 2017. She states she has terrible pain in her back as well as abd pain. Pt notes she feels bloated. Pt reports she is tumbling around at home. Her visiting nurse told her to come to the ED. Pt states she has a morales catheter in because she can't urinate secondary to anxiety. She saw her PCP and was put on Ambien, but has not been able to take it yet due to problems with her insurance. - History Of Current Complaint Chief Complaint: EDNauseaVomitDiarrh Time Seen by Provider: 12/01/17 15:20 Hx Obtained From: Patient Hx Last Menstrual Period: "years ago" Onset/Duration: Lasting Days, Still Present Timing: Days Severity Currently: Moderate Character: Anxious Aggravating Factor(s): Nothing Alleviating Factor(s): Nothing Associated Signs And Symptoms: Positive: Negative Has Suicidal: Denies: Thoughts, With A Plan Has Homicidal: Denies: Thoughts, With A Plan - Allergies/Home Medications Allergies/Adverse Reactions: Allergies Allergy/AdvReac Type Severity Reaction Status Date / Time MS Latex [Latex] Allergy Intermediate Rash Verified 10/26/17 16:47 MS Aspirin [ASA] Allergy CAN'T TAKE Verified 10/26/17 16:47 DUE TO IBS MS Clindamycin [Clindamycin] Allergy Diarrhea Verified 10/26/17 16:47 MS Diphenhydramine Allergy HOT Verified 10/26/17 16:47 [From Benadryl] SENSATION FROM NECK TO FEET & TREMORS MS NSAIDs [NSAIDs] Allergy CAN'T TAKE Verified 10/26/17 16:47 DUE TO IBS MS Omeprazole [From Prilosec] Allergy See Comment Verified 10/26/17 16:47 MS Prochlorperazine Allergy HOT Verified 10/26/17 16:47 [From Compazine] SENSATION FROM NECK TO FEET & TREMORS MS Sucralfate [From Carafate] Allergy See Comment Verified 10/26/17 16:47 MS Sumatriptan [From Imitrex] Allergy INCREASED Verified 10/26/17 16:47 MIGRAINES MS Trazodone [Trazodone] Allergy Nausea Verified 10/26/17 16:47 MS Valproic Acid Allergy 50 SHERRELL Verified 10/26/17 16:47 [From Depakote] WEIGHT GAINE, MIGRAINE WORSE & TREMORS MS Sulfamethoxazole AdvReac Severe GI Upset Verified 10/26/17 16:47 w/Trimethoprim [From Bactrim] MS Aripiprazole AdvReac HYPERACTIVE Verified 10/26/17 16:47 [From Abilify] MS CI Pigment Blue 63 AdvReac HYPERACTIVE Verified 10/26/17 16:47 [From Cymbalta] MS Ciprofloxacin [From Cipro] AdvReac DIARRHEA Verified 10/26/17 16:47 AND STOMACH CRAMPS MS Duloxetine [From Cymbalta] AdvReac HYPERACTIVE Verified 10/26/17 16:47 MS Erythromycin AdvReac DIARRHEA Verified 10/26/17 16:47 [Erythromycin] AND STOMACH CRAMPS MS Quetiapine [From Seroquel] AdvReac HYPERACTIVE Verified 10/26/17 16:47 MS Soy Allergy [Soy Allergy] AdvReac Diarrhea Verified 10/26/17 16:47 PMH/Surg Hx/FS Hx/Imm Hx Endocrine/Hematology History: Denies: Hx Anticoagulant Therapy, Hx Diabetes, Hx Thyroid Disease, Other Endocrine/Hematological Disorders Cardiovascular History: Reports: Hx Angina Denies: Hx Congestive Heart Failure, Hx Coronary Artery Disease, Hx Deep Vein Thrombosis, Hx Hypercholesterolemia, Hx Hypertension, Hx Myocardial Infarction, Hx Pacemaker/ICD, Hx Valvular Heart Disease, Other Cardiovascular Problems/Disorders Respiratory History: Reports: Hx Asthma, Hx Chronic Obstructive Pulmonary Disease (COPD), Hx Pneumonia, Other Respiratory Problems/Disorders - PNUEMONIA Denies: Hx Lung Cancer, Hx Pulmonary Embolism GI History: Reports: Hx Gastroesophageal Reflux Disease, Hx Irritable Bowel, Other GI Disorders - IBS Denies: Hx Gall Bladder Disease, Hx Gastrointestinal Bleed, Hx Ulcer, Hx Urosepsis History: Denies: Hx Kidney Stones, Hx Renal Disease, Other Problems/Disorders Musculoskeletal History: Reports: Hx Arthritis - Pt. states "everywhere", Hx Rheumatoid Arthritis, Hx Back Problems, Hx Osteoporosis Denies: Hx Scoliosis, Other Musculoskeletal History Sensory History: Reports: Hx Cataracts, Hx Contacts or Glasses, Hx Vision Problem - cataracts Denies: Hx Hearing Aid, Other Sensory Impairments Opthamlomology History: Reports: Hx Cataracts, Hx Contacts or Glasses, Hx Vision Problem - cataracts Denies: Other Sensory Impairments Neurological History: Reports: Hx Headaches, Hx Migraine Denies: Hx Dementia, Hx Seizures, Hx Transient Ischemic Attacks (TIA), Other Neuro Impairments/Disorders Psychiatric History: Reports: Hx Anxiety, Hx Depression, Hx Post Traumatic Stress Disorder, Hx Inpatient Treatment, Hx Community Mental Health Tx, Hx Suicide Attempt, Hx Substance Abuse Denies: Hx Eating Disorder, Hx Panic Disorder, Hx Schizophrenia, Hx Bipolar Disorder, Other Psychiatric Issues/Disorders - Cancer History Cancer Type, Location and Year: Family history Hx Chemotherapy: No Hx Radiation Therapy: No - Surgical History Surgery Procedure, Year, and Place: total hysterectomy with oophorectomy 1996; SINUSES Xs2; BLADDER- CYSTOCELE AND RECTOCELE (NO METAL)/ 12/08;. LEFT ANKLE FX Hx Anesthesia Reactions: No - Immunization History Date of Tetanus Vaccine: utd Date of Influenza Vaccine: 05/2017 Infectious Disease History: No Infectious Disease History: Denies: Hx Clostridium Difficile, Hx Hepatitis, Hx Human Immunodeficiency Virus (HIV), Hx of Known/Suspected MRSA, Hx Shingles, Hx Tuberculosis, Hx Known/ Suspected VRE, Hx Known/Suspected VRSA, History Other Infectious Disease, Traveled Outside the [place] in Last 30 Days - Family History Known Family History: Positive: Cardiac Disease, Hypertension, Other - arthritis Negative: Diabetes - Social History Alcohol Use: None Hx Substance Use: Yes Substance Use Type: Reports: Prescribed Substance Use Comment - Amount & Last Used: colonpin Hx Tobacco Use: No Smoking Status (MU): Never Smoked Tobacco Have You Smoked in the Last Year: No Review of Systems Constitutional: Other - difficulty sleeping Negative: Fever, Chills Eyes: Negative ENT: Negative Cardiovascular: Negative Positive: Abdominal Pain Musculoskeletal: Other - back pain Skin: Negative Positive: Anxious All Other Systems Reviewed And Are Negative: Yes Physical Exam - Summary Physical Exam Summary: VITAL SIGNS: Reviewed. GENERAL: Patient is a well-developed and nourished female who is lying comfortable in the stretcher. Patient is not in any acute respiratory distress. HEAD AND FACE: No signs of trauma. No ecchymosis, hematomas or skull depressions. No sinus tenderness. EYES: PERRLA, EOMI x 2, No injected conjunctiva, no nystagmus. EARS: Hearing grossly intact. Ear canals and tympanic membranes are within normal limits. MOUTH: Oropharynx within normal limits. NECK: Supple, trachea is midline, no adenopathy, no JVD, no carotid bruit, no c- spine tenderness, neck with full ROM. CHEST: Symmetric, no tenderness at palpation LUNGS: Clear to auscultation bilaterally. No wheezing or crackles. CVS: Regular rate and rhythm, S1 and S2 present, no murmurs or gallops appreciated. ABDOMEN: Soft, non-tender. No signs of distention. No rebound no guarding, and no masses palpated. Bowel sounds are normal. EXTREMITIES: FROM in all major joints, no edema, no cyanosis or clubbing. NEURO: Alert and oriented x 3. No acute neurological deficits. Speech is normal and follows commands. SKIN: Dry and warm Triage Information Reviewed: Yes Vital Signs On Initial Exam: Initial Vitals Temp Pulse Resp BP Pulse Ox 98.4 F 84 18 115/86 99 12/01/17 15:13 12/01/17 15:13 12/01/17 15:13 12/01/17 15:13 12/01/17 15:13 Vital Signs Reviewed: Yes Diagnostics - Vital Signs Vital Signs Temp Pulse Resp BP Pulse Ox 12/01/17 15:13 98.4 F 84 18 115/86 99 - Laboratory Result Diagrams: 12/01/17 16:05 12/01/17 16:05 Lab Statement: Any lab studies that have been ordered have been reviewed, and results considered in the medical decision making process. - Radiology Abdomen XR Xray Interpretation: Positive (See Comments) - IMPRESSION: Nonobstructive bowel gas pattern. Large amount of stool within the distal colon. Dr. Metz has reviewed this radiology report. Radiology Interpretation Completed By: Radiologist Course/Dx - Course Assessment/Plan: This pt is a 67 y/o female presenting to [facility] c/o inability to sleep secondary to anxiety. Pt reports she has not slept well since July 2017. She states she has terrible pain in her back as well as abd pain. Pt notes she feels bloated. Pt reports she is tumbling around at home. Her visiting nurse told her to come to the ED. Pt states she has a morales catheter in because she can't urinate secondary to anxiety. She saw her PCP and was put on Ambien, but has not been able to take it yet due to problems with her insurance. Test results without any significant abnormalities. Urinalysis is contaminated. Abdomen XR: Nonobstructive bowel gas pattern. Large amount of stool within the distal colon. In the ED course, the pt is stable and was given IV fluids. I offered her Miralax for constipation, but she declined. I had a long discussion about the pts mental health and she denies any SI or HI. She reports she is able to take care of herself at home. Since August, she has not noticed a change in her weight. Therefore she was given a prescription for Eszopiclone and will be discharged home with follow up from her PCP. Pt is hemodynamically stable, alert and oriented x3. - Differential Dx/Clinical Impression Provider Diagnosis: Anxiety, Insomnia, Constipation Discharge - Discharge Plan Condition: Stable Disposition: HOME Prescriptions: Eszopiclone [Lunesta] 1 mg PO BEDTIME #5 tablet MDD 1 tab Patient Education Materials: Constipation (ED), Insomnia (ED), Anxiety (ED) Referrals: Christopher Kam MD [Primary Care Provider] - 3 Days Additional Instructions: Please follow up with your primary care provider. RETURN TO THE ED FOR ANY WORSENING SYMPTOMS. The documentation as recorded by the Kentrell cabrales Angela accurately reflects the service I personally performed and the decisions made by me, Paulino Metz MD.
--- NOTE | 2017-12-03 09:10 | PN ---
Progress Note - Progress Note Date of Service: 12/01/17 Note: patient's preliminary urine culture results show >100,000 of pesudomonas putida. spoke with patient at 9:00am. She has a catheter however due to culture results and urinalysis showing nitrate , leuk, WBC/RBC, and bacteria will treat. States she can only take Levaquin, so gave levaquin for 5 days. Patient is symptomatic. Also requested diflucan cause she typically gets candidasis due to antibiotics. no further action required at this time.
== END | disposition home or self-care (01) ==
LOC: ED 15:09
DX: F41.9 Anxiety disorder, unspecified (principal); G47.00 Insomnia, unspecified; K59.00 Constipation, unspecified; Z88.6 Allergy status to analgesic agent; Z88.3 Allergy status to other anti-infective agents; Z88.8 Allergy status to other drugs, medicaments and biological substances; Z88.2 Allergy status to sulfonamides
CPT/HCPCS: 36415; 74019; 80053; 81003; 81015; 83690; 85025; 86140; 87077; 87086; 87186; 99283; A9270-GY

== ENCOUNTER 2018-01-21 12:05 | Emergency (ER) | payer MEDICARE, MEDICAID ==
--- NOTE | 2018-01-21 12:32 | UC ---
Back Pain HPI - HPI Summary HPI Summary: 67 y/o female presents to the urgent care c/o acute lower back pain for the past month. Pt states symptoms started when she was vomiting and she felt her lower back made a sound. She went to see her PCP last week since lower back pain has worsen w/ movement, standing up and walking. Her PCP didn't Rx anything since she takes Tramadol for her upper back arthritis.Pain is 8/10 constant and sharp radiating to the RT side of her back. Pt took a Tramadol PO this morning 1000AM to alleviate symptoms. Pt denies numbness or tingling over the lower extremities, saddle anesthesia, urinary or fecal incontinence, urinary symptoms, fever, abdominal pain, N/V/D - History of Current Complaint Chief Complaint: UCBackPain Stated Complaint: BACK PAIN Time Seen by Provider: 01/21/18 12:27 Hx Obtained From: Patient Hx Last Menstrual Period: "years ago" Onset/Duration: Gradual Onset, Lasting Weeks - 4 weeks, Worse Since - last week Timing: Intermittent Severity Initially: Moderate Severity Currently: Moderate Pain Intensity: 8 Pain Scale Used: 0-10 Numeric Back Pain: Is Discrete @ - lower back, Radiates To - the RT side of her lower back Character: Sharp - w/ movment, Dull - at rest, Spasmodic Aggravating Factor(s): Movement, Lifting, Bending, Walking Alleviating Factor(s): Rest, OTC Meds Associated Signs And Symptoms: Positive: Negative. Negative: Redness, Numbness , Tingling, Abdominal Pain, Flank Pain, Bladder Incontinence, Bowel Incontinence , Weight Loss, Pain with Weight Bearing - Risk Factors AAA Risk Factors: Negative TAD Risk Factors: Negative Cauda Equina Risk Factors: Negative Epidural Abscess Risk Factors: Negative - Allergies/Home Medications Allergies/Adverse Reactions: Allergies Allergy/AdvReac Type Severity Reaction Status Date / Time aripiprazole [From Abilify] Allergy See Comment Verified 01/21/18 12:31 aspirin Allergy See Comment Verified 01/21/18 12:31 ciprofloxacin [From Cipro] Allergy Diarrhea Verified 01/21/18 12:31 clindamycin Allergy Diarrhea Verified 01/21/18 12:31 diphenhydramine Allergy See Comment Verified 01/21/18 12:31 [From Benadryl] divalproex sodium Allergy See Comment Verified 01/21/18 12:31 [From Depakote] duloxetine [From Cymbalta] Allergy See Comment Verified 01/21/18 12:31 erythromycin base Allergy Diarrhea Verified 01/21/18 12:31 latex Allergy Rash Verified 01/21/18 12:31 NSAIDS (Non-Steroidal Allergy See Comment Verified 01/21/18 12:31 Anti-Inflamma omeprazole [From Prilosec] Allergy See Comment Verified 01/21/18 12:31 prochlorperazine Allergy See Comment Verified 01/21/18 12:31 [From Compazine] quetiapine [From Seroquel] Allergy See Comment Verified 01/21/18 12:31 sucralfate [From Carafate] Allergy See Comment Verified 01/21/18 12:31 Sulfa (Sulfonamide Allergy GI Upset Verified 01/21/18 12:31 Antibiotics) sumatriptan [From Imitrex] Allergy See Comment Verified 01/21/18 12:31 trazodone Allergy Nausea Verified 01/21/18 12:31 PMH/Surg Hx/FS Hx/Imm Hx Previously Healthy: Yes Other Endocrine History: Osteoarthritis Respiratory History: Asthma Other GI/ History: constipation Other History Of: Negative For: HIV, Hepatitis B, Hepatitis C, Anticoagulant Therapy - Surgical History Surgical History: Yes Surgery Procedure, Year, and Place: total hysterectomy with oophorectomy 1996; SINUSES Xs2; BLADDER- CYSTOCELE AND RECTOCELE (NO METAL)/ 12/08;. LEFT ANKLE FX - Family History Known Family History: Positive: Cardiac Disease, Hypertension Negative: Diabetes Family History: arthritis - Social History Occupation: Retired Alcohol Use: None Substance Use Type: Prescribed Substance Use Comment - Amount & Last Used: colonpin Smoking Status (MU): Never Smoked Tobacco Have You Smoked in the Last Year: No - Immunization History Most Recent Influenza Vaccination: may 2017 Most Recent Tetanus Shot: WITHIN PAST 5 YRS Most Recent Pneumonia Vaccination: 2012 Review of Systems Constitutional: Negative Skin: Negative Eyes: Negative ENT: Negative Respiratory: Negative Cardiovascular: Negative Gastrointestinal: Negative Genitourinary: Negative Motor: Negative Neurovascular: Negative Musculoskeletal: Decreased ROM - lower back, Other: - Acute lower back pain Neurological: Negative Psychological: Negative Is Patient Immunocompromised?: No All Other Systems Reviewed And Are Negative: Yes Physical Exam - Summary Physical Exam Summary: Vital Signs Reviewed: Yes Appearance: Well-Appearing, Well-Nourished, female sitting in the examining table w/o any apparent distress. Eyes: Positive: Conjunctiva Clear - PERRLA, EOMI. ENT: Positive: Normal ENT inspection, Hearing grossly normal, Pharynx normal, TMs normal, Uvula midline Neck: Positive: Supple, Nontender, No Lymphadenopathy Respiratory: Positive: Chest non-tender, Lungs clear, Normal breath sounds, No respiratory distress Cardiovascular: Positive: RRR, No Murmur, Pulses Normal, Brisk Capillary Refill Abdomen Description: Positive: Nontender, No Organomegaly, Soft. Negative: CVA Tenderness (R), CVA Tenderness (L) Bowel Sounds: Positive: Present Musculoskeletal: Positive: Strength Intact, BACK: Patient walked into the urgent care room with symmetric ambulation, No signs of limping, antalgic, able to bear weight. No signs of trauma, No masses palpated. Point tenderness at the level of L1-S1, No CVAT, no flank ecchymosis w/ positive Rt paraspinal muscle tenderness and spasm . Pt w/ Kyphosis over the upper back. No sacroiliac notch tenderness, No saddle anesthesia. ROM: limited due to pain, Straight Leg Raise: negative. Patellar reflexes: brisk, symmetric Muscle strength lower extremities. Dorsiflexion/ plantar flexion of ankles. Heel/ toe walk. Lower extremities: Femoral, popliteal, posterior tibial, and dorsalis pedis pulses WNL. Pt refuse rectal exam Neurological: Positive: Alert, Muscle Tone Normal Psychological Exam: Normal Skin Exam: Normal Triage Information Reviewed: Yes Vital Signs: Initial Vital Signs Temp 96.4 F 01/21/18 12:13 Pulse 82 01/21/18 12:13 Resp 18 01/21/18 12:13 BP 118/73 01/21/18 12:13 Pulse Ox 98 01/21/18 12:13 Back Pain Course/Dx - Course Course Of Treatment: 67 y/o female presents to the urgent care c/o acute lower back pain for the past month. Pt states symptoms started when she was vomiting and she felt her lower back made a sound. She went to see her PCP last week since lower back pain has worsen w/ movement, standing up and walking. Her PCP didn't Rx anything since she takes Tramadol for her upper back arthritis.Pain is 8/10 constant and sharp radiating to the RT side of her back. Pt took a Tramadol PO this morning 1000AM to alleviate symptoms. Pt denies numbness or tingling over the lower extremities, saddle anesthesia, urinary or fecal incontinence, urinary symptoms, fever, abdominal pain, N/V/D. Hx obtained. Pt w / point tenderness over the L1-S1 and RT side paraspinal muscle tenderness w/ spams on the same side on examination. Pt given a Lemont PO at the clinic for pain. Pt tolerated well medication and pain decrease. Lumbosacral X-ray ordered , Impression:New subacute mild superior end plate fracture of L3. Pt's symptoms disccused w/ DR Spear. She recommended to order a Lumbar CT, Impression: Subacute compression Fracture of L3 w/o significant osseous retropulsion, Osteoarthritis w/ mild DDD and no significant Neural foraminal narrowing or central canal stenosis. DR Spear recomended Pt should f/u w/ Neurosurgeon referral for further management. Pt Rx Lemont PO for pain, Flexeril PO to alleviate symptoms. Test results discussed w/ PT.Patient was instructed to f/u w/ Neurosurgeon Dr Cartwright as soon as possible for further treatment. Patient understands and agrees. Patient is able to ambulate freely w/o aid or limp. Plan of care was discussed with the patient and patient understands and agrees. All questions were answered at patient satisfaction. Pt left clinic hemodynamically stable. - Differential Dx/Diagnosis Differential Diagnosis/HQI/PQRI: Arthritis, Cauda Equina Syndrome, Compressive Cord Syndrome, Herniated Disc, Strain, Sprain Provider Diagnoses: 1- Acute lower back pain. 2-Subacute Vertebral compression fracture at L3. 3- Osteoarthritis with mild Degenerative disc disease Discharge - Sign-Out/Discharge Documenting (check all that apply): Discharge/Admit/Transfer - D/C home - Discharge Plan Condition: Stable Disposition: HOME Prescriptions: HYDROcodone/ACETAMIN 5-325 MG* [Lemont 5-325 TAB*] 1 tab PO Q6H PRN #12 tab MDD 1g/4h PRN Reason: Pain Patient Education Materials: Vertebral Compression Fracture (ED), Low-Sodium Diet (ED), Degenerative Disc Disease (ED) Referrals: Christopher Kam MD [Primary Care Provider] - 3 Days Alejandro Garner MD [Medical Doctor] - 3 Days Additional Instructions: 1- Please take Lemont PO as directed after meals for pain. 2- Wear a back support. Avoid strenuous exercise or heavy lifting. 3- Please follow up with Neurosurgeon DR Christina for further management on your symptoms 4-Your BP is elevated today. please decrease salt in your diet, monitor BP and if it continues to be elevated please f/u with your PCP for further management - Billing Disposition and Condition Condition: STABLE Disposition: HOME
--- NOTE | 2018-01-21 13:39 | RAD ---
Indication: 1 month lower back pain following bending over for emesis. Worse on RIGHT side. Comparison: October 30, 2017 CT. Technique: AP, lateral, and oblique views lumbar sacral spine. Report: Mild compression deformity involving the superior endplate of the L3 vertebral body is new compared with the October 30, 2017 exam. Visualized trabecular impaction favors a subacute fracture at L3 corresponding with onset of symptoms with flexion of the spine one month ago. No significant retropulsion of the middle column evident. Mild compression deformity of the L4 vertebral body is chronic. Multilevel predominant mild degenerative spondylosis and more advanced facet joint osteoarthritis. Negative for spondylolisthesis at any level. Unremarkable paraspinal soft tissue contours. IMPRESSION: Subacute mild superior endplate osteoporotic fracture of L3. The fracture is new compared with the October 30, 2017 CT.
[2018-01-21] MEDS ORDERED: HYDROcodone/ACETAMIN 5-325 MG* 1 TAB PO ONE (13:53)
[2018-01-21 14:35] VITALS: BP 147/88
--- NOTE | 2018-01-21 14:40 | RAD ---
HISTORY: Compression fracture of L3, low back pain COMPARISONS: January 21, 2018, October 30, 2017 TECHNIQUE: Multiple contiguous axial CT scans were obtained of the lumbar spine without intravenous contrast, with coronal and sagittal multiplanar reformations. FINDINGS: SPINAL CANAL: Evaluation of the central canal is limited on CT technique; however, there is no obvious canalicular mass or epidural hemorrhage. ALIGNMENT: The alignment is normal. VERTEBRAL BODIES: There is mild patient of the superior endplate of L3, without significant osseous central pulse. This is new compared to November 18, 2017, corresponds to the finding noted on plain radiograph. JOINTS: There is facet osteoarthritis most pronounced along the lower lumbar spine. MUSCULATURE: Unremarkable INTERVERTEBRAL DISCS: There is mild diffuse loss of intervertebral disc height throughout the spine. AXIAL IMAGES: T12-L1: There is no osseous neural foraminal narrowing or central canal stenosis. L1-L2: There is no osseous neural foraminal narrowing or central canal stenosis. L2-L3: There is bilateral facet hypertrophy. There is no significant neural foraminal narrowing or central canal stenosis. L3-L4: There is bilateral facet hypertrophy. There is no significant neural foraminal narrowing or central canal stenosis. L4-L5: There is bilateral facet hypertrophy. There is no significant neural foraminal narrowing or central canal stenosis. L5-S1: There is bilateral facet hypertrophy. There is no significant neural foraminal narrowing or central canal stenosis. SOFT TISSUES: The visualized soft tissues of the abdomen are unremarkable. OTHER: None IMPRESSION: 1. SUBACUTE COMPRESSION FRACTURE OF L3 WITH WITHOUT SIGNIFICANT OSSEOUS RETROPULSION. 2. FACET OSTEOARTHRITIS WITH MILD DEGENERATIVE DISC DISEASE. 3. THERE IS NO SIGNIFICANT OSSEOUS NEURAL FORAMINAL NARROWING OR CENTRAL CANAL STENOSIS.
== END 2018-01-21 15:12 | disposition home or self-care (01) ==
LOC: UCEAST 12:05
DX: M54.5 Low back pain (principal); S32.030A Wedge compression fracture of third lumbar vertebra, initial encounter for closed fracture; X58.XXXA Exposure to other specified factors, initial encounter; Y93.89 Activity, other specified; Y92.9 Unspecified place or not applicable; M47.816 Spondylosis without myelopathy or radiculopathy, lumbar region; M51.36 Other intervertebral disc degeneration, lumbar region; J45.909 Unspecified asthma, uncomplicated; K59.00 Constipation, unspecified; Z88.2 Allergy status to sulfonamides; Z88.8 Allergy status to other drugs, medicaments and biological substances; Z88.6 Allergy status to analgesic agent; Z88.1 Allergy status to other antibiotic agents; Z91.040 Latex allergy status
CPT/HCPCS: 72110; 72131; 99212; G0463

== ENCOUNTER 2018-02-04 18:09 | Emergency (ER) | payer MEDICARE, MEDICAID ==
[2018-02-04 18:29] VITALS: BP 140/79
--- NOTE | 2018-02-04 19:06 | UC ---
Back Pain HPI - HPI Summary HPI Summary: PATIENT SEEN HERE ON 01/21/18 AND DIAGNOSED WITH A LUMBAR COMPRESSION FRACTURE. WAS GIVEN VICODIN AT THE TIME AND 6 DAYS AGO FILLED A PRESCRIPTION FOR 180 TRAMADOL PER HER PCP. PATIENT REPORTS SHE HAS PERSISTENT PAIN AND IS HERE REQUESTING FURTHER NARCOTIC MEDICATION. - History of Current Complaint Chief Complaint: UCBackPain Stated Complaint: BACK PAIN Time Seen by Provider: 02/04/18 18:30 Hx Obtained From: Patient Hx Last Menstrual Period: post Onset/Duration: Sudden Onset, Lasting Weeks, Still Present Timing: Constant Severity Initially: Moderate Severity Currently: Moderate Pain Intensity: 8 Pain Scale Used: 0-10 Numeric Character: Sharp Aggravating Factor(s): Movement Alleviating Factor(s): Rest Associated Signs And Symptoms: Positive: Negative - Allergies/Home Medications Allergies/Adverse Reactions: Allergies Allergy/AdvReac Type Severity Reaction Status Date / Time prednisone Allergy Severe n/v Verified 02/04/18 18:31 aripiprazole [From Abilify] Allergy See Comment Verified 02/04/18 18:31 aspirin Allergy See Comment Verified 02/04/18 18:31 ciprofloxacin [From Cipro] Allergy Diarrhea Verified 02/04/18 18:31 clindamycin Allergy Diarrhea Verified 02/04/18 18:31 diphenhydramine Allergy See Comment Verified 02/04/18 18:31 [From Benadryl] divalproex sodium Allergy See Comment Verified 02/04/18 18:31 [From Depakote] duloxetine [From Cymbalta] Allergy See Comment Verified 02/04/18 18:31 erythromycin base Allergy Diarrhea Verified 02/04/18 18:31 latex Allergy Rash Verified 02/04/18 18:31 NSAIDS (Non-Steroidal Allergy See Comment Verified 02/04/18 18:31 Anti-Inflamma omeprazole [From Prilosec] Allergy See Comment Verified 02/04/18 18:31 prochlorperazine Allergy See Comment Verified 02/04/18 18:31 [From Compazine] quetiapine [From Seroquel] Allergy See Comment Verified 02/04/18 18:31 sucralfate [From Carafate] Allergy See Comment Verified 02/04/18 18:31 Sulfa (Sulfonamide Allergy GI Upset Verified 02/04/18 18:31 Antibiotics) sumatriptan [From Imitrex] Allergy See Comment Verified 02/04/18 18:31 trazodone Allergy Nausea Verified 02/04/18 18:31 PMH/Surg Hx/FS Hx/Imm Hx - Additional Past Medical History Additional PMH: Chronic back pain Respiratory History: COPD, Asthma Other History Of: Negative For: HIV, Hepatitis B, Hepatitis C, Anticoagulant Therapy - Surgical History Surgical History: Yes Surgery Procedure, Year, and Place: total hysterectomy with oophorectomy 1996; SINUSES Xs2; BLADDER- CYSTOCELE AND RECTOCELE (NO METAL)/ 12/08;. LEFT ANKLE FX - Family History Known Family History: Positive: Cardiac Disease, Hypertension, Other - arthritis Negative: Diabetes Family History: arthritis - Social History Alcohol Use: None Substance Use Type: Prescribed Substance Use Comment - Amount & Last Used: colonpin Smoking Status (MU): Never Smoked Tobacco Have You Smoked in the Last Year: No - Immunization History Most Recent Influenza Vaccination: may 2017 Most Recent Tetanus Shot: WITHIN PAST 5 YRS Most Recent Pneumonia Vaccination: 2012 Review of Systems Constitutional: Negative Skin: Negative Respiratory: Negative Cardiovascular: Negative Gastrointestinal: Negative Musculoskeletal: Arthralgia, Decreased ROM, Myalgia All Other Systems Reviewed And Are Negative: Yes Physical Exam Triage Information Reviewed: Yes Appearance: Well-Appearing, No Pain Distress, Well-Nourished Vital Signs: Initial Vital Signs Temp 98.0 F 02/04/18 18:23 Pulse 69 02/04/18 18:23 Resp 16 02/04/18 18:23 BP 140/79 02/04/18 18:23 Pulse Ox 98 02/04/18 18:23 Vital Signs Reviewed: Yes Eyes: Positive: Conjunctiva Clear ENT: Positive: Hearing grossly normal Neck: Positive: Supple Respiratory: Positive: No respiratory distress, No accessory muscle use Cardiovascular: Positive: Pulses Normal Musculoskeletal: Positive: No Edema, ROM Limited @ - Back Neurological: Positive: Alert Psychological: Positive: Age Appropriate Behavior Skin: Negative: rashes Back Pain Course/Dx - Course Course Of Treatment: PATIENT HERE REQUESTING NARCOTIC PAIN MEDICATION FOR A COMPRESSION FRACTURE DIAGNOSED 01/21/18. SHE WAS GIVEN VICODIN AT THAT TIME AND ON 01/29/18 (6 DAYS AGO) SHE FILLED A PRESCRIPTION FOR 180 TRAMADOL. PATIENT REPORTS THE TRAMADOL IS NOT HELPING HER DISCOMFORT. I ADVISED THE PATIENT TO FOLLOW-UP WITH HER PCP OR WITH HER NEUROSURGEON FOR FURTHER PAIN MANAGEMENT. IT SHOULD BE NOTED THAT THE PATIENT WAS AMBULATING AND MOVING AROUND WITH NO APPARENT DISCOMFORT. SITTING DOWN AND GETTING UP OUT OF THE CHAIR WITHOUT ANY EFFORT OR CHANGES IN FACIAL EXPRESSION. - Differential Dx/Diagnosis Provider Diagnoses: LOW BACK PAIN DUE TO COMPRESSION FX Discharge - Sign-Out/Discharge Documenting (check all that apply): Discharge/Admit/Transfer - Discharge Plan Condition: Stable Disposition: HOME Patient Education Materials: Vertebral Compression Fracture (ED) Referrals: Christopher Kim MD [Primary Care Provider] - 1 Day Additional Instructions: GIVEN YOUR CHRONIC PAIN MANAGEMENT PER YOUR PRIMARY CARE PHYSICIAN IT IS MORE APPROPRIATE FOR YOU TO DISCUSS CHANGING YOUR MEDICAL MANAGEMENT WITH YOUR CURRENT PRESCRIBER. RECOMMEND FOLLOWING UP WITH DR. KIM OR WITH NEUROSURGERY FOR YOUR PERSISTENT PAIN. - Billing Disposition and Condition Condition: STABLE Disposition: HOME
== END 2018-02-04 18:45 | disposition home or self-care (01) ==
LOC: UCEAST 18:09
DX: S32.000D Wedge compression fracture of unspecified lumbar vertebra, subsequent encounter for fracture with routine healing (principal); X58.XXXD Exposure to other specified factors, subsequent encounter; J44.9 Chronic obstructive pulmonary disease, unspecified; Z88.2 Allergy status to sulfonamides; Z88.8 Allergy status to other drugs, medicaments and biological substances; Z88.6 Allergy status to analgesic agent; Z88.1 Allergy status to other antibiotic agents; Z91.040 Latex allergy status
CPT/HCPCS: 99211; G0463

== ENCOUNTER 2018-03-11 13:59 | Emergency (ER) | payer MEDICARE, MEDICAID ==
[2018-03-11 14:28] VITALS: BP 134/89
--- NOTE | 2018-03-11 15:25 | UC ---
Respiratory Complaint HPI - HPI Summary HPI Summary: 67 y/o female presents to the urgent care c/o c/o headache, sinus congestion, chest congestion with coughing for the past 5-6 days. - History of Current Complaint Chief Complaint: UCRespiratory Stated Complaint: HEADACHE CONGESTION COUGH Time Seen by Provider: 03/11/18 15:23 Hx Obtained From: Patient Hx Last Menstrual Period: post Pain Intensity: 6 - Allergies/Home Medications Allergies/Adverse Reactions: Allergies Allergy/AdvReac Type Severity Reaction Status Date / Time prednisone Allergy Severe n/v Verified 03/11/18 14:29 aripiprazole [From Abilify] Allergy See Comment Verified 03/11/18 14:29 aspirin Allergy See Comment Verified 03/11/18 14:29 ciprofloxacin [From Cipro] Allergy Diarrhea Verified 03/11/18 14:29 clindamycin Allergy Diarrhea Verified 03/11/18 14:29 diphenhydramine Allergy See Comment Verified 03/11/18 14:29 [From Benadryl] divalproex sodium Allergy See Comment Verified 03/11/18 14:29 [From Depakote] duloxetine [From Cymbalta] Allergy See Comment Verified 03/11/18 14:29 erythromycin base Allergy Diarrhea Verified 03/11/18 14:29 latex Allergy Rash Verified 03/11/18 14:29 NSAIDS (Non-Steroidal Allergy See Comment Verified 03/11/18 14:29 Anti-Inflamma omeprazole [From Prilosec] Allergy See Comment Verified 03/11/18 14:29 prochlorperazine Allergy See Comment Verified 03/11/18 14:29 [From Compazine] quetiapine [From Seroquel] Allergy See Comment Verified 03/11/18 14:29 sucralfate [From Carafate] Allergy See Comment Verified 03/11/18 14:29 Sulfa (Sulfonamide Allergy GI Upset Verified 03/11/18 14:29 Antibiotics) sumatriptan [From Imitrex] Allergy See Comment Verified 03/11/18 14:29 trazodone Allergy Nausea Verified 03/11/18 14:29 PMH/Surg Hx/FS Hx/Imm Hx Other History Of: Negative For: HIV, Hepatitis B, Hepatitis C, Anticoagulant Therapy - Surgical History Surgical History: Yes Surgery Procedure, Year, and Place: total hysterectomy with oophorectomy 1996; SINUSES Xs2; BLADDER- CYSTOCELE AND RECTOCELE (NO METAL)/ 12/08;. LEFT ANKLE FX - Family History Known Family History: Positive: Cardiac Disease, Hypertension, Other - arthritis Negative: Diabetes Family History: arthritis - Social History Alcohol Use: None Substance Use Type: Prescribed Substance Use Comment - Amount & Last Used: colonpin Smoking Status (MU): Never Smoked Tobacco Have You Smoked in the Last Year: No - Immunization History Most Recent Influenza Vaccination: may 2017 Most Recent Tetanus Shot: WITHIN PAST 5 YRS Most Recent Pneumonia Vaccination: 2012 Physical Exam Vital Signs: Initial Vital Signs Temp 97.4 F 03/11/18 14:23 Pulse 76 03/11/18 14:23 Resp 17 03/11/18 14:23 BP 134/89 03/11/18 14:23 Pulse Ox 96 03/11/18 14:23 Diagnostic Evaluation - Laboratory O2 Sat by Pulse Oximetry: 96 Respiratory Course/Dx - Differential Dx/Diagnosis Provider Diagnoses: 1- Acute bacterial sinusitis. 2-Cough Discharge - Discharge Plan Condition: Stable Disposition: HOME Prescriptions: Azithromyxin KIM (NF) [Z-Kim (Zithromax) 250 mg tabs #6] 2 tab PO .TODAY, THEN 1 DAILY #6 tab Benzonatate CAP* [Tessalon 100 MG CAP*] 100 mg PO TID #21 cap Patient Education Materials: Sinusitis (ED) Referrals: Christopher Kam MD [Primary Care Provider] - 2 Days Additional Instructions: 1- Please increase fluid intake and rest. take full course of antibiotic to avoid resistance 2-Use saline drops to clear sinuses 3-continue taking r Claritin PO to alleviates sinus congestion 4- Take Tessalon tabs PO tp alleviate cough, Increase fluid intake 4-Return to the clinic or PCP 2-3 days if symptoms do not improve for further management and treatment - Billing Disposition and Condition Condition: STABLE Disposition: Home
== END 2018-03-11 16:25 | disposition home or self-care (01) ==
LOC: UCEAST 13:59
DX: J01.90 Acute sinusitis, unspecified (principal); B96.89 Other specified bacterial agents as the cause of diseases classified elsewhere; R05 Cough; Z88.6 Allergy status to analgesic agent; Z88.3 Allergy status to other anti-infective agents; Z88.5 Allergy status to narcotic agent; Z88.2 Allergy status to sulfonamides
CPT/HCPCS: 99212; G0463

== ENCOUNTER 2018-04-26 04:55 | Emergency (ER) | payer MEDICARE, MEDICAID ==
[2018-04-26] MEDS ORDERED: diPHENhydraMINE IV* 50 MG/ML 1 ml VIAL (BENADRYL) IV ONE (04:58)
[2018-04-26] MEDS ORDERED: Ketorolac INJ* 30 MG/ML 1 ML VIAL IV PUSH ONE (04:58)
[2018-04-26] MEDS ORDERED: Metoclopramide IV* 5 MG/ML 2 ML VIAL IV ONE (05:00)
--- NOTE | 2018-04-26 05:07 | ED ---
Headache - HPI Summary HPI Summary: This is keron De Dios documenting for attending Dr. Wai Banks MD. The patient is a 68 y/o F presenting to [facility] c/o left ocular migraine and vomting starting the morning of 04/24. She has hx of these headaches since she was 24 years old. She took Tylenol to mildly relieve the pain. She denies visual changes. She has hx of a compression fracture in her spine. - History Of Current Complaint Stated Complaint: MIGRAINE Hx Obtained From: Patient Hx Last Menstrual Period: post Onset/Duration: Sudden Onset, Still Present Currently Pain Is: Moderate Character: Throbbing Location of Headache: Other: - left ocular Aggravating Factor: Nothing Allevating Factors: Nothing Associated Signs And Symptoms: Negative - visual changes, vomiting Head: 1 - left ocular headache - Allergies/Home Medications Allergies/Adverse Reactions: Allergies Allergy/AdvReac Type Severity Reaction Status Date / Time prednisone Allergy Severe n/v Verified 03/11/18 14:29 aripiprazole [From Abilify] Allergy See Comment Verified 03/11/18 14:29 aspirin Allergy See Comment Verified 03/11/18 14:29 ciprofloxacin [From Cipro] Allergy Diarrhea Verified 03/11/18 14:29 clindamycin Allergy Diarrhea Verified 03/11/18 14:29 diphenhydramine Allergy See Comment Verified 03/11/18 14:29 [From Benadryl] divalproex sodium Allergy See Comment Verified 03/11/18 14:29 [From Depakote] duloxetine [From Cymbalta] Allergy See Comment Verified 03/11/18 14:29 erythromycin base Allergy Diarrhea Verified 03/11/18 14:29 latex Allergy Rash Verified 03/11/18 14:29 NSAIDS (Non-Steroidal Allergy See Comment Verified 03/11/18 14:29 Anti-Inflamma omeprazole [From Prilosec] Allergy See Comment Verified 03/11/18 14:29 prochlorperazine Allergy See Comment Verified 03/11/18 14:29 [From Compazine] quetiapine [From Seroquel] Allergy See Comment Verified 03/11/18 14:29 sucralfate [From Carafate] Allergy See Comment Verified 03/11/18 14:29 Sulfa (Sulfonamide Allergy GI Upset Verified 03/11/18 14:29 Antibiotics) sumatriptan [From Imitrex] Allergy See Comment Verified 03/11/18 14:29 trazodone Allergy Nausea Verified 03/11/18 14:29 PMH/Surg Hx/FS Hx/Imm Hx Endocrine/Hematology History: Denies: Hx Anticoagulant Therapy, Hx Diabetes, Hx Thyroid Disease, Other Endocrine/Hematological Disorders Cardiovascular History: Reports: Hx Angina Denies: Hx Congestive Heart Failure, Hx Coronary Artery Disease, Hx Deep Vein Thrombosis, Hx Hypercholesterolemia, Hx Hypertension, Hx Myocardial Infarction, Hx Pacemaker/ICD, Hx Valvular Heart Disease, Other Cardiovascular Problems/Disorders Respiratory History: Reports: Hx Asthma, Hx Chronic Obstructive Pulmonary Disease (COPD), Hx Pneumonia, Other Respiratory Problems/Disorders - PNUEMONIA Denies: Hx Lung Cancer, Hx Pulmonary Embolism GI History: Reports: Hx Gastroesophageal Reflux Disease, Hx Irritable Bowel, Other GI Disorders - IBS Denies: Hx Gall Bladder Disease, Hx Gastrointestinal Bleed, Hx Ulcer, Hx Urosepsis History: Denies: Hx Kidney Stones, Hx Renal Disease, Other Problems/Disorders Musculoskeletal History: Reports: Hx Arthritis - Pt. states "everywhere", Hx Rheumatoid Arthritis, Hx Back Problems, Hx Osteoporosis Denies: Hx Scoliosis, Other Musculoskeletal History Sensory History: Reports: Hx Cataracts, Hx Contacts or Glasses, Hx Vision Problem - cataracts Denies: Hx Hearing Aid, Other Sensory Impairments Opthamlomology History: Reports: Hx Cataracts, Hx Contacts or Glasses, Hx Vision Problem - cataracts Denies: Other Sensory Impairments Neurological History: Reports: Hx Headaches, Hx Migraine Denies: Hx Dementia, Hx Seizures, Hx Transient Ischemic Attacks (TIA), Other Neuro Impairments/Disorders Psychiatric History: Reports: Hx Anxiety, Hx Depression, Hx Post Traumatic Stress Disorder, Hx Inpatient Treatment, Hx Community Mental Health Tx, Hx Suicide Attempt, Hx Substance Abuse Denies: Hx Eating Disorder, Hx Panic Disorder, Hx Schizophrenia, Hx Bipolar Disorder, Other Psychiatric Issues/Disorders - Cancer History Cancer Type, Location and Year: Family history Hx Chemotherapy: No Hx Radiation Therapy: No - Surgical History Surgery Procedure, Year, and Place: total hysterectomy with oophorectomy 1996; SINUSES Xs2; BLADDER- CYSTOCELE AND RECTOCELE (NO METAL)/ 12/08;. LEFT ANKLE FX Hx Anesthesia Reactions: No - Immunization History Date of Tetanus Vaccine: utd Date of Influenza Vaccine: 05/2017 Infectious Disease History: Denies: Hx Clostridium Difficile, Hx Hepatitis, Hx Human Immunodeficiency Virus (HIV), Hx of Known/Suspected MRSA, Hx Shingles, Hx Tuberculosis, Hx Known/ Suspected VRE, Hx Known/Suspected VRSA, History Other Infectious Disease - Family History Known Family History: Positive: Cardiac Disease, Hypertension, Other - arthritis Negative: Diabetes Family History: arthritis - Social History Alcohol Use: None Hx Substance Use: Yes Substance Use Type: Reports: Prescribed Substance Use Comment - Amount & Last Used: colonpin Hx Tobacco Use: No Smoking Status (MU): Never Smoked Tobacco Have You Smoked in the Last Year: No Review of Systems Eyes: Negative - visual changes Positive: Vomiting Positive: Headache All Other Systems Reviewed And Are Negative: Yes Physical Exam - Summary Physical Exam Summary: Appearance: Well-appearing, Well-nourished, lying in bed comfortably with mild distress Skin: Warm, dry, no obvious rash Eyes: sclera anicteric, no conjunctival pallor ENT: mucous membranes moist, pharynx appears normal Neck: Supple, nontender Respiratory: Clear to auscultation, no signs of respiratory distress Cardiovascular: Normal S1, S2. No murmurs. Normal distal pulses in tibial and radial bilaterally. Abdomen: Soft, nontender, normal active bowel sounds present Musculoskeletal: Normal, Strength/ROM Intact Neurological: A&Ox3, awake and alert, mentation is normal, speech is fluent and appropriate Psychiatric: affect is normal, does not appear anxious or depressed Triage Information Reviewed: Yes Vital Signs Reviewed: Yes Headache Course/Dx - Course Assessment/Plan: This is a 68-year-old woman with long history of "migraine" headaches as well as a number of other coexisting medical diseases, including apparently some type of cardiac issue, borderline personality disorder, irritable bowel syndrome and compression fracture of her spine. She has a number of allergies of somewhat questionable nature, for instance she has a history in the computer of an allergy to NSAIDs consisting of trouble with her IBS. She is really refusing a more standard medications used for migraine and particular Toradol, Benadryl, or Compazine. This is due to a somewhat spotty history of adverse reactions. Given her psychiatric history chronic nature of her condition, and the general contraindication of opioids for treatment of migraine, I will not be prescribing ordering opioids here. We will try another Fioricet. She also is "allergic" to steroids, so I am unable to prescribe Decadron to try to prevent rebound phenomena. Discharge - Sign-Out/Discharge Documenting (check all that apply): Sign-Out Patient Signing out patient TO: Ruben Alexis - Patient is a signout at shift change pending disposition. - Discharge Plan Referrals: Christopher Kam MD [Primary Care Provider] -
[2018-04-26] MEDS ORDERED: hydrOXYzine HCL TAB* 50 MG PO ONE (05:25)
[2018-04-26] MEDS ORDERED: Butalb/Acetamin/Caff TAB* 1 TAB PO ONE ×2 (05:25→06:00)
[2018-04-26] MEDS: NS 0.9% 1000 ML* 3,000 ML IV ONE ×2 (05:40→07:35)
--- NOTE | 2018-04-26 08:34 | ED ---
Progress - Progress Note Progress Note: Pt was signed out by Dr. Banks. Pt is awaiting a MHE due to chronic insomnia. Pt is feeling better and would like to go home. Pt will schedule an appointment with a psychiatrist and her PCP after discharge. Re-Evaluation - Re-Evaluation First Eval Re-Evaluation Time: 09:40 Change: Improved Comment: Pt's head feels better and she wants to go home. She says her main concern is the insomnia. She plans to see a psychiatrist after discharge. Course/Dx - Course Course Of Treatment: Prescribed Atarax for sleeping. Pt is planning to follow up with a psychiatrist as well as her PCP. - Diagnoses Provider Diagnoses: Anxiety, Insomnia, Headache Discharge - Sign-Out/Discharge Documenting (check all that apply): Patient Departure, Receiving Sign-Out Receiving patient FROM: Wai Banks - Discharge Plan Condition: Stable Disposition: HOME Prescriptions: hydrOXYzine HCL TAB* [Atarax TAB 50 MG *] 50 mg PO BEDTIME PRN #14 tab PRN Reason: Pain - Moderate To Severe Patient Education Materials: Insomnia (ED) Referrals: Christopher Kam MD [Primary Care Provider] - 2 Days
[2018-04-26 10:01] VITALS: BP 135/76
== END 2018-04-26 10:01 | disposition home or self-care (01) ==
LOC: ED 04:55
DX: F41.9 Anxiety disorder, unspecified (principal); G47.00 Insomnia, unspecified; R51 Headache; R11.10 Vomiting, unspecified
CPT/HCPCS: 96374; 96375; 99282; A9270-GY; J1885; J2765

== ENCOUNTER 2018-05-06 06:34 | Day surgery (SDC) | payer MEDICARE, MEDICAID ==
[~2018-05-06 06:34] MED LIST changes: +Acetaminophen TAB* 325 MG PO PRN; +Buffered Lidocaine 0.9% SYRIN* 5 ML/SYR SYRINGE INTRADERM ONE; -NS 0.9% 500 ML* 500 ML IV ONE; -traMADol TAB* 50 MG PO ONE
[2018-05-06] MEDS ORDERED: Midazolam* 1 MG/ML 5 ML VIAL (5 MG) ONE (07:36)
[2018-05-06] MEDS ORDERED: fentaNYL* 50 MCG/ML 2 ML VIAL (100 MCG VIAL) ONE (07:45)
[2018-05-06] MEDS ORDERED: Midazolam* 1 MG/ML 2 ML VIAL (2 MG) ONE (08:07)
[2018-05-06 08:25] VITALS: BP 106/65
--- NOTE | 2018-05-06 12:03 | OP ---
OPERATIVE NOTE: DATE OF OPERATION: 05/06/18 DATE OF : 50 SURGEON: Toan Robins M.D. PREOPERATIVE DIAGNOSIS: Cataract, right eye. POSTOPERATIVE DIAGNOSIS: Cataract, right eye. OPERATIVE PROCEDURE: Extracapsular cataract extraction with intraocular lens implant, right eye. PROCEDURE: The patient was brought to the operating room after being given 1/2% Alcaine with epineph rine drops in the preoperative area. The eye was prepped and draped in the usual sterile fashion. S terile drape and eyelid speculum were placed. Again, topical 1/2% Alcaine with epinephrine was given . A paracentesis incision was made at the 9 o'clock position with the No.75 blade. Clear cornea inc ision 2.2 x 2.2-mm was created at the 12 o'clock position starting at the anterior limbus using the 2 .2-mm keratome. The anterior chamber was irrigated with 0.4 mL of 1% non-preservative intracameral l idocaine and filled with DisCoVisc. A capsulorrhexis was completed using the cystotome and the Utrat a forceps. Hydrodissection was performed with balanced salt solution. The lens nucleus was removed w ith the Phacoemulsification handpiece without incident. Cortex was removed with the irrigation-aspir ation handpiece. The capsular bag was re-inflated using DisCoVisc and an [id number] 16.5 implant was ins erted with the shooter. The irrigation-aspiration handpiece was used to remove all residual DisCoVis c. The eye was refilled with balanced salt solution and the wound checked and found to be watertight . Topical Maxitrol drops were given. [id number]/[facility] #: [id number]
[2018-05-06] MEDS ORDERED: Proparacaine 0.5% OPHTH.SOL* 15 ML BTL ONE (14:44)
[2018-05-06] MEDS ORDERED: Phenylephrine 2.5% OPTH.SOL* 2 ML BTL ONE (14:44)
[2018-05-06] MEDS ORDERED: Neomycin/Polymy/Dex OPTH.SUSP* MAXITROL 0.1% 5 ML ONE (14:44)
[2018-05-06] MEDS ORDERED: acetaZOLAMIDE TAB* 250 MG ONE (14:44)
[2018-05-06] MEDS ORDERED: Ketorolac 0.5% OPHTH (NF) 0.5 % 5 ML BTL ONE (14:44)
[2018-05-06] MEDS ORDERED: Lidocaine 1%* 5 ML VIAL ONE (14:44)
[2018-05-06] MEDS ORDERED: Cyclopentolate 1% OPTH.SOL* 2 ML BTL ONE (14:44)
[2018-05-06] MEDS ORDERED: Povidone Iodine 5% OPTH* 30 ML BTL ONE (14:44)
[2018-05-06] MEDS ORDERED: Lidocaine 2% EPI 1:200000 MPF*10-20 ML VIAL ONE (14:44)
== END 2018-07-08 10:34 | disposition home or self-care (01) ==
LOC: OREAST 06:34
PROVIDERS: ATTEND Specialist
DX: H25.811 Combined forms of age-related cataract, right eye (principal); G43.809 Other migraine, not intractable, without status migrainosus; Z88.0 Allergy status to penicillin; Z88.8 Allergy status to other drugs, medicaments and biological substances; M81.0 Age-related osteoporosis without current pathological fracture; E78.2 Mixed hyperlipidemia; J45.909 Unspecified asthma, uncomplicated; F43.10 Post-traumatic stress disorder, unspecified; F41.9 Anxiety disorder, unspecified
CPT/HCPCS: A9270-GY; J2250; J3010; V2632

== ENCOUNTER → 2018-07-08 07:55 | Day surgery (SDC) | payer MEDICARE, MEDICAID ==
[~2018-07-08 07:55] MED LIST changes: +Cyclopentolate 1% OPTH.SOL* 2 ML BTL ONE; +Ketorolac 0.5% OPHTH (NF) 0.5 % 5 ML BTL ONE; +Lidocaine 1%* 5 ML VIAL ONE; +Lidocaine 2% EPI 1:200000 MPF*10-20 ML VIAL ONE; +Midazolam* 1 MG/ML 2 ML VIAL (2 MG) ONE; +Neomycin/Polymy/Dex OPTH.SUSP* MAXITROL 0.1% 5 ML ONE; +Phenylephrine 2.5% OPTH.SOL* 2 ML BTL ONE; +Povidone Iodine 5% OPTH* 30 ML BTL ONE; +Proparacaine 0.5% OPHTH.SOL* 15 ML BTL ONE; +fentaNYL* 50 MCG/ML 2 ML VIAL (100 MCG VIAL) ONE
[2018-07-08 10:36] VITALS: BP 107/69
--- NOTE | 2018-07-08 12:16 | OP ---
DATE OF OPERATION: 07/08/2018. DATE OF : 1950. SURGEON: Toan Robins M.D. PREOPERATIVE DIAGNOSIS: Cataract left eye. POSTOPERATIVE DIAGNOSIS: Cataract left eye. OPERATIVE PROCEDURE: Extracapsular cataract extraction with intraocular lens implant left eye. PROCEDURE: The patient was brought to the operating room after being given 1/2% Alcaine with epineph rine drops in the preoperative area. The eye was prepped and draped in the usual sterile fashion. S terile drape and eyelid speculum were placed. Again, topical 1/2% Alcaine with epinephrine was given . A paracentesis incision was made at the 3 o'clock position with the No.75 blade. Clear cornea inc ision 2.2 x 2.2-mm was created at the 6 o'clock position starting at the anterior limbus using the 2. 2-mm keratome. The anterior chamber was irrigated with 0.4 mL of 1% non-preservative intracameral li docaine and filled with DisCoVisc. A capsulorrhexis was completed using the cystotome and the Utrata forceps. Hydrodissection was performed with balanced salt solution. The lens nucleus was removed wi th the Phacoemulsification handpiece without incident. Cortex was removed with the irrigation-aspira tion handpiece. The capsular bag was re-inflated using DisCoVisc and an [id number] implant was insert ed with the shooter. The irrigation-aspiration handpiece was used to remove all residual DisCoVisc. The eye was refilled with balanced salt solution and the wound checked and found to be watertight. Topical Maxitrol drops were given. [id number]/[facility] #: [id number]
== END | disposition home or self-care (01) ==
LOC: OREAST 07:55
PROVIDERS: ATTEND Specialist
DX: H25.812 Combined forms of age-related cataract, left eye (principal); I10 Essential (primary) hypertension; J45.909 Unspecified asthma, uncomplicated; K21.9 Gastro-esophageal reflux disease without esophagitis; G47.33 Obstructive sleep apnea (adult) (pediatric); M19.90 Unspecified osteoarthritis, unspecified site; F11.21 Opioid dependence, in remission; F43.10 Post-traumatic stress disorder, unspecified
CPT/HCPCS: A9270-GY; J2250; J3010; V2632

== ENCOUNTER 2018-08-28 17:32 | Emergency (ER) | payer MEDICARE, MEDICAID ==
[2018-08-28 18:19] VITALS: BP 141/76
--- NOTE | 2018-08-28 20:16 | UC ---
Lower Extremity/Ankle HPI - HPI Summary HPI Summary: Was cleaning her room yesterday when she caught her right second toe on an extension cord. Has swelling and bruising and pain. - History of Current Complaint Chief Complaint: UCLowerExtremity Stated Complaint: toe INJURY Time Seen by Provider: 08/28/18 19:30 Hx Obtained From: Patient Hx Last Menstrual Period: post Onset/Duration: Sudden Onset, Lasting Days - 1 DAY, Still Present Severity Initially: Moderate Severity Currently: Moderate Pain Intensity: 7 Pain Scale Used: 0-10 Numeric Aggravating Factor(s): Standing, Ambulation Alleviating Factor(s): Rest, Elevation Able to Bear Weight: Yes - WITH PAIN - Allergies/Home Medications Allergies/Adverse Reactions: Allergies Allergy/AdvReac Type Severity Reaction Status Date / Time diphenhydramine Allergy Severe See Comment Verified 08/28/18 18:19 [From Benadryl] latex Allergy Severe severe Verified 08/28/18 18:19 hives, skin feels like it burning aspirin AdvReac Severe See Comment Verified 08/28/18 18:19 ciprofloxacin [From Cipro] AdvReac Severe Diarrhea, Verified 08/28/18 18:19 stomach ache clindamycin AdvReac Severe Diarrhea Verified 08/28/18 18:19 divalproex sodium AdvReac Severe See Comment Verified 08/28/18 18:19 [From Depakote] duloxetine [From Cymbalta] AdvReac Severe See Comment Verified 08/28/18 18:19 erythromycin base AdvReac Severe Diarrhea, Verified 08/28/18 18:19 gi prednisone AdvReac Severe n/v Verified 08/28/18 18:19 prochlorperazine AdvReac Severe See Comment Verified 08/28/18 18:19 [From Compazine] quetiapine [From Seroquel] AdvReac Severe See Comment Verified 08/28/18 18:19 sucralfate [From Carafate] AdvReac Severe See Comment Verified 08/28/18 18:19 Sulfa (Sulfonamide AdvReac Severe GI Upset Verified 08/28/18 18:19 Antibiotics) sumatriptan [From Imitrex] AdvReac Severe See Comment Verified 08/28/18 18:19 trazodone AdvReac Severe Nausea Verified 08/28/18 18:19 aripiprazole [From Abilify] AdvReac Intermediate See Comment Verified 08/28/18 18:19 NSAIDS (Non-Steroidal AdvReac Intermediate See Comment Verified 08/28/18 18:19 Anti-Inflamma omeprazole [From Prilosec] AdvReac Intermediate See Comment Verified 08/28/18 18 :19 PMH/Surg Hx/FS Hx/Imm Hx Respiratory History: COPD, Asthma Psychological History: Depression Other History Of: Negative For: HIV, Hepatitis B, Hepatitis C, Anticoagulant Therapy - Surgical History Surgical History: Yes Surgery Procedure, Year, and Place: total hysterectomy with oophorectomy 1996; SINUSES Xs2; BLADDER- CYSTOCELE AND RECTOCELE (NO METAL)/ 12/08; - Family History Known Family History: Positive: Cardiac Disease, Hypertension, Other - arthritis Negative: Diabetes Family History: arthritis - Social History Alcohol Use: None Substance Use Type: None Substance Use Comment - Amount & Last Used: colonpin Smoking Status (MU): Never Smoked Tobacco Have You Smoked in the Last Year: No - Immunization History Most Recent Influenza Vaccination: may 2017 Most Recent Tetanus Shot: WITHIN PAST 5 YRS Most Recent Pneumonia Vaccination: 2012 Review of Systems All Other Systems Reviewed And Are Negative: Yes Skin: Positive: Bruising Respiratory: Positive: Negative Cardiovascular: Positive: Negative Gastrointestinal: Positive: Negative Musculoskeletal: Positive: Arthralgia, Decreased ROM, Edema Physical Exam Triage Information Reviewed: Yes Appearance: Well-Appearing, No Pain Distress, Well-Nourished Vital Signs: Initial Vital Signs Temp 98 F 08/28/18 18:13 Pulse 65 08/28/18 18:13 Resp 16 08/28/18 18:13 BP 141/76 08/28/18 18:13 Pulse Ox 98 08/28/18 18:13 Vital Signs Reviewed: Yes Eyes: Positive: Conjunctiva Clear ENT: Positive: Hearing grossly normal Neck: Positive: Supple Respiratory: Positive: No respiratory distress, No accessory muscle use Cardiovascular: Positive: Pulses Normal Abdomen Description: Positive: Soft Musculoskeletal: Positive: ROM Limited @ - RIGHT FOOT TOES, Edema @ - RIGHT FOREFOOT, RIGHT 2ND TOE, Other: - TTP RIGHT 2ND TOE AND FOREFOOT Neurological: Positive: Alert Psychological: Positive: Age Appropriate Behavior Skin: Positive: Other - BRUISING RIGHT 2ND TOE Diagnostics - Radiology RIGHT FOOT XRAYS Radiology Interpretation Completed By: ED Physician Summary of Radiographic Findings: Comminuted fracture of the distal aspect of the proximal phalanx right second toe. - Radiology read pending Lower Extremity Course/Dx - Differential Dx/Diagnosis Provider Diagnosis: Fracture of second toe, right, closed Discharge - Sign-Out/Discharge Documenting (check all that apply): Patient Departure All imaging exams completed and their final reports reviewed: No - Discharge Plan Condition: Stable Disposition: HOME Patient Education Materials: Toe Fracture (ED) Referrals: Christopher Kam MD [Primary Care Provider] - If Needed Alexandria Schuster MD [Medical Doctor] - 1 Week Additional Instructions: Comminuted fracture of the right second toe. We will call you tomorrow if the radiology read differs. Keep the foot elevated and ice it several times daily. Postop shoe to help with comfort/mobility. Call orthopedics on Friday morning for a follow-up appointment within the next 1-2 weeks. - Billing Disposition and Condition Condition: STABLE Disposition: Home
== END 2018-08-28 20:25 | disposition home or self-care (01) ==
LOC: UCEAST 17:32
DX: S92.511A Displaced fracture of proximal phalanx of right lesser toe(s), initial encounter for closed fracture (principal); W23.1XXA Caught, crushed, jammed, or pinched between stationary objects, initial encounter; Y93.E9 Activity, other interior property and clothing maintenance; Y92.003 Bedroom of unspecified non-institutional (private) residence as the place of occurrence of the external cause; Z88.2 Allergy status to sulfonamides; Z88.8 Allergy status to other drugs, medicaments and biological substances; Z88.6 Allergy status to analgesic agent; Z88.1 Allergy status to other antibiotic agents; Z91.040 Latex allergy status
CPT/HCPCS: 99212; G0463

== ENCOUNTER 2018-08-31 10:43 | Emergency (ER) | payer MEDICARE, MEDICAID ==
[2018-08-31 11:15] VITALS: BP 136/91
[2018-08-31] MEDS ORDERED: HYDROcodone/ACETAMIN 5-325 MG* 1 TAB PO ONE (11:54)
--- NOTE | 2018-08-31 11:58 | UC ---
Lower Extremity/Ankle HPI - HPI Summary HPI Summary: Patient is a 68-year-old female that fractured her right second toe 4 days ago. He presents here because it is hurting more than on the day of the injury. She has not been using her postop shoe because it doesn't fit her. - History of Current Complaint Chief Complaint: UCLowerExtremity Stated Complaint: RECHECK OF FOOT INJURY Time Seen by Provider: 08/31/18 11:35 Hx Obtained From: Patient Hx Last Menstrual Period: na Onset/Duration: Sudden Onset, Lasting Days Severity Initially: Severe Severity Currently: Severe Pain Intensity: 8 Pain Scale Used: 0-10 Numeric Aggravating Factor(s): Standing, Ambulation Alleviating Factor(s): Rest, Elevation, Ice Able to Bear Weight: Yes - Allergies/Home Medications Allergies/Adverse Reactions: Allergies Allergy/AdvReac Type Severity Reaction Status Date / Time diphenhydramine Allergy Severe See Comment Verified 08/31/18 11:16 [From Benadryl] latex Allergy Severe severe Verified 08/31/18 11:16 hives, skin feels like it burning aspirin AdvReac Severe See Comment Verified 08/31/18 11:16 ciprofloxacin [From Cipro] AdvReac Severe Diarrhea, Verified 08/31/18 11:16 stomach ache clindamycin AdvReac Severe Diarrhea Verified 08/31/18 11:16 divalproex sodium AdvReac Severe See Comment Verified 08/31/18 11:16 [From Depakote] duloxetine [From Cymbalta] AdvReac Severe See Comment Verified 08/31/18 11:16 erythromycin base AdvReac Severe Diarrhea, Verified 08/31/18 11:16 gi prednisone AdvReac Severe n/v Verified 08/31/18 11:16 prochlorperazine AdvReac Severe See Comment Verified 08/31/18 11:16 [From Compazine] quetiapine [From Seroquel] AdvReac Severe See Comment Verified 08/31/18 11:16 sucralfate [From Carafate] AdvReac Severe See Comment Verified 08/31/18 11:16 Sulfa (Sulfonamide AdvReac Severe GI Upset Verified 08/31/18 11:16 Antibiotics) sumatriptan [From Imitrex] AdvReac Severe See Comment Verified 08/31/18 11:16 trazodone AdvReac Severe Nausea Verified 08/31/18 11:16 aripiprazole [From Abilify] AdvReac Intermediate See Comment Verified 08/31/18 11:16 NSAIDS (Non-Steroidal AdvReac Intermediate See Comment Verified 08/31/18 11:16 Anti-Inflamma omeprazole [From Prilosec] AdvReac Intermediate See Comment Verified 08/31/18 11 :16 PMH/Surg Hx/FS Hx/Imm Hx Previously Healthy: Yes Other History Of: Negative For: HIV, Hepatitis B, Hepatitis C, Anticoagulant Therapy - Surgical History Surgical History: Yes Surgery Procedure, Year, and Place: total hysterectomy with oophorectomy 1996; SINUSES Xs2; BLADDER- CYSTOCELE AND RECTOCELE (NO METAL)/ 12/08; - Family History Known Family History: Positive: Cardiac Disease, Hypertension, Other - arthritis Negative: Diabetes Family History: arthritis - Social History Alcohol Use: None Substance Use Type: None Substance Use Comment - Amount & Last Used: colonpin Smoking Status (MU): Never Smoked Tobacco Have You Smoked in the Last Year: No - Immunization History Most Recent Influenza Vaccination: may 2017 Most Recent Tetanus Shot: WITHIN PAST 5 YRS Most Recent Pneumonia Vaccination: 2012 Review of Systems All Other Systems Reviewed And Are Negative: Yes Constitutional: Positive: Negative Skin: Positive: Bruising Eyes: Positive: Negative ENT: Positive: Negative Respiratory: Positive: Negative Cardiovascular: Positive: Negative Gastrointestinal: Positive: Negative Genitourinary: Positive: Negative Motor: Positive: Negative Neurovascular: Positive: Negative Musculoskeletal: Positive: Arthralgia Neurological: Positive: Negative Psychological: Positive: Negative Is Patient Immunocompromised?: Yes Physical Exam Triage Information Reviewed: Yes Appearance: Well-Appearing, No Pain Distress, Well-Nourished Vital Signs: Initial Vital Signs Temp 98.7 F 08/31/18 11:10 Pulse 73 08/31/18 11:10 Resp 18 08/31/18 11:10 BP 136/91 08/31/18 11:10 Pulse Ox 98 08/31/18 11:10 Vital Signs Reviewed: Yes Eyes: Positive: Conjunctiva Clear ENT: Positive: Hearing grossly normal Neck: Positive: Supple, Nontender Respiratory: Positive: Lungs clear, Normal breath sounds, No respiratory distress, No accessory muscle use Cardiovascular: Positive: RRR, No Murmur Musculoskeletal: Positive: ROM Limited @, Edema @ Neurological: Positive: Alert Psychological Exam: Normal Skin Exam: Normal Lower Extremity Course/Dx - Differential Dx/Diagnosis Provider Diagnosis: Toe fracture, right Discharge - Sign-Out/Discharge Documenting (check all that apply): Patient Departure All imaging exams completed and their final reports reviewed: No Studies - Discharge Plan Condition: Stable Disposition: HOME Patient Education Materials: Toe Fracture (ED) Additional Instructions: see orthopedist tomorrow as planned Take norco as instructed Opioid-containing medications can cause drowsiness and sedation. You t should not drive or operate machinery or similar activities while taking this medication. Opioids can also cause a positive drug screen, and can be habit- forming. You should follow the instructions exactly and not take any extra medication. Opioid medications should be stored in a secure manner to avoid diversion or theft. You should not drink alcohol while taking these medications - Billing Disposition and Condition Condition: STABLE Disposition: Home
== END 2018-08-31 12:15 | disposition home or self-care (01) ==
LOC: UCEAST 10:43
DX: S92.501D Displaced unspecified fracture of right lesser toe(s), subsequent encounter for fracture with routine healing (principal); Z88.8 Allergy status to other drugs, medicaments and biological substances; Z88.6 Allergy status to analgesic agent; Z88.1 Allergy status to other antibiotic agents; Z88.2 Allergy status to sulfonamides
CPT/HCPCS: 99213; G0463

== ENCOUNTER 2018-09-22 14:27 | Emergency (ER) | payer MEDICARE, MEDICAID ==
[2018-09-22 14:37] VITALS: BP 155/79
[2018-09-22] MEDS ORDERED: HYDROcodone/ACETAMIN 5-325 MG* 1 TAB PO ONE ×2 (15:11→15:43)
--- NOTE | 2018-09-22 15:18 | ED ---
Lower Extremity - HPI Summary HPI Summary: Pt presents w/ Rt heel, ankle pain since wearing a CAM boot over the past 3 weeks for a toe fracture sustained by trauma. She was seen by Dr. Bentley who referred her to Dr. Benavides but she does not have an appointment until mid Sep. She has been ambulating on her heel where she is now having pain that feels like aching, burning with weight bearing. She denies new injury to the foot/ ankle and no edema or calf tenderness. Denies fever, chills, CP, SOB. - History of Current Complaint Chief Complaint: EDExtremityLower Stated Complaint: ANKLE PAIN Time Seen by Provider: 09/22/18 14:46 Hx Obtained From: Patient Hx Last Menstrual Period: na Pain Intensity: 8 - Allergies/Home Medications Allergies/Adverse Reactions: Allergies Allergy/AdvReac Type Severity Reaction Status Date / Time diphenhydramine Allergy Severe See Comment Verified 09/22/18 14:41 [From Benadryl] latex Allergy Severe severe Verified 09/22/18 14:41 hives, skin feels like it burning aspirin AdvReac Severe See Comment Verified 09/22/18 14:41 ciprofloxacin [From Cipro] AdvReac Severe Diarrhea, Verified 09/22/18 14:41 stomach ache clindamycin AdvReac Severe Diarrhea Verified 09/22/18 14:41 divalproex sodium AdvReac Severe See Comment Verified 09/22/18 14:41 [From Depakote] duloxetine [From Cymbalta] AdvReac Severe See Comment Verified 09/22/18 14:41 erythromycin base AdvReac Severe Diarrhea, Verified 09/22/18 14:41 gi prednisone AdvReac Severe n/v Verified 09/22/18 14:41 prochlorperazine AdvReac Severe See Comment Verified 09/22/18 14:41 [From Compazine] quetiapine [From Seroquel] AdvReac Severe See Comment Verified 09/22/18 14:41 sucralfate [From Carafate] AdvReac Severe See Comment Verified 09/22/18 14:41 Sulfa (Sulfonamide AdvReac Severe GI Upset Verified 09/22/18 14:41 Antibiotics) sumatriptan [From Imitrex] AdvReac Severe See Comment Verified 09/22/18 14:41 trazodone AdvReac Severe Nausea Verified 09/22/18 14:41 aripiprazole [From Abilify] AdvReac Intermediate See Comment Verified 09/22/18 14:41 NSAIDS (Non-Steroidal AdvReac Intermediate See Comment Verified 09/22/18 14:41 Anti-Inflamma omeprazole [From Prilosec] AdvReac Intermediate See Comment Verified 09/22/18 14 :41 PMH/Surg Hx/FS Hx/Imm Hx Previously Healthy: Yes Endocrine/Hematology History: Denies: Hx Anticoagulant Therapy, Hx Diabetes, Hx Thyroid Disease, Other Endocrine/Hematological Disorders Cardiovascular History: Reports: Hx Angina Denies: Hx Congestive Heart Failure, Hx Coronary Artery Disease, Hx Deep Vein Thrombosis, Hx Hypercholesterolemia, Hx Hypertension, Hx Myocardial Infarction, Hx Pacemaker/ICD, Hx Valvular Heart Disease, Other Cardiovascular Problems/Disorders Respiratory History: Reports: Hx Asthma, Hx Chronic Obstructive Pulmonary Disease (COPD), Hx Pneumonia, Hx Sleep Apnea, Other Respiratory Problems/ Disorders - PNUEMONIA Denies: Hx Lung Cancer, Hx Pulmonary Embolism GI History: Reports: Hx Gastroesophageal Reflux Disease, Hx Hiatal Hernia - under right rib cage- a hernia, Hx Irritable Bowel - diarrhea, Other GI Disorders - IBS Denies: Hx Gall Bladder Disease, Hx Gastrointestinal Bleed, Hx Ulcer, Hx Urosepsis History: Denies: Hx Kidney Stones, Hx Renal Disease, Other Problems/Disorders Musculoskeletal History: Reports: Hx Arthritis - Pt. states "everywhere", Hx Rheumatoid Arthritis, Hx Back Problems, Hx Bursitis, Hx Osteoporosis, Hx of Fracture(s) - 2nd toe, Other Musculoskeletal History - hx of compound fracture right ankle Denies: Hx Scoliosis Sensory History: Reports: Hx Cataracts - both, Hx Contacts or Glasses - glasses - reading, Hx Vision Problem - cataracts Denies: Hx Glaucoma, Hx Hearing Aid, Other Sensory Impairments Opthamlomology History: Reports: Hx Cataracts - both, Hx Contacts or Glasses - glasses - reading, Hx Vision Problem - cataracts Denies: Hx Glaucoma, Other Sensory Impairments Neurological History: Reports: Hx Headaches, Hx Migraine - ocular Denies: Hx Dementia, Hx Seizures, Hx Transient Ischemic Attacks (TIA), Other Neuro Impairments/Disorders Psychiatric History: Reports: Hx Anxiety - PTSD, Hx Depression, Hx Post Traumatic Stress Disorder, Hx Inpatient Treatment, Hx Community Mental Health Tx , Hx Suicide Attempt, Hx Substance Abuse Denies: Hx Eating Disorder, Hx Panic Disorder, Hx Schizophrenia, Hx Bipolar Disorder, Hx of Violent Episodes Against Others, Other Psychiatric Issues/ Disorders - Cancer History Cancer Type, Location and Year: Family history Hx Chemotherapy: No Hx Radiation Therapy: No - Surgical History Surgery Procedure, Year, and Place: total hysterectomy with oophorectomy 1996; SINUSES Xs2; BLADDER- CYSTOCELE AND RECTOCELE (NO METAL)/ 12/08; Hx Anesthesia Reactions: No - Immunization History Date of Tetanus Vaccine: utd Date of Influenza Vaccine: 05/2017 Infectious Disease History: No Infectious Disease History: Denies: Hx Clostridium Difficile, Hx Hepatitis, Hx Human Immunodeficiency Virus (HIV), Hx of Known/Suspected MRSA, Hx Shingles, Hx Tuberculosis, Hx Known/ Suspected VRE, Hx Known/Suspected VRSA, History Other Infectious Disease, Traveled Outside the [place] in Last 30 Days - Family History Known Family History: Positive: Cardiac Disease, Hypertension, Other - arthritis Negative: Diabetes Family History: arthritis - Social History Occupation: Retired Lives: Alone Alcohol Use: None Hx Substance Use: Yes Substance Use Type: Reports: None Substance Use Comment - Amount & Last Used: colonpin Hx Tobacco Use: No Smoking Status (MU): Never Smoked Tobacco Have You Smoked in the Last Year: No Review of Systems Constitutional: Negative Positive: no symptoms reported Musculoskeletal: Other - pain Positive: Edema - mild about the ankle Skin: Negative Neurological: Negative Psychological: Normal All Other Systems Reviewed And Are Negative: Yes Physical Exam Triage Information Reviewed: Yes Vital Signs On Initial Exam: Initial Vitals Temp Pulse Resp BP Pulse Ox 97.9 F 79 16 155/79 97 09/22/18 14:35 09/22/18 14:35 09/22/18 14:35 09/22/18 14:35 09/22/18 14:35 Vital Signs Reviewed: Yes Appearance: Positive: Well-Appearing, No Pain Distress - at rest, Well-Nourished Skin: Positive: Warm, Skin Color Reflects Adequate Perfusion, Dry - what appears to be healing erythema/ecchymosis over dorsal aspect of affected toe - mild edema - no fever to touch, no skin breakdown Head/Face: Positive: Normal Head/Face Inspection Eyes: Positive: EOMI ENT: Positive: Hearing grossly normal Respiratory/Lung Sounds: Positive: Breath Sounds Present Cardiovascular: Positive: Pulses are Symmetrical in both Upper and Lower Extremities. Negative: Leg Edema Left - (-) Matias's sign B/L, Leg Edema Right Musculoskeletal: Positive: Strength/ROM Intact - EXCEPT toes on affected foot d/ t pain, Pain @ - 2nd rt toe - achiles is NTTP and FROM w/o restriction; (-) Ornelas test Neurological: Positive: Normal, Sensory/Motor Intact, Alert, Oriented to Person Place, Time, CN Intact II-III Psychiatric: Positive: Normal - concerned but consolable Diagnostics - Vital Signs Vital Signs Temp Pulse Resp BP Pulse Ox 09/22/18 14:35 97.9 F 79 16 155/79 97 - Laboratory Lab Statement: Any lab studies that have been ordered have been reviewed, and results considered in the medical decision making process. Lower Extremity Course/Dx - Course Course Of Treatment: Reviewed pt's XR from initial injury which confirms intrarticular fx of the 2nd proximal phalange on the foot. Suspect she has an overuse/pressure injury from weight bearing with heel only over the past 3 weeks. We will try non-weight bearing via crutches and pt reports she can supplmentw ith a walker at home as well. Upper body strength adequate to accomodate such tasks and she has a friend who can help her with grocery shopping etc. Will also call Dr. Benavides's office to see about a cancellation list, etc. 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 - Diagnoses Provider Diagnoses: Right foot pain Discharge - Sign-Out/Discharge Documenting (check all that apply): Patient Departure - Discharge Plan Condition: Stable Disposition: HOME Prescriptions: HYDROcodone/ACETAMIN 5-325 MG* [[place] 5-325 TAB*] 1 tab PO Q6H PRN #12 tab MDD 4 PRN Reason: Pain Patient Education Materials: Crutch Instructions (ED), Arthralgia (ED), Tendinitis (ED) Referrals: Patrick Benavides MD [Medical Doctor] - Additional Instructions: Non-weight bearing on Left foot until seen by orthopedics - call tomorrow to schedule a sooner appointment. In the meantime you may try warm epsom salt soaks alternating with cool compresses and gentle stretches to prevent stiffness/soreness of ankle/calf/ foot - you may also gently massage the arch of your foot but avoid area of injury to reduce further injury. Additionally you may try topical analgesics such as arnica, biofreeze, etc *If you develop severe swelling, numbness, weakness, calf pain/swelling or fever , return to the ED - Billing Disposition and Condition Condition: STABLE Disposition: Home
== END 2018-09-22 15:32 | disposition home or self-care (01) ==
LOC: ED 14:27
DX: M79.671 Pain in right foot (principal); S92.511S Displaced fracture of proximal phalanx of right lesser toe(s), sequela; X58.XXXS Exposure to other specified factors, sequela
CPT/HCPCS: 99282

== ENCOUNTER 2018-10-11 09:21 | Emergency (ER) | payer MEDICARE, MEDICAID ==
[2018-10-11 09:38] VITALS: BP 140/85
--- NOTE | 2018-10-11 09:42 | UC ---
Throat Pain/Nasal Sylvester HPI - HPI Summary HPI Summary: 68 yo female presents with sinus pain/pressure/congestion for the last 3 weeks. She has not been taking anything OTC. Denies fever, chills, sore throat, cough. - History of Current Complaint Stated Complaint: SINUS COMPLAINT Time Seen by Provider: 10/11/18 09:27 Hx Obtained From: Patient Hx Last Menstrual Period: na Onset/Duration: Sudden Onset Severity: Moderate Pain Intensity: 8 Pain Scale Used: 0-10 Numeric - Allergies/Home Medications Allergies/Adverse Reactions: Allergies Allergy/AdvReac Type Severity Reaction Status Date / Time diphenhydramine Allergy Severe See Comment Verified 10/11/18 09:39 [From Benadryl] latex Allergy Severe severe Verified 10/11/18 09:39 hives, skin feels like it burning aspirin AdvReac Severe See Comment Verified 10/11/18 09:39 ciprofloxacin [From Cipro] AdvReac Severe Diarrhea, Verified 10/11/18 09:39 stomach ache clindamycin AdvReac Severe Diarrhea Verified 10/11/18 09:39 divalproex sodium AdvReac Severe See Comment Verified 10/11/18 09:39 [From Depakote] duloxetine [From Cymbalta] AdvReac Severe See Comment Verified 10/11/18 09:39 erythromycin base AdvReac Severe Diarrhea, Verified 10/11/18 09:39 gi prednisone AdvReac Severe n/v Verified 10/11/18 09:39 prochlorperazine AdvReac Severe See Comment Verified 10/11/18 09:39 [From Compazine] quetiapine [From Seroquel] AdvReac Severe See Comment Verified 10/11/18 09:39 sucralfate [From Carafate] AdvReac Severe See Comment Verified 10/11/18 09:39 Sulfa (Sulfonamide AdvReac Severe GI Upset Verified 10/11/18 09:39 Antibiotics) sumatriptan [From Imitrex] AdvReac Severe See Comment Verified 10/11/18 09:39 trazodone AdvReac Severe Nausea Verified 10/11/18 09:39 aripiprazole [From Abilify] AdvReac Intermediate See Comment Verified 10/11/18 09:39 NSAIDS (Non-Steroidal AdvReac Intermediate See Comment Verified 10/11/18 09:39 Anti-Inflamma omeprazole [From Prilosec] AdvReac Intermediate See Comment Verified 10/11/18 09 :39 Home Medications: Home Medications Acetaminophen [Acetaminophen ER] 650 mg PO 10/11/18 [History] PMH/Surg Hx/FS Hx/Imm Hx Cardiovascular History: Hypertension GI/ History: Gastroesophageal Reflux Neurological History: Migraine Psychological History: Anxiety, Depression Other History Of: Negative For: HIV, Hepatitis B, Hepatitis C, Anticoagulant Therapy - Surgical History Surgical History: Yes Surgery Procedure, Year, and Place: total hysterectomy with oophorectomy 1996; SINUSES Xs2; BLADDER- CYSTOCELE AND RECTOCELE (NO METAL)/ 12/08;BILATERAL CATARACTS 04/2018-06/2018 - Family History Known Family History: Positive: Cardiac Disease, Hypertension, Other - arthritis Negative: Diabetes Family History: arthritis - Social History Alcohol Use: None Substance Use Type: None Substance Use Comment - Amount & Last Used: colonpin Smoking Status (MU): Never Smoked Tobacco Have You Smoked in the Last Year: No - Immunization History Most Recent Influenza Vaccination: may 2017 Most Recent Tetanus Shot: WITHIN PAST 5 YRS Most Recent Pneumonia Vaccination: 2012 Review of Systems All Other Systems Reviewed And Are Negative: Yes Constitutional: Positive: Negative Skin: Positive: Negative Eyes: Positive: Negative ENT: Positive: Sinus Congestion, Sinus Pain/Tenderness Respiratory: Positive: Negative Cardiovascular: Positive: Negative Gastrointestinal: Positive: Negative Neurovascular: Positive: Negative Neurological: Positive: Negative Psychological: Positive: Negative Physical Exam - Summary Physical Exam Summary: GENERAL: NAD. WDWN. No pain distress. SKIN: No rashes, sores, lesions, or open wounds. HEENT: Head: AT/NC Eyes: EOM intact. Conjunctiva clear without inflammation or discharge. Ears: Hearing grossly normal. TMs intact, no bulging, erythema, or edema. Nose: Nasal mucosa mildly swollen and erythematous without discharge. TTP maxillary and frontal sinus. Positive post nasal drip Throat: Posterior oropharynx without exudates, erythema, or tonsillar enlargement. Uvula midline. NECK: Supple. Nontender. No lymphadenopathy. CHEST: CTAB. No r/r/w. No accessory muscle use. Breathing comfortably and in no distress. CV: RRR. Without m/r/g. Pulses intact. NEURO: Alert. PSYCH: Age appropriate behavior. Triage Information Reviewed: Yes Vital Signs: Initial Vital Signs Temp 97.5 F 10/11/18 09:32 Pulse 70 10/11/18 09:32 Resp 18 10/11/18 09:32 BP 140/85 10/11/18 09:32 Pulse Ox 98 10/11/18 09:32 Vital Signs Reviewed: Yes Throat Pain/Nasal Course/Dx - Course Course Of Treatment: Sinusitis. Pt has an extensive allergy list, but says that she has had levaquin in the past for her sinus infections with good relief. - Differential Dx/Diagnosis Provider Diagnosis: Sinusitis Discharge - Sign-Out/Discharge Documenting (check all that apply): Patient Departure All imaging exams completed and their final reports reviewed: No Studies - Discharge Plan Condition: Stable Disposition: HOME Prescriptions: Fluconazole 150 MG TAB* [Diflucan 150 MG TAB*] 150 mg PO ONCE #1 tablet Levofloxacin TAB* [Levaquin TAB*] 500 mg PO DAILY #7 tab Patient Education Materials: Sinusitis (ED) Referrals: Roma Valdes MD [Primary Care Provider] - Additional Instructions: If you develop a fever, shortness of breath, chest pain, new or worsening symptoms - please call your PCP or go to the ED. - Billing Disposition and Condition Condition: STABLE Disposition: Home - Attestation Statements Provider Attestation: I was available for consult. This patient was seen by the [facility]. The patient was not presented to , seen by or examined by md -Candie Puentes MD
== END 2018-10-11 09:51 | disposition home or self-care (01) ==
LOC: UCEAST 09:21
DX: J32.9 Chronic sinusitis, unspecified (principal); Z88.6 Allergy status to analgesic agent; Z88.8 Allergy status to other drugs, medicaments and biological substances; Z88.1 Allergy status to other antibiotic agents; I10 Essential (primary) hypertension
CPT/HCPCS: 99212; G0463

== ENCOUNTER 2019-01-02 08:04 | Emergency (ER) | payer MEDICARE, MEDICAID ==
[2019-01-02 08:23] VITALS: BP 126/74
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
== END 2019-01-02 09:18 | disposition home or self-care (01) ==
LOC: UCEAST 08:04
DX: S20.212A Contusion of left front wall of thorax, initial encounter (principal); Z91.040 Latex allergy status; Z88.1 Allergy status to other antibiotic agents; Z88.8 Allergy status to other drugs, medicaments and biological substances; Z88.2 Allergy status to sulfonamides; W22.8XXA Striking against or struck by other objects, initial encounter; Y92.89 Other specified places as the place of occurrence of the external cause
CPT/HCPCS: 71046; 99211; G0463

== ENCOUNTER 2019-08-11 10:12 | Emergency (ER) | payer MEDICARE, MEDICAID ==
[2019-08-11 10:23] VITALS: BP 126/79
[2019-08-11] MEDS ORDERED: HYDROcodone/ACETAMIN 5-325 MG* 1 TAB PO ONE (12:44)
--- NOTE | 2019-08-11 12:52 | UC ---
Back Pain HPI - HPI Summary HPI Summary: 69-year-old woman comes in with a chief complaint of back pain. Patient has chronic intermittent back pain. Her chronic intermittent back pain started getting worse 5 days ago. She normally takes tramadol which helps decrease the pain. With the increase in pain 5 days ago she contacted her primary care doctor who prescribed Elmira 5 mg a total number of 6. She uses those which did help some with the pain. Last night she tripped and fell in the bathroom striking her lower thoracic and lumbar and sacral areas. This is increased the pain. Pain sometimes radiates down both legs. No complaint of any weakness or numbness. No complaint of any hematuria or difficulty controlling urine or bowels. Pain is worse with any kind of movement. No complaint of shortness of breath. - History of Current Complaint Chief Complaint: UCBackPain Stated Complaint: BACK INJURY Time Seen by Provider: 08/11/19 12:25 Hx Last Menstrual Period: na Pain Intensity: 8 - Allergies/Home Medications Allergies/Adverse Reactions: Allergies Allergy/AdvReac Type Severity Reaction Status Date / Time diphenhydramine Allergy Severe See Comment Verified 08/11/19 10:24 [From Benadryl] latex Allergy Severe severe Verified 08/11/19 10:24 hives, skin feels like it burning aspirin AdvReac Severe See Comment Verified 08/11/19 10:24 ciprofloxacin [From Cipro] AdvReac Severe Diarrhea, Verified 08/11/19 10:24 stomach ache clindamycin AdvReac Severe Diarrhea Verified 08/11/19 10:24 divalproex sodium AdvReac Severe See Comment Verified 08/11/19 10:24 [From Depakote] duloxetine [From Cymbalta] AdvReac Severe See Comment Verified 08/11/19 10:24 erythromycin base AdvReac Severe Diarrhea, Verified 08/11/19 10:24 gi prednisone AdvReac Severe n/v Verified 08/11/19 10:24 prochlorperazine AdvReac Severe See Comment Verified 08/11/19 10:24 [From Compazine] quetiapine [From Seroquel] AdvReac Severe See Comment Verified 08/11/19 10:24 sucralfate [From Carafate] AdvReac Severe See Comment Verified 08/11/19 10:24 Sulfa (Sulfonamide AdvReac Severe GI Upset Verified 08/11/19 10:24 Antibiotics) sumatriptan [From Imitrex] AdvReac Severe See Comment Verified 08/11/19 10:24 trazodone AdvReac Severe Nausea Verified 08/11/19 10:24 aripiprazole [From Abilify] AdvReac Intermediate See Comment Verified 08/11/19 10:24 NSAIDS (Non-Steroidal AdvReac Intermediate See Comment Verified 08/11/19 10:24 Anti-Inflamma omeprazole [From Prilosec] AdvReac Intermediate See Comment Verified 08/11/19 10 :24 PMH/Surg Hx/FS Hx/Imm Hx Previously Healthy: Yes - CHRONIC BACK PAIN Respiratory History: Asthma GI/ History: Gastroesophageal Reflux Other History Of: Negative For: HIV, Hepatitis B, Hepatitis C, Anticoagulant Therapy - Surgical History Surgical History: Yes Surgery Procedure, Year, and Place: total hysterectomy with oophorectomy 1996; SINUSES Xs2; BLADDER- CYSTOCELE AND RECTOCELE (NO METAL)/ 12/08;BILATERAL CATARACTS 04/2018-06/2018. bladder surgery revision 12/03/18 - Family History Known Family History: Positive: Cardiac Disease, Hypertension, Other - arthritis Negative: Diabetes Family History: arthritis - Social History Alcohol Use: None Substance Use Type: None Substance Use Comment - Amount & Last Used: colonpin Smoking Status (MU): Never Smoked Tobacco Have You Smoked in the Last Year: No - Immunization History Most Recent Influenza Vaccination: may 2017 Most Recent Tetanus Shot: WITHIN PAST 5 YRS Most Recent Pneumonia Vaccination: 2012 Review of Systems All Other Systems Reviewed And Are Negative: Yes Constitutional: Positive: Negative Skin: Positive: Negative Eyes: Positive: Negative ENT: Positive: Negative Respiratory: Positive: Negative Cardiovascular: Positive: Other - SEE HPI Gastrointestinal: Positive: Nausea Genitourinary: Negative: Hematuria Motor: Positive: Negative Neurovascular: Positive: Negative Musculoskeletal: Positive: Other: - SEE HPI Neurological: Positive: Negative Psychological: Positive: Negative Is Patient Immunocompromised?: No Physical Exam Triage Information Reviewed: Yes Appearance: Well-Appearing, Well-Nourished, Pain Distress - MILD WITH ROM AND EXAM OF BACK Vital Signs: Initial Vital Signs Temp 98 F 08/11/19 10:20 Pulse 65 08/11/19 10:20 Resp 16 08/11/19 10:20 BP 126/79 08/11/19 10:20 Pulse Ox 100 11/13/19 10:20 Vital Signs Reviewed: Yes Eye Exam: Normal Eyes: Positive: Conjunctiva Clear Neck: Positive: Supple Respiratory: Positive: Lungs clear, Normal breath sounds, No respiratory distress Cardiovascular: Positive: RRR Abdomen Description: Positive: Nontender, Soft Bowel Sounds: Positive: Present Musculoskeletal: Positive: Other: - Tender to palpation midline lower thoracic lumbar sacral. Also mildly tender to palpation posterior lower bilateral ribs. Neurological: Positive: Alert Psychological: Positive: Age Appropriate Behavior Skin Exam: Normal Back Pain Course/Dx - Course Course Of Treatment: Band Director: Jay Zuniga Daniel ([id number]) Sales Planner: LESLIE ( NUANCE) Report Date: 08/11/2019 12:46:00 Report Status: Final ====== Start of Report Content Patient Name: SHRUTI ACUÑA Medical Record#: [id number] Ordering Physician: Adalberto Kinney MD Acct.#: [id number] : 1950 Age: 69 Sex: F Location: [facility] Exam Date: 08/11/19 1246 ADM Status: REG ER Order Information: THORACIC SPINE 2 VWS Accession Number: [id number] CPT: 78082 HISTORY: PAIN S/P INJURY COMPARISONS: May 31, 2016 VIEWS: 2, Frontal and lateral views of the thoracic spine. FINDINGS: ALIGNMENT: The alignment is normal. VERTEBRAL BODIES: There is diffuse osteopenia. There is multilevel anterolateral marginal osteophyte formation. The vertebral bodies are stable in height. JOINTS: Unremarkable. INTERVERTEBRAL DISCS: There is diffuse loss of intervertebral disc height. SOFT TISSUE: Unremarkable OTHER: The visualized lungs are clear. IMPRESSION: OSTEOPENIA. DEGENERATIVE DISC DISEASE. <Electronically signed by Jay Zuniga MD in OV> 08/11/191334 Dictated By: Jay Zuniga MD Dictated Date/Time: 08/11/191334 Transcribed Date/Time: 08/11/191334 Copy to: CC:Asuncion Armstrong MD; Adalberto Kinney MD Imaging - [facility] Imaging - [facility] [address] [address] ph [phone] ph ) ph ([phone]) End of Report Content Band Director: Jay Zuniga Daniel, ([id number]) Sales Planner: LESLIE, ( NUANCE) Report Date: 08/11/2019 12:46:00 Report Status: Final ====== Start of Report Content Patient Name: SHRUTI ACUÑA Medical Record#: [id number] Ordering Physician: Adalberto Kinney MD Acct.#: [id number] : 1950 Age: 69 Sex: F Location: [facility] Exam Date: 08/11/19 1246 ADM Status: REG ER Order Information: SP LUMBARSACRAL 4 + VWS Accession Number: [id number] CPT: 90754 HISTORY: PAIN S/P INJURY COMPARISONS: January 21, 2018 VIEWS: 5 , Frontal, lateral, coned-down lateral sacral, and bilateral oblique views of the lumbar spine. FINDINGS: ALIGNMENT: There is a mild levoscoliotic curvature of the spine. VERTEBRAL BODIES: There is diffuse osteopenia. There is multilevel anterolateral marginal osteophyte formation. JOINTS: There is facet osteoarthritis diffusely, more pronounced along the lower lumbar spine. INTERVERTEBRAL DISCS: There is diffuse loss of intervertebral disc height. SOFT TISSUE: Unremarkable. 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 IMPRESSION: OSTEOPENIA. SCOLIOSIS. DEGENERATIVE DISC DISEASE AND OSTEOARTHRITIS. <Electronically signed by Jay Zuniga MD in OV> 08/11/19 1335 Dictated By: Jay Zuniga MD Dictated Date/Time: 1333 Transcribed Date/Time: 08/11/191333 Copy to: CC:Asuncion Armstrong MD; Adalberto Kinney MD Imaging - [facility] Imaging - [facility] [place] [facility] [address] [place] [address] ph [phone]) ph [phone]) ph ([phone]) End of Report Content Band Director: Paulino Ramirez C, ([id number]) Sales Planner: LESLIE ( [place]) Report Date: 08/11/2019 12:46:00 Report Status: Final ====== Start of Report Content Patient Name: SHRUTI ACUÑA Medical Record#: [id number] Ordering Physician: Adalberto Kinney MD Acct.#: [id number] : 1950 Age: 69 Sex: F Location: [facility] Exam Date: 08/11/19 1246 ADM Status: REG ER Order Information: CHEST PA LAT 2 VWS Accession Number: [id number] CPT: 84302 INDICATION: Fell and hit back against a toilet. Pain. COMPARISON: January 02, 2019 TECHNIQUE: Dual energy PA and lateral views of the chest were obtained. REPORT: Elevated lung volumes and both diffuse mild prominence of the interstitial markings and patchy rarefaction of the mid to upper lung zone interstitial markings. No focal pulmonary lesion, compelling alveolar consolidation, pleural effusion, pneumothorax. Negative for cardiomegaly. Unremarkable central pulmonary vasculature. Moderately tortuous descending thoracic aorta without change. No rib or thoracic spine fracture evident. Bone density appears decreased throughout. Diffuse predominant mild degenerative spondylosis and increased thoracic kyphosis without significant change. IMPRESSION: #. Stigmata of obstructive lung disease. No acute pulmonary or cardiac process evident. #. No traumatic injury evident. <Electronically signed by Paulino Ramirez MD in OV> 08/11/19 133 Dictated By: Paulino Ramirez MD Dictated Date/Time: 08/11/19 133 Transcribed Date/Time: 08/11/191331 Copy to: CC:Asuncion Armstrong MD; Adalberto Kinney MD Imaging - [facility] Imaging - [place] [facility] - [place] [facility] [address] [facility] [place] [id number] ph [phone]) ph ([phone]) ph ([phone]) End of Report Content I discussed the x-rays with the patient. No fracture seen. No blood in the urine. Patient did improve with the Elmira. She has tramadol at home which she reports is not been helping. Patient has a history of overdose of narcotics. I discussed this with the patient. I wrote a prescription for hydrocodone total #6. One to be used every 8 hours as needed. Patient reports she has a follow-up scheduled with her primary care doctor on August 16, 2019. I let her know she will need to transition to her tramadol for pain control. Patient should get seen again sooner if worse or any questions or concerns. - Differential Dx/Diagnosis Provider Diagnosis: Thoracic back pain, Lumbar back pain Discharge ED - Sign-Out/Discharge Documenting (check all that apply): Patient Departure All imaging exams completed and their final reports reviewed: Yes - Discharge Plan Condition: Stable Disposition: HOME Prescriptions: HYDROcodone/ACETAMIN 5-325 MG* [Elmira 5-325 TAB*] 1 tab PO Q8H PRN #6 tab MDD 3 PRN Reason: Pain - Moderate Patient Education Materials: Back Pain (ED) Referrals: Asuncion Armstrong MD [Primary Care Provider] - Additional Instructions: FOLLOW UP WITH YOUR DOCTOR SCHEDULED, 08/16/19. GET REEVALUATED SOONER IF NOT IMPROVED OR WORSE OR ANY QUESTIONS OR CONCERNS. - Billing Disposition and Condition Condition: STABLE Disposition: Home
== END 2019-08-11 13:57 | disposition home or self-care (01) ==
LOC: UCEAST 10:12
DX: M54.5 Low back pain (principal); M54.6 Pain in thoracic spine; G89.29 Other chronic pain; J45.909 Unspecified asthma, uncomplicated; R11.0 Nausea; Z88.6 Allergy status to analgesic agent; Z88.8 Allergy status to other drugs, medicaments and biological substances; Z91.040 Latex allergy status; Z88.1 Allergy status to other antibiotic agents; Z88.2 Allergy status to sulfonamides
CPT/HCPCS: 71046; 72070; 72110; 81003; 99212; G0463

== ENCOUNTER 2019-11-08 06:09 | Emergency (ER) | payer MEDICARE, MEDICAID ==
[2019-11-08] MEDS ORDERED: Al Hydrox/Mg Hydrox/Simet LIQ* 30 ML UDC PO ONE (06:24)
[2019-11-08] MEDS ORDERED: Metoclopramide IV* 5 MG/ML 2 ML VIAL IV ONE (06:24)
[2019-11-08] MEDS ORDERED: Famotidine IV* 10 MG/ML 2 ML (20 mg) IV ONE (06:24)
[2019-11-08] MEDS ORDERED: NS 0.9% 1000 ML** 1,000 ML IV ONE (06:25)
[2019-11-08 06:57] LABS: Hematocrit 39 % (35-47); Hemoglobin 13.6 g/dL (12.0-16.0); Mean Corpuscular HGB Conc 34 g/dL (31-36); Mean Corpuscular Hemoglobin 31 pg (27-31); Mean Corpuscular Volume 90 fL (80-97); Mean Platelet Volume 8.6 fL (7.4-10.4); Platelet Count 257 10^3/uL (150-450); Red Blood Count 4.37 10^6 /uL (3.70-4.87); Red Cell Distribution Width 15 % (10-15); White Blood Count 7.1 10^3/uL (3.5-10.8)
[2019-11-08 07:03] LABS: INR 1.06 (0.82-1.09)
[2019-11-08 07:16] LABS: ALT 15 U/L (7-52); Albumin 4.5 g/dL (3.2-5.2); Albumin/Globulin Ratio 1.8 (1-3); Alkaline Phosphatase 75 U/L (34-104); BUN/Creatinine Ratio 7.2 (8-20); Blood Urea Nitrogen 6 mg/dL (6-24); C Reactive Protein < 1.00 mg/L (<8.01); CO2 Carbon Dioxide 24 mmol/L (22-32); Calcium 9.1 mg/dL (8.6-10.3); Chloride 102 mmol/L (101-111); EGFR African American 82.5 (>60); EGFR Non-African American 68.2 (>60); Globulin 2.5 g/dL (2-4); Glucose 116 mg/dL (70-100); Sodium 135 mmol/L (135-145)
[2019-11-08] MEDS ORDERED: traMADol TAB* 50 MG PO ONE (07:26)
[2019-11-08] MEDS ORDERED: Lorazepam PYXIS KEY PRN (07:35)
[2019-11-08] MEDS ORDERED: LORazepam INJ* 2 MG/ML 1 ML VIAL IV PUSH ONE (07:35)
[2019-11-08 07:36] LABS: Anion Gap 9 mmol/L (2-11)
[2019-11-08 07:37] LABS: Urine Appearance Clear; Urine Bilirubin Negative (Negative); Urine Blood Negative (Negative); Urine Color Straw; Urine Glucose Negative (Negative); Urine Ketones Negative (Negative); Urine Nitrite Negative (Negative); Urine Protein Negative (Negative); Urine Specific Gravity 1.004 (1.010-1.030); Urine Urobilinogen Negative (Negative)
[2019-11-08 07:38] LABS: ABS Basophils 0.1 10^3/ul (0-0.2); ABS Lymphocytes 1.1 10^3/ul (1.0-4.8); ABS Monocytes 0.4 10^3/ul (0-0.8); ABS Neutrophils 5.5 10^3/ul (1.5-7.7); Eosinophil % 0.4 %; Lymphocyte % 15.4 %
[2019-11-08] MEDS ORDERED: DICYCLOMINE HCL* 20 MG/2 ML VIAL IM ONE (08:14)
[2019-11-08 08:20] LABS: Magnesium 2.3 mg/dL (1.9-2.7); Potassium Redraw 3.6 mmol/L (3.5-5.0)
[2019-11-08] MEDS ORDERED: Dicyclomine CAP* 10 MG PO ONE (09:05)
[2019-11-08 09:55] VITALS: BP 139/84
--- NOTE | 2019-11-08 10:01 | ED ---
Abdominal Pain/Female - HPI Summary HPI Summary: This patient is a 69-year-old female with a history of IBS presenting to the ED with severe abdominal pain for the past 3 days. She states this has been worsening. She was able to see her GI physician a few days ago who prescribed Fiber-Con. She states she did not pick this medication up or take it as it has artificial sweeteners as one of the ingredients. She did not feel comfortable taking this as a supplement. She does not take any PPIs at home. She does not take any medications specifically for her IBS. She has been having more loose stools recently, however they are not watery, non-malodorous. No melena or hematochezia. Denies any vomiting has been having nausea. She states all of her symptoms are typical with her IBS. She is also endorsing 10/10 low back pain. She states she takes tramadol 100 mg 3 times daily for this. She states her flareup from IBS has lasted approximately 3 months. Food makes the pain worse, however it remains there regardless. - History of Current Complaint Chief Complaint: EDAbdPain Stated Complaint: ABD PAIN PER EMS Time Seen by Provider: 11/08/19 06:10 Hx Obtained From: Patient Hx Last Menstrual Period: na ?: No Onset/Duration: Sudden Onset Timing: Constant Severity Initially: Severe Severity Currently: Severe Pain Intensity: 0 Pain Scale Used: 0-10 Numeric Location: Diffuse, Epigastric Radiates: No Character: Sharp, Burning, Cramping Aggravating Factor(s): Food Alleviating Factor(s): Nothing Associated Signs and Symptoms: Positive: Decreased Appetite, Nausea, Diarrhea. Negative: Diaphoresis, Fever, Cough, Chest Pain, Dizzy, Back Pain, Constipation , Blood in Stool, Urinary Symptoms, Vaginal Discharge, Vomiting Allergies/Adverse Reactions: Allergies Allergy/AdvReac Type Severity Reaction Status Date / Time diphenhydramine Allergy Severe See Comment Verified 11/08/19 06:28 [From Benadryl] latex Allergy Severe severe Verified 11/08/19 06:28 hives, skin feels like it burning aspirin AdvReac Severe See Comment Verified 11/08/19 06:28 ciprofloxacin [From Cipro] AdvReac Severe Diarrhea, Verified 11/08/19 06:28 stomach ache clindamycin AdvReac Severe Diarrhea Verified 11/08/19 06:28 divalproex sodium AdvReac Severe See Comment Verified 11/08/19 06:28 [From Depakote] duloxetine [From Cymbalta] AdvReac Severe See Comment Verified 11/08/19 06:28 erythromycin base AdvReac Severe Diarrhea, Verified 11/08/19 06:28 gi prednisone AdvReac Severe n/v Verified 11/08/19 06:28 prochlorperazine AdvReac Severe See Comment Verified 11/08/19 06:28 [From Compazine] quetiapine [From Seroquel] AdvReac Severe See Comment Verified 11/08/19 06:28 sucralfate [From Carafate] AdvReac Severe See Comment Verified 11/08/19 06:28 Sulfa (Sulfonamide AdvReac Severe GI Upset Verified 11/08/19 06:28 Antibiotics) sumatriptan [From Imitrex] AdvReac Severe See Comment Verified 11/08/19 06:28 trazodone AdvReac Severe Nausea Verified 11/08/19 06:28 aripiprazole [From Abilify] AdvReac Intermediate See Comment Verified 11/08/19 06:28 NSAIDS (Non-Steroidal AdvReac Intermediate See Comment Verified 11/08/19 06:28 Anti-Inflamma omeprazole [From Prilosec] AdvReac Intermediate See Comment Verified 11/08/19 06 :28 Home Medications: Home Medications Acetaminophen [Acetaminophen Extra Strength] 500 - 1,000 mg PO Q6H PRN 11/08/19 [History Confirmed 11/08/19] Butalb/Acetaminophen/Caffeine [Butalbital/APAP/Caffeine 50-300-40 mg] 2 cap PO ONCE PRN MDD 4 11/08/19 [History Confirmed 11/08/19] Conjugated Estrogens VAG CM* [Premarin VAG CREAM*] 1 applic VAGINAL TID [History Confirmed 11/08/19] Galcanezumab-Gnlm [Emgality Syringe] 120 mg SQ MONTHLY 11/08/19 [History Confirmed 11/08/19] Loratadine/Pseudoephedrine [Claritin-D 12 Hour] 1 tab PO BID PRN 11/08/19 [ History Confirmed 11/08/19] Naproxen TAB* [Naprosyn 250 mg TAB*] 500 mg PO BID PRN 11/08/19 [History Confirmed 11/08/19] Varicella-Zoster Ge/As01b/Pf [Shingrix] 50 mcg IM ONCE 11/08/19 [History Confirmed 11/08/19] clonazePAM TAB(*) [KlonoPIN TAB(*)] 0.25 - 0.5 mg PO BEDTIME PRN 11/08/19 [ History Confirmed 11/08/19] PMH/Surg Hx/FS Hx/Imm Hx Previously Healthy: Yes Endocrine/Hematology History: Denies: Hx Anticoagulant Therapy, Hx Diabetes, Hx Thyroid Disease, Other Endocrine/Hematological Disorders Cardiovascular History: Reports: Hx Angina Denies: Hx Congestive Heart Failure, Hx Coronary Artery Disease, Hx Deep Vein Thrombosis, Hx Hypercholesterolemia, Hx Hypertension, Hx Myocardial Infarction, Hx Pacemaker/ICD, Hx Valvular Heart Disease, Other Cardiovascular Problems/Disorders Respiratory History: Reports: Hx Asthma - SEASONAL, Hx Chronic Obstructive Pulmonary Disease (COPD), Hx Pneumonia, Hx Sleep Apnea, Other Respiratory Problems/Disorders - PNUEMONIA Denies: Hx Lung Cancer, Hx Pulmonary Embolism GI History: Reports: Hx Gastroesophageal Reflux Disease, Hx Hiatal Hernia - under right rib cage- a hernia, Hx Irritable Bowel - diarrhea, Other GI Disorders - IBS Denies: Hx Gall Bladder Disease, Hx Gastrointestinal Bleed, Hx Ulcer, Hx Urosepsis History: Denies: Hx Kidney Stones, Hx Renal Disease, Other Problems/Disorders Musculoskeletal History: Reports: Hx Arthritis - Pt. states "everywhere", Hx Rheumatoid Arthritis, Hx Back Problems, Hx Bursitis, Hx Osteoporosis, Other Musculoskeletal History - hx of compound fracture right ankle Denies: Hx Scoliosis Sensory History: Reports: Hx Cataracts - both, Hx Contacts or Glasses - glasses - reading, Hx Vision Problem - cataracts Denies: Hx Glaucoma, Hx Hearing Aid, Other Sensory Impairments Opthamlomology History: Reports: Hx Cataracts - both, Hx Contacts or Glasses - glasses - reading, Hx Vision Problem - cataracts Denies: Hx Glaucoma, Other Sensory Impairments Neurological History: Reports: Hx Headaches, Hx Migraine - ocular Denies: Hx Dementia, Hx Seizures, Hx Transient Ischemic Attacks (TIA), Other Neuro Impairments/Disorders Psychiatric History: Reports: Hx Anxiety - PTSD, Hx Depression, Hx Post Traumatic Stress Disorder, Hx Inpatient Treatment, Hx Community Mental Health Tx , Hx Suicide Attempt, Hx Substance Abuse Denies: Hx Eating Disorder, Hx Panic Disorder, Hx Schizophrenia, Hx Bipolar Disorder, Hx of Violent Episodes Against Others, Other Psychiatric Issues/ Disorders - Cancer History Cancer Type, Location and Year: Family history Hx Chemotherapy: No Hx Radiation Therapy: No - Surgical History Surgery Procedure, Year, and Place: total hysterectomy with oophorectomy 1996; SINUSES Xs2; BLADDER- CYSTOCELE AND RECTOCELE (NO METAL)/ 12/08;BILATERAL CATARACTS 04/2018-06/2018. bladder surgery revision 12/03/18 Hx Anesthesia Reactions: No - Immunization History Date of Tetanus Vaccine: utd Date of Influenza Vaccine: 05/2017 Hx Pertussis Vaccination: No Immunizations Up to Date: Yes Infectious Disease History: No Infectious Disease History: Denies: Hx Clostridium Difficile, Hx Hepatitis, Hx Human Immunodeficiency Virus (HIV), Hx of Known/Suspected MRSA, Hx Shingles, Hx Tuberculosis, Hx Known/ Suspected VRE, Hx Known/Suspected VRSA, History Other Infectious Disease, Traveled Outside the [place] in Last 30 Days - Family History Known Family History: Positive: Cardiac Disease, Hypertension, Other - arthritis Negative: Diabetes Family History: arthritis - Social History Occupation: Unemployed Lives: Alone Alcohol Use: None Hx Substance Use: Yes Substance Use Type: Reports: None Substance Use Comment - Amount & Last Used: colonpin Hx Tobacco Use: No Smoking Status (MU): Never Smoked Tobacco Have You Smoked in the Last Year: No Review of Systems Negative: Fever, Chills, Fatigue, Skin Diaphoresis Negative: Palpitations, Chest Pain Negative: Shortness Of Breath, Cough Positive: Abdominal Pain, Diarrhea, Nausea. Negative: Vomiting Genitourinary: Negative Positive: no symptoms reported, see HPI Negative: Arthralgia, Myalgia Skin: Negative All Other Systems Reviewed And Are Negative: Yes Physical Exam Triage Information Reviewed: Yes Vital Signs On Initial Exam: Initial Vitals Temp Pulse Resp BP Pulse Ox 98.5 F 68 20 158/101 98 11/08/19 06:26 11/08/19 06:26 11/08/19 06:26 11/08/19 06:26 11/08/19 06:26 Vital Signs Reviewed: Yes Appearance: Positive: Well-Appearing, Well-Nourished Skin: Positive: Warm, Skin Color Reflects Adequate Perfusion Head/Face: Positive: Normal Head/Face Inspection Eyes: Positive: EOMI, PAVEL, Conjunctiva Clear Neck: Positive: Supple, No Lymphadenopathy Respiratory/Lung Sounds: Positive: Clear to Auscultation, Breath Sounds Present Cardiovascular: Positive: RRR, Pulses are Symmetrical in both Upper and Lower Extremities Abdomen Description: Positive: Other: - tenderness throughout. Negative: CVA Tenderness (R), CVA Tenderness (L), Distended, Guarding Musculoskeletal: Positive: Normal, Strength/ROM Intact Neurological: Positive: Speech Normal Psychiatric: Positive: Normal, Affect/Mood Appropriate Procedures - Sedation Patient Received Moderate/Deep Sedation with Procedure: No Diagnostics - Vital Signs Vital Signs Temp Pulse Resp BP Pulse Ox 11/08/19 09:54 98.7 F 67 17 139/84 99 11/08/19 07:54 17 11/08/19 07:19 69 148/97 99 11/08/19 07:18 79 98 11/08/19 06:27 68 98 11/08/19 06:26 98.5 F 69 20 158/101 98 - Laboratory Lab Results: Lab Results 11/08/19 11/08/19 11/08/19 Range/Units 06:46 06:46 06:46 WBC 7.1 (3.5-10.8) 10^3/uL RBC 4.37 (3.70-4.87) 10^6 /uL Hgb 13.6 (12.0-16.0) g/dL Hct 39 (35-47) % MCV 90 (80-97) fL MCH 31 (27-31) pg MCHC 34 (31-36) g/dL RDW 15 (10-15) % Plt Count 257 (150-450) 10^3/uL MPV 8.6 (7.4-10.4) fL Neut % (Auto) 77.8 % Lymph % (Auto) 15.4 % Burt % (Auto) 5.5 % Eos % (Auto) 0.4 % Baso % (Auto) 0.9 % Absolute Neuts (auto) 5.5 (1.5-7.7) 10^3/ul Absolute Lymphs (auto) 1.1 (1.0-4.8) 10^3/ul Absolute Monos (auto) 0.4 (0-0.8) 10^3/ul Absolute Eos (auto) 0.0 (0-0.6) 10^3/ul Absolute Basos (auto) 0.1 (0-0.2) 10^3/ul Absolute Nucleated RBC 0.0 10^3/ul Neutrophils % 78.0 % Lymphocytes % 14.0 % Reactive Lymphs % 2.0 (0-6) % Monocytes % 6.0 % Nucleated RBC % 0.0 Normal RBC Morphology Normal (Normal) Hem Pathologist Commnt INR (Anticoag Therapy) 1.06 (0.82-1.09) Sodium 135 (135-145) mmol/L Potassium TNP Chloride 102 (101-111) mmol/L Carbon Dioxide 24 (22-32) mmol/L Anion Gap 9 (2-11) mmol/L BUN 6 (6-24) mg/dL Creatinine 0.83 (0.51-0.95) mg/dL Est GFR ( Amer) 82.5 (>60) Est GFR (Non-Af Amer) 68.2 (>60) BUN/Creatinine Ratio 7.2 L (8-20) Glucose 116 H (70-100) mg/dL Lactic Acid (0.5-2.0) mmol/L Calcium 9.1 (8.6-10.3) mg/dL Magnesium TNP Total Bilirubin 0.60 (0.2-1.0) mg/dL AST TNP ALT 15 (7-52) U/L Alkaline Phosphatase 75 (34-104) U/L C-Reactive Protein < 1.00 (<8.01) mg/L Total Protein 7.0 (6.4-8.9) g/dL Albumin 4.5 (3.2-5.2) g/dL Globulin 2.5 (2-4) g/dL Albumin/Globulin Ratio 1.8 (1-3) Lipase < 10 L (11.0-82.0) U/L Urine Color Urine Appearance Urine pH (5-9) Ur Specific [place] (1.010-1.030) Urine Protein (Negative) Urine Ketones (Negative) Urine Blood (Negative) Urine Nitrate (Negative) Urine Bilirubin (Negative) Urine Urobilinogen (Negative) Ur Leukocyte Esterase (Negative) Urine Glucose (Negative) 11/08/19 11/08/19 11/08/19 Range/Units 06:46 07:17 07:43 WBC (3.5-10.8) 10^3/uL RBC (3.70-4.87) 10^6 /uL Hgb (12.0-16.0) g/dL Hct (35-47) % MCV (80-97) fL MCH (27-31) pg MCHC (31-36) g/dL RDW (10-15) % Plt Count (150-450) 10^3/uL MPV (7.4-10.4) fL Neut % (Auto) % Lymph % (Auto) % Burt % (Auto) % Eos % (Auto) % Baso % (Auto) % Absolute Neuts (auto) (1.5-7.7) 10^3/ul Absolute Lymphs (auto) (1.0-4.8) 10^3/ul Absolute Monos (auto) (0-0.8) 10^3/ul Absolute Eos (auto) (0-0.6) 10^3/ul Absolute Basos (auto) (0-0.2) 10^3/ul Absolute Nucleated RBC 10^3/ul Neutrophils % % Lymphocytes % % Reactive Lymphs % (0-6) % Monocytes % % Nucleated RBC % Normal RBC Morphology (Normal) Hem Pathologist Commnt INR (Anticoag Therapy) (0.82-1.09) Sodium (135-145) mmol/L Potassium 3.6 Chloride (101-111) mmol/L Carbon Dioxide (22-32) mmol/L Anion Gap (2-11) mmol/L BUN (6-24) mg/dL Creatinine (0.51-0.95) mg/dL Est GFR ( Amer) (>60) Est GFR (Non-Af Amer) (>60) BUN/Creatinine Ratio (8-20) Glucose (70-100) mg/dL Lactic Acid 0.9 (0.5-2.0) mmol/L Calcium (8.6-10.3) mg/dL Magnesium 2.3 Total Bilirubin (0.2-1.0) mg/dL AST 18 ALT (7-52) U/L Alkaline Phosphatase (34-104) U/L C-Reactive Protein (<8.01) mg/L Total Protein (6.4-8.9) g/dL Albumin (3.2-5.2) g/dL Globulin (2-4) g/dL Albumin/Globulin Ratio (1-3) Lipase (11.0-82.0) U/L Urine Color Straw Urine Appearance Clear Urine pH 7.0 (5-9) Ur Specific [place] 1.004 L (1.010-1.030) Urine Protein Negative (Negative) Urine Ketones Negative (Negative) Urine Blood Negative (Negative) Urine Nitrate Negative (Negative) Urine Bilirubin Negative (Negative) Urine Urobilinogen Negative (Negative) Ur Leukocyte Esterase Negative (Negative) Urine Glucose Negative (Negative) Result Diagrams: 11/08/19 06:46 11/08/19 07:43 Lab Statement: Any lab studies that have been ordered have been reviewed, and results considered in the medical decision making process. Re-Evaluation - Re-Evaluation First Eval Change: Improved - improved following ativan and tramadol Abdominal Pain Fem Course/Dx - Course Course Of Treatment: Patient is evaluated for symptoms related to her IBS. She is endorsing pain throughout the abdomen, worse to the epigastric region and nonradiating. Denies any urinary symptoms. Endorses nausea, but no vomiting. Endorses loose stools without hematochezia or melena. Labs obtained are fairly unremarkable including a white count of 7 and a negative CRP. UA negative. Patient was given reglan, Maalox plus, famotidine and fluids. She states this did not improve her pain and she was subsequently given Ativan 1 mg as well as tramadol 50 mg. She states this improved her symptoms greatly. She states she would like to try bentyl as well. She was given bentyl as well without much more improvement of her symptoms. She remains stable. Current pain scale 2/ 10. Pt states she is OK for discharge at this time. She is prescribed reglan. - Diagnoses Differential Diagnosis: Positive: Irritable Bowel Syndrome, Peptic Ulcer Disease , Other - gastritis, epigastric pain Provider Diagnoses: IBS (irritable bowel syndrome) Discharge ED - Sign-Out/Discharge Documenting (check all that apply): Patient Departure - Discharge Plan Condition: Stable Disposition: HOME Prescriptions: Metoclopramide TAB* [Reglan TAB*] 10 mg PO Q6H PRN #12 tab PRN Reason: Nausea Referrals: Asuncion Armstrong MD [Primary Care Provider] - Additional Instructions: Maalox plus over the counter for any epigastric burning Reglan up to three times daily for nausea Please follow up with your PCP - Billing Disposition and Condition Condition: STABLE Disposition: Home
== END 2019-11-08 09:54 | disposition home or self-care (01) ==
LOC: ED 06:09
DX: K58.9 Irritable bowel syndrome, unspecified (principal); J44.9 Chronic obstructive pulmonary disease, unspecified; K21.9 Gastro-esophageal reflux disease without esophagitis; F41.9 Anxiety disorder, unspecified; F43.10 Post-traumatic stress disorder, unspecified; F32.9 Major depressive disorder, single episode, unspecified; Z90.710 Acquired absence of both cervix and uterus; Z90.721 Acquired absence of ovaries, unilateral; Z88.2 Allergy status to sulfonamides; Z88.8 Allergy status to other drugs, medicaments and biological substances; Z88.1 Allergy status to other antibiotic agents; Z91.040 Latex allergy status
CPT/HCPCS: 36415; 80053; 81003; 83605; 83690; 83735; 85025; 85060; 85610; 86140; 96361; 96374; 96375; 99283; A9270-GY; J0500; J2060; J2765

== ENCOUNTER 2020-01-20 17:10 | Observation (INO) | payer MEDICARE, MEDICAID, OTHER ==
[2020-01-20] MEDS ORDERED: Albuterol/Ipratropium NEB.SOL* (2.5/0.5 MG) 3 ML NEB.SOLN INH ONE (17:16)
[2020-01-20 17:42] LABS: ABS Lymphocytes 1.3 10^3/ul (1.0-4.8); ABS Monocytes 0.7 10^3/ul (0-0.8); Eosinophil % 0.4 %; Hematocrit 39 % (35-47); Hemoglobin 13.3 g/dL (12.0-16.0); Lymphocyte % 16.3 %; Mean Corpuscular HGB Conc 34 g/dL (31-36); Mean Corpuscular Hemoglobin 31 pg (27-31); Mean Corpuscular Volume 91 fL (80-97); Mean Platelet Volume 8.2 fL (7.4-10.4); Platelet Count 276 10^3/uL (150-450); Red Blood Count 4.23 10^6 /uL (3.70-4.87); Red Cell Distribution Width 14 % (10-15)
[2020-01-20] MEDS ORDERED: Nitro 2% OINT* (Nitroglycerin) 1 INCH/PAK PAK ONE (17:42)
[2020-01-20] MEDS ORDERED: Aspirin 81 mg CHEW TAB* 81 MG TAB.CHEW ONE (17:42)
[2020-01-20] MEDS ORDERED: Aspirin 81 mg CHEW TAB* 81 MG TAB.CHEW PO ONE (17:43)
[2020-01-20] MEDS ORDERED: Nitro 2% OINT* (Nitroglycerin) 1 INCH/PAK PAK TOPICAL ONE (17:43)
--- NOTE | 2020-01-20 17:46 | ED ---
Complex/Multi-Sys Presentation - HPI Summary HPI Summary: 69 year old F presenting to [facility] with a chief complaint of diarrhea and shortness of breath since 2 weeks ago. Patient reports chest pressure which she describes as feeling like someone is sitting on her chest since 13:00 today, diaphoresis, and chills. The patient rates the pain 6/10 in severity. She denies any fever, erythema of eyes, sore throat, cough, abdominal pain, nausea/ vomiting, dysuria, hematuria, myalgia, edema, rash, or dizziness. She has a history of IBS and GI upset with Aspirin. Medication list reviewed. Allergy list reviewed. - History Of Current Complaint Time Seen by Provider: 01/20/20 17:15 Hx Obtained From: Patient Onset/Duration: Lasting Days Timing: Constant Associated Signs And Symptoms: Positive: SOB, Chest Pain - Pressure, Diarrhea, Diaphoresis, Other - Chills. Negative: Dizziness, Cough, Edema, Nausea, Vomiting, Abdominal Pain, Dysuria, Fever - Allergies/Home Medications Allergies/Adverse Reactions: Allergies Allergy/AdvReac Type Severity Reaction Status Date / Time diphenhydramine Allergy Severe See Comment Verified 01/20/20 17:58 [From Benadryl] latex Allergy Severe severe Verified 01/20/20 17:58 hives, skin feels like it burning Penicillins Allergy Rash Verified 01/20/20 17:58 aspirin AdvReac Severe See Comment Verified 01/20/20 17:58 ciprofloxacin [From Cipro] AdvReac Severe Diarrhea, Verified 01/20/20 17:58 stomach ache clindamycin AdvReac Severe Diarrhea Verified 01/20/20 17:58 divalproex sodium AdvReac Severe See Comment Verified 01/20/20 17:58 [From Depakote] duloxetine [From Cymbalta] AdvReac Severe See Comment Verified 01/20/20 17:58 erythromycin base AdvReac Severe Diarrhea, Verified 01/20/20 17:58 gi prednisone AdvReac Severe n/v Verified 01/20/20 17:58 prochlorperazine AdvReac Severe See Comment Verified 01/20/20 17:58 [From Compazine] quetiapine [From Seroquel] AdvReac Severe See Comment Verified 01/20/20 17:58 sucralfate [From Carafate] AdvReac Severe See Comment Verified 01/20/20 17:58 Sulfa (Sulfonamide AdvReac Severe GI Upset Verified 01/20/20 17:58 Antibiotics) sumatriptan [From Imitrex] AdvReac Severe See Comment Verified 01/20/20 17:58 trazodone AdvReac Severe Nausea Verified 01/20/20 17:58 aripiprazole [From Abilify] AdvReac Intermediate See Comment Verified 01/20/20 17:58 NSAIDS (Non-Steroidal AdvReac Intermediate See Comment Verified 01/20/20 17:58 Anti-Inflamma omeprazole [From Prilosec] AdvReac Intermediate See Comment Verified 01/20/20 17 :58 Home Medications: Home Medications traMADol TAB* [Ultram*] 100 mg PO TID PRN 05/12/17 [History Confirmed 01/20/20] Carisoprodol TAB* [Soma TAB*] 350 mg PO DAILY 09/10/17 [History Confirmed 01/19] Loperamide CAP* [Imodium CAP*] 2 mg PO DAILY PRN MDD 4 tabs 09/10/17 [History Confirmed 01/20/20] Albuterol HFA INHALER* [Ventolin HFA Inhaler*] 2 puff INH QID PRN 10/14/17 [ History Confirmed 01/20/20] Ipratropium HFA INHALER(NF) [Atrovent Hfa Inhaler(NF)] 2 puff INH QID PRN [History Confirmed 01/20/20] Ondansetron ODT TAB* [Zofran 4 MG Odt TAB*] 8 mg PO Q8H PRN 05/05/18 [History Confirmed 01/20/20] Temazepam CAP* [Restoril CAP*] 15 mg PO BEDTIME 05/05/18 [History Confirmed ] Acetaminophen [Acetaminophen Extra Strength] 500 - 1,000 mg PO Q6H PRN 11/08/19 [History Confirmed 01/20/20] Butalb/Acetaminophen/Caffeine [Butalbital/APAP/Caffeine 50-300-40 mg] 2 cap PO DAILY PRN MDD 4 11/08/19 [History Confirmed 01/20/20] Conjugated Estrogens VAG CM* [Premarin VAG CREAM*] 1 applic VAGINAL .THREE TIMES A WEEK 11/08/19 [History Confirmed 01/20/20] Galcanezumab-Gnlm [Emgality Syringe] 120 mg SUBCUT MONTHLY 11/08/19 [History Confirmed 01/20/20] Loratadine/Pseudoephedrine [Claritin-D 12 Hour] 1 tab PO BID PRN 11/08/19 [ History Confirmed 01/20/20] Naproxen TAB* [Naprosyn 250 mg TAB*] 500 mg PO BID WITH MEALS PRN 11/08/19 [ History Confirmed 01/20/20] clonazePAM TAB(*) [KlonoPIN TAB(*)] 0.25 - 0.5 mg PO BEDTIME PRN 11/08/19 [ History Confirmed 01/20/20] Levothyroxine Sodium [Synthroid] 25 mcg PO DAILY 01/20/20 [History Confirmed ] PMH/Surg Hx/FS Hx/Imm Hx Endocrine/Hematology History: Denies: Hx Anticoagulant Therapy, Hx Diabetes, Hx Thyroid Disease, Other Endocrine/Hematological Disorders Cardiovascular History: Reports: Hx Angina Denies: Hx Congestive Heart Failure, Hx Coronary Artery Disease, Hx Deep Vein Thrombosis, Hx Hypercholesterolemia, Hx Hypertension, Hx Myocardial Infarction, Hx Pacemaker/ICD, Hx Valvular Heart Disease, Other Cardiovascular Problems/Disorders Respiratory History: Reports: Hx Asthma - SEASONAL, Hx Chronic Obstructive Pulmonary Disease (COPD), Hx Pneumonia, Hx Sleep Apnea, Other Respiratory Problems/Disorders - PNUEMONIA Denies: Hx Lung Cancer, Hx Pulmonary Embolism GI History: Reports: Hx Gastroesophageal Reflux Disease, Hx Hiatal Hernia - under right rib cage- a hernia, Hx Irritable Bowel - diarrhea, Other GI Disorders - IBS Denies: Hx Gall Bladder Disease, Hx Gastrointestinal Bleed, Hx Ulcer, Hx Urosepsis History: Denies: Hx Kidney Stones, Hx Renal Disease, Other Problems/Disorders Musculoskeletal History: Reports: Hx Arthritis - Pt. states "everywhere", Hx Rheumatoid Arthritis, Hx Back Problems, Hx Bursitis, Hx Osteoporosis, Other Musculoskeletal History - hx of compound fracture right ankle Denies: Hx Scoliosis Sensory History: Reports: Hx Cataracts - both, Hx Contacts or Glasses - glasses - reading, Hx Vision Problem - cataracts Denies: Hx Glaucoma, Hx Hearing Aid, Other Sensory Impairments Opthamlomology History: Reports: Hx Cataracts - both, Hx Contacts or Glasses - glasses - reading, Hx Vision Problem - cataracts Denies: Hx Glaucoma, Other Sensory Impairments Neurological History: Reports: Hx Headaches, Hx Migraine - ocular Denies: Hx Dementia, Hx Seizures, Hx Transient Ischemic Attacks (TIA), Other Neuro Impairments/Disorders Psychiatric History: Reports: Hx Anxiety - PTSD, Hx Depression, Hx Post Traumatic Stress Disorder, Hx Inpatient Treatment, Hx Community Mental Health Tx , Hx Suicide Attempt, Hx Substance Abuse Denies: Hx Eating Disorder, Hx Panic Disorder, Hx Schizophrenia, Hx Bipolar Disorder, Hx of Violent Episodes Against Others, Other Psychiatric Issues/ Disorders - Cancer History Cancer Type, Location and Year: Family history Hx Chemotherapy: No Hx Radiation Therapy: No - Surgical History Surgical History: Yes Surgery Procedure, Year, and Place: total hysterectomy with oophorectomy 1996; SINUSES Xs2; BLADDER- CYSTOCELE AND RECTOCELE (NO METAL)/ 12/08;BILATERAL CATARACTS 04/2018-06/2018. bladder surgery revision 12/03/18 Hx Anesthesia Reactions: No - Immunization History Date of Tetanus Vaccine: utd Date of Influenza Vaccine: 05/2017 Infectious Disease History: Denies: Hx Clostridium Difficile, Hx Hepatitis, Hx Human Immunodeficiency Virus (HIV), Hx of Known/Suspected MRSA, Hx Shingles, Hx Tuberculosis, Hx Known/ Suspected VRE, Hx Known/Suspected VRSA, History Other Infectious Disease - Family History Known Family History: Positive: Cardiac Disease - Mother [place] at 69, Hypertension , Other - arthritis Negative: Diabetes Family History: arthritis - Social History Alcohol Use: None Hx Substance Use: Yes Substance Use Comment - Amount & Last Used: colonpin Hx Tobacco Use: No Smoking Status (MU): Never Smoked Tobacco Have You Smoked in the Last Year: No Review of Systems Positive: Chills, Skin Diaphoresis. Negative: Fever Negative: Erythema Negative: Sore Throat Positive: Chest Pain - Pressure Positive: Shortness Of Breath. Negative: Cough Positive: Diarrhea. Negative: Abdominal Pain, Vomiting, Nausea Negative: dysuria, hematuria Negative: Myalgia, Edema Negative: Rash Neurological/Mental Status: Negative - Dizziness All Other Systems Reviewed And Are Negative: Yes Physical Exam - Summary Physical Exam Summary: Constitutional: Well-developed, Well-nourished, Alert. (-) Distressed Skin: Warm, Dry HENT: Normocephalic; Atraumatic Eyes: Conjunctiva normal Neck: Musculoskeletal ROM normal neck. (-) JVD, (-) Stridor, (-) Tracheal deviation Cardio: Rhythm regular, rate normal, Heart sounds normal; Intact distal pulses; The pedal pulses are 2+ and symmetric. Radial pulses are 2+ and symmetric. (-) Murmur Pulmonary/Chest wall: Effort normal. (-) Respiratory distress, (-) Wheezes, (-) Rales Abd: Soft, (-) tenderness, (-) Distension, (-) Guarding, (-) Rebound Musculoskeletal: (-) Edema Lymph: (-) Cervical adenopathy Neuro: Alert, Oriented x3 Psych: Mood and affect Normal Triage Information Reviewed: Yes Vital Signs Reviewed: Yes Procedures - Sedation Patient Received Moderate/Deep Sedation with Procedure: No Diagnostics - Laboratory Result Diagrams: 01/20/20 17:25 01/20/20 17:25 Lab Statement: Any lab studies that have been ordered have been reviewed, and results considered in the medical decision making process. - Radiology Chest x-ray Radiology Interpretation Completed By: ED Physician Summary of Radiographic Findings: No acute disease. ED physician has reviewed and interpreted this report. - EKG 17:38 Cardiac Rate: Other Rate - 80 BPM EKG Rhythm: Atrial Fibrillation Summary of EKG Findings: No STEMI. ED physician has reviewed and interpreted this EKG. Re-Evaluation - Re-Evaluation First Eval Re-Evaluation Time: 19:30 Comment: The patient still has significant chest pain, unchanged with nitro, 5-6 /10. I calculated a HEART scale of 4. Review of the patient's medical records indicates that the patient had a clean cardiac catheterization in September of 2017. Her EKG is normal at this time, troponin is normal, asked the hospitalist to admit her for further evaluation. Complex Multi-Symp Course/Dx Course Of Treatment: 69 year old F presenting to [facility] with a chief complaint of diarrhea and shortness of breath since 2 weeks ago. Patient reports chest pressure which she describes as feeling like someone is sitting on her chest since 13:00 today, diaphoresis, and chills. Physical exam findings reveal no abnormalities. An EKG reveals atrial fibrillation rate of 80 BPM, no STEMI. CXR reveals, per ED physician, no acute disease. Laboratory results with no significant abnormalities except for a sodium of 128, chloride of 95, and glucose of 123. In the ED course, the patient was given Aspirin, Morphine, Duonebs, Nitro 2%, Percocet, and Zofran. We discussed patient care with Dr. Ortiz at 19:30. Patient will be admitted. The patient is agreeable with this plan. - Diagnoses Provider Diagnoses: Chest pain, unspecified, Suspected COVID-19 virus infection - Physician Notifications Discussed Care Of Patient With: Belkis Ortiz Time Discussed With Above Provider: 19:30 Instructed by Provider To: Other - Discussed with Dr. Ortiz. - Critical Care Time Critical Care Statement: Critical care time is provided exclusive of any time spent performing procedures. Discharge ED - Sign-Out/Discharge Documenting (check all that apply): Patient Departure - Discharge Plan Condition: Stable Disposition: ADMITTED TO [facility] - Attestation Statements Document Initiated by Scribe: Yes Documenting Scribe: Viry Beverly Provider For Whom Scribe is Documenting (Include Credential): Ruben Alexis MD Scribe Attestation: Viry Espitia, scribed for Ruben Alexis MD on 01/20/20 at [id number]. Status of Scribe Document: Ready
[2020-01-20 17:59] LABS: Albumin 4.3 g/dL (3.2-5.2); Albumin/Globulin Ratio 1.5 (1-3); BUN/Creatinine Ratio 12.8 (8-20); Calcium 8.9 mg/dL (8.6-10.3); EGFR African American 79.2 (>60); EGFR Non-African American 65.4 (>60); Globulin 2.8 g/dL (2-4); Potassium 3.9 mmol/L (3.5-5.0); Total Bilirubin 0.4 mg/dL (0.2-1.0); Total Protein 7.1 g/dL (6.4-8.9)
[2020-01-20 18:00] LABS: Troponin I 0.01 ng/mL (<0.03)
[2020-01-20] MEDS ORDERED: Albuterol/Ipratropium NEB.SOL* (2.5/0.5 MG) 3 ML NEB.SOLN INH SCH (18:00)
[2020-01-20] MEDS ORDERED: oxyCODONE/Acetamin 5/325 MG* TAB PO ONE (19:04)
[2020-01-20] MEDS ORDERED: Morphine 4 MG/ML VIAL (1 ml) 4 MG/ML VIAL IV ONE (19:16)
[2020-01-20] MEDS ORDERED: Ondansetron INJ* 2 MG/ML VIAL IV ONE (19:16)
[2020-01-20] MEDS ORDERED: Ondansetron INJ* 2 MG/ML VIAL IV PRN (20:09)
[2020-01-20] MEDS ORDERED: Loperamide CAP* 2 MG PO PRN (20:12)
[2020-01-20] MEDS ORDERED: Albuterol HFA INHALER* 8 gm MDI INH PRN (20:12)
[2020-01-20] MEDS ORDERED: clonazePAM TAB(*) 0.5 MG PO PRN (20:12)
[2020-01-20] MEDS ORDERED: Iohexol 350* (CONTRAST) 500 ML MDV IV ONE (20:15)
[2020-01-20] MEDS ORDERED: NS 0.9% 1000 ML** 1,000 ML IV SCH (20:15)
[2020-01-20] MEDS: Acetaminophen TAB* 325 MG PO PRN (20:47)
[2020-01-20] MEDS ORDERED: Temazepam CAP* 15 MG PO PRN (22:30)
[2020-01-20] MEDS ORDERED: Temazepam CAP* 15 MG PO SCH (22:30)
[2020-01-20] MEDS: Heparin VIAL(*) 5000 UNITS/ML VIAL (FIVE THOUSAND) SUBCUT SCH (22:47)
[2020-01-20] MEDS: traMADol TAB* 50 MG PO PRN (22:51)
--- NOTE | 2020-01-20 23:29 | HP ---
CC: Dr. Armstrong* HISTORY AND PHYSICAL: DATE OF ADMISSION: 01/20/20 PRIMARY CARE PROVIDER: Dr. Armstrong. ATTENDING PHYSICIAN WHILE IN THE HOSPITAL: Dr. Belkis Ortiz* (report being dictated by Maicol Asif NP). CHIEF COMPLAINT: 1. Shortness of breath. 2. Chest pain. HISTORY OF PRESENT ILLNESS: Ms. Gauthier is a 69-year-old female patient who carries a history of COPD, asthma, hypothyroidism, history of PTSD, borderline personality disorder, anxiety, and depression. She has had a history of a PE in the past, chronic pain, IBS, and migraines, who comes into the ED today stating that for the last couple of weeks she has had worsening shortness of breath. She relates it to having to wear a mask at all times. She states she has not had any fever. No worsening cough. No congestion. No nausea. She does have some diarrhea, but this is chronic in nature related to IBS. She states it is no worse. She denied any fevers, did admit to having chills, and states that what really brought her in today and what she was really concerned is, around noon today she had a sudden onset of sharp stabbing chest pain, central, that was worse with taking a deep breath and her chest was tender. She again denied having any cough. She spoke to her friend. Her friend was concerned and convinced her to come into the ER. The patient states that she is not having any abdominal discomfort, but she was concerned because of the chest discomfort and came into the ER for evaluation. She states that she is not having any exertional pain. She denies having any orthopnea. She states that the shortness of breath usually happens with exertion. She is concerned that it could be allergies. She denies any recent sick contacts. She has been staying home. PAST MEDICAL HISTORY: Significant for: 1. COPD. 2. Asthma. 3. Hypothyroidism. 4. Borderline personality disorder. 5. PTSD. 6. History of suicidal attempt in the past. 7. Anxiety. 8. Depression. 9. Migraines. 10. IBS. 11. Chronic pain. 12. History of PE. PAST SURGICAL HISTORY: She has had a: 1. Heart catheterization. 2. Bladder surgery. 3. Total abdominal hysterectomy with bilateral salpingo-oophorectomy. MEDICATIONS: Include: 1. Synthroid 25 mcg p.o. daily. 2. Tylenol Extra Strength 1 to 2 tablets every 6 hours as needed. 3. Claritin-D 1 tablet p.o. b.i.d. as needed. 4. Imodium 2 mg p.o. daily as needed. 5. Atrovent 2 puffs inhaled 4 times a day as needed. 6. Albuterol 2 puffs inhaled 4 times a day as needed. 7. Tramadol 100 mg p.o. t.i.d. as needed. 8. Restoril 15 mg p.o. at bedtime. 9. Soma 350 mg p.o. daily. 10. Butalbital/acetaminophen/caffeine 2 tablets p.o. daily as needed. 11. Zofran 8 mg every 8 hours as needed. 12. Naproxen 500 mg p.o. twice a day with meals as needed. 13. Emgality 120 mg subcu monthly, but she states she has not taken this since October. 14. Premarin vaginal cream 1 application vaginally 3 times a week. ALLERGIES: To medications include DIPHENHYDRAMINE, LASIX, PENICILLIN, ASPIRIN, CIPRO, CLINDAMYCIN, DEPAKOTE, CYMBALTA, ERYTHROMYCIN, PREDNISONE, COMPAZINE, SEROQUEL, CARAFATE, SULFA, IMITREX, TRAZODONE, ABILIFY, NSAID'S, and OMEPRAZOLE. FAMILY HISTORY: Her mother and father both had MIs. SOCIAL HISTORY: She is a nonsmoker. She does not drink. She lives alone. She does not wish to appoint a surrogate decision maker at this point. REVIEW OF SYSTEMS: There is no documented fever. She denied having any significant weight change. There is no ear discharge. She did admit to having rhinorrhea, but chronic in nature. No dysuria, no frequency. No seizure. There was no loss of consciousness. No pruritus and no skin ulcerations. Review of 14 systems completed, all others are negative. PHYSICAL EXAMINATION GENERAL: At this time, Ms. Gauthier is a 69-year-old female patient. She is sitting in the ED stretcher. She does not appear to be in any acute distress. VITAL SIGNS: Initially, blood pressure 166/111 with a pulse of 71, respirations 20, O2 sat 97%, temperature 98.3. Her blood pressure now was 130/ 80. HEENT: Head: Atraumatic and normocephalic. Eyes: EOMs are intact. Sclerae anicteric and not pale. Throat: Oral mucosa appears to be moist. No oropharyngeal erythema. NECK: Supple. LUNGS: Clear to auscultation. No wheezes, rales or rhonchi. HEART: Sounds S1, S2, regular rate and rhythm. No murmurs, rubs or gallops. ABDOMEN: Soft, flat, nontender. Bowel sounds are present. EXTREMITIES: Pulses were 2+ throughout. She is moving all 4 extremities with 5 /5 strength. NEUROLOGIC: The patient is awake, alert, and oriented x3. No gross focal deficits. SKIN: Intact. DIAGNOSTIC STUDIES/LAB DATA: WBC 8.0, RBC 4.23, hemoglobin 13.3, hematocrit 39 , platelet count 276. The sodium was 128, potassium 3.9, chloride 95, bicarb 24 , BUN 11, creatinine 0.86, glucose 123, lactate 1.8, calcium 8.9. Total bili 0.4, AST 18, ALT 16, alk phos 87, troponin 0.01, albumin 4.3. She did have a chest x-ray obtained today, which when I reviewed it, I did not appreciate any acute infiltrate. She does have hyperinflated lung das. No effusions noted. She had an EKG obtained today, which does show a normal sinus rhythm with a rate of 80. The read out does report AFib. When I review, it does appear to be artifact mixed with this. She looks like she has a first-degree AV block, rate of 80. No ST elevation or T-wave inversions are noted. When you look at the previous EKGs, again it looks like they look similar. She has had artifactual in the past that was read as aflutter, but it does appear to be it is not consistent, it is not in all the leads. Old medical records were reviewed. ASSESSMENT AND PLAN: Ms. Gauthier is a 69-year-old female patient, coming into the ED today with complaints of chest pain, sudden onset in nature that is reproducible on my exam today. She did have a heart catheterization in 2018 here, which was normal. At this point, she will be admitted under observation status: 1. Chest pain. Going forward, I am going to cycle her troponins. She also does have some shortness of breath. It is new, so I think it is important to get a CTA with her history, also we are ruling her out for COVID. I will cycle her troponins. If her troponins are negative, she potentially could go home for an outpatient stress test, but we will see how she does in her clinical course. I will get an EKG in the morning, cycle her troponins and check an EKG. She will be ruled out for COVID as well, although my suspicion is low. The labs do look stable. 2. Hyponatremia. This is probably secondary to the diarrhea she has been having. We will follow this. She has not had any here in the ED. We will give her normal saline and repeat labs in the morning. 3. History of borderline personality disorder, posttraumatic stress disorder, depression and anxiety. Continue meds as prescribed and supportive care. 4. Migraines. Continue p.r.n. medications. 5. History of chronic obstructive pulmonary disease and asthma. The lung sounded clear today. I am going to just keep her on p.r.n. inhalers. 6. Chronic pain. Continue meds as prescribed. 7. Irritable bowel syndrome. P.r.n. Imodium has been ordered. 8. Hypothyroidism. Continue her Synthroid as prescribed. 9. Code status: Full code. 8. Fluids, electrolytes, and nutrition: She can have a heart-healthy diet. TIME SPENT: Time spent on the admission was 60 minutes, greater than half the time was spent [id number] with the patient obtaining my history of physical; the other half time was spent going over the plan of care with the patient and implementing plan of care. I did discuss the plan of care with my attending, Dr. Ortiz; she is in agreement. MAICOL ASIF, VICKY [id number]/[facility] #: [id number] BREANN
[2020-01-20] MEDS ORDERED: Carisoprodol TAB* 350 MG PO SCH (23:30)
[2020-01-21] MEDS: SPIRIVA Respimat* (tiotropium) 2.5 mcg/inh Inhaler INH SCH ×2 (00:06→07:15)
[2020-01-21] MEDS: Acetaminophen TAB* 325 MG PO PRN (00:07)
[2020-01-21 00:52] LABS: Activated Partial Thrombo Time 32.8 seconds (26.0-38.0); INR 1.08 (0.82-1.09)
[2020-01-21] MEDS: Butalb/Acetamin/Caff TAB* 1 TAB PO PRN ×2 (02:20→09:40)
[2020-01-21] MEDS: Heparin VIAL(*) 5000 UNITS/ML VIAL (FIVE THOUSAND) SUBCUT SCH ×2 (05:35→14:21)
[2020-01-21] MEDS ORDERED: Levothyroxine TAB* 25 MCG TAB PO SCH (06:00)
[2020-01-21 06:13] LABS: ABS Eosinophils 0.1 10^3/ul (0-0.6); ABS Lymphocytes 1.8 10^3/ul (1.0-4.8); ABS Monocytes 0.7 10^3/ul (0-0.8); ABS Neutrophils 3.5 10^3/ul (1.5-7.7); Eosinophil % 1.7 %; Hematocrit 37 % (35-47); Lymphocyte % 29.3 %; Mean Corpuscular HGB Conc 35 g/dL (31-36); Mean Corpuscular Hemoglobin 32 pg (27-31); Mean Corpuscular Volume 92 fL (80-97); Mean Platelet Volume 8.3 fL (7.4-10.4); Platelet Count 238 10^3/uL (150-450); Red Blood Count 4.09 10^6 /uL (3.70-4.87); Red Cell Distribution Width 14 % (10-15); White Blood Count 6.2 10^3/uL (3.5-10.8)
[2020-01-21 06:28] LABS: BUN/Creatinine Ratio 14.1 (8-20); Calcium 8.5 mg/dL (8.6-10.3); EGFR African American 80.2 (>60); EGFR Non-African American 66.3 (>60); HDL Cholesterol 73.6 mg/dL; Potassium 3.9 mmol/L (3.5-5.0)
[2020-01-21] MEDS: traMADol TAB* 50 MG PO PRN ×3 (07:38→18:15)
--- NOTE | 2020-01-21 08:35 | PN ---
Subjective Date of Service: 01/21/20 Interval History: patient reports she is "feeling great" and would like to go home. No further episodes of CP or sob. She thinks this was related to her asthma and seasonal allergies. She reports increased wheezing, post nasal drip. She reports she thinks the chest pressure was secondary to anxiety. She denies any radiation, diaphoresis. Objective Active Medications: Acetaminophen (Tylenol Tab*) 650 mg PO Q4H PRN PRN Reason: PAIN - MILD Last Admin: 01/21/20 00:07 Dose: 650 mg Acetaminophen/Butalbital/Caffeine (Fioricet Tab*) 2 tab PO DAILY PRN PRN Reason: HEADACHE Last Admin: 01/21/20 02:20 Dose: 2 tab Albuterol (Ventolin Hfa Inhaler*) 2 puff INH QID PRN PRN Reason: SOB/WHEEZING Carisoprodol (Soma Tab*) 350 mg PO BEDTIME [facility] Last Admin: 01/21/20 00:05 Dose: 350 mg Clonazepam (Klonopin Tab(*)) 0.5 mg PO DAILY PRN PRN Reason: ANXIETY Heparin Sodium (Porcine) (Heparin Vial(*)) 5,000 units SUBCUT Q8HR [facility] Last Admin: 01/21/20 05:35 Dose: 5,000 units Levothyroxine Sodium (Synthroid Tab*) 25 mcg PO DAILY@0600 [facility] Last Admin: 01/21/20 05:35 Dose: 25 mcg Loperamide HCl (Imodium Cap*) 2 mg PO DAILY PRN PRN Reason: DIARRHEA Ondansetron HCl (Zofran Inj*) 4 mg IV Q6H PRN PRN Reason: NAUSEA Temazepam (Restoril Cap*) 15 mg PO BEDTIME PRN PRN Reason: INSOMNIA Last Admin: 01/20/20 22:47 Dose: 15 mg Tiotropium [place] (Spiriva Respimat 2.5 Mcg) 2 puff INH DAILY [facility] Last Admin: 01/21/20 07:15 Dose: Not Given Tramadol HCl (Ultram*) 100 mg PO TID PRN PRN Reason: PAIN - MODERATE Last Admin: 01/21/20 07:38 Dose: 100 mg Vital Signs - 8 hr 01/21/20 01/21/20 01/21/20 01:28 02:20 02:22 Temperature 97.1 F Pulse Rate 66 Respiratory 18 18 18 Rate Blood Pressure 109/62 (mmHg) O2 Sat by Pulse 98 Oximetry 01/21/20 01/21/20 01/21/20 02:23 05:18 07:15 Temperature 98 F Pulse Rate 68 Respiratory 20 16 16 Rate Blood Pressure 119/53 (mmHg) O2 Sat by Pulse 98 Oximetry 01/21/20 07:38 Temperature Pulse Rate Respiratory 16 Rate Blood Pressure (mmHg) O2 Sat by Pulse Oximetry Oxygen Devices in Use Now: None Appearance: A+O x3 69 yo well developed female in NAD Eyes: PERRLA Ears/Nose/Mouth/Throat: NL Teeth, Lips, Gums, Mucous Membranes Moist Respiratory: Symmetrical Chest Expansion and Respiratory Effort, Clear to Auscultation Cardiovascular: NL Sounds; No Murmurs; No JVD, RRR, No Edema Extremities: No Edema, No Clubbing, Cyanosis Skin: No Rash or Ulcers, No Nodules or Sclerosis Neurological: Alert and Oriented x 3, NL Sensation, NL Gait, NL Muscle Strength and Tone Lines/Tubes/Other Access: Clean, Dry and Intact Peripheral IV Nutrition: Taking PO's Result Diagrams: 01/21/20 05:33 01/21/20 05:33 Assess/Plan/Problems-Billing Assessment: 69 yo female patient with a PMH of COPD, hypothyroidism, PTSD, depression with hx of suicidal attempt, anxiety, borderline personality disorder , hx of PE, IBS, and chronic pain who presents with worsening SOB over the past few weeks and acute onset of stabbing chest pain. Denies fever, or URI symptoms. COVID PUI - Patient Problems (1) Chest pain Comment: - Unclear etiology. no further episodes - Troponins x3 negative - No noted EKG changes - CTA negative for PE - heart Score 3. Plan for outpatient cardiac stress test (2) Shortness of breath Comment: - resolved. Possible asthma, allergy symptoms - Covid rule out; low suspicion - CTA negative for PE, and PNA (3) COPD (chronic obstructive pulmonary disease) Comment: - appears stable, not in excerbation - continue home inhalers albuterol PRN and Spiriva (4) Hyponatremia Comment: - improved with IVF (5) Depression Comment: - with anxiety, PTSD, Personality disorder - continue Home medications - klonopin - Patient is both on SOMA daily and restoril prn (6) Hypothyroidism Comment: - hashimotos Hypothyroidsm - positive antibodies - continue home dose synthroid - she just retstarted this a few weeks ago. - TSH 8 - thyroid panel should be repeated in 8-12 weeks. - Check celiac panel - pending at time of discharge - PCP or GI to follow up - recommended strict gluten free diet (7) Chronic pain Comment: - continue home medications tramadol. (8) Full code status (9) DVT prophylaxis Comment: SQ heparin Status and Disposition: OBV. patient is stable for DC to home. Follow up with PCP and recommend outpatient cardiac stress test
[2020-01-21 09:31] LABS: TSH (Thyroid Stimulating Horm) 8.3 mcIU/mL (0.34-5.60)
[2020-01-21 09:33] LABS: Free T4 0.67 ng/dL (0.61-1.12)
[2020-01-21 09:49] LABS: Thyroglobulin Antibody II 3.1 IU/mL (<4.0)
[2020-01-21 10:38] LABS: Thyroid Peroxidase Antibodies 3055.13 IU/mL (<9)
[2020-01-21 13:34] VITALS: BP 113/73
--- NOTE | 2020-01-21 20:48 | DS ---
Amended report to enter cosigning physician. CC: Dr. Armstrong* DISCHARGE SUMMARY: DATE OF ADMISSION: 01/20/20 DATE OF DISCHARGE: 01/21/20 HOSPITAL STATUS: Observation. PROVIDER: Rafa Mike NP ATTENDING PHYSICIAN: Dr. Joel* (report dictated by Rafa Mike NP). PRIMARY CARE PROVIDER: Dr. Armstrong. PAI GOW DEALER: Dr. Galeana. DISCHARGE DIAGNOSES: 1. Shortness of breath, suspect asthma/seasonal allergies. 2. Chest pain, unknown etiology. 3. Isolated hypothyroidism. 4. Irritable bowel syndrome of diarrhea. 5. Hyponatremia secondary to dehydration, thought to be secondary to diarrhea. 6. COVID rule out. SECONDARY DIAGNOSES: 1. History of pulmonary embolism. 2. Chronic pain. 3. Migraines. 4. Depression/anxiety. 5. History of suicidal attempt in the past. 6. Posttraumatic stress disorder. 7. Borderline personality disorder. 8. Asthma. 9. Chronic obstructive pulmonary disease. HISTORY OF PRESENT ILLNESS AND HOSPITAL COURSE: Please see history and physical by Maicol Asif NP for full admission details, but in summary, this is a 69-year-old female, who has a past medical history as stated above, who presented to the emergency department on 01/20/20 with complaint of stating the last couple of weeks she has had worsening shortness of breath relating it having to wear a mask at all times and developed sudden onset of sharp stabbing chest pain, worse when taking a deep breath, and reported that her chest was tender to touch. She reports this lasted for an hour or 2 and then resolved; however, she spoke to her friend and came to the ER for further evaluation. She was admitted to the hospitalist service for chest pain to rule out [place] and was also tested for COVID-19. The patient was admitted and monitored on telemetry. Her troponins were trended, which were 0.01, 0.01, and 0.02. She has no EKG changes and noted to be in a normal sinus rhythm. She has not had a return of these symptoms since admission. Her HEART score is 3 which calculated the patient can have an outpatient stress test. In regard to the patient's worsening shortness of breath, she reports history of asthma/COPD. Does not appear that she is in COPD exacerbation and I suspect that this could possibly be secondary to seasonal allergies in which she reports she has had more runny nose along with some wheezing. It is possible she is having a sensitivity to the mask as well. This was all discussed with the patient. She was taking Claritin, but I stopped this and was recommended to restart this. She reports that she is good about taking her inhalers at home. Since admission again, she has not had any further symptoms of shortness of breath, wheezing or chest pain. The patient also reports a history of IBS of diarrhea and reports over the last several weeks she has had an increase in diarrhea reporting this is not abnormal for her. She was found to have a sodium of 128, which improved with IV fluids. She was instructed to increase her water intake at home. In regard to the patient's hypothyroidism, antibodies were checked and they were known to be quite high with thyroid peroxidase being 3055 and a TSH of 8. She does report that she just restarted her Synthroid medications a couple of weeks ago and therefore no changes in her medication will be made at this time. She was reported to follow up with her primary care provider regarding retest of thyroid panel in 8 to 12 weeks. It does appear that her TSH has been monitored by her primary care provider and noted to be quite elevated in the last year. 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 I have added on a celiac panel as there is a connection between celiac and Fifi's and the patient has IBS of diarrhea. This panel is currently pending at the time of discharge and we will need to be followed up with her primary care provider as well as the patient has a followup with Dr. Galeana within the next month for her GI symptoms. The patient did undergo a chest/thorax CTA due to her complaint of shortness of breath and her history of pulmonary embolism. CTA found no evidence of acute pulmonary embolism and was negative for any acute processes. The patient is stable for discharge to home. She was tested for COVID-19 due to her complaint of shortness of breath and GI symptoms, but she has denied any fever, cough or chills. She looks well and nontoxic on exam. Low suspicion for COVID. The patient's COVID-19 is pending at the time of dictation and will need to be followed up with her primary care provider as well as the health department will need to follow up with the patient. DISCHARGE PLAN: 1. The patient was instructed to call her primary care provider, Dr. Armstrong's office on Friday for an appointment this week. Again, the patient has a celiac panel and COVID-19 pending at the time of discharge. 2. Outpatient stress test needs to be ordered by primary care provider. The patient's HEART score is 3. 3. Follow up with investigation division captain, Dr. Galeana, at upcoming appointment. 4. I recommended the patient to have a thyroid panel tested in 8 to 12 weeks. 5. The patient is interested in following up with Functional Medicine as an outpatient and she was given this information. 6. The patient was instructed to return to the emergency department with any worsening or concerning symptoms. TIME SPENT: Approximately 60 minutes was spent on this discharge. RAFA MIKE, VICKY [id number]/CPS #: [id number] BREANN
[2020-01-24 20:18] LABS: Tissue Transglutaminase IgA Ab <1.2 U/mL
[2020-01-24 22:18] LABS: Immunoglobulin A 240 mg/dL (61 - 356)
== END 2020-01-21 18:50 | disposition home or self-care (01) ==
LOC: ED 17:10 → MED 20:04
PROVIDERS: ADMIT Hospitalist; ATTEND Internal Medicine
DX: R06.02 Shortness of breath (principal); R07.9 Chest pain, unspecified; E03.9 Hypothyroidism, unspecified; K58.0 Irritable bowel syndrome with diarrhea; E86.0 Dehydration; E87.1 Hypo-osmolality and hyponatremia; Z03.818 Encounter for observation for suspected exposure to other biological agents ruled out; Z86.711 Personal history of pulmonary embolism; G89.29 Other chronic pain; G43.909 Migraine, unspecified, not intractable, without status migrainosus; F32.9 Major depressive disorder, single episode, unspecified; F41.9 Anxiety disorder, unspecified; F43.10 Post-traumatic stress disorder, unspecified; F60.3 Borderline personality disorder; J44.9 Chronic obstructive pulmonary disease, unspecified; I48.91 Unspecified atrial fibrillation; Z79.899 Other long term (current) drug therapy
CPT/HCPCS: 36415; 71045; 71275; 80048; 80053; 80061; 82784; 83036; 83605; 84439; 84443; 84479; 84484; 85025; 85610; 85730; 86376; 86800; 87635; 93005; 96361; 96372; 96374; 96375; 96376; 99285; A9270-GY; G0378; J1644; J2270; J2405; J3535; Q9967; U0003

== ENCOUNTER 2020-03-23 15:18 | Observation (INO) ==
[2020-03-23] MEDS ORDERED: Lidocaine PATCH 5% PATCH TRANSDERM ONE (16:41)
[2020-03-23 17:25] LABS: ABS Eosinophils 0.1 10^3/ul (0-0.6); ABS Lymphocytes 1.2 10^3/ul (1.0-4.8); ABS Monocytes 0.5 10^3/ul (0-0.8); Eosinophil % 0.8 %; Hematocrit 41 % (35-47); Hemoglobin 14.1 g/dL (12.0-16.0); Lymphocyte % 16.9 %; Mean Corpuscular HGB Conc 34 g/dL (31-36); Mean Corpuscular Hemoglobin 31 pg (27-31); Mean Corpuscular Volume 91 fL (80-97); Mean Platelet Volume 7.6 fL (7.4-10.4); Nucleated Red Blood Cells % 0.1; Platelet Count 294 10^3/uL (150-450); Red Cell Distribution Width 14 % (10-15); White Blood Count 7.1 10^3/uL (3.5-10.8)
[2020-03-23 17:40] LABS: Albumin 4.6 g/dL (3.2-5.2); Albumin/Globulin Ratio 1.5 (1-3); BUN/Creatinine Ratio 14.9 (8-20); Calcium 9.6 mg/dL (8.6-10.3); EGFR African American 77.9 (>60); EGFR Non-African American 64.4 (>60); Potassium 3.6 mmol/L (3.5-5.0); Total Bilirubin 0.4 mg/dL (0.2-1.0); Total Protein 7.6 g/dL (6.4-8.9)
[2020-03-23 17:41] LABS: Troponin I 0.01 ng/mL (<0.03)
[2020-03-23] MEDS ORDERED: Ondansetron ODT 4 mg TAB 4 MG TAB SL ONE (18:46)
[2020-03-23] MEDS ORDERED: A lbuterol Hfa (PREPAK) 1 MDI - ED TAKE HOME DISPENSING ONLY INHH PRN (19:41)
[2020-03-23] MEDS: HYDROcodone/ACETAMIN 5/325 mg TAB PO PRN (20:38)
[2020-03-23] MEDS: Heparin 5000 UNITS/ML VIAL(*) 1 ml vial SUBCUT SCH (21:47)
[2020-03-23] MEDS: clonazePAM 0.5 mg TAB (*) PO PRN (21:47)
[2020-03-24] MEDS: HYDROcodone/ACETAMIN 5/325 mg TAB PO PRN ×2 (04:05→09:51)
[2020-03-24] MEDS: Heparin 5000 UNITS/ML VIAL(*) 1 ml vial SUBCUT SCH ×2 (05:22→13:45)
[2020-03-24 05:47] LABS: Calcium 9.4 mg/dL (8.6-10.3); Potassium 3.6 mmol/L (3.5-5.0)
[2020-03-24 05:53] LABS: BUN/Creatinine Ratio 10.1 (8-20); EGFR African American 75.9 (>60); EGFR Non-African American 62.7 (>60); HDL Cholesterol 80.6 mg/dL
[2020-03-24] MEDS ORDERED: Lidocaine Patch REMOVE PATCH PATCH OFF ONE (06:00)
[2020-03-24] MEDS: clonazePAM 0.5 mg TAB (*) PO PRN (06:28)
[2020-03-24] MEDS: Ondansetron 4 mg VIAL 2 MG/ML 2 ml VIAL IV PRN ×2 (06:37→12:22)
[2020-03-24] MEDS ORDERED: Aminophylline 25 MG/ML VIAL ONE (08:11)
[2020-03-24] MEDS ORDERED: Regadenoson 0.4 MG/5 ML SYRINGE ONE (08:11)
[2020-03-24] MEDS ORDERED: Butalb/Acetamin/Caff TAB 325-50-40MG PO ONE ×2 (12:54→16:00)
[2020-03-24 16:23] VITALS: BP 138/73
== END 2020-03-24 18:00 | disposition home or self-care (01) ==
LOC: MEDTELE 15:18 → ED 15:18 → MEDTELE 20:48
PROVIDERS: ADMIT Nurse Practitioner; ATTEND Internal Medicine

== ENCOUNTER 2021-12-14 05:38 | Inpatient (IN) ==
[2021-12-14 09:21] LABS: ABS Eosinophils 0.2 10^3/ul (0-0.6); ABS Lymphocytes 1.6 10^3/ul (1.0-4.8); ABS Monocytes 0.5 10^3/ul (0-0.8); Hematocrit 41 % (35-47); Hemoglobin 13.7 g/dL (12.0-16.0); Lymphocyte % 30.3 %; Mean Corpuscular HGB Conc 33 g/dL (31-36); Mean Corpuscular Hemoglobin 30 pg (27-31); Mean Corpuscular Volume 90 fL (80-97); Mean Platelet Volume 8.4 fL (7.4-10.4); Platelet Count 250 10^3/uL (150-450); Red Blood Count 4.57 10^6 /uL (3.70-4.87); Red Cell Distribution Width 14 % (10-15); White Blood Count 5.3 10^3/uL (3.5-10.8)
[2021-12-14 09:35] LABS: Urine Appearance Cloudy; Urine Bilirubin Negative (Negative); Urine Blood Negative (Negative); Urine Color Straw; Urine Glucose Negative (Negative); Urine Ketones Negative (Negative); Urine Nitrite Negative (Negative); Urine Protein Negative (Negative); Urine Specific Gravity 1.006 (1.002-1.030); Urine Urobilinogen Negative (Negative)
[2021-12-14 09:37] LABS: ALT 12 U/L (7-52); AST 16 U/L (13-39); Acetaminophen < 15 mcg/mL; Albumin 4.6 g/dL (3.2-5.2); Albumin/Globulin Ratio 1.7 (1-3); Alcohol, S < 13 mg/dL (<13); Alkaline Phosphatase 80 U/L (35-149); Anion Gap 7 mmol/L (2-11); Blood Urea Nitrogen 18 mg/dL (6-24); CO2 Carbon Dioxide 29 mmol/L (22-32); Calcium 9.6 mg/dL (8.6-10.3); Chloride 105 mmol/L (101-111); Globulin 2.7 g/dL (2-4); Glucose 89 mg/dL (70-100); Potassium 4.4 mmol/L (3.5-5.0); Salicylate < 2.50 mg/dL (<30); Sodium 141 mmol/L (135-145); Total Protein 7.3 g/dL (6.4-8.9); eGFR CKD-EPI 70.2 (>60)
[2021-12-14 09:44] LABS: Urine Benzodiazepine Screen Presumptive Positive (None Detect); Urine Cannabinoids Screen None Detected (None Detect); Urine Opiates Screen None Detected (None Detect)
[2021-12-14 09:51] LABS: TSH Ultra Thyroid Stim Horm 1.06 mcIU/mL (0.34-5.60)
[2021-12-14] MEDS ORDERED: Lactated Ringers 1000 ml BAG 1,000 ML IV ONE (09:55)
[2021-12-14] MEDS ORDERED: Ondansetron 4 mg VIAL 2 MG/ML 2 ml VIAL IV ONE (09:55)
[2021-12-14] MEDS ORDERED: Albuterol HFA INHALER 8 gm MDI INH PRN (13:30)
[2021-12-14] MEDS ORDERED: IPRATROPIUM INH PRN (13:30)
[2021-12-14] MEDS ORDERED: Al Hydrox/Mg Hydrox/Simet LIQ 30 ML UDC PO PRN (13:30)
[2021-12-14] MEDS ORDERED: NFT: Estradiol VAG CM (NF) 1 APPLIC TUBE VAGINAL SCH (14:00)
[2021-12-14] MEDS: Butalb/Acetamin/Caff TAB 325-50-40MG PO PRN (16:34)
[2021-12-15] MEDS: Butalb/Acetamin/Caff TAB 325-50-40MG PO PRN ×3 (02:44→18:40)
[2021-12-15] MEDS: Ondansetron ODT 4 mg TAB 4 MG TAB PO PRN ×3 (03:17→18:42)
[2021-12-15] MEDS: Cholecalciferol (VIT D3) 1,000 unit TAB PO SCH (08:21)
[2021-12-15] MEDS: Olodaterol Inhaler MDI INH SCH (08:21)
[2021-12-15] MEDS: CMCS: Meloxicam 7.5 mg TAB (NF) PO SCH (08:23)
[2021-12-15 08:29] LABS: HDL Cholesterol 49.8 mg/dL
[2021-12-16] MEDS: Butalb/Acetamin/Caff TAB 325-50-40MG PO PRN ×3 (05:22→20:32)
[2021-12-16] MEDS: Ondansetron ODT 4 mg TAB 4 MG TAB PO PRN ×2 (05:24→13:52)
[2021-12-16] MEDS: CMCS: Meloxicam 7.5 mg TAB (NF) PO SCH (08:02)
[2021-12-16] MEDS: Cholecalciferol (VIT D3) 1,000 unit TAB PO SCH (08:02)
[2021-12-16] MEDS: Olodaterol Inhaler MDI INH SCH (08:03)
[2021-12-17] MEDS: Ondansetron ODT 4 mg TAB 4 MG TAB PO PRN (05:07)
[2021-12-17] MEDS: Butalb/Acetamin/Caff TAB 325-50-40MG PO PRN (05:41)
[2021-12-17 07:50] VITALS: BP 107/66
[2021-12-17] MEDS: Cholecalciferol (VIT D3) 1,000 unit TAB PO SCH (07:59)
[2021-12-17] MEDS: CMCS: Meloxicam 7.5 mg TAB (NF) PO SCH (08:00)
[2021-12-17] MEDS: Olodaterol Inhaler MDI INH SCH (08:05)
== END 2021-12-17 11:41 | disposition home or self-care (01) | DRG 885 ==
LOC: ED 05:38 → EDHOLD 13:48 → BSU 15:42
PROVIDERS: ADMIT Psychiatry & Neurology Psychiatry; ATTEND Psychiatry & Neurology Psychiatry

== ENCOUNTER 2024-07-06 03:30 | Observation (INO) ==
[2024-07-06 04:26] LABS: ABS Basophils 0.1 10^3/uL (0.0-0.1); ABS Eosinophils 0.2 10^3/uL (0.0-0.5); ABS Lymphocytes 1.4 10^3/uL (1.0-4.8); ABS Monocytes 0.6 10^3/uL (0.0-0.9); ABS Neutrophils 5.3 10^3/uL (1.5-7.6); Eosinophil % 2.4 %; Hematocrit 33.4 % (35-45); Hemoglobin 11.2 g/dL (11.5-14.3); Lymphocyte % 18.8 %; Mean Corpuscular Hemoglobin 29.9 pg (27-33); Mean Corpuscular Hgb Conc 33.6 g/dL (31-36); Mean Platelet Volume 8.2 fL (7.5-11.2); Platelet Count 261 10^3/uL (150-450); Red Blood Count 3.75 10^6/uL (3.63-4.92); Red Cell Distribution Width 13.5 % (12-17); White Blood Count 7.6 10^3/uL (3.8-11.8)
[2024-07-06 04:37] LABS: INR 1.07 (0.85-1.14)
[2024-07-06 05:07] LABS: Albumin 3.9 g/dL (3.2-5.2); Albumin/Globulin Ratio 1.5 (1-3); Calcium 9.2 mg/dL (8.6-10.3); Creatinine, Serum 0.84 mg/dL (0.51-0.95); Globulin 2.6 g/dL (2-4); Potassium 3.7 mmol/L (3.5-5.0); Total Bilirubin 0.6 mg/dL (0.2-1.0); Total Protein 6.5 g/dL (6.4-8.9); eGFR CKD-EPI 72.9 (>60)
[2024-07-06] MEDS: Ondansetron ODT 4 mg TAB 4 MG TAB SL STA (05:22)
[2024-07-06] MEDS: Albuterol/Ipratropium NEB.SOL (2.5/0.5 MG) 3 ML NEB.SOLN INH ONE (05:25)
[2024-07-06 06:15] LABS: High Sensitivity Troponin 1 Hr 31 pg/mL (<15)
[2024-07-06 06:58] LABS: HDL Cholesterol 62.5 mg/dL; Magnesium 1.9 mg/dL (1.9-2.7)
[2024-07-06 07:14] LABS: TSH Ultra Thyroid Stim Horm 1.07 mcIU/mL (0.34-5.60)
[2024-07-06] MEDS: SPIRIVA Respimat (tiotropium) 2.5 mcg/inh Inhaler INH SCH (07:38)
[2024-07-06] MEDS: Albuterol/Ipratropium NEB.SOL (2.5/0.5 MG) 3 ML NEB.SOLN INH SCH (08:23)
[2024-07-06 08:29] LABS: Ferritin 47.9 ng/mL (11-307)
[2024-07-06] MEDS: Metoprolol Tartrate 5 mg VIAL 5 ml VIAL (1 mg/ml) IV ONE (17:19)
[2024-07-06 22:45] LABS: High Sensitivity Troponin 1 Hr 10 pg/mL (<15)
[2024-07-06] MEDS: Ondansetron ODT 4 mg TAB 4 MG TAB PO PRN (22:51)
[2024-07-07] MEDS: Calcium Carb (TUMS) 500 mg CHEW TAB PO ONE (04:08)
[2024-07-07 05:37] LABS: ABS Eosinophils 0.2 10^3/uL (0.0-0.5); ABS Lymphocytes 1.8 10^3/uL (1.0-4.8); ABS Monocytes 0.6 10^3/uL (0.0-0.9); ABS Neutrophils 3.1 10^3/uL (1.5-7.6); Eosinophil % 3.8 %; Hemoglobin 11.1 g/dL (11.5-14.3); Lymphocyte % 31.2 %; Mean Corpuscular Hemoglobin 29.9 pg (27-33); Mean Corpuscular Hgb Conc 33.5 g/dL (31-36); Mean Corpuscular Volume 89.2 fL (80-97); Mean Platelet Volume 8.5 fL (7.5-11.2); Platelet Count 255 10^3/uL (150-450); Red Cell Distribution Width 13.8 % (12-17); White Blood Count 5.8 10^3/uL (3.8-11.8)
[2024-07-07 09:55] VITALS: BP 144/112
== END 2024-07-07 13:30 | disposition home or self-care (01) ==
LOC: EDHOLD 03:30 → ED 03:30 → SUATTDRO 06:03 → EDHOLD 13:19 → MEDTELE 18:24
PROVIDERS: ADMIT Student in an Organized Health Care Education/Training Program; ATTEND Internal Medicine

== ENCOUNTER 2024-10-13 07:38 | Observation (INO) ==
[2024-10-13 08:24] LABS: ABS Basophils 0.1 10^3/uL (0.0-0.1); ABS Eosinophils 0.1 10^3/uL (0.0-0.5); ABS Lymphocytes 1.2 10^3/uL (1.0-4.8); ABS Monocytes 0.5 10^3/uL (0.0-0.9); ABS Neutrophils 5.9 10^3/uL (1.5-7.6); Eosinophil % 1.8 %; Hematocrit 35.7 % (35-45); Hemoglobin 11.9 g/dL (11.5-14.3); Lymphocyte % 15.5 %; Mean Corpuscular Hemoglobin 29.1 pg (27-33); Mean Corpuscular Hgb Conc 33.2 g/dL (31-36); Mean Corpuscular Volume 87.5 fL (80-97); Mean Platelet Volume 7.7 fL (7.5-11.2); Platelet Count 389 10^3/uL (150-450); Red Blood Count 4.08 10^6/uL (3.63-4.92); Red Cell Distribution Width 17.7 % (12-17); White Blood Count 7.9 10^3/uL (3.8-11.8)
[2024-10-13 08:29] LABS: INR 1.11 (0.85-1.14)
[2024-10-13 08:50] LABS: High Sens Troponin Baseline 4 pg/mL (<15)
[2024-10-13 08:55] LABS: Anion Gap 9 mmol/L (2-16); Blood Urea Nitrogen 11 mg/dL (6-24); CO2 Carbon Dioxide 27 mmol/L (22-32); Calcium 9.2 mg/dL (8.6-10.3); Chloride 106 mmol/L (101-111); Creatinine, Serum 0.76 mg/dL (0.51-0.95); Glucose 108 mg/dL (70-100); Potassium 3.8 mmol/L (3.5-5.0); Sodium 142 mmol/L (135-145); eGFR CKD-EPI 82.2 (>60)
[2024-10-13 09:29] LABS: AST 15 U/L (13-39); Albumin/Globulin Ratio 1.5 (1-3); Alkaline Phosphatase 169 U/L (35-149); Globulin 2.6 g/dL (2-4); Total Bilirubin 0.7 mg/dL (0.2-1.0); Total Protein 6.6 g/dL (6.4-8.9)
[2024-10-13 09:41] LABS: ALT 7 U/L (7-52)
[2024-10-13 10:00] LABS: High Sensitivity Troponin 1 Hr 4 pg/mL (<15)
[2024-10-13] MEDS: Ondansetron 4 mg VIAL 2 MG/ML 2 ml VIAL IV ONE ×2 (10:42→12:52)
[2024-10-13] MEDS: Iohexol 350 (CONTRAST) 500 ML MDV IV ONE (11:30)
[2024-10-13 12:34] LABS: Urine Appearance Clear; Urine Bacteria 1+ /HPF (Absent); Urine Bilirubin Negative (Negative); Urine Blood Negative (Negative); Urine Color Yellow; Urine Glucose Negative (Negative); Urine Ketones Negative (Negative); Urine Nitrite Negative (Negative); Urine Protein Trace (Negative); Urine Red Blood Cell 1+(3-5/hpf) /HPF (0-Trace); Urine Specific Gravity >1.050 (1.002-1.030); Urine Squamous Epithelial Cell Present /HPF (Absent); Urine Urobilinogen Negative (Negative); Urine White Blood Cell Trace(0-5/hpf) /HPF (0-Trace)
[2024-10-13] MEDS: Morphine 4 MG/ML VIAL (1 ml) IV ONE (12:52)
[2024-10-13] MEDS ORDERED: Albuterol HFA INHALER 8 gm MDI INH PRN (15:26)
[2024-10-13] MEDS ORDERED: Naloxone 0.4 mg VIAL 0.4 mg/ml 1 ml VIAL IV PUSH PRN (17:08)
[2024-10-13] MEDS ORDERED: Polyethylene Glycol 3350 17 GM PACKET PO PRN (17:09)
[2024-10-13] MEDS ORDERED: Senna TAB 8.6 mg TAB PO PRN (17:09)
[2024-10-13 17:14] LABS: Alcohol, S < 13 mg/dL (<13)
[2024-10-13] MEDS: Morphine 2 MG/ML SYRINGE IV ONE (21:22)
[2024-10-13] MEDS: Ondansetron 4 mg VIAL 2 MG/ML 2 ml VIAL IV PRN (21:22)
[2024-10-14 06:35] LABS: ABS Basophils 0.1 10^3/uL (0.0-0.1); ABS Eosinophils 0.3 10^3/uL (0.0-0.5); ABS Lymphocytes 1.6 10^3/uL (1.0-4.8); ABS Monocytes 0.6 10^3/uL (0.0-0.9); ABS Neutrophils 3.9 10^3/uL (1.5-7.6); Eosinophil % 3.9 %; Hematocrit 31.1 % (35-45); Hemoglobin 10.5 g/dL (11.5-14.3); Lymphocyte % 25.4 %; Mean Corpuscular Hemoglobin 29.4 pg (27-33); Mean Corpuscular Hgb Conc 33.7 g/dL (31-36); Mean Corpuscular Volume 87.3 fL (80-97); Mean Platelet Volume 7.9 fL (7.5-11.2); Platelet Count 329 10^3/uL (150-450); Red Blood Count 3.56 10^6/uL (3.63-4.92); White Blood Count 6.5 10^3/uL (3.8-11.8)
[2024-10-14 06:50] LABS: Creatinine, Serum 0.75 mg/dL (0.51-0.95); Potassium 3.6 mmol/L (3.5-5.0)
[2024-10-14 06:51] LABS: Calcium 8.4 mg/dL (8.6-10.3); eGFR CKD-EPI 83.5 (>60)
[2024-10-14] MEDS: SPIRIVA Respimat (tiotropium) 2.5 mcg/inh Inhaler INH SCH (09:10)
[2024-10-14] MEDS: Midazolam 2 mg/2 ml VIAL 1 mg/ml 2 ml VIAL (2 mg) ONE (11:04)
[2024-10-14] MEDS: fentaNYL 100 mcg/2 ml 50 MCG/ML VIAL ONE (11:04)
[2024-10-14] MEDS: fentaNYL 250 mcg/5 ml 50 MCG/ML 5 ml VIAL (250 MCG) ONE (11:04)
[2024-10-14] MEDS: Heparin 2 UNITS/ML 1000 mls 1,000 ML IV ONE (11:04)
[2024-10-14 13:59] VITALS: BP 116/76
== END 2024-10-14 16:50 | disposition home or self-care (01) ==
LOC: ED 07:38 → EDHOLD 07:38 → MED 10-14 08:49
PROVIDERS: ADMIT Internal Medicine; ATTEND Internal Medicine